=== PATIENT | female | born 1945 | race Caucasian/White ===

== ENCOUNTER 2019-05-31 13:12 | Emergency (ER) | payer OTHER, SELFPAY ==
--- NOTE | ~2019-05-31 | XR_ITS ---
EXAMINATION: XR lumbar spine 2-3V, XR hip BI 2V w AP pelvis DATE: 05/31/2019 16:13 (accession [id number]), 05/31/2019 16:14 (accession [id number]) INDICATION: Low back and bilateral hip pain TECHNIQUE: 1. Anteroposterior, lateral and cone-down lateral view of the lumbosacral junction were obtained. 2. Anteroposterior view of the pelvis and anteroposterior, frog leg lateral and crosstable lateral vi ews of the left hip and of the right hip were obtained. COMPARISON: None. FINDINGS: Lumbar spine: 13 degree dextroscoliosis between L3 and L5. 4 mm retrolisthesis L4 on L5 and 3 mm retrolisthesis L5 on S1. Vertebral body heights are normal. Severe left-sided disc height loss at L4-L5 and severe righ t-sided disc height loss at L5-S1. Mild disc height loss at L3-L4. Severe facet osteoarthritis on the right at L5-S1. There is calcified atherosclerosis of the aorta and many of the other arteries. Sten ting of the left and right common iliac arteries which on the left appears to extend into the proxima l external iliac artery. Pelvis and bilateral hips: Normal alignment at both hips. Mild bilateral hip and sacroiliac osteoarthritis. No fracture. Stentin g along the right femoral artery. IMPRESSION: 1. Severe lower lumbar spondylosis with mild dextroscoliosis. 2. Mild bilateral hip and sacroiliac osteoarthritis. Reviewed, dictated and finalized at location A. IL FURNITURE SALES IMPRESSION: 1. Severe lower lumbar spondylosis with mild dextroscoliosis. 2. Mild bilateral hip and sacroiliac osteoarthritis.
[2019-05-31 13:16] VITALS: BP 97/47; PULSE 60; RESP 18; TEMP 36.3; O2SAT 100
[2019-05-31 14:38] VITALS: BP 125/54; PULSE 57; RESP 18; TEMP 37; O2SAT 95
--- NOTE | 2019-05-31 15:41 | ED.LOWEXIN ---
HPI - Extremity Injury (Lower) General Chief Complaint: Extremity Injury, Lower Stated Complaint: fall, hip , leg pain Time Seen by Provider: 05/31/19 14:35 Source: patient and RN notes reviewed Mode of arrival: ambulatory Limitations: no limitations History of Present Illness HPI Narrative: A 73 y/o female presents to the ED with NICCI hip pain for the past week. She states that she fell off of her cough 1 week ago and has been having worsening NICCI hip pain since. She reports that the pain radiates down her legs and is more severe on the rt side. She notes that that pain is aggravated with movement and that she is on Plavix and Aspirin. She denies any fevers, chills, N/V/D, constipation, ABD pain, MARCOS, neck pain, or LOC. MD complaint: hip injury (NICCI) Onset (ago): week(s) (1) Injury: Bilateral: hip (worse on rt side) Type of Injury: other (fall) Place: home Exacerbating factors: movement Context: fall Associated symptoms: other (BLE pain radiated from hip pain) Other symptoms: none Related Data Home Medications Medication Instructions Recorded Confirmed Adults Multivitamin 05/31/19 Tylenol PM Extra Strength 05/31/19 albuterol sulfate 1 inh INHALATION QID 05/31/19 05/31/19 amlodipine 05/31/19 aspirin 05/31/19 atorvastatin 40 mg PO DAILY 05/31/19 05/31/19 calcium carbonate-vitamin D3 cap PO 05/31/19 carvedilol 25 mg PO BID 05/31/19 05/31/19 clopidogrel 75 mg PO DAILY 05/31/19 05/31/19 doxazosin 8 mg PO DAILY 05/31/19 05/31/19 ergocalciferol (vitamin D2) unit 05/31/19 [Vitamin D2] escitalopram oxalate mg 05/31/19 fenofibrate nanocrystallized mg PO 05/31/19 furosemide 40 mg PO DAILY 05/31/19 05/31/19 gabapentin 05/31/19 hydralazine 100 mg PO TID 05/31/19 05/31/19 isosorbide mononitrate 30 mg PO DAILY 05/31/19 05/31/19 loratadine 10 mg PO DAILY 05/31/19 05/31/19 losartan 05/31/19 melatonin 10 mg PO HS PRN 05/31/19 05/31/19 methimazole 5 mg PO DAILY 05/31/19 05/31/19 omeprazole magnesium [Acid Interface Control Officer 05/31/19 (omeprazole)] sucralfate g 05/31/19 tramadol mg 05/31/19 Allergies Allergy/AdvReac Type Severity Reaction Status Date / Time SAUL Inhibitors Allergy Unknown Verified 04/13/18 13:56 amoxicillin Allergy Unknown Verified 04/13/18 13:58 benazepril Allergy Unknown Verified 04/13/18 13:57 clarithromycin Allergy Unknown Verified 04/13/18 13:58 codeine Allergy Unknown Verified 04/13/18 13:56 hydrocodone Allergy Unknown Verified 04/13/18 13:57 lisinopril Allergy Unknown Verified 04/13/18 13:56 minoxidil Allergy Unknown Verified 04/13/18 13:56 oxycodone Allergy Unknown Verified 04/13/18 13:57 Penicillins Allergy Unknown Verified 04/13/18 13:56 SAUL Inhibitors Allergy Unknown Throat Uncoded 09/29/18 13:12 Swelling,Unknown Review of Systems Review of Systems: All systems reviewed & are unremarkable except as noted in HPI and below Constitutional: Constitutional: Denies chills and Denies fever(s) Gastrointestinal: Gastrointestinal: Denies abdominal pain, Denies constipation, Denies diarrhea, Denies nausea and Denies vomiting Musculoskeletal: Musculoskeletal: Denies neck pain and Reports other (NICCI hip pain that radiated down both legs (worst on rt side)) Neurologic: Denies headache(s) and Denies other (LOC) PMFSH Past Medical History Medical History (Updated 05/31/19 @ 17:43 by Lito Drake MD) Anemia (Acute) Anxiety (Acute) Cataracts, bilateral (Acute) CHF (congestive heart failure) (Acute) COPD (chronic obstructive pulmonary disease) (Acute) Depression (Acute) Dialysis patient (Acute) GERD (gastroesophageal reflux disease) (Acute) History of heart attack (Acute) History of rectal polyps (Acute) Hx of gout (Acute) Hypercholesteremia (Acute) Hypertension (Acute) Hypothyroid (Acute) Peripheral neuropathy (Acute) Pneumonia (Acute) Renal disease (Acute) Scoliosis (Acute) Ulcer (Acute) Surgical History Surgical History (Updated 05/31/19 @ 15:59 by Curly Mason) History of blad
[2019-05-31 16:21] VITALS: BP 145/55; PULSE 56; O2SAT 96
[2019-05-31 17:50] VITALS: BP 138/55; PULSE 58; O2SAT 98
== END 2019-05-31 17:52 | disposition home or self-care (01) ==
PROVIDERS: Emergency Provider Emergency Medicine; PCP Internal Medicine
DX: S30.0XXA Contusion of lower back and pelvis, initial encounter (principal); S70.01XA Contusion of right hip, initial encounter; I13.2 Hypertensive heart and chronic kidney disease with heart failure and with stage 5 chronic kidney disease, or end stage renal disease; N18.6 End stage renal disease; Z99.2 Dependence on renal dialysis; I50.9 Heart failure, unspecified; J44.9 Chronic obstructive pulmonary disease, unspecified; I25.2 Old myocardial infarction; E78.00 Pure hypercholesterolemia, unspecified; E03.9 Hypothyroidism, unspecified; G62.9 Polyneuropathy, unspecified; Z86.2 Personal history of diseases of the blood and blood-forming organs and certain disorders involving the immune mechanism; K21.9 Gastro-esophageal reflux disease without esophagitis; Z95.5 Presence of coronary angioplasty implant and graft; Z87.891 Personal history of nicotine dependence; H26.9 Unspecified cataract; Z79.82 Long term (current) use of aspirin; M47.818 Spondylosis without myelopathy or radiculopathy, sacral and sacrococcygeal region; M16.0 Bilateral primary osteoarthritis of hip; M47.812 Spondylosis without myelopathy or radiculopathy, cervical region; W19.XXXA Unspecified fall, initial encounter; Z79.02 Long term (current) use of antithrombotics/antiplatelets
CPT/HCPCS: 72100; 73521; 99284

== ENCOUNTER 2019-07-29 15:04 | Inpatient (IN) | payer OTHER, SELFPAY ==
[2019-07-29] VITALS (7 sets, daily range): BP systolic 103–164; BP diastolic 41–96; PULSE 67–74; RESP 14–21; TEMP 36.6; O2SAT 99–100
--- NOTE | ~2019-07-29 | XR_ITS ---
EXAMINATION: XR chest 2V DATE: 07/31/2019 22:08 INDICATION: New hypoxia TECHNIQUE: AP and lateral views of the chest are obtained. COMPARISON: 07/29/2019 FINDINGS: Airspace opacities have developed in the lung bases. Small pleural effusions are present. T here is no pneumothorax. The cardiomediastinal silhouette is normal. There is moderate thoracic spond ylosis. The nasogastric tube is in the stomach. IMPRESSION: 1. New airspace opacities of the lung bases, consistent with atelectasis versus pneumonia. Reviewed, dictated and finalized at location A. NG CLOSER
--- NOTE | ~2019-07-29 | XR_ITS ---
EXAMINATION: XR hip BI 2V w AP pelvis EXAM DATE: 07/29/2019 19:51 INDICATION: Initial encounter following injury, with pain of the hips. Fall. TECHNIQUE: Each hip imaged independently (separate right and also left hip) crosstable lateral and f rontal projections for interpretation. Frontal projection pelvis. Comparison is made to prior examin ation from 06/27/2019. FINDINGS: No radiographic evidence of hip avascular necrosis. There are no acute pelvic or hip fract ures or dislocations identified. There is no subcutaneous gas. There is mild symmetric bilateral hip primary osteoarthritis. Right superficial femoral, bilateral iliac arterial stents. Scattered vascul ar calcifications. IMPRESSION: 1. XR hip BI 2V w AP pelvis exam without acute osseous findings. Reviewed, dictated and finalized at location A. RONMENTAL AUDITOR
--- NOTE | ~2019-07-29 | XR_ITS ---
EXAMINATION: XR chest 2V EXAM DATE: 07/29/2019 19:51 INDICATION: Shortness of breath, several falls this week. Chest pain. TECHNIQUE: Frontal and lateral projections of the chest obtained and reviewed. Comparison is made to prior examination from 04/22/2019. FINDINGS: The lungs are clear. There are no pleural effusions. The cardiomediastinal silhouette is within normal limits. There is no pneumothorax suspected. Coronary artery stent. There is aortic ar terial sclerosis. IMPRESSION: No acute cardiopulmonary findings. Reviewed, dictated and finalized at location A. STED LIVING EXECUTIVE DIRECTOR
--- NOTE | ~2019-07-29 | XR_ITS ---
XR abdomen NG/feed tube insert DATE: 07/31/2019 13:19 INDICATION: Nasogastric tube placement. Nausea. TECHNIQUE: Portable AP view on 07/31/2019 at 1317 hours COMPARISON: None FINDINGS: The NG tube extends 10 cm into the body of the stomach. Cardiomegaly. Aortic atherosclerosis. Mild pulmonary vascular congestion and Fernando B-lines are noted, suggesting congestive changes. Diffuse osteopenia. IMPRESSION: NG tube in stomach Reviewed, dictated and finalized at Location A. Reviewed, dictated and finalized at location A. TH ASSOCIATE IMPRESSION: NG tube in stomach
--- NOTE | ~2019-07-29 | XR_ITS ---
EXAMINATION: XR abdomen NG/feed tube rechec EXAM DATE: 07/31/2019 20:55 INDICATION: Feeding tube repositioned. TECHNIQUE: Frontal projection(s) of the abdomen for interpretation. Comparison is made to prior exami nation from earlier same day. FINDINGS: Feeding tube tip and side-port project over gastric bubble. Nonobstructive upper abdominal bowel gas pattern. There are bony degenerative changes. IMPRESSION: Feeding tube in position. Reviewed, dictated and finalized at location A. STAFF IMPRESSION: Feeding tube in position.
--- NOTE | ~2019-07-29 | CT_ITS ---
EXAMINATION: CT abdomen pelvis wo con DATE: 07/31/2019 10:33 INDICATION: Abdominal pain TECHNIQUE: Computed tomography (CT) of the abdomen and pelvis was performed without intravenous contr ast. Automated exposure control and iterative reconstruction technique were employed. Exam dose: 425 .70 mGy-cm total exam DLP. COMPARISON: 04/20/2019 CTA abdomen pelvis FINDINGS: No consolidation at the lung bases. No pericardial or pleural effusion. Small sliding hiatal hernia. Stable 2.2 cm lateral segment left hepatic cyst since 04/20/2019. Small lower right hepatic cyst. Stable approximately 2.9 cm cyst near the pancreatic tail. The gallbladder is distended but no apparent gallbladder wall thickening or any pericholecystic fluid or inflammation is noted. No bile duct or pancreatic duct dilatation. Bilateral renal atrophy. Multiple bilateral renal probable cysts, stable since 04/20/2019 No urinary tract calculus or hydroureteronephrosis. The urinary bladder is unremarkable. Status post hysterectomy. There is extensive calcification of the abdominal aorta and branches. Left renal artery stent. Bilate ral iliac artery stents. Right femoral bypass graft. Large air-fluid level of the stomach. Diverticulosis of the colon; no CT evidence of diverticulitis. No bowel obstruction or intraperitoneal free air. Small fat-containing umbilical hernia. The liver, spleen, pancreas otherwise appear unremarkable. Diffuse osteopenia. Severe degenerative disease at L4-5. Moderate degenerative disease and mild retrolisthesis at L5-S1. No suspicious osteolytic or osteoblastic lesions are noted. IMPRESSION: Small sliding hiatal hernia Hepatic and bilateral renal cysts Stable 2.9 cm cyst near the tail the pancreas; differential diagnosis includes pseudocyst, intraducta l papillary mucinous neoplasm, mucinous cystic neoplasm NOS, serous cystadenoma and neuroendocrine tu mor. Bilateral renal atrophy Status post hysterectomy Extensive atherosclerosis of the abdominal aorta and branches; left renal bilateral iliac stents, rig ht femoral bypass graft Diverticulosis of the colon Reviewed, dictated and finalized at Location A. Reviewed, dictated and finalized at location A. EDMAN IMPRESSION: Small sliding hiatal hernia Hepatic and bilateral renal cysts Stable 2.9 cm cyst near the tail the pancreas; differential diagnosis includes pseudocyst, intraductal papillary mucinous neoplasm, mucinous cystic neoplasm N OS, serous cystadenoma and neuroendocrine tumor. Bilateral renal atrophy Status post hysterectomy Extensive atherosclerosis of the abdominal aorta and branches; left renal bilat eral iliac stents, right femoral bypass graft Diverticulosis of the colon
--- NOTE | ~2019-07-29 | CT_ITS ---
EXAMINATION: CT brain wo [facility] EXAM DATE: 07/29/2019 19:16 INDICATION: Syncope, posterior head injury. TECHNIQUE: Spiral CT of the head was performed without contrast. Axial, coronal and sagittal images were reviewed. The dose-length product (DLP) for this examination was 605.33 mGy-cm. The exposure w as tailored according to patient size, and iterative reconstruction (ASIR) was used as additional dos e reduction technique. Comparison is made to prior examination from 09/27/2018. FINDINGS: There is no acute intraparenchymal hemorrhage. No evidence of intraparenchymal brain mass lesion. No evidence of acute infarction. Please note that initial head CT has limited sensitivity f or small or acute infarctions. There is mild periventricular and subcortical hypodensity, nonspecific but probably related to small vessel ischemic disease. There is moderate prominence of the sulci a nd ventricles related to cerebral atrophy. There is intracranial carotid arteriosclerosis. There a re no extra-axial collections. There is no mass effect or midline shift. The orbits are unremarkabl e. Soft tissue is unremarkable. Trace left mastoid effusion. IMPRESSION: 1. No acute intracranial findings. 2. Chronic age related findings. Reviewed, dictated and finalized at location A. ING EQUIPMENT MECHANIC
--- NOTE | ~2019-07-29 | CT_ITS ---
EXAMINATION: CT brain wo con INDICATION: Confusion and abnormal speech COMPARISON: 07/29/2019 TECHNIQUE: Standard unenhanced head CT. The dose-length product (DLP) was 908.00 mGy-cm. The mA was a djusted according to patient size. Iterative reconstruction technique was employed. FINDINGS: There is no acute intraparenchymal hemorrhage. No evidence of mass lesion. No evidence of a cute infarction. There is mild periventricular and subcortical hypodensity probably related to small vessel ischemic disease. There is mild prominence of the sulci and ventricles related to cerebral atr ophy. Intracranial calcified cerebral atherosclerosis is noted. There are no extra-axial collections. There is no mass effect or midline shift. The orbits and soft tissues are unremarkable. The visuali zed sinuses and mastoid air cells are well aerated. IMPRESSION: 1. No acute intracranial abnormality. 2. Age related findings. Reviewed, dictated and finalized at location A. K CRANE OPERATOR
--- NOTE | ~2019-07-29 | XR_ITS ---
EXAMINATION: XR femur LT min 2V EXAM DATE: 07/29/2019 19:50 INDICATION: Left femur pain. TECHNIQUE: Left femur frontal and lateral projections of the proximal aspect, frontal and lateral pro jections of the lower aspect for review. Comparison is made to prior examination from 04/05/2014. FINDINGS: There are no acute left femur fractures or dislocations identified. There is no subcutaneo us gas. There are arterial calcifications, arteriosclerosis. There are no radiopaque foreign jakob s. IMPRESSION: 1. XR femur LT min 2V exam without acute osseous findings. Reviewed, dictated and finalized at location A. TRIC METER INSTALLER HELPER
--- NOTE | ~2019-07-29 | XR_ITS ---
EXAMINATION: XR shoulder RT min 2V EXAM DATE: 07/29/2019 19:51 INDICATION: Initial encounter following injury, with pain of the right shoulder. TECHNIQUE: The following right shoulder projections obtained: frontal projection with internal rotati on, frontal projection with external rotation, Grashey, and scapular Y view (4+ views). There is no prior study for comparison. FINDINGS: No evidence of right shoulder rotator cuff calcific tendinosis. There is mild to moderat e glenohumeral and acromioclavicular joint primary osteoarthritis. There are no acute fractures or di slocations identified. There is no subcutaneous gas. The soft tissue is unremarkable. There are n o radiopaque foreign bodies. There is aortic arterial sclerosis. IMPRESSION: 1. XR shoulder RT min 2V exam without acute osseous findings. Reviewed, dictated and finalized at location A. APPLIER
--- NOTE | 2019-07-29 15:16 | ECG_ITS ---
Measurements Intervals [place] Rate: 75 P: -8 WY: 107 QRS: 5 QRSD: 97 T: 35 QT: 432 QTc: 483 Interpretive Statements SINUS RHYTHM WITH SHORT W[place] INTERVAL BASELINE ARTIFACT- II, III, AVF BORDERLINE ECG Electronically Signed On 07-29-2019 16:51:05 ALTERATION TAILOR APPRENTICE by Bharath Mares D.O.
[2019-07-29 15:42] LABS: Basophils Percent Auto 0.2 % (0.2-1.2); Eosinophils Absolute Auto 0.2 K/mm3 (0-0.3); Eosinophils Percent Auto 2.3 % (0-4.4); Hematocrit 34.5 % (37.0-47.0); Hemoglobin 11.2 g/dL (12.0-15.0); Immature Granulocyte Absolute 0.04 K/mm3 (0.00-0.031); Immature Granulocyte Percent A 0.4 % (0-0.5); Lymphocytes Percent Auto 20.8 % (18.3-44.2); Mean Corpuscular HGB Conc 32.5 g/dl (32-36); Mean Corpuscular Volume 104.9 fl (80-100); Mean Platelet Volume 11.2 fl (7.4-10.4); Monocytes Absolute Auto 0.8 K/mm3 (0.1-0.6); Monocytes Percent Auto 9.1 % (2.6-8.5); Neutrophils Absolute Auto 6.2 K/mm3 (1.3-6.7); Neutrophils Percent Auto 67.2 % (45.5-73.1); Platelet Count Result 148 k/mm3 (150-375); Red Blood Count 3.29 M/mm3 (4.2-5.4); Red Cell Distribution Width 13.1 % (11.5-14.5); White Blood Count 9.2 K/mm3 (4.5-10.0)
[2019-07-29 15:55] LABS: Blood Urea Nitrogen 28 mg/dL (7-17); Calcium 9.7 mg/dL (8.4-10.2); Carbon Dioxide 18 mmol/L (22-30); Chloride 100 mmol/L (98-107); Estimated CRCL calculation 9 ml/min; Estimated Glomerular Filt Rate 10; Glucose 82 mg/dL (65-105); Potassium 4.2 mmol/L (3.4-5.0); Sodium 136 mmol/L (137-145)
--- NOTE | 2019-07-29 18:08 | ED.SYNCOPE ---
HPI - Syncope General Chief Complaint: Syncope Stated Complaint: feels like she is going to pass out Time Seen by Provider: 07/29/19 17:59 Source: patient and other (Pt's pediatrics physician) Mode of arrival: ambulatory Limitations: no limitations History of Present Illness HPI narrative: The pt is a 74 y/o female who presents to the ED c/o syncope onset today. Pt's pediatrics physician states that for the last couple of days, the pt has been lightheaded. The pt states that today, she had experienced some ABD pain for five minutes that scared her since she thought it could be related to sciatica, so she got up. Her pediatrics physician states that the pt was diaphoretic as well. Pt states that she went to the bathroom, and when she came out, she began to feel weak. She states that she tried to grab onto the wall next to her. Next thing she knew, she awoke in the [address] after striking her head. She notes that she takes anticoagulants. Pt states that she has experienced a bruise and pain to her upper RUE. The pt reports occipital MARCOS, but denies N/V/D. Her pediatrics physician notes that she recently had an MRI performed to determine whether or not she had sciatica. The pt notes that her vocational case manager is Dr. Cruz. complaint: loss of consciousness (Syncope) Prodromal symptoms: other (Weakness) Witnessed: No Context: other (Leaving her bathroom) Injuries sustained associated with event: head Current symptoms: lightheaded (Onset couple of days ago), headache, abdominal pain (Resolved, onset prior to episode today for about 5 minutes) and other (Upper RUE pain, upper RUE bruising, diaphoresis (Resolved, onset today prior to episode)) Related Data Home Medications Medication Instructions Recorded Confirmed Adults Multivitamin 05/31/19 Tylenol PM Extra Strength 05/31/19 albuterol sulfate 1 inh INHALATION QID 05/31/19 05/31/19 amlodipine 05/31/19 aspirin 05/31/19 atorvastatin 40 mg PO DAILY 05/31/19 05/31/19 calcium carbonate-vitamin D3 cap PO 05/31/19 clopidogrel 75 mg PO DAILY 05/31/19 05/31/19 doxazosin 8 mg PO DAILY 05/31/19 05/31/19 ergocalciferol (vitamin D2) unit 05/31/19 [Vitamin D2] fenofibrate nanocrystallized mg PO 05/31/19 furosemide 40 mg PO DAILY 05/31/19 05/31/19 isosorbide mononitrate 30 mg PO DAILY 05/31/19 05/31/19 loratadine 10 mg PO DAILY 05/31/19 05/31/19 losartan 05/31/19 melatonin 10 mg PO HS PRN 05/31/19 05/31/19 omeprazole magnesium [Acid Technology Lead 05/31/19 (omeprazole)] sucralfate g 05/31/19 tramadol mg 05/31/19 cilostazol 50 mg tablet 50 mg PO BID 07/21/19 Allergies Allergy/AdvReac Type Severity Reaction Status Date / Time SAUL Inhibitors Allergy Unknown Verified 06/16/19 11:08 amoxicillin Allergy Unknown Verified 06/16/19 11:08 benazepril Allergy Unknown Verified 06/16/19 11:08 clarithromycin Allergy Unknown Verified 06/16/19 11:08 codeine Allergy Unknown Verified 06/16/19 11:08 hydrocodone Allergy Unknown Verified 06/16/19 11:08 lisinopril Allergy Unknown Verified 06/16/19 11:08 minoxidil Allergy Unknown Verified 06/16/19 11:08 oxycodone Allergy Unknown Verified 06/16/19 11:08 Penicillins Allergy Unknown Verified 06/16/19 11:08 SAUL Inhibitors Allergy Unknown Throat Uncoded 06/16/19 11:08 Swelling,Unknown Review of Systems Review of Systems: All systems reviewed & are unremarkable except as noted in HPI and below Cardiovascular: Cardiovascular: Reports diaphoresis (Resolved, onset prior to episode) Gastrointestinal: Gastrointestinal: Reports abdominal pain (Resolved, onset today prior to episode for 5 minutes), Denies diarrhea, Denies nausea and Denies vomiting Musculoskeletal: Musculoskeletal: Reports other (Upper RUE pain) Neurologic: Reports headache(s) (Occipital), Reports weakness (Resolved) and Reports other (Lightheadedness (Onset couple of days ago), head injury ,syncope (Resolved)) Hematologic/Lymphatic: Hematologic/Lymphatic: Reports other (Upper RUE bruising) PMFSH Past Medical Histor
[2019-07-29 18:58] LABS: Lactic Acid Reflex 1.5 mmol/L (0.7-2.1)
[2019-07-29 19:11] LABS: Troponin I 0.021 ng/mL (0.000-0.034)
[2019-07-29] MEDS: ONDANSETRON INJ 4 MG/2 ML VIAL IV PUSH (21:14)
[2019-07-29] MEDS: MORPHINE SULFATE 4 MG/ML INJ IV PUSH ×2 (21:14→23:24)
[2019-07-30] VITALS (27 sets, daily range): BP systolic 129–232; BP diastolic 47–117; PULSE 61–84; RESP 14–22; TEMP 35.5–37.2; O2SAT 93–100; BMI 25.4
--- NOTE | 2019-07-30 00:51 | ADMGEN ---
This patient, Sandra Mccollum, was admitted to [address] [facility] [place] @ 0015. Patient/family oriented to hospital policies and general routines including ID bracelet, bed and alarms, visiting hours, pain management, procedures, bathroom and other care routines, personal items, smoking policy, room service/diet, and visiting hours. Valuables list has been completed. Information on how to activate the Rapid Response Team has been discussed. Patient/Family are encouraged to report perceived risks to care and to ask questions if they do not understand what they are told or what they should do.
[2019-07-30 03:16] LABS: Basophils Percent Auto 0.3 % (0.2-1.2); Eosinophils Absolute Auto 0.2 K/mm3 (0-0.3); Eosinophils Percent Auto 2.6 % (0-4.4); Hematocrit 32.6 % (37.0-47.0); Hemoglobin 10.7 g/dL (12.0-15.0); Immature Granulocyte Absolute 0.03 K/mm3 (0.00-0.031); Immature Granulocyte Percent A 0.4 % (0-0.5); Lymphocytes Percent Auto 21.6 % (18.3-44.2); Mean Corpuscular HGB Conc 32.8 g/dl (32-36); Mean Corpuscular Hemoglobin 34.4 pg (26-34); Mean Corpuscular Volume 104.8 fl (80-100); Mean Platelet Volume 11.2 fl (7.4-10.4); Monocytes Absolute Auto 0.8 K/mm3 (0.1-0.6); Monocytes Percent Auto 10.9 % (2.6-8.5); Neutrophils Absolute Auto 4.5 K/mm3 (1.3-6.7); Neutrophils Percent Auto 64.2 % (45.5-73.1); Platelet Count Result 127 k/mm3 (150-375); Red Blood Count 3.11 M/mm3 (4.2-5.4); Red Cell Distribution Width 13.2 % (11.5-14.5)
[2019-07-30 03:29] LABS: Alanine Aminotransferase 15 U/L (4-35); Albumin Level 3.4 g/dL (3.5-5.1); Alkaline Phosphatase 107 U/L (38-126); Aspartate Amino Transferase 20 U/L (14-36); Bilirubin,Total 0.5 mg/dL (0.2-1.3); Blood Urea Nitrogen 34 mg/dL (7-17); Calcium 9.4 mg/dL (8.4-10.2); Carbon Dioxide 20 mmol/L (22-30); Chloride 100 mmol/L (98-107); Estimated CRCL calculation 7 ml/min; Estimated Glomerular Filt Rate 8; Glucose 205 mg/dL (65-105); Potassium 3.8 mmol/L (3.4-5.0); Sodium 134 mmol/L (137-145)
--- NOTE | 2019-07-30 05:47 | PC.NURSE ---
At 0330 offered her IV Tylenol and K-pad. She refused both. She was not interested with either at this time.
--- NOTE | 2019-07-30 08:43 | PM.IMHP ---
H&P: HPI History of Present Illness Chief complaint: syncope Narrative: Sandra Mccollum is a 74 year old female with ESRD on HD here for syncope and fall. Patient is alert and oriented but has some difficulty providing a temporal history. Around , the patient had an episode where she slid off the couch on to the floor. She denies LOC but developed significant low back and hip pain. Since then, she has cecily having siginificant wekaness with falls. R>L leg pain but Denies numbness and tingling in the extremities. She has had multiple hip x-rays that have been negative for fracture. She ultimately saw orthopedist and Wayne who ordered a lumbar spine MRI was completed on July 27. This showed advance lumbar spondylosis with L5-S1 and moderate to severe right neural foraminal stenosis. Patient lives alone. She is post to use a walker but cannot maneuver the walker in her small apartment especially in the bathroom. Yesterday morning, while walking out of the bathroom, patient fell into the door jam injuring her right shoulder. She had a sensation that she was going to fall then woke on the floor. She believes she only had a syncopal episode for few seconds. There is no tongue biting, post event confusion or urine incontinence. Patient is on dialysis but does make some urine. She complains of occipital head pain from where she struck her head. She has a slight headache. She has been eating normally. No nausea or vomiting. She has occasional diarrhea. No complaints of chest pain but does have this chronic ' tightness' upper abdomen below the ribcage associated with shortness of breath. It usually lasts a few seconds. She has been told this is related to her COPD. She has not had a new medications. She denies any chest pain. Patient was able to scoot to the couch and get up on the couch. she called a neighbor who recommended the patient go to the emergency room. Patient was able to stand and walk to the car and was taken to the emergency room by private vehicle. In the emergency room patient blood pressure was 103/41. There are blood pressures with patient sitting and lying but not standing. She is treated with Zofran and morphine and acetaminophen. She was admitted for further care. Review of Systems Review of Systems: Narrative: Gen - No fever or chills Eye - no double vision or vision changes.She has bilateral cataracts ENT - no hearing loss, odynophagia or dysphagia. she complains of dry mouth CV - no chest pain or palpitation Pulm - patient with shortness of breath with activity. She does require oxygen dialysis at times. She does not wear oxygen home. GI - no nausea, vomiting. She does have occasional diarrhea - no dysuria or hematuria. she is compliant with the dialysis on Thursday, and Thursday. She does make some urine. Neuro - As above Endo - no weight loss. she has a history of diabetes and checks her glucose twice a week. Psych - Her mood is ' so-so'. she denies any suicidal homicide ideation. She is been more sad recently because daughter in March from cancer. [facility] Past Medical History Medical History Anemia Due to end-stage renal disease Anxiety CAD (coronary artery disease) stenting to the LAD and RCA in 2011. Last LHC in September 2018 showing patent vessels but small diagonal 100% Cataracts, bilateral CHF (congestive heart failure) echo in April 2019 showing EF 40-45% and grade 2 diastolic dysfunction COPD (chronic obstructive pulmonary disease) Depression Diabetes mellitus A1c 5.7 in September 2018 Dialysis patient Thursday. has been on dialysis since October 2018 GERD (gastroesophageal reflux disease) History of heart attack History of rectal polyps Hx of gout Hypercholesteremia Hypertension Hyperthyroidism Low back pain Mitral regurgitation echo in April 2019 showing moderate MR PAD (peripheral
[2019-07-30 12:45] LABS: Glucose Point of Care 179 (65-105)
--- NOTE | 2019-07-30 13:52 | PM.CNNEP ---
Assessment and Plan Assessment and plan (1) Syncope: Qualifiers: Syncope type: unspecified Qualified Code(s): R55 - Syncope and collapse Code(s): R55 - Syncope and collapse Status: Acute Assessment and Plan: The patient apparently had a syncopal episode. She had no are a or incontinence at the no history of seizure disorders She does have severe hypertension. She did recently have renal vascular stenting. Perhaps she does not need as much blood pressure medicine as she used to. I do not think her blood pressures are dropping inordinately low at dialysis however when she gets to the emergency room her blood pressure was only 110. With her history of severe hypertension possibly she would do better at a systolic between 130 and 140. And perhaps and she had the renal vascular stenting she needs less medication. Right now her blood pressure meds are on hold. I will order orthostatic blood pressure readings for every day. It will take a little while for all of her blood pressure medicine to wear off but as it rises we can fold in 1 medicine at a time. Perhaps the carvedilol and then nifedipine will be reasonable to start 1st. Will leave the doxazosin and the clonidine for last. (2) Hypertension: Qualifiers: Hypertension type: essential hypertension Qualified Code(s): I10 - Essential (primary) hypertension Code(s): I10 - Essential (primary) hypertension Status: Acute Assessment and Plan: Blood pressure is under pretty good control right now. We will follow this on. We will check orthostatic blood pressure readings. (3) Anemia: Qualifiers: Anemia type: due to chronic kidney disease Chronic kidney disease stage: on chronic dialysis Qualified Code(s): N18.6 - End stage renal disease; D63.1 - Anemia in chronic kidney disease; Z99.2 - Dependence on renal dialysis Code(s): D64.9 - Anemia, unspecified Status: Acute Assessment and Plan: Hemoglobin is doing pretty well at 10.7. Certainly this is not contributing to her frequency. Will give Epogen. (4) COPD (chronic obstructive pulmonary disease): Qualifiers: COPD type: unspecified COPD Qualified Code(s): J44.9 - Chronic obstructive pulmonary disease, unspecified Code(s): J44.9 - Chronic obstructive pulmonary disease, unspecified Status: Acute Assessment and Plan: The patient is getting supportive care. This seems well compensated. (5) Diabetes mellitus: Qualifiers: Diabetes mellitus type: type 2 Diabetes mellitus penitentiary insulin use: without salvage determiner use Diabetes mellitus complication status: with kidney complications Diabetes mellitus complication detail: with chronic kidney disease Chronic kidney disease stage: on chronic dialysis Qualified Code(s): E11.22 - Type 2 diabetes mellitus with diabetic chronic kidney disease; N18.6 - End stage renal disease; Z99.2 - Dependence on renal dialysis Code(s): E11.9 - Type 2 diabetes mellitus without complications Status: Acute Assessment and Plan: On Accu-Cheks and sliding-scale insulin (6) ESRD (end stage renal disease) on dialysis: Code(s): N18.6 - End stage renal disease; Z99.2 - Dependence on renal dialysis Status: Acute Assessment and Plan: She is due for dialysis today. Orders have been written. History of Present Illness Reason for Consult Consult date: 07/30/19 Chief Complaint Chief complaint: syncope History of Present Illness Narrative: Sandra is a very pleasant 74-year-old lady who has multiple medical problems including end-stage renal disease on dialysis 3 times a week, hypertension, peripheral vascular disease status post bilateral lower extremity stents, renal artery stents, severe stenosis of the SMA, coronary artery disease status post stents in 2011, congestive heart failure with an ejection fraction of 40%, moderate mitral regurgitation, d
[2019-07-30] MEDS: ALBUTEROL SULFATE (*SP) AEROSOL 1 PUFF INHALATION (18:14)
[2019-07-30 19:07] LABS: Hepatitis B Surface Antigen Negative (Negative)
[2019-07-30 19:24] LABS: Hepatitis B Surface Anti Res Negative
--- NOTE | 2019-07-30 21:28 | PC.NURSE ---
Pt finished with dialysis. Transported per bed into room. BP elevated Romi HAMMONDS has been notified. She is reviewing chart and entering new orders.
[2019-07-30] MEDS: ONDANSETRON INJ 4 MG/2 ML VIAL IV PUSH (21:45)
[2019-07-30] MEDS: busPIRone HCL 10 MG TABLET PO (21:52)
[2019-07-30] MEDS: LORATADINE 10 MG TABLET PO (21:52)
[2019-07-30] MEDS: MELATONIN 5 MG TABLET 10 MG PO (21:53)
[2019-07-30] MEDS: cilostazoL 100 MG TABLET PO (21:53)
[2019-07-30] MEDS: GABAPENTIN 100 MG CAPSULE PO (21:53)
[2019-07-30 22:10] LABS: Glucose Point of Care 101 (65-105)
--- NOTE | 2019-07-30 22:15 | ECG_ITS ---
Measurements Intervals [place] Rate: 76 P: 68 IN: 127 QRS: 22 QRSD: 112 T: 67 QT: 431 QTc: 485 Interpretive Statements SINUS RHYTHM INTRAVENTRICULAR CONDUCTION DELAY BASELINE ARTIFACT- I, II, III, AVR, AVL, AVF, V1-V6 BORDERLINE ECG Electronically Signed On 07-31-2019 7:18:09 BULK SEALER OPERATOR by Bharath Mares D.O.
[2019-07-30 22:18] LABS: Glucose Point of Care 111 (65-105)
--- NOTE | 2019-07-30 22:40 | P.PNCROSS_ITS ---
Event Note Event Note Event Note: S: Patient returned from dialysis ?just not feeling right.? She r eports that earlier today, time frame on clear, that she had a squeezing discomfort diffusely throughout the upper abdomen/low sternum. Apparently this is not unusual and she has been told is probably related to her COPD. It seemed to be brief and had no associated symptoms. At this time she is diaphoretic, and says that will sometimes happen when she is anxious. She is also complaining of bilateral hip and lower leg pain that she attributes to a fall a couple of weeks ago. She denies shortness of breath but he seems to be hyperventilating slightly and complains of cramping in her fingers and hands. She denies fever, headache, neck ache, chest pain, shortness of breath, nausea, and vomiting. O: Patient appears slightly anxious and is mildly diaphoretic. Hands slightly tremulous. Heart is regular rate and rhythm. Most recent blood pressure 176/75. Accu-Chek 111. Oxygen saturations 100% on room air. No edema. Positive bowel sounds. Intact peripheral pulses. Left upper extremity fistula noted. A: Anxiety and upper abdomen/low sternal pain earlier today. P: Will obtain EKG and monitor on telemetry. Sent troponin x1. Check TSH and T4 given history of hyperthyroidism.
[2019-07-30 23:09] LABS: Hematocrit 37.2 % (37.0-47.0); Hemoglobin 12.1 g/dL (12.0-15.0); Immature Platelet Fraction Pct 4.5 % (0.9-11.2); Mean Corpuscular HGB Conc 32.5 g/dl (32-36); Mean Corpuscular Hemoglobin 34.2 pg (26-34); Mean Corpuscular Volume 105.1 fl (80-100); Mean Platelet Volume 11.3 fl (7.4-10.4); Platelet Count Result 122 k/mm3 (150-375); Red Blood Count 3.54 M/mm3 (4.2-5.4); White Blood Count 8.5 K/mm3 (4.5-10.0)
[2019-07-30 23:29] LABS: Alanine Aminotransferase 14 U/L (4-35); Albumin Level 3.8 g/dL (3.5-5.1); Alkaline Phosphatase 129 U/L (38-126); Aspartate Amino Transferase 25 U/L (14-36); Blood Urea Nitrogen 9 mg/dL (7-17); Calcium 9.5 mg/dL (8.4-10.2); Carbon Dioxide 21 mmol/L (22-30); Chloride 94 mmol/L (98-107); Estimated CRCL calculation 17 ml/min; Estimated Glomerular Filt Rate 22; Glucose 122 mg/dL (65-105); Potassium 3.7 mmol/L (3.4-5.0); Sodium 133 mmol/L (137-145)
[2019-07-30 23:48] LABS: Troponin I 0.049 ng/mL (0.000-0.034)
[2019-07-30 23:53] LABS: Thyroid Stimulating Hormone < 0.015 uIU/mL (0.465-4.680)
[2019-07-31] VITALS (23 sets, daily range): BP systolic 135–179; BP diastolic 65–89; PULSE 81–125; RESP 18–36; TEMP 35.7–36.7; O2SAT 94–100
--- NOTE | 2019-07-31 | ECHO_ITS ---
Patient Info Name: Sandra Mccollum Age: 74 years : 1945 Gender: Female Ht: 63 in Wt: 144 lbs BSA: 1.72 m2 HR: 120 bpm BP: 173 / 81 mmHg Heart Rhythm: Sinus Rhythm Technical Quality: Poor Exam Date: 07/31/2019 11:16 AM Exam Location: [facility] Patient Status: Outpatient Admit Date: 07/29/2019 Staff Ordering Physician: Karl Eller MD Horser Up: Tiarra Curiel RDCS Attending Provider: Rip Swanson MD Referring Physician: Daphnie ROSENTHAL; Exam Type: CA echo doppler color flow Study Info no iv. Complete two-dimensional, color flow and Doppler transthoracic echocardiogram is performed. Reason for Poor Study: poor patient cooperation Summary 1. Left ventricular chamber dimension is mildly enlarged. 2. Left ventricular systolic function is normal, estimated at 65-70%. 3. There is mildly increased left ventricular wall thickness. 4. The left ventricular diastolic function is grade II diastolic dysfunction. 5. The apical septum, apical cap, basal inferolateral wall, and mid inferolateral wall are hypokinetic. 6. Left atrial chamber dimension is moderately enlarged. 7. There is moderate to severe mitral valve regurgitation. Left Ventricle Left ventricular chamber dimension is mildly enlarged. Left ventricular systolic function is normal, estimated at 65-70%. There is mildly increased left ventricular wall thickness. The left ventricular diastolic function is grade II diastolic dysfunction. The apical septum, apical cap, basal inferolateral wall, and mid inferolateral wall are hypokinetic. All other munson appear normal. Right Ventricle Right ventricular chamber dimension is normal. Right ventricular systolic function is normal. Left Atria Left atrial chamber dimension is moderately enlarged. Right Atria Right atrial chamber dimension is normal. Aortic Valve The aortic valve is trileaflet. There is mild aortic valve sclerosis. There is no aortic valve stenosis. There is trace aortic valve regurgitation. Pulmonic Valve The pulmonic valve is normal. There is no pulmonic valve stenosis. There is trace pulmonic regurgitation. Mitral Valve The mitral valve has calcified annulus. There is no mitral valve stenosis. There is moderate to severe mitral valve regurgitation. Tricuspid Valve The tricuspid valve leaflets are normal. There is no significant tricuspid valve stenosis. There is trace tricuspid valve regurgitation. Pericardium/Pleural The pericardium appears normal. There is no pericardial effusion. Aorta The aortic root size at the sinus of Valsalva is normal. Left Ventricular Outflow Tract Name Value Normal LVOT 2D LVOT Diameter 2.2 cm LVOT Doppler LVOT Peak Velocity 99 cm/s LVOT Peak Gradient 4 mmHg LVOT Mean Gradient 1 mmHg LVOT VTI 18 cm LVOT VTI/AV VTI Ratio 0.8 LVOT Stroke Volume 71 ml LVOT CO 7.3 l/min
[2019-07-31 00:35] LABS: Free T4 Free Thyroxine 2.67 ng/mL (0.78-2.19)
[2019-07-31 02:31] LABS: Hemoglobin 12.3 g/dL (12.0-15.0); Mean Corpuscular HGB Conc 32.4 g/dl (32-36); Mean Corpuscular Hemoglobin 34.1 pg (26-34); Mean Corpuscular Volume 105.3 fl (80-100); Mean Platelet Volume 11.8 fl (7.4-10.4); Platelet Count Result 147 k/mm3 (150-375); Red Blood Count 3.61 M/mm3 (4.2-5.4); White Blood Count 12.4 K/mm3 (4.5-10.0)
[2019-07-31 02:37] LABS: Hemoglobin A1C 5.8 % (<5.7)
[2019-07-31 02:38] LABS: Albumin Level 4.2 g/dL (3.5-5.1); Blood Urea Nitrogen 13 mg/dL (7-17); Calcium 10.1 mg/dL (8.4-10.2); Carbon Dioxide 19 mmol/L (22-30); Chloride 93 mmol/L (98-107); Estimated CRCL calculation 14 ml/min; Estimated Glomerular Filt Rate 17; Glucose 182 mg/dL (65-105); Phosphorus 2.8 mg/dL (2.5-4.5); Potassium 4.1 mmol/L (3.4-5.0); Sodium 133 mmol/L (137-145)
[2019-07-31 02:56] LABS: Troponin I 0.278 ng/mL (0.000-0.034)
[2019-07-31] MEDS: ALBUTEROL SULFATE (*SP) AEROSOL 1 PUFF INHALATION ×3 (03:20→11:58)
[2019-07-31] MEDS: NITROGLYCERIN SL 0.4 MG TABLET SUBLINGUAL (03:25)
[2019-07-31] MEDS: ONDANSETRON INJ 4 MG/2 ML VIAL IV PUSH ×4 (03:33→20:03)
[2019-07-31 03:54] LABS: Folic Acid > 20.0 ng/mL (2.76->20); Vitamin B12 > 1000.0 pg/mL (239-931)
[2019-07-31] MEDS: MORPHINE SULFATE 2 MG/ML INJ IV PUSH (04:35)
[2019-07-31 04:53] LABS: Thyroid Stimulating Hormone Reflex < 0.015 uIU/mL (0.465-4.68)
--- NOTE | 2019-07-31 06:55 | ECG_ITS ---
Measurements Intervals [place] Rate: 95 P: 69 IN: 131 QRS: 28 QRSD: 113 T: 70 QT: 409 QTc: 515 Interpretive Statements SINUS RHYTHM INTRAVENTRICULAR CONDUCTION DELAY BASELINE ARTIFACT- II, III, AVF BORDERLINE ECG Electronically Signed On 07-31-2019 7:22:15 SURVEY RESEARCH CENTER DIRECTOR by Bharath Mares D.O.
[2019-07-31] MEDS: NITROGLYCERIN OINTMENT 1 INCH DOSE TRANSDERM (07:19)
--- NOTE | 2019-07-31 07:20 | PM.IMPN ---
Progress Note: A&P Assessment and Plan (1) Non-ST elevation [place] (NSTEMI): Code(s): I21.4 - Non-ST elevation (NSTEMI) myocardial infarction Status: Acute (2) Nausea & vomiting: Qualifiers: Vomiting Intractability: intractable Vomiting type: unspecified Qualified Code(s): R11.2 - Nausea with vomiting, unspecified Code(s): R11.2 - Nausea with vomiting, unspecified Status: Acute (3) Syncope: Qualifiers: Syncope type: unspecified Qualified Code(s): R55 - Syncope and collapse Code(s): R55 - Syncope and collapse Status: Acute (4) Hypertension: Qualifiers: Hypertension type: essential hypertension Qualified Code(s): I10 - Essential (primary) hypertension Code(s): I10 - Essential (primary) hypertension Status: Acute (5) Diabetes mellitus: Qualifiers: Chronic kidney disease stage: on chronic dialysis Diabetes mellitus complication detail: with chronic kidney disease Diabetes mellitus complication status: with kidney complications Diabetes mellitus watcher automat long goods insulin use: without watcher automat long goods use Diabetes mellitus type: type 2 Qualified Code(s): E11.22 - Type 2 diabetes mellitus with diabetic chronic kidney disease; N18.6 - End stage renal disease; Z99.2 - Dependence on renal dialysis Code(s): E11.9 - Type 2 diabetes mellitus without complications Status: Acute (6) ESRD (end stage renal disease) on dialysis: Code(s): N18.6 - End stage renal disease; Z99.2 - Dependence on renal dialysis Status: Acute (7) COPD (chronic obstructive pulmonary disease): Qualifiers: COPD type: unspecified COPD Qualified Code(s): J44.9 - Chronic obstructive pulmonary disease, unspecified Code(s): J44.9 - Chronic obstructive pulmonary disease, unspecified Status: Acute (8) Anemia: Qualifiers: Anemia type: due to chronic kidney disease Chronic kidney disease stage: on chronic dialysis Qualified Code(s): N18.6 - End stage renal disease; D63.1 - Anemia in chronic kidney disease; Z99.2 - Dependence on renal dialysis Code(s): D64.9 - Anemia, unspecified Status: Acute (9) Low back pain: Qualifiers: Back pain laterality: bilateral Chronicity: chronic Sciatica presence: without sciatica Qualified Code(s): M54.5 - Low back pain; G89.29 - Other chronic pain Code(s): M54.5 - Low back pain Status: Acute Additional Plan 07/30/19 -- Patient has been admitted to the 2nd medical floor. Clinically, patient appears to be dehydrated. Given her history, concerned about dehydration. Home medication list is incomplete but it does appear that she takes a diuretic. Nephrology has been consulted. Patient is due for dialysis today. May not need to remove any fluid however. Resume home medications when list becomes available. Will start PT and OT. Repeat orthostatic vital signs including standing blood pressure. Will continue telemetry. TRC consult. Care coordination consult for possible SNF. SCDs for DVT prophylaxis. Start sliding scale protocol. Will check a TSH. will use non narcotics for her chronic low back pain. I believe her lumbar disease is the etiology of her weakness and pain in her legs and hips. Continue IV acetaminophen for now. 07/31/19 -- Patient with CP, diaphoresis and nausea. Could be related to severe hypertensive episode during HD. NTP has been added. Move to IMU. Cardiology has been consulted. Echo ordered. Trop has been repeated. Add back Coreg. Add back anti-HTN meds as needed. TSH undetectable and FT4 slightly elevated. Will clarify if patient taking her methimazole before advancing. Called back to the room with patient having persistent nausea and worsening upper abd pain. She has increased epigastric pain to palpation and nausea. Could be gastric ulcer - perforation? Will check CT A/P. NPO for now. Change to Protonix IV. Patient seen again.
--- NOTE | 2019-07-31 07:45 | PC.NURSE ---
This patient, Sandra Mccollum, was transferred to [IMU ] on 07/31/19 at 0746. Personal belongings sent with patient. Belongings list checked and signed with receiving IMU. Report given to Leatha SIDDIQUI. Appropriate documentation sent with patient.
--- NOTE | 2019-07-31 07:49 | PC.NURSE ---
At 0710 Dr. Swanson is at bedside. He wants Patient transferred to IMU.
--- NOTE | 2019-07-31 08:00 | PC.NURSE ---
Unable to obtain. Patient has severe nausea/vomiting and is having labored breathing.
--- NOTE | 2019-07-31 08:07 | PC.NURSE ---
This patient, Sandra Mccollum, was received from [facility] on 07/31/19 at 0752. Personal belongings list checked and signed. Patient/family oriented to unit policies and routines
[2019-07-31 08:42] LABS: Glucose Point of Care 144 (65-105)
[2019-07-31] MEDS: PANTOPRAZOLE SODIUM IV 40 MG VIAL IV PUSH ×2 (11:29→22:18)
[2019-07-31 12:49] LABS: Glucose Point of Care 145 (65-105)
[2019-07-31 13:19] LABS: Basophils Percent Auto 0.1 % (0.2-1.2); Eosinophils Absolute Auto 0.1 K/mm3 (0-0.3); Eosinophils Percent Auto 0.4 % (0-4.4); Hematocrit 38.9 % (37.0-47.0); Hemoglobin 12.5 g/dL (12.0-15.0); Immature Granulocyte Absolute 0.09 K/mm3 (0.00-0.031); Immature Granulocyte Percent A 0.6 % (0-0.5); Lymphocytes Absolute Auto 2.06 K/mm3 (0.9-3.2); Lymphocytes Percent Auto 13.2 % (18.3-44.2); Mean Corpuscular HGB Conc 32.1 g/dl (32-36); Mean Corpuscular Hemoglobin 34.1 pg (26-34); Mean Platelet Volume 12.3 fl (7.4-10.4); Monocytes Absolute Auto 1.4 K/mm3 (0.1-0.6); Monocytes Percent Auto 8.9 % (2.6-8.5); Neutrophils Percent Auto 76.8 % (45.5-73.1); Platelet Count Result 176 k/mm3 (150-375); Red Blood Count 3.67 M/mm3 (4.2-5.4); Red Cell Distribution Width 13.1 % (11.5-14.5); White Blood Count 15.7 K/mm3 (4.5-10.0)
[2019-07-31] MEDS: METOPROLOL TARTRATE INJ 5 MG/5 ML VIAL IV PUSH ×2 (13:22→17:13)
--- NOTE | 2019-07-31 13:23 | PCPTNOTE ---
Pt transferred to IMU from [facility]...today experiencing significant GI problems... issued HOLD orders for Pt/OT
[2019-07-31 13:31] LABS: Prothrombin Time 12.5 Seconds (11.1-14.7)
[2019-07-31 13:32] LABS: Partial Thromboplastin Time 28.8 SECONDS (22.3-36.8)
[2019-07-31] MEDS: HEPARIN SODIUM 5,000 UNITS/ML VIAL 4000 UNITS IV PUSH (13:51)
[2019-07-31] MEDS: LORAZEPAM INJ 2 MG/ML VIAL 0.5 MG IV PUSH ×2 (13:51→21:12)
[2019-07-31] MEDS: HEPARIN SOD/D5W 100 UNITS/ML 25,000 UNITS/250 ML BAG 7 UNITS IV CONT (13:54)
--- NOTE | 2019-07-31 14:10 | PM.PNNEP ---
Progress Note: A&P Assessment and Plan (1) Syncope: Qualifiers: Syncope type: unspecified Qualified Code(s): R55 - Syncope and collapse Code(s): R55 - Syncope and collapse Status: Acute Assessment and Plan: The patient apparently had a syncopal episode. (2) Hypertension: Qualifiers: Hypertension type: essential hypertension Qualified Code(s): I10 - Essential (primary) hypertension Code(s): I10 - Essential (primary) hypertension Status: Acute Assessment and Plan: Blood pressure is back up. She is in distress which would at some to this. However her blood pressure is very high. Will restart some blood pressure meds. She has an NG tube in so will give her topical meds and IV p.r.n.. (3) Anemia: Qualifiers: Anemia type: due to chronic kidney disease Chronic kidney disease stage: on chronic dialysis Qualified Code(s): N18.6 - End stage renal disease; D63.1 - Anemia in chronic kidney disease; Z99.2 - Dependence on renal dialysis Code(s): D64.9 - Anemia, unspecified Status: Acute Assessment and Plan: Hemoglobin is stable. Will stop the Epogen. (4) COPD (chronic obstructive pulmonary disease): Qualifiers: COPD type: unspecified COPD Qualified Code(s): J44.9 - Chronic obstructive pulmonary disease, unspecified Code(s): J44.9 - Chronic obstructive pulmonary disease, unspecified Status: Acute Assessment and Plan: The patient is getting supportive care. This seems well compensated. (5) Diabetes mellitus: Qualifiers: Diabetes mellitus type: type 2 Diabetes mellitus superintendent terminal insulin use: without superintendent terminal use Diabetes mellitus complication status: with kidney complications Diabetes mellitus complication detail: with chronic kidney disease Chronic kidney disease stage: on chronic dialysis Qualified Code(s): E11.22 - Type 2 diabetes mellitus with diabetic chronic kidney disease; N18.6 - End stage renal disease; Z99.2 - Dependence on renal dialysis Code(s): E11.9 - Type 2 diabetes mellitus without complications Status: Acute Assessment and Plan: On Accu-Cheks and sliding-scale insulin (6) ESRD (end stage renal disease) on dialysis: Code(s): N18.6 - End stage renal disease; Z99.2 - Dependence on renal dialysis Status: Acute Assessment and Plan: She is due for dialysis on Thursday. (7) Nausea & vomiting: Qualifiers: Vomiting type: unspecified Vomiting Intractability: intractable Qualified Code(s): R11.2 - Nausea with vomiting, unspecified Code(s): R11.2 - Nausea with vomiting, unspecified Status: Acute Assessment and Plan: NG tube is in. She is getting medications. CT of the abdomen is unremarkable. discussed with Dr Swanson. Subjective Date/time seen: 07/31/19 14:10 Interval history: Patient is alert. She feels worse today. She has nausea and vomiting. No diarrhea. She has some left-sided belly pain. She has an NG tube in now. She has received Zofran. Nurse is going to give her a Phenergan suppository now. Review of Systems Cardiovascular: Cardiovascular: Reports no additional cardiovascular complaints Respiratory: Respiratory: Reports no additional respiratory complaints Gastrointestinal: Gastrointestinal: Reports no additional gastrointestinal complaints Genitourinary: Genitourinary: Reports no additional female genitourinary complaints Exam Narrative: Exam Narrative: Well developed well-nourished in no acute distress Lungs clear Heart regular without rub Abdomen bowel sounds positive and hypoactive. Soft. Some tenderness on the left side. No guarding. Extremities no edema Skin no rash Objective Data Vital Signs Vital Signs: Vital Signs - 24 hr 07/30/19 14:59 07/30/19 15:00 07/30/19 16:00 Temperature 36.1 C L 36.9 C Pulse Rate 62 67 63 Pulse Rate [Radial] 61
[2019-07-31 15:05] LABS: Lactic Acid Reflex 1.5 mmol/L (0.7-2.1)
[2019-07-31] MEDS: ASPIRIN 300 MG SUPPOSITORY RECTAL (15:08)
[2019-07-31 17:47] LABS: Glucose Point of Care 187 (65-105)
[2019-07-31 19:34] LABS: Free T4 Free Thyroxine Reflex 2.52 ng/dL (0.78-2.19)
[2019-07-31 20:17] LABS: Partial Thromboplastin Time 76.8 SECONDS (22.3-36.8)
--- NOTE | 2019-07-31 20:34 | ECG_ITS ---
Measurements Intervals [place] Rate: 113 P: 78 AL: 134 QRS: 2 QRSD: 101 T: 74 QT: 341 QTc: 468 Interpretive Statements SINUS TACHYCARDIA BORDERLINE ST-T WAVE ABNORMALITY- LATERAL LEADS BASELINE ARTIFACT- I, III, AVL, V3, V6 ABNORMAL ECG Electronically Signed On 08-01-2019 6:50:42 ADVANCED REGISTERED NURSE by Bharath Mares D.O.
[2019-07-31] MEDS: PROMETHAZINE HCL 12.5 MG SUPP.RECT RECTAL (21:10)
--- NOTE | 2019-07-31 21:35 | P.PNCROSS_ITS ---
Event Note Event Note Event Note: I was called by nursing staff to evaluate the patient shortly before 9:00 p.m.. The patient had transient neurologic change. When nursing staff would ask patient to questions she would repeat a random unrelated word. She was demonstrating left-sided neglect. After couple of minutes the patient's speech had returned to baseline and she was able to move both upper extremities equally. Patient was transferred to the IMU today due to elevated troponins. She has been having intractable nausea and vomiting abdominal pain and through her stay and had a CT of the abdomen pelvis this morning that demonstrated dilated stomach without evidence of bowel obstruction. The patient had NG tube placed. Nursing staff reports that the NG tube was draining brown material. However through the process of the patient's neurologic change and retching the NG a got pulled out slightly. Nursing staff advanced the NG at which time they got about 30 mL of bright red blood. But the blood rapidly cleared and the patient's gastric drainage was light green in color. KUB was obtained which demonstrated NG placement was appropriate. She has had a good amount of drainage from her NG since it was advanced. The patient again complains of generalized pain pain in her arms and in her abdomen. However where she was reporting tightness in her lower chest and upper abdomen earlier this morning she is now complaining of periumbilical tenderness. Her abdomen is soft but with generalized tenderness to palpation. She was mildly tachypneic. She was quite anxious and had some difficulty focusing. However at the time my evaluation her cranial nerves were grossly intact, speech was fluent with appropriate content, patient was able to do [id number] bilaterally without difficulty wants she was repeatedly prompted. Due to the intractable retching a Phenergan suppository was given and the patient received a dose of Ativan. After these medications the patient calmed significantly and was resting more comfortably. However after Ativan the Ativan once the patient was not tach ypneic her taking deep of respirations she did become hypoxic and required 4 L nasal cannula. Given the patient's neurologic changes and blood out the NG tube the patient's heparin drip has been held. Will send the patient for a stat CT of the head to rule out intercranial bleed or other acute process, while she is down and radiology have requested a two view chest x-ray to evaluate the patient 's hypoxia. With the patient having had intractable nausea and vomiting and the fact that the patient's white count has become more elevated pneumonia is certainly a possibility. A repeat CBC with differential and BMP as well as troponin have been ordered. 35 minutes
[2019-07-31 21:54] LABS: Glucose Point of Care 186 (65-105)
[2019-07-31 22:20] LABS: Basophils Percent Auto 0.2 % (0.2-1.2); Hematocrit 35.7 % (37.0-47.0); Hemoglobin 11.3 g/dL (12.0-15.0); Immature Granulocyte Absolute 0.06 K/mm3 (0.00-0.031); Immature Granulocyte Percent A 0.5 % (0-0.5); Lymphocytes Absolute Auto 0.77 K/mm3 (0.9-3.2); Mean Corpuscular HGB Conc 31.7 g/dl (32-36); Mean Corpuscular Hemoglobin 34.3 pg (26-34); Mean Corpuscular Volume 108.5 fl (80-100); Mean Platelet Volume 11.7 fl (7.4-10.4); Monocytes Absolute Auto 0.6 K/mm3 (0.1-0.6); Monocytes Percent Auto 4.9 % (2.6-8.5); Neutrophils Absolute Auto 11.4 K/mm3 (1.3-6.7); Neutrophils Percent Auto 88.4 % (45.5-73.1); Platelet Count Result 145 k/mm3 (150-375); Red Blood Count 3.29 M/mm3 (4.2-5.4); Red Cell Distribution Width 13.2 % (11.5-14.5); White Blood Count 12.9 K/mm3 (4.5-10.0)
[2019-07-31 22:30] LABS: Anisocytosis 1+ (NORMAL); Ovalocytes 1+ (NORMAL); Platelet Estimate Adequate (Adequate); Stomatocytes 1+ (NORMAL)
[2019-07-31 22:34] LABS: Blood Urea Nitrogen 28 mg/dL (7-17); Calcium 9.9 mg/dL (8.4-10.2); Carbon Dioxide 24 mmol/L (22-30); Chloride 94 mmol/L (98-107); Estimated CRCL calculation 8 ml/min; Estimated Glomerular Filt Rate 9; Glucose 185 mg/dL (65-105); Potassium 4.6 mmol/L (3.4-5.0); Sodium 138 mmol/L (137-145)
[2019-08-01] VITALS (21 sets, daily range): BP systolic 143–161; BP diastolic 69–87; PULSE 98–128; RESP 18–21; TEMP 35.9–36.9; O2SAT 91–99
[2019-08-01] MEDS: METOPROLOL TARTRATE INJ 5 MG/5 ML VIAL IV PUSH ×5 (00:14→23:53)
[2019-08-01 05:17] LABS: Basophils Percent Auto 0.1 % (0.2-1.2); Eosinophils Percent Auto 0.1 % (0-4.4); Hematocrit 34.9 % (37.0-47.0); Hemoglobin 10.9 g/dL (12.0-15.0); Immature Granulocyte Absolute 0.08 K/mm3 (0.00-0.031); Immature Granulocyte Percent A 0.6 % (0-0.5); Lymphocytes Absolute Auto 1.15 K/mm3 (0.9-3.2); Lymphocytes Percent Auto 8.3 % (18.3-44.2); Mean Corpuscular HGB Conc 31.2 g/dl (32-36); Mean Corpuscular Hemoglobin 34.3 pg (26-34); Mean Corpuscular Volume 109.7 fl (80-100); Mean Platelet Volume 11.9 fl (7.4-10.4); Monocytes Absolute Auto 0.8 K/mm3 (0.1-0.6); Monocytes Percent Auto 5.6 % (2.6-8.5); Neutrophils Absolute Auto 11.9 K/mm3 (1.3-6.7); Neutrophils Percent Auto 85.3 % (45.5-73.1); Platelet Count Result 141 k/mm3 (150-375); Red Blood Count 3.18 M/mm3 (4.2-5.4); Red Cell Distribution Width 13.2 % (11.5-14.5); White Blood Count 13.9 K/mm3 (4.5-10.0)
[2019-08-01] MEDS: LORAZEPAM INJ 2 MG/ML VIAL 0.5 MG IV PUSH ×3 (05:28→21:05)
[2019-08-01 05:30] LABS: Partial Thromboplastin Time 51.9 SECONDS (22.3-36.8)
[2019-08-01 05:34] LABS: Albumin Level 3.8 g/dL (3.5-5.1); Blood Urea Nitrogen 34 mg/dL (7-17); Calcium 9.3 mg/dL (8.4-10.2); Carbon Dioxide 29 mmol/L (22-30); Chloride 94 mmol/L (98-107); Estimated CRCL calculation 7 ml/min; Estimated Glomerular Filt Rate 8; Glucose 159 mg/dL (65-105); Phosphorus 7.3 mg/dL (2.5-4.5); Potassium 4.5 mmol/L (3.4-5.0); Sodium 138 mmol/L (137-145)
[2019-08-01] MEDS: HEPARIN SODIUM 5,000 UNITS/ML VIAL 4000 UNITS IV PUSH (05:39)
[2019-08-01] MEDS: PROMETHAZINE HCL 12.5 MG SUPP.RECT RECTAL (07:40)
[2019-08-01] MEDS: ASPIRIN 300 MG SUPPOSITORY RECTAL (07:41)
[2019-08-01] MEDS: PANTOPRAZOLE SODIUM IV 40 MG VIAL IV PUSH ×2 (07:41→20:39)
[2019-08-01 08:04] LABS: Glucose Point of Care 167 (65-105)
--- NOTE | 2019-08-01 08:53 | PC.NURSE ---
Pt not following commands to obtain orthostatic blood pressures.
--- NOTE | 2019-08-01 09:37 | PM.CNCAR ---
Assessment and Plan Assessment and plan (1) Nausea & vomiting: Qualifiers: Vomiting Intractability: intractable Vomiting type: unspecified Qualified Code(s): R11.2 - Nausea with vomiting, unspecified Code(s): R11.2 - Nausea with vomiting, unspecified Status: Acute Assessment and Plan: Management per PC (2) Anemia: Qualifiers: Anemia type: due to chronic kidney disease Chronic kidney disease stage: on chronic dialysis Qualified Code(s): N18.6 - End stage renal disease; D63.1 - Anemia in chronic kidney disease; Z99.2 - Dependence on renal dialysis Code(s): D64.9 - Anemia, unspecified Status: Acute (3) Hypertension: Qualifiers: Hypertension type: essential hypertension Qualified Code(s): I10 - Essential (primary) hypertension Code(s): I10 - Essential (primary) hypertension Status: Acute Assessment and Plan: currently well controlled cont meds (4) Diabetes mellitus: Qualifiers: Chronic kidney disease stage: on chronic dialysis Diabetes mellitus complication detail: with chronic kidney disease Diabetes mellitus complication status: with kidney complications Diabetes mellitus ferry terminal supervisor insulin use: without shelter use Diabetes mellitus type: type 2 Qualified Code(s): E11.22 - Type 2 diabetes mellitus with diabetic chronic kidney disease; N18.6 - End stage renal disease; Z99.2 - Dependence on renal dialysis Code(s): E11.9 - Type 2 diabetes mellitus without complications Status: Acute Assessment and Plan: management per PC (5) Syncope: Qualifiers: Syncope type: unspecified Qualified Code(s): R55 - Syncope and collapse Code(s): R55 - Syncope and collapse Status: Acute (6) ESRD (end stage renal disease) on dialysis: Code(s): N18.6 - End stage renal disease; Z99.2 - Dependence on renal dialysis Status: Acute Assessment and Plan: nephrology fu (7) Troponin level elevated: Code(s): R79.89 - Other specified abnormal findings of blood chemistry Status: Acute Assessment and Plan: pt was found to have elevated troponin levels in setting of elevated WBC and CRI no acute EKG changes, no CP possible causes could be NSTEMI and sepsis recent cath showed patent stents and no CAD ECHO showed norml LV systolic function (LVEF 65-70%) CXR showed possibility of pneumonia, probably aspiration agree with Heparin and iv Metoprolol monitor on telemetry (8) Elevated WBC count: Code(s): D72.829 - Elevated white blood cell count, unspecified Status: Acute Assessment and Plan: possible aspiration pneumonia in setting of syncope and N/V management per PC Thank you for consult. Michael ray History of Present Illness History of Present Illness Consult date/time: 08/01/19 09:37 Mrs. Mccollum is a pleasant WF with PMH of CRI on HD, CAD s/p PCI (2011), s/p AR, HTN, HLD who presented to [facility] on 07/29/19 after syncopal episode. Pt is a poor historian and history is obtained predominantly from medical records, her hedge trimmer and nursing staff. According to records pt experienced abdominal pain, went to bathrom and afterwards had syncopal episode. She fell and hit her head as well as RUE. Pt denied any CP, SOB or palpitations. According to her hedge trimmer pt had episodes of profuse sweating recently as well as complained for some dizziness. Pt does have significant DJD and complains for back pain as well. Pt had episodes of N/V and chills on/off for about 1 month. Pt was diagnosed with aspiration pneumonia and started on antibiotics per her nurse. Yesterday NG tube was placed. Review of records revealed that pt had cath done in 02/21 which showed patent stents and no significant CAD. Pt was seen and examined, chart was reviewed, case was d/w pt's hedge trimmer and her nurse. Reason For Visit: syncope Review of Systems Review of Syste
[2019-08-01 12:27] LABS: Partial Thromboplastin Time 139.1 SECONDS (22.3-36.8)
[2019-08-01 12:54] LABS: Glucose Point of Care 177 (65-105)
--- NOTE | 2019-08-01 14:07 | WPDGICN ---
Assessment and Plan Assessment and plan (1) Nausea & vomiting: Qualifiers: Vomiting type: unspecified Vomiting Intractability: intractable Qualified Code(s): R11.2 - Nausea with vomiting, unspecified Code(s): R11.2 - Nausea with vomiting, unspecified Status: Acute Assessment and Plan: ngt in place, soft abdomen by physicial exam. She is sick and just had NSTEMI, also could have been from uremia, diabetes, etc. Medical management for now with iv protonix, antiemetics prn, ok to have clear liquid as tolerated and we will reassess. No EGD given acute cardiac event. (2) Non-ST elevation [place] (NSTEMI): Code(s): I21.4 - Non-ST elevation (NSTEMI) myocardial infarction Status: Acute Assessment and Plan: by cardiology (3) Anemia: Qualifiers: Anemia type: due to chronic kidney disease Chronic kidney disease stage: on chronic dialysis Qualified Code(s): N18.6 - End stage renal disease; D63.1 - Anemia in chronic kidney disease; Z99.2 - Dependence on renal dialysis Code(s): D64.9 - Anemia, unspecified Status: Acute Assessment and Plan: chronic, renal failure (4) ESRD (end stage renal disease) on dialysis: Code(s): N18.6 - End stage renal disease; Z99.2 - Dependence on renal dialysis Status: Acute Assessment and Plan: on dialysis (5) Syncope: Qualifiers: Syncope type: unspecified Qualified Code(s): R55 - Syncope and collapse Code(s): R55 - Syncope and collapse Status: Acute Assessment and Plan: work up by primary team (6) Diabetes mellitus: Qualifiers: Diabetes mellitus type: type 2 Diabetes mellitus watermaster insulin use: without watermaster use Diabetes mellitus complication status: with kidney complications Diabetes mellitus complication detail: with chronic kidney disease Chronic kidney disease stage: on chronic dialysis Qualified Code(s): E11.22 - Type 2 diabetes mellitus with diabetic chronic kidney disease; N18.6 - End stage renal disease; Z99.2 - Dependence on renal dialysis Code(s): E11.9 - Type 2 diabetes mellitus without complications Status: Acute (7) Troponin level elevated: Code(s): R79.89 - Other specified abnormal findings of blood chemistry Status: Acute GI Consult Note Consult date/time: 08/01/19 14:07 reason for consult: nausea and vomiting HPI: Sandra Mccollum is a 74 year old female history of ESRD on dialysis, falls who is a poor historian thus history is also obtained from medical records and nursing staff. She was admitted after she had an episode of syncope when she was in the bathroom. She also was complaining of nausea and vomiting and NGT was placed, no signs of bleeding, no report of melena. CT scan showed large air-fluid level of the stomach. Diverticulosis of the colon; no CT evidence of diverticulitis. No bowel obstruction or intraperitoneal free air. Overnight she was confused, CXR showed possible aspiration vs atelectasis, also elevated troponin at 4 therefore cardiology was consulted, now on plavix and heparin gtt. Review of Systems Constitutional: Constitutional: Reports fatigue and Reports frequent falls Eyes: Eyes: Denies blurry vision ENT: Denies dysphagia Cardiovascular: Cardiovascular: Reports dyspnea on exertion Respiratory: Respiratory: Reports dyspnea on exertion Gastrointestinal: Gastrointestinal: Reports nausea and Reports vomiting Neurologic: Reports syncope Psychiatric: Psychiatric: Reports anxiety Endocrine: Endocrine: Reports fatigue Hematologic/Lymphatic: Hematologic/Lymphatic: Denies lymphadenopathy Allergic/Immunologic: Allergic/Immunologic: Denies urticaria PMFSH Past Medical History Medical History Anemia Due to end-stage renal disease Anxiety CAD (coronary artery disease) stenting to the LAD and RCA in 2011. Last C in September 2018 s
--- NOTE | 2019-08-01 15:54 | PM.IMPN ---
Progress Note: A&P Assessment and Plan (1) Non-ST elevation [place] (NSTEMI): Code(s): I21.4 - Non-ST elevation (NSTEMI) myocardial infarction Status: Acute (2) Nausea & vomiting: Qualifiers: Vomiting Intractability: intractable Vomiting type: unspecified Qualified Code(s): R11.2 - Nausea with vomiting, unspecified Code(s): R11.2 - Nausea with vomiting, unspecified Status: Acute (3) Syncope: Qualifiers: Syncope type: unspecified Qualified Code(s): R55 - Syncope and collapse Code(s): R55 - Syncope and collapse Status: Acute (4) Hypertension: Qualifiers: Hypertension type: essential hypertension Qualified Code(s): I10 - Essential (primary) hypertension Code(s): I10 - Essential (primary) hypertension Status: Acute (5) Diabetes mellitus: Qualifiers: Chronic kidney disease stage: on chronic dialysis Diabetes mellitus complication detail: with chronic kidney disease Diabetes mellitus complication status: with kidney complications Diabetes mellitus rn long term care insulin use: without rn long term care use Diabetes mellitus type: type 2 Qualified Code(s): E11.22 - Type 2 diabetes mellitus with diabetic chronic kidney disease; N18.6 - End stage renal disease; Z99.2 - Dependence on renal dialysis Code(s): E11.9 - Type 2 diabetes mellitus without complications Status: Acute (6) ESRD (end stage renal disease) on dialysis: Code(s): N18.6 - End stage renal disease; Z99.2 - Dependence on renal dialysis Status: Acute (7) COPD (chronic obstructive pulmonary disease): Qualifiers: COPD type: unspecified COPD Qualified Code(s): J44.9 - Chronic obstructive pulmonary disease, unspecified Code(s): J44.9 - Chronic obstructive pulmonary disease, unspecified Status: Acute (8) Anemia: Qualifiers: Anemia type: due to chronic kidney disease Chronic kidney disease stage: on chronic dialysis Qualified Code(s): N18.6 - End stage renal disease; D63.1 - Anemia in chronic kidney disease; Z99.2 - Dependence on renal dialysis Code(s): D64.9 - Anemia, unspecified Status: Acute (9) Low back pain: Qualifiers: Back pain laterality: bilateral Chronicity: chronic Sciatica presence: without sciatica Qualified Code(s): M54.5 - Low back pain; G89.29 - Other chronic pain Code(s): M54.5 - Low back pain Status: Acute (10) Transient alteration of awareness: Code(s): R40.4 - Transient alteration of awareness Status: Acute Additional Plan 07/30/19 -- Patient has been admitted to the 2nd medical floor. Clinically, patient appears to be dehydrated. Given her history, concerned about dehydration. Home medication list is incomplete but it does appear that she takes a diuretic. Nephrology has been consulted. Patient is due for dialysis today. May not need to remove any fluid however. Resume home medications when list becomes available. Will start PT and OT. Repeat orthostatic vital signs including standing blood pressure. Will continue telemetry. TRC consult. Care coordination consult for possible SNF. SCDs for DVT prophylaxis. Start sliding scale protocol. Will check a TSH. will use non narcotics for her chronic low back pain. I believe her lumbar disease is the etiology of her weakness and pain in her legs and hips. Continue IV acetaminophen for now. 07/31/19 -- Patient with CP, diaphoresis and nausea. Could be related to severe hypertensive episode during HD. NTP has been added. Move to IMU. Cardiology has been consulted. Echo ordered. Trop has been repeated. Add back Coreg. Add back anti-HTN meds as needed. TSH undetectable and FT4 slightly elevated. Will clarify if patient taking her methimazole before advancing. Called back to the room with patient having persistent nausea and worsening upper abd pain. She has increased epigastric pain to palpation and nausea
[2019-08-01 16:46] LABS: Glucose Point of Care 227 (65-105)
[2019-08-01] MEDS: INSULIN ASPART (*BKC) 100 UNITS/ML SUB-Q (16:54)
--- NOTE | 2019-08-01 18:14 | PM.PNNEP ---
Progress Note: A&P Assessment and Plan (1) ESRD (end stage renal disease) on dialysis: Code(s): N18.6 - End stage renal disease; Z99.2 - Dependence on renal dialysis Status: Acute Assessment and Plan: HD tomorrow after cardiac catheterization continue T/T/S schedule while hospitalized follow electrolytes, volume status, and clearance (2) Non-ST elevation [place] (NSTEMI): Code(s): I21.4 - Non-ST elevation (NSTEMI) myocardial infarction Status: Acute Assessment and Plan: troponins noted Cardiology following cardiac catheterization tomorrow (3) Hypertension: Qualifiers: Hypertension type: essential hypertension Qualified Code(s): I10 - Essential (primary) hypertension Code(s): I10 - Essential (primary) hypertension Status: Acute Assessment and Plan: blood pressure somewhat erratic back on some BP medications follow trend of hemodynamics (4) Anemia: Qualifiers: Anemia type: due to chronic kidney disease Chronic kidney disease stage: on chronic dialysis Qualified Code(s): N18.6 - End stage renal disease; D63.1 - Anemia in chronic kidney disease; Z99.2 - Dependence on renal dialysis Code(s): D64.9 - Anemia, unspecified Status: Acute Assessment and Plan: due to ESRD follow trend of H/H dose Epogen with HD as needed (5) COPD (chronic obstructive pulmonary disease): Qualifiers: COPD type: unspecified COPD Qualified Code(s): J44.9 - Chronic obstructive pulmonary disease, unspecified Code(s): J44.9 - Chronic obstructive pulmonary disease, unspecified Status: Acute Assessment and Plan: appears compensated continue supportive therapy (6) Nausea & vomiting: Qualifiers: Vomiting Intractability: intractable Vomiting type: unspecified Qualified Code(s): R11.2 - Nausea with vomiting, unspecified Code(s): R11.2 - Nausea with vomiting, unspecified Status: Acute Assessment and Plan: improving(?) NG tube clamped tolerating some oral intake CT of the abdomen is unremarkable Will continue to follow Subjective Date/time seen: 08/01/19 18:14 Apparently was scheduled for cardiac catheterization today but this has been rescheduled for tomorrow; reportedly some issues with confusion overnight but seems better this afternoon. Still having issues with nausea but able to tolerate some oral intake today; NG tube currently clamped.still. Exam Narrative: Exam Narrative: General: WD/WN female in NAD Heart: normal S1 and S2; no rub Lungs: a few bibasilar crackles Abdomen: soft, nontender, mild TTP, positive bowel sounds Extremities: no cyanosis or clubbing; no edema Skin: warm and dry Objective Data Vital Signs Vital Signs: Vital Signs Temp Pulse Resp BP Pulse Ox 08/01/19 17:45 104 H 08/01/19 16:52 36.6 C 107 H 21 H 148/79 H 96 08/01/19 16:40 108 H 08/01/19 16:00 108 H 08/01/19 14:00 114 H 08/01/19 12:55 36.5 C 114 H 20 160/87 H 91 08/01/19 12:00 119 H 08/01/19 11:44 128 H 08/01/19 10:00 115 H 08/01/19 08:23 35.9 C L 104 H 21 H 161/83 H 99 08/01/19 08:00 110 H 08/01/19 06:31 103 H 08/01/19 06:23 153/79 H 08/01/19 06:00 105 H 08/01/19 04:00 36.8 C 101 H 18 150/75 H 98 08/01/19 02:00 98 08/01/19 00:14 100 08/01/19 00:00 36.9 C 98 20 143/69 H 99 07/31/19 23:02 102 H 20 144/88 H 97 07/31/19 22:17 105 H 18 139/73 98 07/31/19 22:00 107 H 07/31/19 21:30 18 166/80 H 94 07/31/19 20:30 116 H 24 H 175/87 H 99 07/31/19 20:00 36.7 C 107 H 18 145/75 H 98 Intake/Output Intake/Output: Intake & Output 07/29/19 07/30/19 07/31/19 08/01/19 23:59 23:59 23:59 23:59 Intake Total 100 1240 100 285 Output Total 550 875 250 Balance 100 690 -775 35 Meds/Results Medications: Active Medications Gene
[2019-08-01 20:23] LABS: Glucose Point of Care 146 (65-105)
[2019-08-01 20:24] LABS: Partial Thromboplastin Time 55.3 SECONDS (22.3-36.8)
[2019-08-01] MEDS: HEPARIN SODIUM 5,000 UNITS/ML VIAL 2500 UNITS IV PUSH (20:43)
[2019-08-02] VITALS (36 sets, daily range): BP systolic 131–182; BP diastolic 79–150; PULSE 93–129; RESP 13–22; TEMP 35.6–37; O2SAT 93–100
[2019-08-02] MEDS: HEPARIN SOD/D5W 100 UNITS/ML 25,000 UNITS/250 ML BAG 8 UNITS IV CONT (01:08)
[2019-08-02 03:15] LABS: Hematocrit 33.1 % (37.0-47.0); Hemoglobin 10.3 g/dL (12.0-15.0); Mean Corpuscular HGB Conc 31.1 g/dl (32-36); Mean Corpuscular Hemoglobin 33.8 pg (26-34); Mean Corpuscular Volume 108.5 fl (80-100); Mean Platelet Volume 12.4 fl (7.4-10.4); Platelet Count Result 145 k/mm3 (150-375); Red Blood Count 3.05 M/mm3 (4.2-5.4); Red Cell Distribution Width 13.2 % (11.5-14.5); White Blood Count 13.9 K/mm3 (4.5-10.0)
[2019-08-02 03:22] LABS: Albumin Level 3.7 g/dL (3.5-5.1); Blood Urea Nitrogen 50 mg/dL (7-17); Calcium 8.8 mg/dL (8.4-10.2); Carbon Dioxide 27 mmol/L (22-30); Chloride 91 mmol/L (98-107); Estimated CRCL calculation 6 ml/min; Estimated Glomerular Filt Rate 6; Glucose 153 mg/dL (65-105); Magnesium 1.8 mg/dL (1.6-2.3); Phosphorus 6.6 mg/dL (2.5-4.5); Potassium 4.2 mmol/L (3.4-5.0); Sodium 134 mmol/L (137-145)
[2019-08-02 03:23] LABS: Partial Thromboplastin Time 57.3 SECONDS (22.3-36.8)
[2019-08-02] MEDS: HEPARIN SODIUM 5,000 UNITS/ML VIAL 2500 UNITS IV PUSH (03:49)
[2019-08-02] MEDS: LORAZEPAM INJ 2 MG/ML VIAL 0.5 MG IV PUSH ×3 (04:11→20:11)
[2019-08-02] MEDS: ONDANSETRON INJ 4 MG/2 ML VIAL IV PUSH ×2 (04:16→09:40)
[2019-08-02] MEDS: PROMETHAZINE HCL 12.5 MG SUPP.RECT RECTAL (04:34)
[2019-08-02] MEDS: METOPROLOL TARTRATE INJ 5 MG/5 ML VIAL IV PUSH ×4 (05:21→23:34)
[2019-08-02] MEDS: PANTOPRAZOLE SODIUM IV 40 MG VIAL IV PUSH ×2 (08:00→20:10)
[2019-08-02 08:54] LABS: Glucose Point of Care 161 (65-105)
--- NOTE | 2019-08-02 10:05 | PM.PNCARD ---
Progress Note: A&P Assessment and Plan (1) Non-ST elevation UT (NSTEMI): Code(s): I21.4 - Non-ST elevation (NSTEMI) myocardial infarction Status: Acute Assessment and Plan: Troponin is at 4, has not peaked yet. Will repeat till peak Trop elevation is in the setting of GI illness, uncontrolled HTN, leukocytosisand as well as ESRD on HD no acute EKG changes, no CP She has recent similar presentation and had LHC in Feb 2019 with patent LAD stent and non obstructive disease She was treated for UT with IV heparin. Will d/c today around noon (complet 48 hours) 2D echo showed EF improved compared to last study. On my review of images no regional wall motion abnormalities noted Continue ASA. She feels very poorly now with nausea/dry heaving. NG tube in place. Will hold off repeating cath for now. Will follow. (2) Nausea & vomiting: Qualifiers: Vomiting Intractability: intractable Vomiting type: unspecified Qualified Code(s): R11.2 - Nausea with vomiting, unspecified Code(s): R11.2 - Nausea with vomiting, unspecified Status: Acute Assessment and Plan: Remains symptoamtic. Appears to have significant output from NG tube. CT with no acute findings. (3) Hypertension: Qualifiers: Hypertension type: essential hypertension Qualified Code(s): I10 - Essential (primary) hypertension Code(s): I10 - Essential (primary) hypertension Status: Acute Assessment and Plan: Elevated, in the setting of not being able to tolerate PO meds with NG tube in place. Resume antihypertensives as soon as pt tolerating PO. May use IV BB or Hydralazine meanwhile (4) Diabetes mellitus: Qualifiers: Chronic kidney disease stage: on chronic dialysis Diabetes mellitus complication detail: with chronic kidney disease Diabetes mellitus complication status: with kidney complications Diabetes mellitus intermediate insulin use: without intermediate use Diabetes mellitus type: type 2 Qualified Code(s): E11.22 - Type 2 diabetes mellitus with diabetic chronic kidney disease; N18.6 - End stage renal disease; Z99.2 - Dependence on renal dialysis Code(s): E11.9 - Type 2 diabetes mellitus without complications Status: Acute Assessment and Plan: management per PC (5) Syncope: Qualifiers: Syncope type: unspecified Qualified Code(s): R55 - Syncope and collapse Code(s): R55 - Syncope and collapse Status: Acute Assessment and Plan: Possibly related to dehydration with nausea/vomiting (6) ESRD (end stage renal disease) on dialysis: Code(s): N18.6 - End stage renal disease; Z99.2 - Dependence on renal dialysis Status: Acute Assessment and Plan: nephrology fu Subjective Date/time seen: 08/02/19 10:05 Continues to feel poorly with nausea. Denies chest pain. Review of Systems Review of Systems: All systems reviewed & are unremarkable except as noted in HPI and below Constitutional: Constitutional: Reports fatigue and Denies headache(s) Eyes: Eyes: Denies blurry vision ENT: Reports Normal hearing present and Denies headache(s) Cardiovascular: Cardiovascular: Denies chest pain, Denies diaphoresis, Denies pedal edema, Denies leg edema, Denies lightheadedness, Denies palpitations and Denies dyspnea Respiratory: Respiratory: Denies cough and Denies dyspnea Gastrointestinal: Gastrointestinal: Denies abdominal pain, Reports bloating, Reports nausea and Reports hematemesis Musculoskeletal: Musculoskeletal: Denies back pain Neurologic: Reports Normal hearing present and Denies headache(s) Psychiatric: Psychiatric: Denies anxiety Endocrine: Endocrine: Denies fatigue and Denies palpitations Exam Const: General: no acute distress, alert and awake; No acute distress Other: Frail but Alert and oriented. In no distress NG tube noted HENMT: Head: normal to inspection and atraumatic Ears: hearing grossly no
--- NOTE | 2019-08-02 11:22 | PM.PNNEP ---
Progress Note: A&P Assessment and Plan (1) ESRD (end stage renal disease) on dialysis: Code(s): N18.6 - End stage renal disease; Z99.2 - Dependence on renal dialysis Status: Acute Assessment and Plan: HD today continue T/T/S schedule while hospitalized follow electrolytes, volume status, and clearance (2) Non-ST elevation MD (NSTEMI): Code(s): I21.4 - Non-ST elevation (NSTEMI) myocardial infarction Status: Acute Assessment and Plan: troponins noted Cardiology following cardiac catheterization tomorrow (3) Hypertension: Qualifiers: Hypertension type: essential hypertension Qualified Code(s): I10 - Essential (primary) hypertension Code(s): I10 - Essential (primary) hypertension Status: Acute Assessment and Plan: blood pressure somewhat erratic back on some BP medications follow trend of hemodynamics (4) Anemia: Qualifiers: Anemia type: due to chronic kidney disease Chronic kidney disease stage: on chronic dialysis Qualified Code(s): N18.6 - End stage renal disease; D63.1 - Anemia in chronic kidney disease; Z99.2 - Dependence on renal dialysis Code(s): D64.9 - Anemia, unspecified Status: Acute Assessment and Plan: due to ESRD follow trend of H/H dose Epogen with HD as needed (5) COPD (chronic obstructive pulmonary disease): Qualifiers: COPD type: unspecified COPD Qualified Code(s): J44.9 - Chronic obstructive pulmonary disease, unspecified Code(s): J44.9 - Chronic obstructive pulmonary disease, unspecified Status: Acute Assessment and Plan: appears compensated continue supportive therapy (6) Nausea & vomiting: Qualifiers: Vomiting Intractability: intractable Vomiting type: unspecified Qualified Code(s): R11.2 - Nausea with vomiting, unspecified Code(s): R11.2 - Nausea with vomiting, unspecified Status: Acute Assessment and Plan: improving(?) NG tube in place CT of the abdomen is unremarkable Gastroenterology following Will continue to follow Subjective Date/time seen: 08/02/19 11:22 Still feels poorly at this time with ongoing nausea, dry heaving, and poor appetite; seen by Cardiology earlier today -- cardiac catheterization canceled at this time given current symptoms. Exam Narrative: Exam Narrative: General: WD/WN female in NAD Heart: normal S1 and S2; no rub Lungs: a few bibasilar crackles Abdomen: soft, nontender, mild TTP, positive bowel sounds Extremities: no cyanosis or clubbing; no edema Skin: warm and intact Objective Data Vital Signs Vital Signs: Vital Signs Temp Pulse Resp BP Pulse Ox 08/02/19 08:43 35.6 C L 106 H 20 168/90 H 97 08/02/19 08:42 35.6 C L 108 H 22 H 171/84 H 100 08/02/19 08:39 35.6 C L 110 H 22 H 171/84 H 100 08/02/19 06:00 104 H 08/02/19 05:21 120 H 08/02/19 05:07 156/94 H 08/02/19 04:00 36.5 C 120 H 22 H 180/90 H 100 08/02/19 02:00 104 H 08/02/19 00:00 36.4 C 93 20 160/87 H 99 08/01/19 23:53 102 H 08/01/19 22:00 101 H 08/01/19 20:00 36.7 C 98 20 152/73 H 98 08/01/19 17:45 104 H 08/01/19 16:52 36.6 C 107 H 21 H 148/79 H 96 08/01/19 16:40 108 H 08/01/19 16:00 108 H 08/01/19 14:00 114 H 08/01/19 12:55 36.5 C 114 H 20 160/87 H 91 08/01/19 12:00 119 H 08/01/19 11:44 128 H Intake/Output Intake/Output: Intake & Output 07/30/19 07/31/19 08/01/19 08/02/19 23:59 23:59 23:59 23:59 Intake Total 1240 100 395 109 Output Total 550 875 250 500 Balance 431 -423 960 -800 Meds/Results Medications: Active Medications Generic Name Dose Route Start Last Admin Trade Name Freq PRN Reason Stop Dose Admin Albuterol 1 puff 07/31/19 16:19 Proventil Hfa INHALATION QIDRT PRN Shortness Of Breath Or Wheezing Allopurinol 100 mg 07/31/19 09:0
--- NOTE | 2019-08-02 11:58 | PM.IMPN ---
Progress Note: A&P Assessment and Plan (1) Nausea & vomiting: Qualifiers: Vomiting type: unspecified Vomiting Intractability: intractable Qualified Code(s): R11.2 - Nausea with vomiting, unspecified Code(s): R11.2 - Nausea with vomiting, unspecified Status: Acute Assessment and Plan: NG tube remains in place. Continues to have problems with nausea and vomiting an enema taken off suction. Will add IV Reglan. Continue IV Protonix. Appreciate help from GI. Will monitor. (2) Syncope: Qualifiers: Syncope type: unspecified Qualified Code(s): R55 - Syncope and collapse Code(s): R55 - Syncope and collapse Status: Acute Assessment and Plan: No further episodes. CT brain on admission negative. Will continue monitor with treatment of other issues as noted. (3) Troponin level elevated: Code(s): R79.89 - Other specified abnormal findings of blood chemistry Status: Acute Assessment and Plan: Appreciate help from Cardiology. Telemetry reviewed on 08/02/2019 with heart rate controlled. Echocardiogram with EF 65-70% and grade 2 diastolic dysfunction with moderate to severe mitral valve regurgitation but no wall motion abnormalities. Continue to follow for now. (4) Hypertension: Qualifiers: Hypertension type: essential hypertension Qualified Code(s): I10 - Essential (primary) hypertension Code(s): I10 - Essential (primary) hypertension Status: Acute Assessment and Plan: Blood pressure reviewed on 08/02/2019 with elevated readings at times. Cardiology is following. Is currently on IV metoprolol. Medications limited due to nausea and vomiting problems with NG in place. Will monitor. (5) Diabetes mellitus: Qualifiers: Chronic kidney disease stage: on chronic dialysis Diabetes mellitus complication detail: with chronic kidney disease Diabetes mellitus complication status: with kidney complications Diabetes mellitus adjunct faculty for medical terminology insulin use: without adjunct faculty for medical terminology use Diabetes mellitus type: type 2 Qualified Code(s): E11.22 - Type 2 diabetes mellitus with diabetic chronic kidney disease; N18.6 - End stage renal disease; Z99.2 - Dependence on renal dialysis Code(s): E11.9 - Type 2 diabetes mellitus without complications Status: Acute Assessment and Plan: Hemoglobin A1c 5.8. Does have known end-stage renal disease on hemodialysis. Glucose reviewed on 08/02/2019 and presently controlled. Will continue to monitor on sliding scale insulin. (6) ESRD (end stage renal disease) on dialysis: Code(s): N18.6 - End stage renal disease; Z99.2 - Dependence on renal dialysis Status: Acute Assessment and Plan: Appreciate help from Nephrology. Hemodialysis per Nephrology. (7) COPD (chronic obstructive pulmonary disease): Qualifiers: COPD type: unspecified COPD Qualified Code(s): J44.9 - Chronic obstructive pulmonary disease, unspecified Code(s): J44.9 - Chronic obstructive pulmonary disease, unspecified Status: Acute Assessment and Plan: No current exacerbation. Will monitor. (8) Anemia: Qualifiers: Anemia type: due to chronic kidney disease Chronic kidney disease stage: on chronic dialysis Qualified Code(s): N18.6 - End stage renal disease; D63.1 - Anemia in chronic kidney disease; Z99.2 - Dependence on renal dialysis Code(s): D64.9 - Anemia, unspecified Status: Acute Assessment and Plan: Chronic. No sign of active bleeding. H&H stable at 10.3 and 33.1 today. Will follow. (9) Low back pain: Qualifiers: Back pain laterality: bilateral Chronicity: chronic Sciatica presence: without sciatica Qualified Code(s): M54.5 - Low back pain; G89.29 - Other chronic pain Code(s): M54.5 - Low back pain Status: Acute Assessment and Plan: No acute issue. Will monitor. (10) DVT prophylaxis: Code(s):
[2019-08-02] MEDS: METOCLOPRAMIDE HCL INJ 10 MG/2 ML VIAL 5 MG IV PUSH ×3 (15:06→23:34)
[2019-08-02 15:13] LABS: Glucose Point of Care 116 (65-105)
--- NOTE | 2019-08-02 16:33 | WPDGIPROGNO ---
Progress Note: A&P Assessment and Plan (1) Nausea & vomiting: Qualifiers: Vomiting type: unspecified Vomiting Intractability: intractable Qualified Code(s): R11.2 - Nausea with vomiting, unspecified Code(s): R11.2 - Nausea with vomiting, unspecified Status: Acute Assessment and Plan: she has multiple comorbidities and most recently with NSTEMI treated medically by cardiology. Continue with supportive care, on reglan, zofran and also PPI. Defer endoscopic evaluation in setting of recent MD. (2) Non-ST elevation MD (NSTEMI): Code(s): I21.4 - Non-ST elevation (NSTEMI) myocardial infarction Status: Acute (3) ESRD (end stage renal disease) on dialysis: Code(s): N18.6 - End stage renal disease; Z99.2 - Dependence on renal dialysis Status: Acute (4) Syncope: Qualifiers: Syncope type: unspecified Qualified Code(s): R55 - Syncope and collapse Code(s): R55 - Syncope and collapse Status: Acute Subjective Date/time seen: 08/02/19 16:33 Interval history: she says that feels just sick in general, still with NGT and nausea, poor appetite. Today had dialysis. Review of Systems Review of Systems: All systems reviewed & are unremarkable except as noted in HPI and below Exam Const: Other: chronically ill appearing HENMT: Other: ngt in place Eyes: Pupils: Equal, round and reactive pupils present Neck: Neck: supple Resp: Auscultation: no wheezes and diminished lung sounds Cardio: Rate: regular rate GI: GI Palp: No abdominal tenderness and No Rigid due to palpation Auscultation: normal bowel sounds Skin: General skin exam: normal color Neuro: Speech: normal speech Psych: Affect: Anxious affect present Objective Data Vital Signs Vital Signs: Vital Signs - 24 hr 08/01/19 16:40 08/01/19 16:52 08/01/19 17:45 Temperature 97.8 F Pulse Rate 108 H 107 H 104 H Respiratory Rate 21 H Blood Pressure 148/79 H Pulse Oximetry 96 08/01/19 20:00 08/01/19 22:00 08/01/19 23:53 Temperature 98.1 F Pulse Rate 98 101 H 102 H Respiratory Rate 20 Blood Pressure 152/73 H Pulse Oximetry 98 08/02/19 00:00 08/02/19 02:00 08/02/19 04:00 Temperature 97.6 F 97.7 F Pulse Rate 93 104 H 120 H Respiratory Rate 20 22 H Blood Pressure 160/87 H 180/90 H Pulse Oximetry 99 100 08/02/19 05:07 08/02/19 05:21 08/02/19 06:00 Temperature Pulse Rate 120 H 104 H Respiratory Rate Blood Pressure 156/94 H Pulse Oximetry 08/02/19 08:00 08/02/19 08:39 08/02/19 08:42 Temperature 96.1 F L 96.1 F L Pulse Rate 106 H 110 H 108 H Respiratory Rate 22 H 22 H Blood Pressure 171/84 H 171/84 H Pulse Oximetry 100 100 08/02/19 08:43 08/02/19 10:00 08/02/19 12:00 Temperature 96.1 F L Pulse Rate 106 H 104 H 111 H Respiratory Rate 20 Blood Pressure 168/90 H Pulse Oximetry 97 08/02/19 12:05 08/02/19 12:10 08/02/19 12:15 Temperature 98.0 F Pulse Rate 107 H 106 H 102 H Respiratory Rate 18 Blood Pressure 155/90 H 152/86 H 152/82 H Pulse Oximetry 100 08/02/19 12:30 08/02/19 12:45 08/02/19 13:00 Temperature Pulse Rate 104 H 113 H 113 H Respiratory Rate Blood Pressure 150/83 H 160/89 H 166/91 H Pulse Oximetry 08/02/19 13:15 08/02/19 13:30 08/02/19 13:45 Temperature Pulse Rate 110 H 110 H 115 H Respiratory Rate Blood Pressure 162/95 H 166/88 H 157/91 H Pulse Oximetry 08/02/19 14:00 08/02/19 14:15 08/02/19 14:30 Temperature Pulse Rate 115 H 113 H 100 Respiratory Rate Blood Pressure 165/90 H 155/90 H 144/79 H Pulse Oximetry 08/02/19 15:05 08/02/19 15:10 08/02/19 15:14 Temperature 98.0 F 96.0 F L Pulse Rate 129 H 100 128 H Respiratory Rate 18 Blood Pressure 152/90 H 182/150 H Pulse Oximetry 100 97 Intake/Output Intake/Output: Intake & Output 01/07/31/19 08/01/19 08/02/19 23:59 23:59 23:59 23:59 Intake Total 1240 100 395 109 Outpu
[2019-08-02 17:03] LABS: Glucose Point of Care 142 (65-105)
[2019-08-02 20:48] LABS: Glucose Point of Care 173 (65-105)
[2019-08-03] VITALS (20 sets, daily range): BP systolic 150–186; BP diastolic 76–99; PULSE 79–136; RESP 14–20; TEMP 35.7–36.7; O2SAT 97–100
[2019-08-03] MEDS: ONDANSETRON INJ 4 MG/2 ML VIAL IV PUSH (01:53)
[2019-08-03 04:51] LABS: Hematocrit 31.4 % (37.0-47.0); Hemoglobin 10.2 g/dL (12.0-15.0); Mean Corpuscular HGB Conc 32.5 g/dl (32-36); Mean Corpuscular Hemoglobin 34.5 pg (26-34); Mean Corpuscular Volume 106.1 fl (80-100); Mean Platelet Volume 12.6 fl (7.4-10.4); Platelet Count Result 129 k/mm3 (150-375); Red Blood Count 2.96 M/mm3 (4.2-5.4); Red Cell Distribution Width 13.1 % (11.5-14.5); White Blood Count 11.6 K/mm3 (4.5-10.0)
[2019-08-03 05:14] LABS: Blood Urea Nitrogen 43 mg/dL (7-17); Calcium 9.8 mg/dL (8.4-10.2); Carbon Dioxide 23 mmol/L (22-30); Chloride 97 mmol/L (98-107); Estimated CRCL calculation 8 ml/min; Estimated Glomerular Filt Rate 9; Glucose 194 mg/dL (65-105); Magnesium 2.2 mg/dL (1.6-2.3); Potassium 5.1 mmol/L (3.4-5.0); Sodium 138 mmol/L (137-145)
[2019-08-03] MEDS: METOPROLOL TARTRATE INJ 5 MG/5 ML VIAL IV PUSH ×4 (06:00→23:15)
[2019-08-03] MEDS: METOCLOPRAMIDE HCL INJ 10 MG/2 ML VIAL 5 MG IV PUSH ×4 (06:00→23:14)
[2019-08-03] MEDS: PROMETHAZINE HCL 12.5 MG SUPP.RECT RECTAL (06:53)
[2019-08-03] MEDS: PANTOPRAZOLE SODIUM IV 40 MG VIAL IV PUSH ×2 (08:17→20:35)
[2019-08-03] MEDS: LORAZEPAM INJ 2 MG/ML VIAL 0.5 MG IV PUSH ×3 (08:20→23:15)
[2019-08-03 08:53] LABS: Glucose Point of Care 179 (65-105)
--- NOTE | 2019-08-03 08:57 | PM.IMPN ---
Progress Note: A&P Assessment and Plan (1) Nausea & vomiting: Qualifiers: Vomiting Intractability: intractable Vomiting type: unspecified Qualified Code(s): R11.2 - Nausea with vomiting, unspecified Code(s): R11.2 - Nausea with vomiting, unspecified Status: Acute Assessment and Plan: NG tube remains in place. Did have 450 cc out of NG in the previous 24 hours but currently with no vomiting. Will try clamping NG. If tolerates clamping of NG, may be able to remove in the next 24 hours. Will continue IV Reglan as added on 08/02/2019. Continue IV Protonix. Appreciate help from GI. Will continue to monitor. Possible transfer from IMU today if okay with cardiology. (2) Syncope: Qualifiers: Syncope type: unspecified Qualified Code(s): R55 - Syncope and collapse Code(s): R55 - Syncope and collapse Status: Acute Assessment and Plan: No further episodes. CT brain on admission negative. Will continue monitor with treatment of other issues as noted. (3) Non-ST elevation CT (NSTEMI): Code(s): I21.4 - Non-ST elevation (NSTEMI) myocardial infarction Status: Acute Assessment and Plan: Appreciate help from Cardiology. Telemetry reviewed on 08/03/2019 with sinus rhythm with heart rate controlled. Echocardiogram with EF 65-70% and grade 2 diastolic dysfunction with moderate to severe mitral valve regurgitation but no wall motion abnormalities. Discussed with Cardiology today. Presented with similar situation in February 2019 with cardiac catheterization at that time with no significant findings. Troponin level did increase to maximum of 4.380 this visit. No plan for further evaluation. Will continue medical management. Currently on IV metoprolol. Has not been able to receive aspirin, atorvastatin on Plavix with NG tube in place but will resume once able. (4) Hypertension: Qualifiers: Hypertension type: essential hypertension Qualified Code(s): I10 - Essential (primary) hypertension Code(s): I10 - Essential (primary) hypertension Status: Acute Assessment and Plan: Blood pressure reviewed on 08/03/2019 with mildly elevated readings at times. Cardiology is following as noted above. Is currently on IV metoprolol. Medications limited due to nausea and vomiting problems with NG in place. Will continue to monitor. Adjust treatment as needed. (5) Diabetes mellitus: Qualifiers: Chronic kidney disease stage: on chronic dialysis Diabetes mellitus complication detail: with chronic kidney disease Diabetes mellitus complication status: with kidney complications Diabetes mellitus chcf insulin use: without chcf use Diabetes mellitus type: type 2 Qualified Code(s): E11.22 - Type 2 diabetes mellitus with diabetic chronic kidney disease; N18.6 - End stage renal disease; Z99.2 - Dependence on renal dialysis Code(s): E11.9 - Type 2 diabetes mellitus without complications Status: Acute Assessment and Plan: Hemoglobin A1c 5.8. Does have known end-stage renal disease on hemodialysis. Glucose reviewed on 08/03/2019. Glucose remains controlled. Will continue to monitor on sliding scale insulin. (6) ESRD (end stage renal disease) on dialysis: Code(s): N18.6 - End stage renal disease; Z99.2 - Dependence on renal dialysis Status: Acute Assessment and Plan: Appreciate help from Nephrology. Hemodialysis per Nephrology per her usual schedule of Thursday//Thursday. (7) COPD (chronic obstructive pulmonary disease): Qualifiers: COPD type: unspecified COPD Qualified Code(s): J44.9 - Chronic obstructive pulmonary disease, unspecified Code(s): J44.9 - Chronic obstructive pulmonary disease, unspecified Status: Acute Assessment and Plan: Stable. No current exacerbation. Will monitor. (8) Anemia: Qualifiers: Anemia type: due to chronic kidney
--- NOTE | 2019-08-03 09:38 | PM.PNCARD ---
Progress Note: A&P Assessment and Plan (1) Non-ST elevation [place] (NSTEMI): Code(s): I21.4 - Non-ST elevation (NSTEMI) myocardial infarction Status: Acute Assessment and Plan: Troponin peaked at 4 No ischemic EKG changes. No chest pain. 2D echo with normal EF and no regional wall motion changes Trop elevation is likely due to increased demand in the setting of GI illness, uncontrolled HTN, leukocytosis and as well as ESRD on HD Recent similar presentation, [facility] in Feb 2019 with patent LAD stent and non obstructive disease She was treated for SD with IV heparin, completed 48 hours Will hold off repeat cath Continue ASA She should have acceptable risk to undergo low risk procedure (EGD) if recommended from GI work up prospective . (2) Nausea & vomiting: Qualifiers: Vomiting type: unspecified Vomiting Intractability: intractable Qualified Code(s): R11.2 - Nausea with vomiting, unspecified Code(s): R11.2 - Nausea with vomiting, unspecified Status: Acute Assessment and Plan: Remains symptoamtic. NG tube in place. Gi on board (3) Hypertension: Qualifiers: Hypertension type: essential hypertension Qualified Code(s): I10 - Essential (primary) hypertension Code(s): I10 - Essential (primary) hypertension Status: Acute Assessment and Plan: Elevated, in the setting of not being able to tolerate PO meds with NG tube in place. Resume antihypertensives as soon as pt tolerating PO. May use IV BB or Hydralazine meanwhile (4) Diabetes mellitus: Qualifiers: Diabetes mellitus type: type 2 Diabetes mellitus mcc insulin use: without extermination supervisor use Diabetes mellitus complication status: with kidney complications Diabetes mellitus complication detail: with chronic kidney disease Chronic kidney disease stage: on chronic dialysis Qualified Code(s): E11.22 - Type 2 diabetes mellitus with diabetic chronic kidney disease; N18.6 - End stage renal disease; Z99.2 - Dependence on renal dialysis Code(s): E11.9 - Type 2 diabetes mellitus without complications Status: Acute Assessment and Plan: management per PC (5) Syncope: Qualifiers: Syncope type: unspecified Qualified Code(s): R55 - Syncope and collapse Code(s): R55 - Syncope and collapse Status: Acute Assessment and Plan: Possibly related to dehydration with nausea/vomiting on admission (6) ESRD (end stage renal disease) on dialysis: Code(s): N18.6 - End stage renal disease; Z99.2 - Dependence on renal dialysis Status: Acute Assessment and Plan: nephrology fu Subjective Date/time seen: 08/03/19 09:38 Continues to feel sick with nausea. Denies chest pain or shortness of breath Review of Systems Review of Systems: All systems reviewed & are unremarkable except as noted in HPI and below ROS unobtainable: unobtainable due to mental status Constitutional: Constitutional: Denies fatigue and Denies headache(s) Eyes: Eyes: Denies blurry vision ENT: Reports Normal hearing present and Denies headache(s) Cardiovascular: Cardiovascular: Denies chest pain, Denies diaphoresis, Denies pedal edema, Denies leg edema, Denies lightheadedness, Denies palpitations and Denies dyspnea Respiratory: Respiratory: Denies cough and Denies dyspnea Gastrointestinal: Gastrointestinal: Denies abdominal pain, Reports bloating, Reports nausea and Reports hematemesis Musculoskeletal: Musculoskeletal: Denies back pain Neurologic: Reports Normal hearing present and Denies headache(s) Psychiatric: Psychiatric: Denies anxiety Endocrine: Endocrine: Denies fatigue and Denies palpitations Exam Const: General: no acute distress, alert and awake; No acute distress Other: Frail but Alert and oriented. In no distress NG tube noted HENMT: Head: normal to inspection and atraumatic Ears: hearing grossly normal bilaterally Face and sinus:
[2019-08-03] MEDS: INSULIN ASPART (*BKC) 100 UNITS/ML SUB-Q (12:06)
[2019-08-03 12:52] LABS: Glucose Point of Care 205 (65-105)
--- NOTE | 2019-08-03 14:32 | WPDGIPROGNO ---
Progress Note: A&P Assessment and Plan (1) Nausea & vomiting: Qualifiers: Vomiting type: unspecified Vomiting Intractability: intractable Qualified Code(s): R11.2 - Nausea with vomiting, unspecified Code(s): R11.2 - Nausea with vomiting, unspecified Status: Acute Assessment and Plan: she has multiple comorbidities and probably multifactorial Continue with supportive care, on reglan, zofran, probiotics and also PPI. Ok to remove NGT. Cardiology cleared her for EGD, will proceed tomorrow. (2) Non-ST elevation [place] (NSTEMI): Code(s): I21.4 - Non-ST elevation (NSTEMI) myocardial infarction Status: Acute Assessment and Plan: cardiology on board, on medical treatment. She had a cardiac cath not too long ago. (3) ESRD (end stage renal disease) on dialysis: Code(s): N18.6 - End stage renal disease; Z99.2 - Dependence on renal dialysis Status: Acute Assessment and Plan: by nephrology (4) Syncope: Qualifiers: Syncope type: unspecified Qualified Code(s): R55 - Syncope and collapse Code(s): R55 - Syncope and collapse Status: Acute Subjective Date/time seen: 08/03/19 14:32 Interval history: no major changes, still feeling sick and poor appetite. I talked to her POA at bedside and she says that patient has been hardly eating anything for a while, in fact she found her fridge with groceries that she has not used and is worried about her ongoing condition. POA says that had EGD and colonoscopy about 2 years ago in [facility]. Review of Systems Review of Systems: Narrative: Still not feeling well. Constitutional: Constitutional: Denies chills and Denies fever(s) ENT: Denies dysphagia Cardiovascular: Cardiovascular: Denies chest pain Respiratory: Respiratory: Denies dyspnea Gastrointestinal: Gastrointestinal: Reports abdominal pain, Denies dysphagia, Reports nausea and Denies vomiting Genitourinary: Genitourinary: Reports no additional female genitourinary complaints Musculoskeletal: Musculoskeletal: Reports no additional musculoskeletal complaints Integumentary/Breasts: Skin/Breast: Denies rash Neurologic: Reports headache(s) Psychiatric: Psychiatric: Denies confusion Exam Narrative: Exam Narrative: Awake and alert. Const: General: comfortable and no acute distress HENMT: Other: NG tube in place. Eyes: Other: ngt in place Neck: Neck: supple Lymphatic: lymphadenopathy not noted Resp: Auscultation: clear to auscultation bilaterally, no rales and no wheezes Cardio: Rate: regular rate Rhythm: regular rhythm GI: Inspection: non-distended GI Palp: No abdominal tenderness, Yes Soft to palpation and Yes Tenderness to palpation present (GI) (Epigastric area) Auscultation: normal bowel sounds Skin: General skin exam: normal color Other: Scattered bruises noted. Neuro: General: No confusion Cognition (Neuro): normal cognition Speech: normal speech Other: Generalized weakness. Extrem: General: no edema Psych: Mental Status: mental status grossly normal Affect: No Anxious affect present Objective Data Vital Signs Vital Signs: Vital Signs - 24 hr 08/02/19 15:05 08/02/19 15:10 08/02/19 15:14 Temperature 98.0 F 96.0 F L Pulse Rate 129 H 100 128 H Respiratory Rate 18 Blood Pressure 152/90 H 182/150 H Pulse Oximetry 100 97 08/02/19 16:00 08/02/19 17:02 08/02/19 18:00 Temperature 96.3 F L Pulse Rate 110 H 106 H 114 H Respiratory Rate 21 H Blood Pressure 159/83 H Pulse Oximetry 98 08/02/19 19:12 08/02/19 19:54 08/02/19 20:00 Temperature 97.7 F Pulse Rate 124 H 124 H 110 H Respiratory Rate 22 H Blood Pressure 169/85 H Pulse Oximetry 100 08/02/19 22:00 08/02/19 23:34 08/02/19 23:53 Temperature 97.5 F L Pulse Rate 108 H 110 H 110 H Respiratory Rate 13 Blood Pressure 131/97 H Pulse Oximetry 93 08/03/19 00:00 08/03/19 02:00 08/03/19 03:55 Temperatur
[2019-08-03] MEDS: cilostazoL 100 MG TABLET PO (16:09)
[2019-08-03 16:19] LABS: Glucose Point of Care 172 (65-105)
--- NOTE | 2019-08-03 17:45 | PM.PNNEP ---
Progress Note: A&P Assessment and Plan (1) ESRD (end stage renal disease) on dialysis: Code(s): N18.6 - End stage renal disease; Z99.2 - Dependence on renal dialysis Status: Acute Assessment and Plan: HD tomorrow continue T/T/S schedule while hospitalized follow electrolytes, volume status, and clearance (2) Non-ST elevation [place] (NSTEMI): Code(s): I21.4 - Non-ST elevation (NSTEMI) myocardial infarction Status: Acute Assessment and Plan: troponins noted Cardiology following (3) Hypertension: Qualifiers: Hypertension type: essential hypertension Qualified Code(s): I10 - Essential (primary) hypertension Code(s): I10 - Essential (primary) hypertension Status: Acute Assessment and Plan: blood pressure somewhat erratic back on some BP medications follow trend of hemodynamics (4) Anemia: Qualifiers: Anemia type: due to chronic kidney disease Chronic kidney disease stage: on chronic dialysis Qualified Code(s): N18.6 - End stage renal disease; D63.1 - Anemia in chronic kidney disease; Z99.2 - Dependence on renal dialysis Code(s): D64.9 - Anemia, unspecified Status: Acute Assessment and Plan: due to ESRD follow trend of H/H dose Epogen with HD as needed (5) COPD (chronic obstructive pulmonary disease): Qualifiers: COPD type: unspecified COPD Qualified Code(s): J44.9 - Chronic obstructive pulmonary disease, unspecified Code(s): J44.9 - Chronic obstructive pulmonary disease, unspecified Status: Acute Assessment and Plan: appears compensated continue supportive therapy (6) Nausea & vomiting: Qualifiers: Vomiting Intractability: intractable Vomiting type: unspecified Qualified Code(s): R11.2 - Nausea with vomiting, unspecified Code(s): R11.2 - Nausea with vomiting, unspecified Status: Acute Assessment and Plan: improving(?) NG tube out CT of the abdomen is unremarkable Gastroenterology following - EGD tomorrow Will continue to follow Subjective Date/time seen: 08/03/19 17:45 Still does not feel well -- NG tube out and being started on a clear liquid diet; plan for EGD tomorrow as noted; no apparent distress voiced but just feels lousy. Exam Narrative: Exam Narrative: General: WD/WN female in NAD Heart: normal S1 and S2; no rub Lungs: a few bibasilar crackles Abdomen: soft, nontender, mild TTP, positive bowel sounds Extremities: no cyanosis or clubbing; no edema Skin: no rash Objective Data Vital Signs Vital Signs: Vital Signs Temp Pulse Resp BP Pulse Ox 08/03/19 16:00 35.8 C L 103 H 18 172/89 H 99 08/03/19 14:00 102 H 08/03/19 12:58 186/95 H 08/03/19 12:57 150/99 H 08/03/19 12:08 109 H 08/03/19 12:00 36.1 C L 108 H 18 174/97 H 97 08/03/19 10:00 106 H 08/03/19 08:00 35.7 C L 107 H 20 177/95 H 100 08/03/19 06:00 102 H 08/03/19 04:00 103 H 08/03/19 03:55 36.4 C L 79 14 160/76 H 98 08/03/19 02:00 102 H 08/03/19 00:00 104 H 08/02/19 23:53 36.4 C L 110 H 13 131/97 H 93 08/02/19 23:34 110 H 08/02/19 22:00 108 H 08/02/19 20:00 110 H 08/02/19 19:54 36.5 C 124 H 22 H 169/85 H 100 08/02/19 19:12 124 H 08/02/19 18:00 114 H Intake/Output Intake/Output: Intake & Output 07/31/19 08/01/19 08/02/19 08/03/19 23:59 23:59 23:59 23:59 Intake Total 100 395 140 Output Total 875 250 500 450 Balance -775 145 -360 -450 Meds/Results Medications: Active Medications Generic Name Dose Route Start Last Admin Trade Name Freq PRN Reason Stop Dose Admin Albuterol 1 puff 07/31/19 16:19 Proventil Hfa INHALATION QIDRT PRN Shortness Of Breath Or Wheezing Allopurinol 100 mg 07/31/19 09:00 07/31/19 13:12 Zyloprim PO 08/30/19 09:01 Not Given DAILY STEFANO Aspirin 81 mg
[2019-08-03 20:20] LABS: Glucose Point of Care 184 (65-105)
[2019-08-03] MEDS: hydrALAZINE HCL 50 MG TABLET PO (20:35)
[2019-08-04] VITALS (33 sets, daily range): BP systolic 104–175; BP diastolic 52–91; PULSE 96–124; RESP 14–23; TEMP 35.2–37; O2SAT 95–100
--- NOTE | 2019-08-04 02:20 | PC.NURSE ---
Patient noted to be A-flutter at 0000 on 08/04/2019. Midnight dose of metoprolol IV administered. EKG obtained showed A-flutter. Patient converted back to NSR prior to calling principle industrial hygienist. EKGs transmitted.
[2019-08-04 04:50] LABS: Blood Urea Nitrogen 73 mg/dL (7-17); Calcium 9.3 mg/dL (8.4-10.2); Carbon Dioxide 23 mmol/L (22-30); Chloride 96 mmol/L (98-107); Estimated CRCL calculation 6 ml/min; Estimated Glomerular Filt Rate 6; Glucose 155 mg/dL (65-105); Magnesium 2.3 mg/dL (1.6-2.3); Potassium 4.7 mmol/L (3.4-5.0); Sodium 137 mmol/L (137-145)
[2019-08-04] MEDS: METOCLOPRAMIDE HCL INJ 10 MG/2 ML VIAL 5 MG IV PUSH ×4 (06:00→23:19)
[2019-08-04] MEDS: METOPROLOL TARTRATE INJ 5 MG/5 ML VIAL IV PUSH ×2 (06:00→13:21)
[2019-08-04] MEDS: CLOPIDOGREL BISULFATE 75 MG TABLET PO (08:21)
[2019-08-04] MEDS: hydrALAZINE HCL 50 MG TABLET PO ×3 (08:22→21:00)
[2019-08-04] MEDS: ATORVASTATIN 40 MG TABLET PO (08:22)
[2019-08-04] MEDS: ASPIRIN 81 MG CHEWABLE TABLET PO (08:22)
[2019-08-04] MEDS: methiMAzole 5 MG TAB PO (08:22)
[2019-08-04] MEDS: cilostazoL 100 MG TABLET PO ×2 (08:22→16:40)
[2019-08-04] MEDS: PANTOPRAZOLE SODIUM IV 40 MG VIAL IV PUSH ×2 (08:22→22:09)
[2019-08-04 08:44] LABS: Glucose Point of Care 143 (65-105)
--- NOTE | 2019-08-04 12:53 | PM.PNNEP ---
Progress Note: A&P Assessment and Plan (1) ESRD (end stage renal disease) on dialysis: Code(s): N18.6 - End stage renal disease; Z99.2 - Dependence on renal dialysis Status: Acute Assessment and Plan: HD today continue T/T/S schedule while hospitalized follow electrolytes, volume status, and clearance (2) Non-ST elevation [place] (NSTEMI): Code(s): I21.4 - Non-ST elevation (NSTEMI) myocardial infarction Status: Acute Assessment and Plan: troponins noted Cardiology following (3) Hypertension: Qualifiers: Hypertension type: essential hypertension Qualified Code(s): I10 - Essential (primary) hypertension Code(s): I10 - Essential (primary) hypertension Status: Acute Assessment and Plan: blood pressure somewhat erratic back on some of her BP medications follow trend of hemodynamics (4) Anemia: Qualifiers: Anemia type: due to chronic kidney disease Chronic kidney disease stage: on chronic dialysis Qualified Code(s): N18.6 - End stage renal disease; D63.1 - Anemia in chronic kidney disease; Z99.2 - Dependence on renal dialysis Code(s): D64.9 - Anemia, unspecified Status: Acute Assessment and Plan: due to ESRD follow trend of H/H dose Epogen with HD as needed (5) COPD (chronic obstructive pulmonary disease): Qualifiers: COPD type: unspecified COPD Qualified Code(s): J44.9 - Chronic obstructive pulmonary disease, unspecified Code(s): J44.9 - Chronic obstructive pulmonary disease, unspecified Status: Acute Assessment and Plan: appears compensated continue supportive therapy (6) Nausea & vomiting: Qualifiers: Vomiting Intractability: intractable Vomiting type: unspecified Qualified Code(s): R11.2 - Nausea with vomiting, unspecified Code(s): R11.2 - Nausea with vomiting, unspecified Status: Acute Assessment and Plan: improving(?) NG tube out CT of the abdomen is unremarkable Gastroenterology following - EGD this afternoon Will continue to follow Subjective Date/time seen: 08/04/19 12:53 Tolerating dialysis at the time of my visit (seen on HD at ~ 12:40PM); appears to be doing about the same; some anxiety regarding procedure (EGD) to be done later this afternoon. Exam Narrative: Exam Narrative: General: WD/WN female in NAD Heart: normal S1 and S2; no rub Lungs: a few bibasilar crackles Abdomen: soft, nontender, positive bowel sounds Extremities: no cyanosis or clubbing; no edema Skin: no nodules Objective Data Vital Signs Vital Signs: Vital Signs Temp Pulse Resp BP Pulse Ox 08/04/19 11:45 107 H 165/87 H 08/04/19 11:30 97 147/79 H 08/04/19 11:15 107 H 175/86 H 08/04/19 11:00 99 144/86 H 08/04/19 10:45 98 147/77 H 08/04/19 10:30 100 160/80 H 08/04/19 10:15 104 H 164/87 H 08/04/19 10:00 105 H 164/85 H 08/04/19 09:52 36.4 C 102 H 18 170/89 H 100 08/04/19 09:45 102 H 152/77 H 08/04/19 09:30 102 H 151/81 H 08/04/19 09:15 102 H 163/91 H 08/04/19 09:00 35.2 C L 100 22 H 155/89 H 97 08/04/19 08:00 98 08/04/19 06:00 97 08/04/19 04:00 36.5 C 104 H 14 154/84 H 98 08/04/19 01:53 124 H 08/04/19 00:00 116 H 08/03/19 23:33 36.7 C 105 H 20 179/90 H 98 08/03/19 23:15 136 H 08/03/19 22:00 129 H 08/03/19 20:00 104 H 08/03/19 19:25 36.4 C L 103 H 20 175/95 H 100 08/03/19 18:04 108 H 08/03/19 18:00 98 08/03/19 16:00 35.8 C L 103 H 18 172/89 H 99 08/03/19 14:00 102 H 08/03/19 12:58 186/95 H 08/03/19 12:57 150/99 H Intake/Output Intake/Output: Intake & Output 08/01/19 08/02/19 08/03/19 08/04/19 23:59 23:59 23:59 23:59 Intake Total 395 140 200 150 Output Total 250 500 450 75 Balance 145 360 -250 75 Meds/Results Medications: Active Medications
--- NOTE | 2019-08-04 12:55 | PC.NURSE ---
This patient, Sandra Mccollum, was received from [facility] on 08/04/19 at 1255. Personal belongings list checked and signed. Patient/family oriented to unit policies and routines
--- NOTE | 2019-08-04 13:29 | PC.NURSE ---
On 08/04/19, the student, [ZENON HANLEY ], provided care and completed [facility] documentation on this patient. I have reviewed the student's documentation and agree with the findings.
[2019-08-04 13:35] LABS: Glucose Point of Care 106 (65-105)
--- NOTE | 2019-08-04 14:20 | PC.NURSE ---
To GI Lab via [facility].
[2019-08-04] MEDS: SODIUM CHLORIDE 0.9% IV 500 ML 150 ML IV CONT (14:50)
--- NOTE | 2019-08-04 14:52 | WPDANESEPPF ---
Anes - Initial Pre Proc Eval Procedure: Operation Date: 08/04/19 14:30 Proposed Procedures p Esophagogastroduodenoscopy - Reed Judd MD Date/Time: 08/04/19 14:52 Surgeon: Huber Swanson MD Pre Op Diagnosis: syncope Patient Data Age: 74 Gender: F Height: 5 ft 3 in Weight: 61.1 kg Last Vital Signs Temp 36.1 C L 08/04/19 14:45 Pulse 104 H 08/04/19 14:45 Resp 20 08/04/19 14:45 BP 150/65 H 08/04/19 14:45 Pulse Ox 100 08/04/19 14:45 Allergies Allergy/AdvReac Type Severity Reaction Status Date / Time SAUL Inhibitors Allergy Severe Swelling Verified 07/31/19 13:29 of Lip/Tongue/Throat amoxicillin Allergy Intermediate nauseated/h Verified 07/30/19 03:59 choco benazepril Allergy Unknown Rash Verified 07/30/19 03:59 clarithromycin Allergy Unknown nauseated Verified 07/30/19 03:59 codeine Allergy Unknown Nausea Verified 07/30/19 03:59 hydrocodone Allergy Unknown Rash Verified 07/30/19 03:59 lisinopril Allergy Unknown hives, rash Verified 07/30/19 03:59 minoxidil Allergy Unknown Rash Verified 07/30/19 03:59 oxycodone Allergy Unknown Rash Verified 07/30/19 03:59 Penicillins Allergy Unknown Rash Verified 07/30/19 03:59 Home Medications Medication Instructions Recorded Confirmed Type Tylenol PM Extra Strength 500 tab-cap PO Q6H PRN 05/31/19 07/30/19 History albuterol sulfate 1 inh INHALATION QID 05/31/19 07/30/19 History aspirin 81 mg PO DAILY 05/31/19 07/30/19 History atorvastatin 40 mg PO DAILY 05/31/19 07/30/19 History ergocalciferol (vitamin D2) 1 unit PO DAILY 05/31/19 07/30/19 History [Vitamin D2] furosemide 80 mg PO DAILY 05/31/19 07/30/19 History loratadine 10 mg PO HS 05/31/19 07/30/19 History melatonin 10 mg PO HS PRN 05/31/19 07/30/19 History carvedilol 25 mg tablet 25 mg PO BID #180 tablet 06/30/19 07/30/19 Rx methimazole 5 mg tablet 5 mg PO DAILY #90 tablet 06/30/19 07/30/19 Rx buspirone 10 mg tablet 10 mg PO BID #180 tablet 07/13/19 07/30/19 Rx escitalopram oxalate 20 mg tablet 10 mg PO DAILY #90 tablet 07/14/19 07/30/19 Rx cilostazol 50 mg tablet 100 mg PO BID 07/21/19 07/30/19 History gabapentin 100 mg capsule 100 mg PO TID #180 cap 07/25/19 07/30/19 Rx hydralazine 100 mg tablet 200 mg PO TID #360 tablet 07/25/19 07/30/19 Rx Probiotic 1 cap PO BID 07/30/19 07/30/19 History Renal Caps 1 tab-cap PO DAILY 07/30/19 07/30/19 History allopurinol 100 mg PO DAILY 07/30/19 07/30/19 History diphenoxylate-atropine 1 tablet PO QID PRN 07/30/19 07/30/19 History loperamide 1 tab-cap PO 6XD PRN 07/30/19 07/30/19 History nifedipine 60 mg PO Q12H 07/30/19 07/30/19 History spironolactone 25 mg PO DAILY 07/30/19 07/30/19 History clonidine HCl 0.1 mg tablet 0.1 mg PO BID #180 tablet 08/01/19 Rx clopidogrel 75 mg tablet 75 mg PO DAILY #90 tablet 08/01/19 Rx doxazosin 8 mg tablet 8 mg PO BID #180 tablet 08/01/19 Rx isosorbide mononitrate 60 mg 60 mg PO DAILY #90 tablet 08/01/19 Rx tablet,extended release 24 hr omeprazole magnesium 20 mg 40 mg PO DAILY #90 cap 08/02/19 Rx capsule,delayed release Laboratory Tests 08/03/19 08/03/19 08/04/19 15:36 20:15 04:20 Sodium 137 mmol/L mmol/L (137-145) Potassium 4.7 mmol/L mmol/L (3.4-5.0) Chloride 96 mmol/L L mmol/L (98-107) Carbon Dioxide 23 mmol/L mmol/L (22-30) BUN 73 mg/dL H D mg/dL (7-17) Creatinine 6.30 mg/dL H mg/dL (0.7-1.0) Estim Creat Clear Calc 6 ml/min ml/min Estimated GFR 6 L (59 - ) Glucose 155 mg/dL H mg/dL (65-105) POC Capillary Glucose 172 mg/dl H mg/dl 184 mg/dl H mg/dl (65-105) (65-105) Calcium 9.3 mg/dL mg/dL (8.4-10.2) Magnesium 2.3 mg/dL mg/dL (1.6-2.3) 08/04/19 08/04/19 08:17 13:15 Sodium Potassium Chloride Carbon Dioxide BUN Creatinine Estim Creat Clear Calc Estimated GFR Gl
--- NOTE | 2019-08-04 15:18 | PM.PNCARD ---
Progress Note: A&P Assessment and Plan (1) Non-ST elevation [place] (NSTEMI): Code(s): I21.4 - Non-ST elevation (NSTEMI) myocardial infarction Status: Acute Assessment and Plan: Troponin peaked at 4 No ischemic EKG changes. No chest pain. 2D echo with normal EF and no regional wall motion changes Trop elevation is likely due to increased demand in the setting of GI illness, uncontrolled HTN, leukocytosis and as well as ESRD on HD Recent similar presentation, [facility] in Feb 2019 with patent LAD stent and non obstructive disease She was treated for OR with IV heparin, completed 48 hours Will hold off repeat cath Continue ASA She should have acceptable risk to undergo low risk procedure (EGD) if recommended from GI work up prospective . (2) Nausea & vomiting: Qualifiers: Vomiting type: unspecified Vomiting Intractability: intractable Qualified Code(s): R11.2 - Nausea with vomiting, unspecified Code(s): R11.2 - Nausea with vomiting, unspecified Status: Acute Assessment and Plan: Remains symptoamtic. NG tube in place. Gi on board (3) Hypertension: Qualifiers: Hypertension type: essential hypertension Qualified Code(s): I10 - Essential (primary) hypertension Code(s): I10 - Essential (primary) hypertension Status: Acute Assessment and Plan: Elevated, in the setting of not being able to tolerate PO meds with NG tube in place. Resume antihypertensives as soon as pt tolerating PO. May use IV BB or Hydralazine meanwhile (4) Diabetes mellitus: Qualifiers: Diabetes mellitus type: type 2 Diabetes mellitus manager terminal insulin use: without longterm use Diabetes mellitus complication status: with kidney complications Diabetes mellitus complication detail: with chronic kidney disease Chronic kidney disease stage: on chronic dialysis Qualified Code(s): E11.22 - Type 2 diabetes mellitus with diabetic chronic kidney disease; N18.6 - End stage renal disease; Z99.2 - Dependence on renal dialysis Code(s): E11.9 - Type 2 diabetes mellitus without complications Status: Acute Assessment and Plan: management per PC (5) Syncope: Qualifiers: Syncope type: unspecified Qualified Code(s): R55 - Syncope and collapse Code(s): R55 - Syncope and collapse Status: Acute Assessment and Plan: Possibly related to dehydration with nausea/vomiting on admission (6) ESRD (end stage renal disease) on dialysis: Code(s): N18.6 - End stage renal disease; Z99.2 - Dependence on renal dialysis Status: Acute Assessment and Plan: nephrology fu Subjective Date/time seen: 08/04/19 15:18 She is going for endoscopy today, as she still has significant nausea Objective Data Vital Signs Vital Signs: Vital Signs - 24 hr 08/03/19 16:00 08/03/19 18:00 08/03/19 18:04 Temperature 35.8 C L Pulse Rate 103 H 98 108 H Respiratory Rate 18 Blood Pressure 172/89 H Pulse Oximetry 99 08/03/19 19:25 08/03/19 20:00 08/03/19 22:00 Temperature 36.4 C L Pulse Rate 103 H 104 H 129 H Respiratory Rate 20 Blood Pressure 175/95 H Pulse Oximetry 100 08/03/19 23:15 08/03/19 23:33 08/04/19 00:00 Temperature 36.7 C Pulse Rate 136 H 105 H 116 H Respiratory Rate 20 Blood Pressure 179/90 H Pulse Oximetry 98 08/04/19 01:53 08/04/19 04:00 08/04/19 06:00 Temperature 36.5 C Pulse Rate 124 H 104 H 97 Respiratory Rate 14 Blood Pressure 154/84 H Pulse Oximetry 98 08/04/19 08:00 08/04/19 09:00 08/04/19 09:15 Temperature 35.2 C L Pulse Rate 98 100 102 H Respiratory Rate 22 H Blood Pressure 155/89 H 163/91 H Pulse Oximetry 97 08/04/19 09:30 08/04/19 09:45 08/04/19 09:52 Temperature 36.4 C Pulse Rate 102 H 102 H 102 H Respiratory Rate 18 Blood Pressure 151/81 H 152/77 H 170/89 H Pulse Oximetry 100 08/04/19 10:00 08/04/19 10:15 08/04/19 10:30 Bri
[2019-08-04 16:13] LABS: Glucose Point of Care 96 (65-105)
--- NOTE | 2019-08-04 16:30 | PC.NURSE ---
Back from GI Lab via stretcher.
--- NOTE | 2019-08-04 16:55 | PM.IMPN ---
Progress Note: A&P Assessment and Plan (1) Nausea & vomiting: Qualifiers: Vomiting type: unspecified Vomiting Intractability: intractable Qualified Code(s): R11.2 - Nausea with vomiting, unspecified Code(s): R11.2 - Nausea with vomiting, unspecified Status: Acute Assessment and Plan: Appreciate help from GI. NG tube clamped and removed yesterday. Has been on clear liquid diet. Just completed EGD with unofficial report of hiatal hernia. Official report still pending. Has now been advanced to as full liquids with intent to advance diet as tolerated. Will continue IV Reglan and Protonix. Eventually transition both to oral. Will continue to monitor. Will resume PT/OT. Hopefully is getting closer to discharge. (2) Syncope: Qualifiers: Syncope type: unspecified Qualified Code(s): R55 - Syncope and collapse Code(s): R55 - Syncope and collapse Status: Acute Assessment and Plan: No further episodes. CT brain on admission negative. Will continue monitor with treatment of other issues as noted. (3) Non-ST elevation [place] (NSTEMI): Code(s): I21.4 - Non-ST elevation (NSTEMI) myocardial infarction Status: Acute Assessment and Plan: Appreciate help from Cardiology. Telemetry reviewed on 08/04/2019 with sinus rhythm with heart rate acceptable. Echocardiogram with EF 65-70% and grade 2 diastolic dysfunction with moderate to severe mitral valve regurgitation but no wall motion abnormalities. Presented with similar situation in February 2019 with cardiac catheterization at that time with no significant findings. Troponin level did increase to maximum of 4.380 this visit. No plan for further evaluation currently. Will continue medical management. Has been on IV metoprolol but will transition back to oral Coreg today. Was not able to receive aspirin, atorvastatin or Plavix with NG tube in place but all have now been resumed. Will continue to monitor. (4) Hypertension: Qualifiers: Hypertension type: essential hypertension Qualified Code(s): I10 - Essential (primary) hypertension Code(s): I10 - Essential (primary) hypertension Status: Acute Assessment and Plan: Blood pressure reviewed on 08/04/2019. Blood pressure better today but has had dialysis and procedure. Cardiology is following as noted above. Transition back to Coreg tonight. Is also now on oral hydralazine at much lower dose than home dose. Continue to hold patient's other home medications. Will continue to monitor. Adjust treatment as needed. (5) Diabetes mellitus: Qualifiers: Diabetes mellitus type: type 2 Diabetes mellitus jail insulin use: without jail use Diabetes mellitus complication status: with kidney complications Diabetes mellitus complication detail: with chronic kidney disease Chronic kidney disease stage: on chronic dialysis Qualified Code(s): E11.22 - Type 2 diabetes mellitus with diabetic chronic kidney disease; N18.6 - End stage renal disease; Z99.2 - Dependence on renal dialysis Code(s): E11.9 - Type 2 diabetes mellitus without complications Status: Acute Assessment and Plan: Hemoglobin A1c 5.8. Does have known end-stage renal disease on hemodialysis. Glucose reviewed on 08/04/2019 and stable. Will continue to monitor on sliding scale insulin. (6) ESRD (end stage renal disease) on dialysis: Code(s): N18.6 - End stage renal disease; Z99.2 - Dependence on renal dialysis Status: Acute Assessment and Plan: Appreciate help from Nephrology. No acute issue. Hemodialysis per Nephrology per her usual schedule of Thursday//Thursday. (7) COPD (chronic obstructive pulmonary disease): Qualifiers: COPD type: unspecified COPD Qualified Code(s): J44.9 - Chronic obstructive pulmonary disease, unspecified Code(s): J44.9 - Chronic obstructive pulmonary disease, unspecified S
[2019-08-04 17:56] LABS: Glucose Point of Care 107 (65-105)
[2019-08-04] MEDS: PROMETHAZINE HCL 12.5 MG SUPP.RECT RECTAL (20:39)
[2019-08-04] MEDS: ACIDOPHILUS/BULGARICUS CHEWABLE TABLET 1 TABLET PO (20:43)
[2019-08-04 21:32] LABS: Glucose Point of Care 143 (65-105)
[2019-08-04] MEDS: LORAZEPAM INJ 2 MG/ML VIAL 0.5 MG IV PUSH (22:09)
[2019-08-04] MEDS: carvediloL 25 MG TABLET PO (22:20)
[2019-08-05] VITALS (13 sets, daily range): BP systolic 118–160; BP diastolic 52–94; PULSE 76–106; RESP 16–20; TEMP 36.2–36.9; O2SAT 94–100
[2019-08-05] MEDS: METOCLOPRAMIDE HCL INJ 10 MG/2 ML VIAL 5 MG IV PUSH ×2 (06:23→12:45)
[2019-08-05 08:42] LABS: Glucose Point of Care 86 (65-105)
[2019-08-05] MEDS: hydrALAZINE HCL 50 MG TABLET PO ×3 (09:07→17:08)
--- NOTE | 2019-08-05 09:54 | WPDANESPN ---
Anes - Prog Note Post-Op Date/Time: 08/05/19 09:54 Cardiovascular status: normal Respiratory status: normal Airway patency: baseline Mental status: baseline Post-Op hydration status: normal Vital Signs: Last Vital Signs Temp 36.6 C 08/05/19 06:00 Pulse 93 08/05/19 06:00 Resp 16 08/05/19 06:00 BP 146/73 H 08/05/19 06:00 Pulse Ox 96 08/05/19 06:00 I/O: Intake & Output 08/04/19 08/05/19 08/05/19 23:59 07:59 15:59 Intake Total 50 120 Output Total 175 50 Balance -125 70 Laboratory Tests 08/03/19 04:36 08/04/19 04:20 08/04/19 08/04/19 08/04/19 13:15 16:11 17:23 POC Capillary Glucose 106 96 107 08/04/19 08/05/19 20:43 08:40 POC Capillary Glucose 143 H 86 Microbiology 07/30/19 03:09 Blood Blood Culture - Final 07/30/19 03:09 Blood Blood Culture - Final Post-procedural complaints: none Patient Feedback: Patient satisfied with anesthetic care.
--- NOTE | 2019-08-05 09:58 | PCOTNOTE ---
OT re-eval attempted this AM. Pt stated that she was too nauseous to get up and do anything. Pt also stated that she hasn't been able to get any rest. Agreeable to therapy at later time today.
[2019-08-05 12:07] LABS: Glucose Point of Care 109 (65-105)
[2019-08-05] MEDS: PANTOPRAZOLE SODIUM IV 40 MG VIAL IV PUSH ×2 (13:02→20:10)
[2019-08-05] MEDS: ASPIRIN 81 MG CHEWABLE TABLET PO (13:07)
[2019-08-05] MEDS: cilostazoL 100 MG TABLET PO ×2 (13:08→18:38)
[2019-08-05] MEDS: methiMAzole 5 MG TAB PO (13:08)
[2019-08-05] MEDS: CLOPIDOGREL BISULFATE 75 MG TABLET PO (13:09)
[2019-08-05] MEDS: ATORVASTATIN 40 MG TABLET PO (13:10)
[2019-08-05] MEDS: carvediloL 25 MG TABLET PO ×2 (13:10→20:10)
[2019-08-05] MEDS: ACIDOPHILUS/BULGARICUS CHEWABLE TABLET 1 TABLET PO ×2 (13:11→18:38)
--- NOTE | 2019-08-05 13:23 | PM.PNNEP ---
Progress Note: A&P Assessment and Plan (1) ESRD (end stage renal disease) on dialysis: Code(s): N18.6 - End stage renal disease; Z99.2 - Dependence on renal dialysis Status: Acute Assessment and Plan: HD tomorrow continue T/T/S schedule while hospitalized follow electrolytes, volume status, and clearance (2) Non-ST elevation [place] (NSTEMI): Code(s): I21.4 - Non-ST elevation (NSTEMI) myocardial infarction Status: Acute Assessment and Plan: troponins noted Cardiology following cardiac catheterization being deferred (3) Hypertension: Qualifiers: Hypertension type: essential hypertension Qualified Code(s): I10 - Essential (primary) hypertension Code(s): I10 - Essential (primary) hypertension Status: Acute Assessment and Plan: blood pressure somewhat erratic back on some of her BP medications follow trend of hemodynamics (4) Anemia: Qualifiers: Anemia type: due to chronic kidney disease Chronic kidney disease stage: on chronic dialysis Qualified Code(s): N18.6 - End stage renal disease; D63.1 - Anemia in chronic kidney disease; Z99.2 - Dependence on renal dialysis Code(s): D64.9 - Anemia, unspecified Status: Acute Assessment and Plan: due to ESRD follow trend of H/H dose Epogen with HD as needed (5) COPD (chronic obstructive pulmonary disease): Qualifiers: COPD type: unspecified COPD Qualified Code(s): J44.9 - Chronic obstructive pulmonary disease, unspecified Code(s): J44.9 - Chronic obstructive pulmonary disease, unspecified Status: Acute Assessment and Plan: appears compensated continue supportive therapy (6) Nausea & vomiting: Qualifiers: Vomiting type: unspecified Vomiting Intractability: intractable Qualified Code(s): R11.2 - Nausea with vomiting, unspecified Code(s): R11.2 - Nausea with vomiting, unspecified Status: Acute Assessment and Plan: improving(?) NG tube out CT of the abdomen is unremarkable Gastroenterology following - EGD yesterday - official report pending Will continue to follow Subjective Date/time seen: 08/05/19 13:23 S/P EGD and dialysis yesterday -- tolerated both procedures reasonably well; overall, seems to be slowly improving; apparently trying to eat more as tolerated. Exam Narrative: Exam Narrative: General: WD/WN female in NAD Heart: normal S1 and S2; no rub Lungs: coarse breath sound, few crackles at the bases Abdomen: soft, nontender, positive bowel sounds Extremities: no cyanosis or clubbing; no edema Skin: warm and dry Objective Data Vital Signs Vital Signs: Vital Signs Temp Pulse Resp BP Pulse Ox 08/05/19 06:00 36.6 C 93 16 146/73 H 96 08/05/19 04:00 90 08/05/19 02:00 36.9 C 106 H 20 160/82 H 94 08/05/19 00:00 99 08/04/19 22:20 110 H 08/04/19 22:00 36.6 C 109 H 20 161/60 H 99 08/04/19 20:00 110 H 20 95 08/04/19 16:30 36.1 C L 103 H 21 H 172/73 H 100 08/04/19 16:01 103 H 23 H 127/54 L 100 08/04/19 15:51 105 H 21 H 104/52 L 99 08/04/19 15:41 109 H 18 135/89 99 08/04/19 14:45 36.1 C L 104 H 20 150/65 H 100 Intake/Output Intake/Output: Intake & Output 08/02/19 08/03/19 08/04/19 08/05/19 23:59 23:59 23:59 23:59 Intake Total 140 200 200 120 Output Total 500 450 250 50 Balance -360 -250 -50 70 Meds/Results Medications: Active Medications Generic Name Dose Route Start Last Admin Trade Name Freq PRN Reason Stop Dose Admin Albuterol 1 puff 07/31/19 16:19 Proventil Hfa INHALATION QIDRT PRN Shortness Of Breath Or Wheezing Allopurinol 100 mg 07/31/19 09:00 07/31/19 13:12 Zyloprim PO 08/30/19 09:01 Not Given DAILY STEFANO Aspirin 81 mg 07/31/19 09:00 08/05/19 13:07 Aspirin Chewable PO 81 mg DAILY STEFANO Administration Atorvastatin Calcium
--- NOTE | 2019-08-05 13:49 | PCOTNOTE ---
OT re-eval attempted this afternoon. Patient adamantly refusing therapy at this time due to nausea and pain. Will continue to attempt OT re-assessment at later time.
--- NOTE | 2019-08-05 15:28 | PM.IMPN ---
Progress Note: A&P Assessment and Plan (1) Nausea & vomiting: Qualifiers: Vomiting Intractability: intractable Vomiting type: unspecified Qualified Code(s): R11.2 - Nausea with vomiting, unspecified Code(s): R11.2 - Nausea with vomiting, unspecified Status: Acute Assessment and Plan: Appreciate help from GI. NG tube on 08/03/2019. EGD done by Dr. Martinez on 08/04/2019 with hiatal hernia. States is still having problems tolerating diet. Some oral medications were resumed after EGD yesterday. Will hold her buspirone and citalopram. Will increase IV Reglan. Continue IV Protonix. Continue PT/OT. Has been accepted and authorized for SNF. Will hopefully be able to discharge this weekend. (2) Syncope: Qualifiers: Syncope type: unspecified Qualified Code(s): R55 - Syncope and collapse Code(s): R55 - Syncope and collapse Status: Acute Assessment and Plan: No further episodes. CT brain on admission negative. Will continue monitor with treatment of other issues as noted. (3) Non-ST elevation [place] (NSTEMI): Code(s): I21.4 - Non-ST elevation (NSTEMI) myocardial infarction Status: Acute Assessment and Plan: Appreciate help from Cardiology. Telemetry reviewed on 08/04/2019 with sinus rhythm with heart rate acceptable. Echocardiogram with EF 65-70% and grade 2 diastolic dysfunction with moderate to severe mitral valve regurgitation but no wall motion abnormalities. Presented with similar situation in February 2019 with cardiac catheterization at that time with no significant findings. Troponin level did increase to maximum of 4.380 this visit. No plan for further evaluation currently. Will continue medical management. Continue oral Coreg, aspirin, atorvastatin and Plavix. Will monitor. (4) Hypertension: Qualifiers: Hypertension type: essential hypertension Qualified Code(s): I10 - Essential (primary) hypertension Code(s): I10 - Essential (primary) hypertension Status: Acute Assessment and Plan: Blood pressure reviewed on 08/05/2019 with better control. Continue Coreg and oral hydralazine. Does also have IV hydralazine as needed. Will continue to hold other home medications at this time. Adjust treatment as needed. (5) Diabetes mellitus: Qualifiers: Chronic kidney disease stage: on chronic dialysis Diabetes mellitus complication detail: with chronic kidney disease Diabetes mellitus complication status: with kidney complications Diabetes mellitus medical terminologist insulin use: without correction use Diabetes mellitus type: type 2 Qualified Code(s): E11.22 - Type 2 diabetes mellitus with diabetic chronic kidney disease; N18.6 - End stage renal disease; Z99.2 - Dependence on renal dialysis Code(s): E11.9 - Type 2 diabetes mellitus without complications Status: Acute Assessment and Plan: Hemoglobin A1c 5.8. Does have known end-stage renal disease on hemodialysis. Glucose reviewed on 08/05/2019 and controlled. Will continue to monitor on sliding scale insulin. (6) ESRD (end stage renal disease) on dialysis: Code(s): N18.6 - End stage renal disease; Z99.2 - Dependence on renal dialysis Status: Acute Assessment and Plan: Appreciate help from Nephrology. No acute issue. Stable. Hemodialysis per Nephrology per her usual schedule of Thursday//Thursday. (7) COPD (chronic obstructive pulmonary disease): Qualifiers: COPD type: unspecified COPD Qualified Code(s): J44.9 - Chronic obstructive pulmonary disease, unspecified Code(s): J44.9 - Chronic obstructive pulmonary disease, unspecified Status: Acute Assessment and Plan: Remains stable. No exacerbation. Will monitor. (8) Anemia: Qualifiers: Anemia type: due to chronic kidney disease Chronic kidney disease stage: on chronic dialysis Qualified Code(s): N18.6 - End stage renal diseas
--- NOTE | 2019-08-05 15:58 | PM.PNCARD ---
Progress Note: A&P Assessment and Plan (1) Non-ST elevation MD (NSTEMI): Code(s): I21.4 - Non-ST elevation (NSTEMI) myocardial infarction Status: Acute Assessment and Plan: Troponin peaked at 4 No ischemic EKG changes. No chest pain. 2D echo with normal EF and no regional wall motion changes Trop elevation is likely due to increased demand in the setting of GI illness, uncontrolled HTN, and as well as ESRD on HD Recent similar presentation, [facility] in Feb 2019 with patent LAD stent and non obstructive disease She was treated for MD with IV heparin, completed 48 hours Will hold off repeat cath Continue ASA . (2) Nausea & vomiting: Qualifiers: Vomiting type: unspecified Vomiting Intractability: intractable Qualified Code(s): R11.2 - Nausea with vomiting, unspecified Code(s): R11.2 - Nausea with vomiting, unspecified Status: Acute Assessment and Plan: Slowly improving. GI on board (3) Hypertension: Qualifiers: Hypertension type: essential hypertension Qualified Code(s): I10 - Essential (primary) hypertension Code(s): I10 - Essential (primary) hypertension Status: Acute Assessment and Plan: Better controlled (4) Diabetes mellitus: Qualifiers: Diabetes mellitus type: type 2 Diabetes mellitus client manager insulin use: without client manager use Diabetes mellitus complication status: with kidney complications Diabetes mellitus complication detail: with chronic kidney disease Chronic kidney disease stage: on chronic dialysis Qualified Code(s): E11.22 - Type 2 diabetes mellitus with diabetic chronic kidney disease; N18.6 - End stage renal disease; Z99.2 - Dependence on renal dialysis Code(s): E11.9 - Type 2 diabetes mellitus without complications Status: Acute Assessment and Plan: management per PC (5) Syncope: Qualifiers: Syncope type: unspecified Qualified Code(s): R55 - Syncope and collapse Code(s): R55 - Syncope and collapse Status: Acute Assessment and Plan: Possibly related to dehydration with nausea/vomiting on admission (6) ESRD (end stage renal disease) on dialysis: Code(s): N18.6 - End stage renal disease; Z99.2 - Dependence on renal dialysis Status: Acute Assessment and Plan: nephrology fu Subjective Date/time seen: 08/05/19 15:58 Somewhat better today. Still with nausea but able to tolerate liquids Review of Systems Review of Systems: All systems reviewed & are unremarkable except as noted in HPI and below ROS unobtainable: unobtainable due to mental status Constitutional: Constitutional: Denies fatigue and Denies headache(s) Eyes: Eyes: Denies blurry vision ENT: Reports Normal hearing present and Denies headache(s) Cardiovascular: Cardiovascular: Denies chest pain, Denies diaphoresis, Denies pedal edema, Denies leg edema, Denies lightheadedness, Denies palpitations and Denies dyspnea Respiratory: Respiratory: Denies cough and Denies dyspnea Gastrointestinal: Gastrointestinal: Denies abdominal pain, Reports bloating, Reports nausea and Reports hematemesis Musculoskeletal: Musculoskeletal: Denies back pain Neurologic: Reports Normal hearing present and Denies headache(s) Psychiatric: Psychiatric: Denies anxiety Endocrine: Endocrine: Denies fatigue and Denies palpitations Exam Const: General: no acute distress, alert and awake; No acute distress Other: Frail but Alert and oriented. In no distress NG tube noted HENMT: Head: normal to inspection and atraumatic Ears: hearing grossly normal bilaterally Face and sinus: normal facial exam Eyes: General: appearance normal, both eyes and all related structures Sclera: sclerae normal Pupils: Equal, round and reactive pupils present EOM: EOMs intact bilaterally Neck: Neck: normal visual inspection and no JVD Carotids: no bruits Chest: Chest palpation & inspection: norm
[2019-08-05] MEDS: allopurinoL 100 MG TABLET PO (17:34)
[2019-08-05] MEDS: METOCLOPRAMIDE HCL INJ 10 MG/2 ML VIAL IV PUSH (18:42)
[2019-08-05 18:46] LABS: Glucose Point of Care 95 (65-105)
[2019-08-05] MEDS: LORAZEPAM INJ 2 MG/ML VIAL 0.5 MG IV PUSH (20:10)
[2019-08-05 22:19] LABS: Glucose Point of Care 106 (65-105)
[2019-08-05] MEDS: PROMETHAZINE HCL 12.5 MG SUPP.RECT RECTAL (23:01)
[2019-08-06] VITALS (29 sets, daily range): BP systolic 119–183; BP diastolic 46–93; PULSE 84–98; RESP 16–20; TEMP 36.1–37.2; O2SAT 93–100
[2019-08-06] MEDS: METOCLOPRAMIDE HCL INJ 10 MG/2 ML VIAL IV PUSH ×5 (01:32→23:40)
[2019-08-06 06:12] LABS: Hematocrit 31.8 % (37.0-47.0); Hemoglobin 10.1 g/dL (12.0-15.0); Mean Corpuscular HGB Conc 31.8 g/dl (32-36); Mean Corpuscular Hemoglobin 34.4 pg (26-34); Mean Corpuscular Volume 108.2 fl (80-100); Mean Platelet Volume 11.7 fl (7.4-10.4); Platelet Count Result 141 k/mm3 (150-375); Red Blood Count 2.94 M/mm3 (4.2-5.4); Red Cell Distribution Width 13.2 % (11.5-14.5); White Blood Count 7.1 K/mm3 (4.5-10.0)
[2019-08-06 06:39] LABS: Alanine Aminotransferase 23 U/L (4-35); Albumin Level 3.4 g/dL (3.5-5.1); Alkaline Phosphatase 110 U/L (38-126); Aspartate Amino Transferase 27 U/L (14-36); Blood Urea Nitrogen 45 mg/dL (7-17); Calcium 9.4 mg/dL (8.4-10.2); Carbon Dioxide 25 mmol/L (22-30); Chloride 98 mmol/L (98-107); Estimated CRCL calculation 7 ml/min; Estimated Glomerular Filt Rate 7; Glucose 78 mg/dL (65-105); Sodium 139 mmol/L (137-145)
--- NOTE | 2019-08-06 08:55 | PC.NURSE ---
Pt to dialysis.
[2019-08-06 09:26] LABS: Glucose Point of Care 75 (65-105)
--- NOTE | 2019-08-06 11:17 | PM.PNNEP ---
Progress Note: A&P Assessment and Plan (1) ESRD (end stage renal disease) on dialysis: Code(s): N18.6 - End stage renal disease; Z99.2 - Dependence on renal dialysis Status: Acute Assessment and Plan: HD today. Volume status seems good. (2) Non-ST elevation [place] (NSTEMI): Code(s): I21.4 - Non-ST elevation (NSTEMI) myocardial infarction Status: Acute Assessment and Plan: troponins noted Cardiology following cardiac catheterization being deferred (3) Hypertension: Qualifiers: Hypertension type: essential hypertension Qualified Code(s): I10 - Essential (primary) hypertension Code(s): I10 - Essential (primary) hypertension Status: Acute Assessment and Plan: blood pressure somewhat erratic She had renal artery stenosis and stents. But her blood pressure still is difficult to control. We will see how it is after dialysis. (4) Anemia: Qualifiers: Anemia type: due to chronic kidney disease Chronic kidney disease stage: on chronic dialysis Qualified Code(s): N18.6 - End stage renal disease; D63.1 - Anemia in chronic kidney disease; Z99.2 - Dependence on renal dialysis Code(s): D64.9 - Anemia, unspecified Status: Acute Assessment and Plan: due to ESRD On EPO (5) COPD (chronic obstructive pulmonary disease): Qualifiers: COPD type: unspecified COPD Qualified Code(s): J44.9 - Chronic obstructive pulmonary disease, unspecified Code(s): J44.9 - Chronic obstructive pulmonary disease, unspecified Status: Acute Assessment and Plan: appears compensated continue supportive therapy (6) Nausea & vomiting: Qualifiers: Vomiting type: unspecified Vomiting Intractability: intractable Qualified Code(s): R11.2 - Nausea with vomiting, unspecified Code(s): R11.2 - Nausea with vomiting, unspecified Status: Acute Assessment and Plan: improving(?) NG tube out CT of the abdomen is unremarkable Gastroenterology following - EGD yesterday - official report pending Will continue to follow Subjective Date/time seen: 08/06/19 11:17 Interval history: Patient is alert. Belly still is uncomfortable. About the same as yesterday. She is on dialysis and tolerating it well. We are removing no fluid. Her blood pressure is generous. She was seen at 11:05 a.m. Review of Systems Cardiovascular: Cardiovascular: Reports no additional cardiovascular complaints Respiratory: Respiratory: Reports no additional respiratory complaints Gastrointestinal: Gastrointestinal: Reports no additional gastrointestinal complaints Genitourinary: Genitourinary: Reports no additional female genitourinary complaints Exam Narrative: Exam Narrative: General: WD/WN female in NAD Heart: normal S1 and S2; no rub Lungs: coarse breath sound, few crackles at the bases Abdomen: soft, minimally tender, positive bowel sounds Extremities: no cyanosis or clubbing; no edema Skin: No rash Objective Data Vital Signs Vital Signs: Vital Signs - 24 hr 08/05/19 12:00 08/05/19 14:37 08/05/19 16:00 Temperature 36.2 C L Pulse Rate 100 91 90 Respiratory Rate 16 Blood Pressure 134/52 L Pulse Oximetry 99 08/05/19 16:34 08/05/19 16:35 08/05/19 20:00 Temperature Pulse Rate 93 Respiratory Rate Blood Pressure 141/59 H 149/67 H Pulse Oximetry 08/05/19 20:10 08/05/19 22:00 08/06/19 00:00 Temperature 36.8 C Pulse Rate 76 87 91 Respiratory Rate 16 Blood Pressure 151/64 H Pulse Oximetry 100 08/06/19 04:00 08/06/19 06:00 08/06/19 08:57 Temperature 36.1 C L 36.6 C Pulse Rate 84 92 92 Respiratory Rate 18 16 Blood Pressure 160/80 H 166/82 H Pulse Oximetry 98 08/06/19 09:09 08/06/19 09:15 08/06/19 09:30 Temperature Pulse Rate 92 89 89 Respiratory Rate Blood Pressure 168/83 H 165/84 H 157/79 H Pulse
[2019-08-06] MEDS: EPOETIN ALFA 10,000 UNITS/ML VIAL 10000 UNITS IV PUSH (11:56)
--- NOTE | 2019-08-06 12:04 | PCPTNOTE ---
Attempted patient 2x this AM unable to complete treatment session due to being in dialysis.
--- NOTE | 2019-08-06 12:32 | PCOTNOTE ---
Attempted OT evaluation on this date at 9:59 am and nursing reported she was in dialysis today. Will attempt this afternoon.
--- NOTE | 2019-08-06 13:30 | PC.NURSE ---
Returned from dialysis
[2019-08-06 13:37] LABS: Glucose Point of Care 79 (65-105)
--- NOTE | 2019-08-06 14:33 | PM.PNCARD ---
Progress Note: A&P Assessment and Plan (1) Troponin level elevated: Code(s): R79.89 - Other specified abnormal findings of blood chemistry Status: Acute Assessment and Plan: pt was found to have troponin elevation in setting of abdominal problems and CRI her ECHO showed normal LV systolic function without WMA she had cath recently which showed patent stents and no significant CAD will cont medical therapy (2) Elevated WBC count: Code(s): D72.829 - Elevated white blood cell count, unspecified Status: Acute (3) Nausea & vomiting: Qualifiers: Vomiting Intractability: intractable Vomiting type: unspecified Qualified Code(s): R11.2 - Nausea with vomiting, unspecified Code(s): R11.2 - Nausea with vomiting, unspecified Status: Acute Assessment and Plan: management per PC (4) Low back pain: Qualifiers: Back pain laterality: bilateral Chronicity: chronic Sciatica presence: without sciatica Qualified Code(s): M54.5 - Low back pain; G89.29 - Other chronic pain Code(s): M54.5 - Low back pain Status: Acute (5) Diabetes mellitus: Qualifiers: Chronic kidney disease stage: on chronic dialysis Diabetes mellitus complication detail: with chronic kidney disease Diabetes mellitus complication status: with kidney complications Diabetes mellitus jail insulin use: without jail use Diabetes mellitus type: type 2 Qualified Code(s): E11.22 - Type 2 diabetes mellitus with diabetic chronic kidney disease; N18.6 - End stage renal disease; Z99.2 - Dependence on renal dialysis Code(s): E11.9 - Type 2 diabetes mellitus without complications Status: Acute (6) ESRD (end stage renal disease) on dialysis: Code(s): N18.6 - End stage renal disease; Z99.2 - Dependence on renal dialysis Status: Acute Subjective Date/time seen: 08/06/19 14:33 Objective Data Vital Signs Vital Signs: Vital Signs - 24 hr 08/05/19 14:37 08/05/19 16:00 08/05/19 16:34 Temperature 36.2 C L Pulse Rate 91 90 Respiratory Rate 16 Blood Pressure 134/52 L 141/59 H Pulse Oximetry 99 08/05/19 16:35 08/05/19 20:00 08/05/19 20:10 Temperature Pulse Rate 93 76 Respiratory Rate Blood Pressure 149/67 H Pulse Oximetry 08/05/19 22:00 08/06/19 00:00 08/06/19 04:00 Temperature 36.8 C Pulse Rate 87 91 84 Respiratory Rate 16 Blood Pressure 151/64 H Pulse Oximetry 100 08/06/19 06:00 08/06/19 08:00 08/06/19 08:57 Temperature 36.1 C L 36.6 C Pulse Rate 92 84 92 Respiratory Rate 18 16 Blood Pressure 160/80 H 166/82 H Pulse Oximetry 98 08/06/19 09:09 08/06/19 09:15 08/06/19 09:30 Temperature Pulse Rate 92 89 89 Respiratory Rate Blood Pressure 168/83 H 165/84 H 157/79 H Pulse Oximetry 08/06/19 09:45 08/06/19 10:00 08/06/19 10:15 Temperature Pulse Rate 88 87 87 Respiratory Rate Blood Pressure 155/77 H 153/82 H 159/84 H Pulse Oximetry 08/06/19 10:30 08/06/19 10:45 08/06/19 11:00 Temperature Pulse Rate 87 88 92 Respiratory Rate Blood Pressure 158/82 H 165/69 H 176/93 H Pulse Oximetry 08/06/19 11:15 08/06/19 11:30 08/06/19 11:45 Temperature Pulse Rate 94 86 91 Respiratory Rate Blood Pressure 172/93 H 172/84 H 169/85 H Pulse Oximetry 08/06/19 12:00 08/06/19 12:15 08/06/19 12:30 Temperature Pulse Rate 90 88 90 Respiratory Rate Blood Pressure 161/75 H 165/89 H 156/83 H Pulse Oximetry 08/06/19 12:39 08/06/19 12:55 Temperature 36.5 C Pulse Rate 92 89 Respiratory Rate 16 Blood Pressure 161/87 H 174/79 H Pulse Oximetry Intake/Output Intake/Output: Intake & Output 08/03/19 08/04/19 08/05/19 08/06/19 23:59 23:59 23:59 23:59 Intake Total 200 200 320 75 Output Total 450 250 600 530 Balance -250 -50 -280 -455 Meds/Results Medications: Active Medications Generic Name Dose Route Start Last Admin Trade Na
[2019-08-06] MEDS: ONDANSETRON INJ 4 MG/2 ML VIAL IV PUSH (14:38)
[2019-08-06] MEDS: ACIDOPHILUS/BULGARICUS CHEWABLE TABLET 1 TABLET PO (14:41)
[2019-08-06] MEDS: cilostazoL 100 MG TABLET PO (14:41)
[2019-08-06] MEDS: CLOPIDOGREL BISULFATE 75 MG TABLET PO (14:41)
[2019-08-06] MEDS: ASPIRIN 81 MG CHEWABLE TABLET PO (14:42)
[2019-08-06] MEDS: ATORVASTATIN 40 MG TABLET PO (14:42)
[2019-08-06] MEDS: methiMAzole 5 MG TAB PO (14:42)
[2019-08-06] MEDS: hydrALAZINE HCL 50 MG TABLET PO ×2 (14:43→17:56)
[2019-08-06] MEDS: PANTOPRAZOLE SODIUM IV 40 MG VIAL IV PUSH ×2 (14:43→19:54)
[2019-08-06] MEDS: allopurinoL 100 MG TABLET PO (14:44)
[2019-08-06] MEDS: carvediloL 25 MG TABLET PO ×2 (14:44→19:54)
--- NOTE | 2019-08-06 14:56 | PM.IMPN ---
Progress Note: A&P Assessment and Plan (1) Nausea & vomiting: Qualifiers: Vomiting Intractability: intractable Vomiting type: unspecified Qualified Code(s): R11.2 - Nausea with vomiting, unspecified Code(s): R11.2 - Nausea with vomiting, unspecified Status: Acute Assessment and Plan: Appreciate help from GI. NG tube discontinued on 08/03/2019. EGD done by Dr. Martinez on 08/04/2019 with hiatal hernia. Continues to have problems with nausea and vomiting today. Will hold all nonessential oral medications. Patient states has not been getting relief with IV Zofran. Will give IV Phenergan instead. Continue IV Reglan and Protonix. Will follow. Will continue PT/OT. Doubt will be able to discharge this weekend at this point. (2) Syncope: Qualifiers: Syncope type: unspecified Qualified Code(s): R55 - Syncope and collapse Code(s): R55 - Syncope and collapse Status: Acute Assessment and Plan: No further episodes. CT brain on admission negative. Will continue monitor with treatment of other issues as noted. (3) Non-ST elevation [place] (NSTEMI): Code(s): I21.4 - Non-ST elevation (NSTEMI) myocardial infarction Status: Acute Assessment and Plan: Appreciate help from Cardiology. Telemetry reviewed on 08/04/2019 with sinus rhythm with heart rate acceptable. Echocardiogram with EF 65-70% and grade 2 diastolic dysfunction with moderate to severe mitral valve regurgitation but no wall motion abnormalities. Presented with similar situation in February 2019 with cardiac catheterization at that time with no significant findings. Troponin level did increase to maximum of 4.380 this visit. No plan for further evaluation currently. Will continue medical management. Continue oral Coreg but will hold aspirin, atorvastatin and Plavix with nausea and vomiting. Will monitor. (4) Hypertension: Qualifiers: Hypertension type: essential hypertension Qualified Code(s): I10 - Essential (primary) hypertension Code(s): I10 - Essential (primary) hypertension Status: Acute Assessment and Plan: Blood pressure reviewed on 08/06/2019 with elevated readings today. Continue Coreg and oral hydralazine for now but may need to return to IV dosing only. Does also have IV hydralazine as needed. Will continue to hold other home medications at this time. Adjust treatment as needed. (5) Diabetes mellitus: Qualifiers: Chronic kidney disease stage: on chronic dialysis Diabetes mellitus complication detail: with chronic kidney disease Diabetes mellitus complication status: with kidney complications Diabetes mellitus custodial insulin use: without intermediate school teacher use Diabetes mellitus type: type 2 Qualified Code(s): E11.22 - Type 2 diabetes mellitus with diabetic chronic kidney disease; N18.6 - End stage renal disease; Z99.2 - Dependence on renal dialysis Code(s): E11.9 - Type 2 diabetes mellitus without complications Status: Acute Assessment and Plan: Hemoglobin A1c 5.8. Does have known end-stage renal disease on hemodialysis. Glucose reviewed on 08/06/2019. Low end of normal currently. May need IV fluids with dextrose if unable to keep down anything orally. Will continue to monitor. Does have sliding scale insulin if increases. (6) ESRD (end stage renal disease) on dialysis: Code(s): N18.6 - End stage renal disease; Z99.2 - Dependence on renal dialysis Status: Acute Assessment and Plan: Appreciate help from Nephrology. Remains stable with no acute problem. Hemodialysis per Nephrology per her usual schedule of Thursday//Thursday. (7) COPD (chronic obstructive pulmonary disease): Qualifiers: COPD type: unspecified COPD Qualified Code(s): J44.9 - Chronic obstructive pulmonary disease, unspecified Code(s): J44.9 - Chronic obstructive pulmonary disease, unspecified Status: Acute
[2019-08-06 17:37] LABS: Glucose Point of Care 118 (65-105)
[2019-08-06] MEDS: PROMETHAZINE HCL 25 MG/ML AMPUL 12.5 MG IV PUSH (19:53)
[2019-08-06] MEDS: LORAZEPAM INJ 2 MG/ML VIAL 0.5 MG IV PUSH (20:03)
[2019-08-07] VITALS: PULSE 89
[2019-08-07 01:23] LABS: Glucose Point of Care 116 (65-105)
[2019-08-07 04:33] VITALS: PULSE 88
[2019-08-07 05:56] VITALS: BP 157/69; PULSE 85; RESP 18; TEMP 36.7; O2SAT 100
[2019-08-07 06:14] LABS: Hematocrit 34.5 % (37.0-47.0); Mean Corpuscular HGB Conc 31.9 g/dl (32-36); Mean Corpuscular Hemoglobin 34.2 pg (26-34); Mean Corpuscular Volume 107.1 fl (80-100); Mean Platelet Volume 11.4 fl (7.4-10.4); Platelet Count Result 138 k/mm3 (150-375); Red Blood Count 3.22 M/mm3 (4.2-5.4); Red Cell Distribution Width 13.2 % (11.5-14.5); White Blood Count 7.3 K/mm3 (4.5-10.0)
[2019-08-07] MEDS: METOCLOPRAMIDE HCL INJ 10 MG/2 ML VIAL IV PUSH (06:46)
[2019-08-07 06:54] LABS: Blood Urea Nitrogen 23 mg/dL (7-17); Calcium 9.5 mg/dL (8.4-10.2); Carbon Dioxide 31 mmol/L (22-30); Chloride 98 mmol/L (98-107); Estimated CRCL calculation 12 ml/min; Estimated Glomerular Filt Rate 14; Glucose 150 mg/dL (65-105); Potassium 3.6 mmol/L (3.4-5.0); Sodium 139 mmol/L (137-145)
[2019-08-07 08:00] VITALS: PULSE 87
[2019-08-07 08:19] VITALS: PULSE 85
[2019-08-07] MEDS: carvediloL 25 MG TABLET PO (08:19)
[2019-08-07] MEDS: hydrALAZINE HCL 50 MG TABLET PO (08:19)
[2019-08-07] MEDS: PANTOPRAZOLE SODIUM IV 40 MG VIAL IV PUSH (08:20)
[2019-08-07 08:31] LABS: Glucose Point of Care 124 (65-105)
--- NOTE | 2019-08-07 09:56 | PM.IMPN ---
Progress Note: A&P Assessment and Plan (1) Nausea & vomiting: Qualifiers: Vomiting type: unspecified Vomiting Intractability: intractable Qualified Code(s): R11.2 - Nausea with vomiting, unspecified Code(s): R11.2 - Nausea with vomiting, unspecified Status: Acute Assessment and Plan: Appreciate help from GI. NG tube discontinued on 08/03/2019. EGD done by Dr. Martinez on 08/04/2019 with hiatal hernia. Was able to keep down some light food yesterday. Will try light food again today. Had long discussion patient with friend room. Suspect nausea and vomiting issues are related to depression and anxiety. Continue Reglan and Protonix which are currently IV but can be converted to oral. Has IV Phenergan as needed could also be given by other means. Will see how she does with breakfast today. Discussed discharging to [facility] today for rehab as long as able to keep down food. Continue PT/OT. (2) Syncope: Qualifiers: Syncope type: unspecified Qualified Code(s): R55 - Syncope and collapse Code(s): R55 - Syncope and collapse Status: Acute Assessment and Plan: No further episodes. CT brain on admission negative. Will continue monitor with treatment of other issues as noted. Suspect may have been in part due to poor intake at home. (3) Non-ST elevation [place] (NSTEMI): Code(s): I21.4 - Non-ST elevation (NSTEMI) myocardial infarction Status: Acute Assessment and Plan: Appreciate help from Cardiology. Telemetry reviewed on 08/07/2019 with sinus rhythm with heart rate controlled. Echocardiogram with EF 65-70% and grade 2 diastolic dysfunction with moderate to severe mitral valve regurgitation but no wall motion abnormalities. Presented with similar situation in February 2019 with cardiac catheterization at that time with no significant findings. Troponin level did increase to maximum of 4.380 this visit. No plan for further evaluation currently. Will continue medical management. Continue oral Coreg but will hold aspirin, atorvastatin and Plavix as anticipate will need to gradually add back in. Will monitor. (4) Hypertension: Qualifiers: Hypertension type: essential hypertension Qualified Code(s): I10 - Essential (primary) hypertension Code(s): I10 - Essential (primary) hypertension Status: Acute Assessment and Plan: Blood pressure reviewed on 08/07/2019 and presently acceptable.. Continue Coreg and oral hydralazine. Does also have IV hydralazine as needed. Will continue to hold other home medications at this time. Adjust treatment as needed. (5) Diabetes mellitus: Qualifiers: Diabetes mellitus type: type 2 Diabetes mellitus medical terminologist insulin use: without jail use Diabetes mellitus complication status: with kidney complications Diabetes mellitus complication detail: with chronic kidney disease Chronic kidney disease stage: on chronic dialysis Qualified Code(s): E11.22 - Type 2 diabetes mellitus with diabetic chronic kidney disease; N18.6 - End stage renal disease; Z99.2 - Dependence on renal dialysis Code(s): E11.9 - Type 2 diabetes mellitus without complications Status: Acute Assessment and Plan: Hemoglobin A1c 5.8. Does have known end-stage renal disease on hemodialysis. Glucose reviewed on 08/07/2019. Glucose normal levels this morning. Will continue to monitor. Sliding scale insulin available if needed but has not used. (6) ESRD (end stage renal disease) on dialysis: Code(s): N18.6 - End stage renal disease; Z99.2 - Dependence on renal dialysis Status: Acute Assessment and Plan: Appreciate help from Nephrology. Remains stable with no acute problem. Hemodialysis per Nephrology per her usual schedule of Thursday//Thursday. (7) COPD (chronic obstructive pulmonary disease): Qualifiers: COPD type: unspecified COPD Qualified Code(s): J44.9
[2019-08-07] MEDS: ESCITALOPRAM OXALATE 10 MG TABLET PO (10:02)
--- NOTE | 2019-08-07 11:59 | PC.NURSE ---
Spoke with Dr Villagran. Rec'd orders for meds at discharge. Also spoke with Dr Yancey. He said it was OK for pt to discharge.
--- NOTE | 2019-08-07 19:54 | PM.DS ---
DS: Diagnosis Admitting Diagnosis Admitting Diagnosis: Syncope and collapse Discharge Diagnosis (1) Nausea & vomiting: Qualifiers: Vomiting type: unspecified Vomiting Intractability: intractable Qualified Code(s): R11.2 - Nausea with vomiting, unspecified Code(s): R11.2 - Nausea with vomiting, unspecified Status: Acute (2) Syncope: Qualifiers: Syncope type: unspecified Qualified Code(s): R55 - Syncope and collapse Code(s): R55 - Syncope and collapse Status: Acute (3) Non-ST elevation PR (NSTEMI): Code(s): I21.4 - Non-ST elevation (NSTEMI) myocardial infarction Status: Acute (4) Hypertension: Qualifiers: Hypertension type: essential hypertension Qualified Code(s): I10 - Essential (primary) hypertension Code(s): I10 - Essential (primary) hypertension Status: Acute (5) Diabetes mellitus: Qualifiers: Diabetes mellitus type: type 2 Diabetes mellitus snf insulin use: without intermission coordinator use Diabetes mellitus complication status: with kidney complications Diabetes mellitus complication detail: with chronic kidney disease Chronic kidney disease stage: on chronic dialysis Qualified Code(s): E11.22 - Type 2 diabetes mellitus with diabetic chronic kidney disease; N18.6 - End stage renal disease; Z99.2 - Dependence on renal dialysis Code(s): E11.9 - Type 2 diabetes mellitus without complications Status: Acute (6) ESRD (end stage renal disease) on dialysis: Code(s): N18.6 - End stage renal disease; Z99.2 - Dependence on renal dialysis Status: Acute (7) COPD (chronic obstructive pulmonary disease): Qualifiers: COPD type: unspecified COPD Qualified Code(s): J44.9 - Chronic obstructive pulmonary disease, unspecified Code(s): J44.9 - Chronic obstructive pulmonary disease, unspecified Status: Acute (8) Anemia: Qualifiers: Anemia type: due to chronic kidney disease Chronic kidney disease stage: on chronic dialysis Qualified Code(s): N18.6 - End stage renal disease; D63.1 - Anemia in chronic kidney disease; Z99.2 - Dependence on renal dialysis Code(s): D64.9 - Anemia, unspecified Status: Acute (9) Low back pain: Qualifiers: Chronicity: chronic Back pain laterality: bilateral Sciatica presence: without sciatica Qualified Code(s): M54.5 - Low back pain; G89.29 - Other chronic pain Code(s): M54.5 - Low back pain Status: Acute DS: Summary Hospital Course Reason for hospitalization: Syncope. Hospital Course: Date of Service of Discharge: August 07, 2019. History of Present Illness: Patient is a 74-year-old with known hypertension, anxiety, depression, end-stage renal disease on hemodialysis who presented emergency room with syncope and fall. Patient alert and oriented but had difficulty in providing a temporal history. Patient reports around gi she had an episode where she slid off the couch onto the floor. No loss of consciousness at that point but did have significant low back and hip pain. Has been having problems with weakness and falls since that time. Does report leg pain right greater than left. No numbness or tingling extremities. Patient has had multiple hip x-rays all negative for fracture. She did eventually see an orthopedist in [place] who ordered a lumbar spine MRI which was completed on July 27. This did show advanced lumbar spondylosis at L5-S1 and moderate to severe right neural foraminal stenosis. Patient does use alone and is supposed to use a walker but does not do so in her apartment. Prior to presentation here, she reports falling after walking out of the bathroom. She fell into the door jam injury her right shoulder. She does report a sensation that she was going to fall but then awakened on the floor. She believe she will had a brief syncopal episode. No tongue biting, post event confusion o
== END 2019-08-07 12:51 | DRG 280 ==
LOC: ANHED 22:43 → ANH2MED 07-30 00:39 → ANHIMU 07-31 08:08 → ANH3MEDSUR 08-06 12:48 → ANHIMU 08-10 12:21
PROVIDERS: Internal Medicine; Internal Medicine Cardiovascular Disease; Internal Medicine Gastroenterology; Internal Medicine Nephrology; Physician Assistant; Specialist; Admitting Provider Internal Medicine; Emergency Provider General Practice; PCP Internal Medicine; Visit Provider Hospitalist
PROC: 0DJ08ZZ Inspection of Upper Intestinal Tract, Via Natural or Artificial Opening Endoscopic (ICD-10-PCS; CPT 43235; principal; 2019-08-04 14:30)
DX: R55 Syncope and collapse (principal); N18.6 End stage renal disease; I21.4 Non-ST elevation (NSTEMI) myocardial infarction; I13.2 Hypertensive heart and chronic kidney disease with heart failure and with stage 5 chronic kidney disease, or end stage renal disease; I50.32 Chronic diastolic (congestive) heart failure; E11.22 Type 2 diabetes mellitus with diabetic chronic kidney disease; D63.1 Anemia in chronic kidney disease; J44.9 Chronic obstructive pulmonary disease, unspecified; E11.42 Type 2 diabetes mellitus with diabetic polyneuropathy; M41.9 Scoliosis, unspecified; K44.9 Diaphragmatic hernia without obstruction or gangrene; F41.8 Other specified anxiety disorders; K21.9 Gastro-esophageal reflux disease without esophagitis; M54.5 Low back pain; G89.29 Other chronic pain; Z99.2 Dependence on renal dialysis; Z95.5 Presence of coronary angioplasty implant and graft; Z87.891 Personal history of nicotine dependence
CPT/HCPCS: 36415; 70450; 71046; 73030; 73521; 73552; 74018; 74176; 80048; 80053; 80069; 82607; 82746; 83036; 83605; 83735; 84439; 84443; 84484; 85025; 85027; 85055; 85610; 85730; 86706; 87040; 87081; 87340; 93005; 93306; 94640; 96365; 96366; 96375; 96376; 97110; 97116; 97161; 97164; 97165; 99285; A9270; C9113; G0257; G0378; J0131; J1644; J1815; J2001; J2060; J2270; J2405; J2550; J2704; J2765; J3010; J7030; J7040; Q4081

== ENCOUNTER 2019-08-17 10:31 | Inpatient (IN) | payer OTHER, MEDICAID, SELFPAY ==
[2019-08-17] VITALS (9 sets, daily range): BP systolic 90–115; BP diastolic 38–78; PULSE 70–89; RESP 16–22; TEMP 36.6–37.1; O2SAT 94–100; BMI 25.4
--- NOTE | ~2019-08-17 | MR_ITS ---
EXAMINATION: MR brain/brain stem wo con DATE: 08/27/2019 10:49 INDICATION: Possible infarction seen on prior CT scan. Alteration of awareness. TECHNIQUE: Magnetic resonance imaging (MRI) of the brain and brainstem was performed without intraven ous contrast. Sequences included sagittal and axial T1-weighted SE, axial diffusion-weighted FS SE, a xial T2*-weighted GRE, axial T2-weighted FLAIR Propeller, and axial T2-weighted Propeller. Apparent d iffusion coefficient (ADC) maps were created. COMPARISON: CT brain dated 08/26/2019 FINDINGS: Mild generalized atrophy. There are scattered mild periventricular and subcortical white ma tter changes, most likely related to small vessel ischemic disease (microangiopathy). No evidence for acute infarction or hemorrhage. Hypodensity seen on prior CT examination, consistent with artifact. No ventriculomegaly or midline shift. Structures of the posterior fossa including 7/8th cranial nerve complexes are normal. Tiny left mastoid effusion. Paranasal sinuses are unremarkable. Midline sagitt al images are unremarkable. IMPRESSION: 1. No acute intracranial abnormality. 2: Chronic age-related findings. Reviewed, dictated and finalized at location A. USION DIE TEMPLATE MAKER
--- NOTE | ~2019-08-17 | CT_ITS ---
EXAMINATION: CT cervical spine wo con EXAM DATE: 08/17/2019 11:15 INDICATION: Head injury. TECHNIQUE: Spiral CT of the cervical spine was performed without contrast. Axial images were reviewe d. Coronal and sagittal reformatted images were also reviewed. The dose-length product (DLP) for thi s examination was 275.99 mGy-cm. The exposure was tailored according to patient size (auto mA exposu re control), and iterative reconstruction (ASIR) was used as additional dose reduction technique. Th ere is no prior study for comparison. FINDINGS: There is no evidence of acute cervical fracture. The odontoid process is intact. Pre-dens space is normal. Prevertebral soft tissue is normal. There are no soft tissue abnormalities identi fied. There is no disc space widening or traumatic vertebral body subluxation suspected. There is m oderate disc disease at C5-6. Mild at the other cervical levels. Some advanced cervical facet arthrop athy, most advanced C3-4 and 4-5. A detailed level by level evaluation of spondylosis can be added a s addendum if requested. IMPRESSION: 1. No acute cervical fracture. 2. Cervical spondylosis. Reviewed, dictated and finalized at location B. TEAM MEMBER
--- NOTE | ~2019-08-17 | CT_ITS ---
EXAMINATION: CT chest abdomen pelvis wo con DATE: 08/17/2019 11:15 INDICATION: Chest pain and diffuse spine pain post fall TECHNIQUE: Computed tomography (CT) of the chest, abdomen, and pelvis was performed without intraveno us contrast. Automated exposure control and iterative reconstruction technique were employed. The dos e-length product was 599.03 mGy-cm. COMPARISON: CT abdomen and pelvis dated 07/31/2019 FINDINGS: CHEST CT: Lungs are clear with no evident airspace disease, pulmonary edema, pleural effusion or pneumothorax. Heart size is normal. Atherosclerotic coronary artery calcifications. Subendocardial fat along the la teral and inferior munson of the left ventricle consistent with chronic large infarct. No pericardial effusion. Atherosclerotic calcification along the thoracic aorta which is normal in caliber. No patho logically enlarged thoracic lymphadenopathy. Multinodular goiter with the largest a 3.9 cm nodule in the right thyroid. Mild thoracic spondylosis. ABDOMEN/PELVIS CT: Hepatic cyst measuring 2.8 cm and the left hepatic lobe andr 8 mm in the right hepatic lobe. Likely l ayering sludge in the dependent aspect of the otherwise normal-appearing gallbladder. Spleen and righ t adrenal gland are normal. Mild low-attenuation thickening of the left adrenal gland which could be related to hyperplasia or small adenomas. Moderate bilateral renal cortical atrophy. Bilateral renal cysts including complex hyperdense proteinaceous/hemorrhagic exophytic cyst at the upper pole of the right kidney. Dependent layering calcium within likely isodense proteinaceous/hemorrhagic cyst at the posterior medial interpolar region of the left kidney which could correspond to T2 hyperintense cyst s on prior MRI dated 07/27/2019. 3.5 x 2.7 cm cystic lesion at the tail of the otherwise normal-appear ing pancreas. There is mild colonic diverticulosis with a sigmoid predominance. There is no adjacent inflammatory change to suggest diverticulitis. Small bowel is normal. The appendix is not visualized . No pericecal inflammatory change to suggest acute appendicitis. Decompressed bladder is unremarkabl e. The uterus is not identified and has likely been surgically resected. Pelvic floor relaxation wit h extension of the rectum beyond the inferior margin of the [id number] which is 4.5 cm caudal to t he pubococcygeal line. No free intraperitoneal gas or fluid. No pathologically enlarged abdominal or pelvic lymphadenopathy. There is calcified atherosclerosis of the aorta and many of the other arterie s. Severe lower lumbar spondylosis. L4 hemangioma. IMPRESSION: 1. No acute osseous abnormality or acute intrathoracic, abdominal or pelvic process. 2. 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 3. Multinodular goiter with including a 3.9 cm right thyroid nodule. 4. 3.5 x 2.7 cm cystic lesion at the tail of the pancreas. The differential diagnosis includes pseudo cyst, intraductal papillary mucinous neoplasm (IPMN), mucinous cystic neoplasm (MCN), and the less co mmon serous cystadenoma and neuroendocrine tumor. Correlate for history of pancreatitis. 5. Significant pelvic floor relaxation. Reviewed, dictated and finalized at location A. RINARIAN HELPER IMPRESSION: 1. No acute osseous abnormality or acute intrathoracic, abdominal or pelvic pro cess. 2. Chronic infarct involving the lateral and inferior munson of the left ventric le. 3. Multinodular goiter with including a 3.9 cm right thyroid nodule. 4. 3.5 x 2.7 cm cystic lesion at the tail of the pancreas. The differential paul gnosis includes pseudocyst, intraductal papillary mucinous neoplasm (IPMN), muc inous cystic neoplasm (MCN), and the less common serous cystadenoma and neuroen docrine tumor. Correlate for histor
--- NOTE | ~2019-08-17 | CT_ITS ---
EXAMINATION: CT brain wo con DATE: 08/26/2019 18:28 INDICATION: Altered mental status. Jerking movements. TECHNIQUE: Computed tomography (CT) of the head was performed without intravenous contrast. The dose- length product was 605.33 mGy-cm. The mA was adjusted according to patient size. Iterative reconstruc tion technique was employed. COMPARISON: CT dated 08/17/2019 FINDINGS: Generalized atrophy. There is a hypodensity in the kari, suspicious for acute infarction. N o evidence for intracranial hemorrhage. There is intracranial atherosclerosis. No ventriculomegaly or midline shift. Basilar cisterns are patent. There are scattered mild periventricular and subcortical white matter changes, most likely related to small vessel ischemic disease (microangiopathy). Parana kati sinuses and mastoids are pneumatized. Small left mastoid effusion. Midline sagittal images are un remarkable. IMPRESSION: 1. Hypodensity of the kari, suspicious for acute infarction. Recommend correlation with MRI. 2: Chronic age-related findings. Dr. Mcmanus discussed with Dr. Carlos Esteves MD at 08/26/2019 18:40 PHYSICAL SCIENCES PROFESSOR. Reviewed, dictated and finalized at location A. ICAL SCIENCES PROFESSOR IMPRESSION: 1. Hypodensity of the kari, suspicious for acute infarction. Recommend correlat ion with MRI. 2: Chronic age-related findings. Dr. Mcmanus discussed with Dr. Carlos Esteves MD at 08/26/2019 18:40 PHYSICAL SCIENCES PROFESSOR.
--- NOTE | ~2019-08-17 | XR_ITS ---
EXAMINATION: XR_RIBSBI_CR DATE: 08/19/2019 14:02 INDICATION: Chest pain. Fall. TECHNIQUE: 3 views of the right ribs and 3 views of the left ribs on a total of 7 radiographs were ob tained. COMPARISON: Chest single view 08/18/2019 FINDINGS: There is a small right pleural effusion. There is mild atelectasis at right lung base. No p neumothorax. The heart size is normal. IMPRESSION: 1. No rib fracture. 2. Stable small right pleural effusion. Reviewed, dictated and finalized at location A. ORK FIREWALL ENGINEER
--- NOTE | ~2019-08-17 | XR_ITS ---
EXAMINATION: XR chest 1V portable DATE: 08/18/2019 12:31 INDICATION: Midline chest pain. TECHNIQUE: A single frontal view of the chest was obtained. COMPARISON: Chest 2 views 07/31/2019, chest CT 08/17/2019 FINDINGS: There is a diffuse interstitial pattern, consistent with mild pulmonary edema. There is a s mall right pleural effusion. No pneumothorax. The heart size is normal. IMPRESSION: 1. Mild pulmonary edema. 2. New small right pleural effusion. Reviewed, dictated and finalized at location A. F TENDER HELPER
--- NOTE | ~2019-08-17 | CT_ITS ---
EXAMINATION: CT brain wo con DATE: 08/17/2019 11:13 INDICATION: Headache following posterior head injury occurring with fall 3 days prior TECHNIQUE: Computed tomography (CT) of the head was performed without intravenous contrast. Sagittal and coronal reconstructions were performed. The mA was adjusted according to patient size. Iterative reconstruction technique was employed. The dose-length product was 756.67 mGy-cm. COMPARISON: head CT dated 07/31/2019 FINDINGS: No fracture. No acute intracranial hemorrhage, acute infarction or abnormal extra axial fluid collect ion. Unchanged small old lacunar infarct in the left frontal pericallosal white matter. There is mild scattered white matter hypoattenuation consistent with chronic small vessel ischemic disease. Symme tric prominence of the sulci and subarachnoid spaces overlying the convexities consistent with mild a ge-appropriate diffuse cerebral volume loss. Ventricles are normal and symmetric. No mass/mass effec t. Small left mastoid effusion. Mild mucosal thickening in the bilateral ethmoid sinuses. The orbits and right mastoid air cells are normal. IMPRESSION: 1. No fracture or acute intracranial process. 2. Small old lacunar infarct in the left frontal pericallosal white matter. 3. Age-related changes including mild diffuse volume loss and mild scattered white matter hypoattenua tion consistent with chronic small vessel ischemic disease. Reviewed, dictated and finalized at location A. UATOR IMPRESSION: 1. No fracture or acute intracranial process. 2. Small old lacunar infarct in the left frontal pericallosal white matter. 3. Age-related changes including mild diffuse volume loss and mild scattered wh ite matter hypoattenuation consistent with chronic small vessel ischemic diseas e.
--- NOTE | 2019-08-17 10:45 | ECG_ITS ---
Measurements Intervals [place] Rate: 70 P: -5 OK: 96 QRS: 12 QRSD: 105 T: 167 QT: 485 QTc: 526 Interpretive Statements SINUS RHYTHM WITH SHORT OK INTERVAL ATRIAL AND VENTRICULAR PREMATURE COMPLEXES POSSIBLE LEFT ATRIAL ENLARGEMENT ST-T WAVE ABNORMALITY IN ANTEROLAT/LAT LEADS- CONSIDER ISCHEMIA ABNORMAL ECG Electronically Signed On 08-17-2019 14:35:04 SOLAR INSTALLATION FOREMAN by Bharath Mares D.O.
--- NOTE | 2019-08-17 10:57 | ED.ABDPAIN ---
HPI - Abdominal Pain General Chief Complaint: Chest Pain <John Paul Boateng PA-C - Last Filed: 08/17/19 13:50> Stated Complaint: CP/SOB <SANDRO Leal Last Filed: 08/17/19 13:50> Time Seen by Provider: 08/17/19 10:38 <John Paul Boateng PA-C - Last Filed: 08/17/19 13:50> Source: patient, EMS and old records reviewed <SANDRO Leal Last Filed: 08/17/19 13:50> Limitations: no limitations <SANDRO Leal Last Filed: 08/17/19 13:50> History of Present Illness HPI narrative: Patient is 74-year-old female who presents per EMS from home where she lives alone after sustaining a ground-level fall. Patient has a history of weakness and falls noting that she fell 2 days ago 1 day after being released from nursing rehab was able to get herself up at that time but fell again today. On arrival patient notes moderate aching pain across the chest since the fall also noting posterior headache with head injury from the fall denies syncope loss of consciousness. Patient notes she did receive dialysis yesterday. Patient denies any fever vomiting diarrhea. Patient notes dyspnea associated with the fall. Patient presents with numerous bruising noted on the torso and extremities. Patient has not had anything for pain <John Paul Boateng PA-C - Last Filed: 08/17/19 13:50> Related Data Home Medications: Home Medications Medication Instructions Recorded Confirmed Tylenol PM Extra Strength 500 tab-cap PO Q6H PRN 05/31/19 07/30/19 albuterol sulfate 1 inh INHALATION QID 05/31/19 07/30/19 aspirin 81 mg PO DAILY 05/31/19 07/30/19 atorvastatin 40 mg PO DAILY 05/31/19 07/30/19 ergocalciferol (vitamin D2) 1 unit PO DAILY 05/31/19 07/30/19 [Vitamin D2] Probiotic 1 cap PO BID 07/30/19 07/30/19 Renal Caps 1 tab-cap PO DAILY 07/30/19 07/30/19 allopurinol 100 mg PO DAILY 07/30/19 07/30/19 spironolactone 25 mg PO DAILY 07/30/19 07/30/19 <John Paul Boateng PA-C - Last Filed: 08/17/19 13:50> Allergies/Adverse Reactions: Allergies Allergy/AdvReac Type Severity Reaction Status Date / Time SAUL Inhibitors Allergy Unknown Throat Verified 08/17/19 11:04 Swelling,Unknown,Swelling of Lip/Tongue/Throat amoxicillin Allergy Unknown NAUSEA/VOMI Verified 08/17/19 11:04 TTING,nause ated/hives benazepril Allergy Unknown Tongue Verified 08/17/19 11:04 Swelling,Throat Swelling,Rash clarithromycin Allergy Unknown NAUSEA/VOMI Verified 08/17/19 11:04 TTING,nause ated codeine Allergy Unknown NAUSEA/VOMI Verified 08/17/19 11:04 TTING,Nause a hydrocodone Allergy Unknown Hives,Rash Verified 08/17/19 11:04 lisinopril Allergy Unknown Unknown,hives, Verified 08/17/19 11:04 rash minoxidil Allergy Unknown Unknown,Michael Verified 08/17/19 11:04 h oxycodone Allergy Unknown Hives,Rash Verified 08/17/19 11:04 Penicillins Allergy Unknown Nausea and Verified 08/17/19 11:04 Vomiting,Rash <John Paul Boateng PA-C - Last Filed: 08/17/19 13:50> Review of Systems Review of Systems: All systems reviewed & are unremarkable except as noted in HPI and below <John Paul Boateng PA-C - Last Filed: 08/17/19 13:50> [facility] Past Medical History Medical History: Medical History Anemia Due to end-stage renal disease Anxiety CAD (coronary artery disease) stenting to the LAD and RCA in 2011. Last LHC in September 2018 showing patent vessels but small diagonal 100% Cataracts, bilateral CHF (congestive heart failure) echo in April 2019 showing EF 40-45% and grade 2 diastolic dysfunction COPD (chronic obstructive pulmonary disease) Depression Diabetes mellitus A1c 5.7 in September 2018 Dialysis patient Thursday. has been on dialysis since October 2018 GERD (gastroesophageal reflux disease) History of heart attack History of rectal polyps Hx of gout Hypercholesteremia Hypertens
[2019-08-17] MEDS: MORPHINE SULFATE 4 MG/ML INJ IV PUSH (11:30)
[2019-08-17 12:23] LABS: Basophils Percent Auto 0.5 % (0.2-1.2); Eosinophils Absolute Auto 0.1 K/mm3 (0-0.3); Eosinophils Percent Auto 1.1 % (0-4.4); Hematocrit 23.9 % (37.0-47.0); Hemoglobin 7.6 g/dL (12.0-15.0); Immature Granulocyte Absolute 0.05 K/mm3 (0.00-0.031); Immature Granulocyte Percent A 0.8 % (0-0.5); Lymphocytes Absolute Auto 1.01 K/mm3 (0.9-3.2); Lymphocytes Percent Auto 15.6 % (18.3-44.2); Mean Corpuscular HGB Conc 31.8 g/dl (32-36); Mean Corpuscular Hemoglobin 34.1 pg (26-34); Mean Corpuscular Volume 107.2 fl (80-100); Mean Platelet Volume 11.6 fl (7.4-10.4); Monocytes Absolute Auto 0.6 K/mm3 (0.1-0.6); Monocytes Percent Auto 8.6 % (2.6-8.5); Neutrophils Absolute Auto 4.8 K/mm3 (1.3-6.7); Neutrophils Percent Auto 73.4 % (45.5-73.1); Platelet Count Result 133 k/mm3 (150-375); Red Blood Count 2.23 M/mm3 (4.2-5.4); Red Cell Distribution Width 14.2 % (11.5-14.5); White Blood Count 6.5 K/mm3 (4.5-10.0)
[2019-08-17 12:32] LABS: INR 1.1; Partial Thromboplastin Time 31.8 SECONDS (22.3-36.8); Prothrombin Time 13.4 Seconds (11.1-14.7)
[2019-08-17 12:36] LABS: Alanine Aminotransferase 16 U/L (4-35); Alkaline Phosphatase 104 U/L (38-126); Aspartate Amino Transferase 19 U/L (14-36); Bilirubin,Total 0.7 mg/dL (0.2-1.3); Blood Urea Nitrogen 26 mg/dL (7-17); Carbon Dioxide 25 mmol/L (22-30); Chloride 96 mmol/L (98-107); Estimated CRCL calculation 10 ml/min; Estimated Glomerular Filt Rate 12; Glucose 185 mg/dL (65-105); Potassium 3.1 mmol/L (3.4-5.0); Sodium 133 mmol/L (137-145)
[2019-08-17 12:41] LABS: Magnesium 1.4 mg/dL (1.6-2.3); Phosphorus 1.4 mg/dL (2.5-4.5)
[2019-08-17] MEDS: SODIUM CHLORIDE 0.9% IV 500 ML 999 ML IV CONT (12:45)
[2019-08-17 12:49] LABS: NT Pro B Type Natriuretic Pept > 35000 PG/ML (5-100)
[2019-08-17 13:07] LABS: Alveolar/Arterial O2 Gradient 107.5 mmHg; Base Excess ABG 2.5 mEq/l (+/-2.0); Carboxyhemoglobin 1.2 % THb (0-2.0); Fractional Inspired Oxygen 36 %; HCO3 ABG 24.9 mEq/l (22.0-26.0); Methemoglobin ABG 0.3 %THb (0-1.5); Oxygen Content ABG 9.9 %vol (16.0-22.0); Oxygen Saturation ABG 98.7 % (95.0-100.0); Oxyhemoglobin 95.8 % THb (90.0-100.0); PCO2 ABG 29.3 mmHg (35.0-45.0); PO2 ABG 115.2 mmHg (80.0-100.0); Reduced Hemoglobin 2.7 %THb (0-5.0)
[2019-08-17 13:09] LABS: Device NASAL CANNULA; Site Drawn RIGHT BRACHIAL; Total Hemoglobin 7.2 g/dL (12.0-18.0); pH ABG 7.547 (7.350-7.450)
[2019-08-17 14:13] LABS: Add Urine Microscopic? YES; Appearance Urine Clear (Clear); Bilirubin Urine Negative (Negative); Blood Urine Negative (Negative); Color Urine Yellow (Yellow); Glucose Urine UA Negative (Negative); Ketones Urine Negative (Negative); Leukocyte Esterase Ur Negative LEU/UL (Negative); Nitrate Urine Negative (Negative); Protein Urine 1+ mg/dL (Negative); Specific Grav Ur 1.014 (1.001-1.035); Squamous Epithelial Cell Urine Rare /hpf (Few); WBC Urine 0-3 /hpf
[2019-08-17 15:29] LABS: Hematocrit 25.7 % (37.0-47.0)
[2019-08-17 15:48] LABS: Troponin I 0.032 ng/mL (0.000-0.034)
--- NOTE | 2019-08-17 17:23 | ADMGEN ---
This patient, Sandra Mccollum, was admitted to Intensive Care Unit-8. Patient/family oriented to hospital policies and general routines including ID bracelet, bed and alarms, visiting hours, pain management, procedures, bathroom and other care routines, personal items, smoking policy, room service/diet, and visiting hours. Valuables list has been completed. Information on how to activate the Rapid Response Team has been discussed. Patient/Family are encouraged to report perceived risks to care and to ask questions if they do not understand what they are told or what they should do.
[2019-08-17 18:48] LABS: Troponin I 0.031 ng/mL (0.000-0.034)
--- NOTE | 2019-08-17 19:26 | PM.CNNEP ---
Assessment and Plan Assessment and plan (1) End stage renal disease: Code(s): N18.6 - End stage renal disease Status: Acute (2) Frequent falls: Code(s): R29.6 - Repeated falls Status: Acute (3) Contusion of multiple sites: Code(s): T07.XXXA - Unspecified multiple injuries, initial encounter Status: Acute (4) Acute hypotension: Code(s): I95.9 - Hypotension, unspecified Status: Acute (5) Anemia: Code(s): D64.9 - Anemia, unspecified Status: Acute Assessment and Plan: . Additional Plan Sandra has end-stage renal disease and is due for dialysis tomorrow. She has no critical electrolyte abnormalities and her volume status appears to be stable. Furthermore, her blood pressures were a little on the lower side of normal so I do not think dialysis needs to be done acutely today and we will plan for dialysis tomorrow to keep her on her Thursday schedule. I am not entirely sure why the patient's blood pressure is running so low but I suspect this may be a precipitating factor with regard to her recent falls. She normally has high blood pressure that is difficult to control but surprisingly, on admission here to [facility], she has the opposite problem thought that that she has relative hypotension present. As already mentioned previously, she is somewhat terrified of going home as she lives alone and could have more recurrent falls and lead to further injury. Unfortunately, I suspect some of her injury/contusions are precipitated by the fact he is on both Plavix and aspirin as blood thinners. At this point, I would continue current measures as is, follow up on PT/OT recommendations, and try to lower her blood pressure try to rise a bit closer to the [address] systolic range to see if this helps improve stability in her balance. I will continue follow patient with you while she remains hospitalized and make further recommendations during her hospital course. Thank you for allowing me to participate in the care this patient. History of Present Illness Reason for Consult Consult date: 08/17/19 Reason for consult: end stage renal disease Chief Complaint Chief complaint: Anemia/Multiple contusions/Chest Pain History of Present Illness Narrative: The patient is a 74-year-old female with an extensive medical history as outlined below who presented by EMS from home after suffering a fall. The patient was just recently discharged from [facility] after being hospitalized for elevated troponins (no cardiac catheterization done) and persistent nausea and vomiting. In any case, the patient has a history of weakness and falls with a fall about 2 days ago about 24 hours after being discharged from rehab. At that time, she was able to get up by herself but then she fell again today. Work up and evaluation in the ER demonstrated moderate aching pain across the chest with a noting posterior headache with head injury from the fall. She reports no loss of consciousness or syncope, fever, vomiting, or diarrhea. She does significant bruising over her torso and extremities from these falls. Routine testing was consistent with her history of ESRD although she was more anemia than usual. Due to the falls and anemia, she was admitted due to the recurrent falls and her complex medical history. Renal consultation was requested due to her end-stage renal disease. The patient is quite familiar to me as I have taking care of her multiple times while she has been hospitalized [facility]. I saw her when she was hospitalized here about a week ago as well. She normally dialyzes at [facility] on a Thursday schedule under the care of Dr. Nabeel Yancey. From a dialysis perspective, she has been doing reasonably well with no issues or problems with regard to significant volume overload, hyperkalemia, uremia diabetics cetera. She was l
[2019-08-17] MEDS: LACTATED RINGERS 1,000 ML 70 ML IV CONT (20:26)
[2019-08-17] MEDS: FAMOTIDINE 20 MG/2 ML VIAL IV PUSH (20:27)
[2019-08-17 21:44] LABS: Hematocrit 23.6 % (37.0-47.0); Hemoglobin 7.4 g/dL (12.0-15.0)
[2019-08-18] VITALS (16 sets, daily range): BP systolic 90–200; BP diastolic 61–105; PULSE 71–120; RESP 16–95; TEMP 36.3–37.3; O2SAT 90–100; BMI 10.0; BMI 25.4
[2019-08-18 04:37] LABS: Hematocrit 23.5 % (37.0-47.0); Hemoglobin 7.5 g/dL (12.0-15.0)
[2019-08-18 08:39] LABS: Hematocrit 25.3 % (37.0-47.0); Hemoglobin 7.8 g/dL (12.0-15.0)
[2019-08-18] MEDS: FAMOTIDINE 20 MG/2 ML VIAL IV PUSH ×2 (08:52→23:34)
--- NOTE | 2019-08-18 11:48 | ECG_ITS ---
Measurements Intervals [place] Rate: 102 P: 49 MI: 130 QRS: 7 QRSD: 100 T: 110 QT: 359 QTc: 468 Interpretive Statements SINUS TACHYCARDIA ATRIAL AND VENTRICULAR PREMATURE COMPLEXES BORDERLINE ST-T WAVE ABNORMALITY- ANTEROLAT/LAT LEADS BASELINE ARTIFACT- II, III, AVL, AVF ABNORMAL ECG Electronically Signed On 08-18-2019 12:05:27 LAST CHALKER by Bharath Mares D.O.
[2019-08-18 12:41] LABS: Troponin I 0.055 ng/mL (0.000-0.034)
[2019-08-18 13:37] LABS: Glucose Point of Care 129 (65-105)
--- NOTE | 2019-08-18 15:26 | PM.CNCAR ---
Assessment and Plan Assessment and plan (1) Chest pain: Code(s): R07.9 - Chest pain, unspecified Status: Acute Assessment and Plan: So far cardiac enzymes are negative, no new EKG changes. Previously she had chest pain and she had cardiac catheterization few months ago revealing patent stent. No need for further workup for the time being, she is okay to use nitroglycerin as needed, she is okay to be transferred to telemetry (2) Hypertension: Qualifiers: Hypertension type: essential hypertension Qualified Code(s): I10 - Essential (primary) hypertension Code(s): I10 - Essential (primary) hypertension Status: Acute Assessment and Plan: Okay to keep blood pressure little bit elevated, in view of his recurrent episode of orthostatic hypotension, to prevent further dizziness and syncope (3) Diabetes mellitus: Qualifiers: Diabetes mellitus type: type 2 Diabetes mellitus fdc insulin use: without fdc use Diabetes mellitus complication status: with kidney complications Diabetes mellitus complication detail: with chronic kidney disease Chronic kidney disease stage: on chronic dialysis Qualified Code(s): E11.22 - Type 2 diabetes mellitus with diabetic chronic kidney disease; N18.6 - End stage renal disease; Z99.2 - Dependence on renal dialysis Code(s): E11.9 - Type 2 diabetes mellitus without complications Status: Acute (4) Frequent falls: Code(s): R29.6 - Repeated falls Status: Acute Assessment and Plan: With multiple bruises, okay to stop Plavix keep on low-dose aspirin (5) End stage renal disease: Code(s): N18.6 - End stage renal disease Status: Acute (6) ESRD (end stage renal disease) on dialysis: Code(s): N18.6 - End stage renal disease; Z99.2 - Dependence on renal dialysis Status: Acute Additional Plan Thank you for allowing me to participate in this patient's care, I will be following up with you. Please do not hesitate to call me for any other inquiry History of Present Illness History of Present Illness Consult date/time: 08/18/19 15:26 Chief complaint is fall, chest pain. 74 years old lady with history of known coronary artery disease status post left circumflex and LAD stents, history of severe peripheral vascular disease, and history of renal failure hemodialysis, came to the hospital because of multiple falls with significant ecchymoses and hematoma with bruising in both arms. She denies history of syncope, she said most of those episode that she had were from falling as she was trying to walk, no history of dizziness or lightheadedness no history of syncope per se. She had 1 episode of chest pain earlier today result with nitroglycerin. She was in the hospital a few weeks ago at that time she was in the gastroenteritis and noted to have abdominal pain but had slight elevation of troponin prior to that she had cardiac catheterization revealing patent stents. Currently today she feels well still feeling weak and tired, no abdominal pain no active chest pain at this time and no significant shortness of breath. She has occasional cough no orthopnea no PNDs no leg swelling. She has swelling of the right arm Reason For Visit: Anemia/Multiple contusions/Chest Pain Review of Systems Constitutional: Constitutional: Reports fatigue, Reports lethargy and Reports weakness Cardiovascular: Cardiovascular: Reports as per HPI Respiratory: Respiratory: Reports cough and Reports dyspnea on exertion Gastrointestinal: Gastrointestinal: Reports as per HPI [facility] Past Medical History Medical History Anemia Due to end-stage renal disease Anxiety CAD (coronary artery disease) stenting to the LAD and RCA in 2011. Last LHC in September 2018 showing patent vessels but small diagonal 100% Cataracts, bilateral CHF (congestive heart failure) echo in April 2019 show
--- NOTE | 2019-08-18 18:31 | P.PNNP_ITS ---
Progress Note: A&P Assessment and Plan (1) End stage renal disease: Code(s): N18.6 - End stage renal disease Status: Acute Assessment and Plan: * HD today and continue T/T/S schedule while hosptialized * follow electrolytes, volume status, and clearance (2) Frequent falls: Code(s): R29.6 - Repeated falls Status: Acute Assessment and Plan: * etiology?? * has had issues with fluctuating BP... * simple deconditioning from previous hospitalization? * resume PT/OT * needs placement? (3) Contusion of multiple sites: Code(s): T07.XXXA - Unspecified multiple injuries, initial encounter Status: Acute Assessment and Plan: * secondary to falls prior to admission * no acute trauma from imaging studies to date * pain control * continue supportive therapy (4) Acute hypotension: Code(s): I95.9 - Hypotension, unspecified Status: Resolved Assessment and Plan: * etiology? * all BP medications on hold * component of volume depletion * BP seems erratic at baseline as well * follow trend (5) Anemia: Code(s): D64.9 - Anemia, unspecified Status: Acute Assessment and Plan: * a bit low * check iron studies * Epogen with HD * follow trend of H/H Will continue to follow. Subjective Date/time seen: 08/18/19 18:31 Appears to be doing reasonably well; due for dialysis this evening; some soreness in chest due to falls prior to admission; eating and drinking okay. Exam Narrative: Exam Narrative: General: WD/WN female in NAD Heart: normal S1 and S2; no rub Lungs: clear to auscultation Abdomen: soft, nontender, nondistended, positive bowel sounds Extremities: no cyanosis or clubbing; no edema Skin: warm and dry Objective Data Vital Signs Vital Signs: Vital Signs Temp Pulse Resp BP Pulse Ox 08/18/19 16:00 36.5 C 78 95 H 122/93 H 97 08/18/19 12:00 36.8 C 102 H 22 H 164/71 H 99 08/18/19 10:00 78 08/18/19 08:00 36.3 C L 74 19 136/68 100 08/18/19 06:00 80 18 08/18/19 04:00 37.0 C 75 18 124/77 100 08/18/19 02:00 71 18 111/71 95 08/18/19 00:00 36.8 C 71 16 90/71 L 100 08/17/19 22:00 70 22 H 101/72 99 08/17/19 20:00 37.1 C 84 22 H 111/78 99 Intake/Output Intake/Output: Intake & Output 08/15/19 08/16/19 08/17/19 08/18/19 23:59 23:59 23:59 23:59 Intake Total 440 1835 Output Total 0 Balance 440 1835 Meds/Results Medications: Active Medications Generic Name Dose Route Start Last Admin Trade Name Freq PRN Reason Stop Dose Admin Albuterol 1 puff 08/18/19 20:00 Proventil Hfa INHALATION QIDRT [facility] Allopurinol 100 mg 08/19/19 09:00 Zyloprim PO DAILY [facility] Aspirin 81 mg 08/19/19 09:00 Aspirin Ec PO DAILY [facility] Atorvastatin Calcium 40 mg 08/19/19 09:00 Lipitor PO DAILY [facility] Buspirone HCl 10 mg 08/18/19 17:00 Buspar PO BID [facility] Epoetin Armaan 20,000 units 08/18/19 19:03 Epogen IV PUSH 08/18/19 19:04 ONCE ONE Epoetin Armaan 10,000 units 08/18/19 17:00 Epogen SUB-Q
--- NOTE | 2019-08-18 18:31 | PM.PNNEP ---
Progress Note: A&P Assessment and Plan (1) End stage renal disease: Code(s): N18.6 - End stage renal disease Status: Acute Assessment and Plan: HD today and continue T/T/S schedule while hosptialized follow electrolytes, volume status, and clearance (2) Frequent falls: Code(s): R29.6 - Repeated falls Status: Acute Assessment and Plan: etiology?? has had issues with fluctuating BP... simple deconditioning from previous hospitalization? resume PT/OT needs placement? (3) Contusion of multiple sites: Code(s): T07.XXXA - Unspecified multiple injuries, initial encounter Status: Acute Assessment and Plan: secondary to falls prior to admission no acute trauma from imaging studies to date pain control continue supportive therapy (4) Acute hypotension: Code(s): I95.9 - Hypotension, unspecified Status: Resolved Assessment and Plan: etiology? all BP medications on hold component of volume depletion BP seems erratic at baseline as well follow trend (5) Anemia: Code(s): D64.9 - Anemia, unspecified Status: Acute Assessment and Plan: a bit low check iron studies Epogen with HD follow trend of H/H Will continue to follow. Subjective Date/time seen: 08/18/19 18:31 Appears to be doing reasonably well; due for dialysis this evening; some soreness in chest due to falls prior to admission; eating and drinking okay. Exam Narrative: Exam Narrative: General: WD/WN female in NAD Heart: normal S1 and S2; no rub Lungs: clear to auscultation Abdomen: soft, nontender, nondistended, positive bowel sounds Extremities: no cyanosis or clubbing; no edema Skin: warm and dry Objective Data Vital Signs Vital Signs: Vital Signs Temp Pulse Resp BP Pulse Ox 08/18/19 16:00 36.5 C 78 95 H 122/93 H 97 08/18/19 12:00 36.8 C 102 H 22 H 164/71 H 99 08/18/19 10:00 78 08/18/19 08:00 36.3 C L 74 19 136/68 100 08/18/19 06:00 80 18 08/18/19 04:00 37.0 C 75 18 124/77 100 08/18/19 02:00 71 18 111/71 95 08/18/19 00:00 36.8 C 71 16 90/71 L 100 08/17/19 22:00 70 22 H 101/72 99 08/17/19 20:00 37.1 C 84 22 H 111/78 99 Intake/Output Intake/Output: Intake & Output 08/15/19 08/16/19 08/17/19 08/18/19 23:59 23:59 23:59 23:59 Intake Total 440 1835 Output Total 0 Balance 440 1835 Meds/Results Medications: Active Medications Generic Name Dose Route Start Last Admin Trade Name Freq PRN Reason Stop Dose Admin Albuterol 1 puff 08/18/19 20:00 Proventil Hfa INHALATION QIDRT [facility] Allopurinol 100 mg 08/19/19 09:00 Zyloprim PO DAILY [facility] Aspirin 81 mg 08/19/19 09:00 Aspirin Ec PO DAILY [facility] Atorvastatin Calcium 40 mg 08/19/19 09:00 Lipitor PO DAILY [facility] Buspirone HCl 10 mg 08/18/19 17:00 Buspar PO BID [facility] Epoetin Armaan 20,000 units 08/18/19 19:03 Epogen IV PUSH 08/18/19 19:04 ONCE ONE Epoetin Armaan 10,000 units 08/18/19 17:00 Epogen SUB-Q [id number] [facility] Ergocalciferol 50,000 unit 08/19/19 09:00 Drisdol PO DAILY [facility] Escitalopram Oxalate 10 mg 08/19/19 09:00 Lexapro PO DAILY [facility] Famotidine 20 mg 08/17/19 21:00 08/18/19 08:52 Pepcid Iv IV PUSH 20 mg Q12HR [facility] Administration Methimazole 5 mg 08/19/19 09:00 Tapazole PO DAILY [facility] Non-Formulary Medication 1 tablet 08/18/19 16:54 Diphenhydramine-Acetaminophen [Tylenol Pm Extra Strength] PO Q6H PRN Pain Ondansetron HCl 4 mg 08/17/19 13:51 Zofran Inj IV PUSH Q4H PRN Nausea Pantoprazole Sodium 40 mg 08/19/19 09:00 Protonix PO DAILY [facility] Promethazine HCl 25 mg 08/18/19 16:54 Phenergan Tab PO Q6H PRN nausea and vomiting Vitamin B Complex/Folic Acid 1 cap 08/19/19 09:00 Nephrocaps Softgel PO DAILY [facility]
[2019-08-18] MEDS: ONDANSETRON INJ 4 MG/2 ML VIAL IV PUSH (21:30)
--- NOTE | 2019-08-18 22:28 | HP_ITS ---
DATE OF SERVICE: CHIEF COMPLAINT: Fall with chest pain. HISTORY OF PRESENT ILLNESS: A 74-year-old female, lives alone, past had hit her head and hit her back. The patient has a laceration to her head and big bruise on her back. The patient is a dialysis patient. The patient felt dizzy while standing and suddenly had an episode of syncope with transient loss of consciousness. Patient denies any diarrhea, vomiting. Shortness of breath could be related to low blood pressures. The patient is on multiple medications. These will have to be reviewed. The patient was recently discharged from [facility] for elevated troponins and weakness. Patient had been in rehab. The patient had then gone to [facility] for further rehab and had just got back home. The patient has end-stage renal disease, is due dialysis today. The patient is seen by Nephrology and Cardiology. The patient had cardiac enzymes, which were negative. The patient will have orthostatics monitored while in the hospital. The patient has a known history of coronary artery disease with LAD stents, severe peripheral vascular disease, which is needing stents in her legs, but has not had that yet. The patient is known to Dr. Cruz. The patient describes chest pain earlier, but does not have any chest pain at the moment. The patient did have nausea, vomiting, gastroenteritis, but few weeks ago had been in the hospital with an NSTEMI, gastroenteritis, diabetes, COPD, two weeks back. REVIEW OF SYSTEMS: System review is positive for hypotension, falls, head injury, bruising, contusions, chest pain. All 12 systens reviewed and negative apart from those documented in HPI PAST MEDICAL HISTORY: All other systems are negative except for those documented in the HPI. Anemia, end-stage renal disease, anxiety, coronary artery disease, cataracts, congestive heart failure, COPD, depression, diabetes, GERD, gout, hypercholesteremia, hypertension, hypothyroid, mitral regurgitation, peripheral neuropathy, pneumonia, renal disease. PAST SURGICAL HISTORY: AV fistula, bladder surgery, colostomy, and endoscopic hysterectomy, cardiac cath with stent placement. FAMILY HISTORY: Diabetes. SOCIAL HISTORY: Patient lives on her own in [place]. Patient smoked in the past 1-1/2 years ago, stopped smoking. MEDICATIONS: On admission, allopurinol 100 p.o. daily, aspirin 81 p.o. daily, Lipitor 40 p.o. daily, B complex p.o. daily, buspirone 10 p.o. b.i.d., Tylenol Extra Strength 1 tablet p.o. q.6, Epogen 10,000 units 3 times a week, gabapentin 100 p.o. t.i.d., vitamin D 1250 mcg p.o. daily, methimazole 5 p.o. daily, metoclopramide 10 mg p.o. nausea, vomiting, promethazine 25 p.o., nausea and vomiting, albuterol 90 mcg HFA inhaler, Coreg 25 p.o. b.i.d., Lexapro 20 p.o. daily, hydralazine 50 p.o. t.i.d., omeprazole 20 p.o. daily, spironolactone 20 p.o. daily. PHYSICAL EXAMINATION: VITAL SIGNS: On admission, temperature 37.1, pulse 84, respirations 22, blood pressure 111/76. GENERAL: The patient is an elderly lady, pleasant in nature, chronically ill-appearing. HEAD: Normocephalic with a small contusion to the posterior scalp. EYES: PERRLA. ENT: Nares are clear. NECK: Supple. CHEST: Clear to auscultation. HEART: Heart sounds normal rate and rhythm. ABDOMEN: Soft, nontender. CHEST: Clear SKIN: Large bruise on her upper left back resolving EXTREMITIES: No edema. NEURO: No focal deficits. Cranial nerves intact. PSYCHIATRIC: Good mood and affect. ASSESSMENT AND PLAN: 1. Syncope, possibly secondary to hypotension. 2. Chest pain, cardiac ruled out. 3. Hypertension, chronic. 4. Diabetes type 2, chronic. 5. Frequent falls. 6. End-stage renal disease, we will need dialysis. PLAN: I
--- NOTE | 2019-08-18 23:58 | PC.NURSE ---
pt refusing hemodialysis, disconnevted after rapid response called. Returned to room 2200.
--- NOTE | 2019-08-18 23:58 | PC.NURSE ---
Pt transferred to room 259 per nurse Shilpi SIDDIQUI.
[2019-08-19] VITALS (31 sets, daily range): BP systolic 131–192; BP diastolic 56–96; PULSE 74–117; RESP 16–22; TEMP 36–37.1; O2SAT 9–100
--- NOTE | 2019-08-19 00:02 | PC.NURSE ---
Pt transferred to hemodialysis at 2129.
--- NOTE | 2019-08-19 00:03 | PC.NURSE ---
08/18/19 face to face report given to Shilpi SIDDIQUI while pt in hemodialysis and belongings transferred to room 259.
[2019-08-19 01:52] LABS: Troponin I 0.148 ng/mL (0.000-0.034)
[2019-08-19] MEDS: MORPHINE SULFATE 2 MG/ML INJ IV PUSH (02:33)
[2019-08-19] MEDS: NITROGLYCERIN SL 0.4 MG TABLET SUBLINGUAL ×2 (05:31→05:53)
[2019-08-19 06:54] LABS: Troponin I 0.187 ng/mL (0.000-0.034)
[2019-08-19 07:17] LABS: Hepatitis B Surface Antigen Negative (Negative)
--- NOTE | 2019-08-19 07:33 | PC.NURSE ---
Received pt from [facility] Oquendo from ICU 8. Pt belonging brought down prior to pt coming down to the floor. Pt was in dialysis and a rapid was called which delayed his transfer to [address] [place] [address]. Received pt at 0005. Pt came to the floor with chest pain but rated less than what she stated during her rapid.
[2019-08-19 07:35] LABS: Hepatitis B Surface Anti Res Negative
--- NOTE | 2019-08-19 08:00 | ECG_ITS ---
Measurements Intervals Thermal Rate: 83 P: 150 MN: 116 QRS: -20 QRSD: 101 T: 152 QT: 392 QTc: 462 Interpretive Statements ECTOPIC ATRIAL RHYTHM WITH SHORT MN INTERVAL POSSIBLE LEFT ATRIAL ENLARGEMENT BORDERLINE ST-T WAVE ABNORMALITY- DIFFUSE LEADS BASELINE ARTIFACT- I, II, III, AVR, AVL, AVF, V5 BORDERLINE ECG Electronically Signed On 08-19-2019 15:15:33 TOP SPOTTER by Bharath Mares D.O.
--- NOTE | 2019-08-19 08:06 | ECG_ITS ---
Measurements Intervals Media Rate: 105 P: 50 HI: 130 QRS: 8 QRSD: 100 T: 55 QT: 369 QTc: 488 Interpretive Statements SINUS TACHYCARDIA ATRIAL AND VENTRICULAR PREMATURE COMPLEXES POSSIBLE LEFT ATRIAL ENLARGEMENT BORDERLINE ST-T WAVE ABNORMALITY- DIFFUSE LEADS BASELINE ARTIFACT- I, II, III, AVR ABNORMAL ECG Electronically Signed On 08-19-2019 8:17:01 RECREATION COUNSELOR by Bharath Mares D.O.
[2019-08-19] MEDS: ASPIRIN 81 MG ENTERIC TABLET PO (08:18)
[2019-08-19] MEDS: methiMAzole 5 MG TAB PO (08:18)
[2019-08-19] MEDS: busPIRone HCL 10 MG TABLET PO ×2 (08:18→16:58)
[2019-08-19] MEDS: FAMOTIDINE 20 MG/2 ML VIAL IV PUSH ×2 (08:18→22:30)
[2019-08-19] MEDS: ATORVASTATIN 40 MG TABLET PO (08:18)
[2019-08-19] MEDS: PANTOPRAZOLE 40 MG TABLET PO (08:18)
[2019-08-19] MEDS: allopurinoL 100 MG TABLET PO (08:18)
[2019-08-19] MEDS: ESCITALOPRAM OXALATE 10 MG TABLET PO (08:18)
[2019-08-19] MEDS: VITAMIN B CMPLX/VIT C/FOLIC AC 1 CAPSULE 1 CAP PO (08:18)
[2019-08-19] MEDS: ISOSORBIDE MONONITRATE 60 MG TAB.ER.24H PO (08:22)
[2019-08-19] MEDS: LIDOCAINE 5% PATCH 2 PATCH TRANSDERM (08:27)
--- NOTE | 2019-08-19 10:31 | PM.PNNEP ---
Progress Note: A&P Assessment and Plan (1) End stage renal disease: Code(s): N18.6 - End stage renal disease Status: Acute Assessment and Plan: On dialysis and tolerating it well. Removing about 1L. She looks pretty good volume loredo. She was seen at 10:10 a.m. (2) Frequent falls: Code(s): R29.6 - Repeated falls Status: Acute Assessment and Plan: Continue physical therapy. hospitalist evaluating (3) Contusion of multiple sites: Code(s): T07.XXXA - Unspecified multiple injuries, initial encounter Status: Acute (4) Acute hypotension: Code(s): I95.9 - Hypotension, unspecified Status: Acute Assessment and Plan: Blood pressure is up and down. BP meds on hold. (5) Anemia: Code(s): D64.9 - Anemia, unspecified Status: Acute Assessment and Plan: . Subjective Date/time seen: 08/19/19 10:31 Interval history: Patient is alert. She has chest wall pain. She has lidocaine patches on that area. The whole area is quite tender. No belly pain but some nausea earlier. No shortness of breath. Feels generally weak Review of Systems Cardiovascular: Cardiovascular: Reports no additional cardiovascular complaints Respiratory: Respiratory: Reports no additional respiratory complaints Gastrointestinal: Gastrointestinal: Reports no additional gastrointestinal complaints Genitourinary: Genitourinary: Reports no additional female genitourinary complaints Exam Narrative: Exam Narrative: General: WD/WN female in NAD Heart: normal S1 and S2; no rub Lungs: clear to auscultation. Chest wall tender. Abdomen: soft, nontender, nondistended, positive bowel sounds Extremities: no cyanosis or clubbing; no edema Skin: warm and dry without rash Objective Data Vital Signs Vital Signs: Vital Signs - 24 hr 08/18/19 12:00 08/18/19 14:00 08/18/19 16:00 Temperature 36.8 C 36.5 C Pulse Rate 102 H 83 83 Pulse Rate [Radial] Respiratory Rate 22 H 95 H Blood Pressure 164/71 H 122/93 H Blood Pressure [Right Arm] Pulse Oximetry 99 97 08/18/19 18:00 08/18/19 19:55 08/18/19 20:00 Temperature 36.8 C Pulse Rate 78 119 H 92 Pulse Rate [Radial] Respiratory Rate 20 Blood Pressure 191/101 H 185/80 H Blood Pressure [Right Arm] Pulse Oximetry 92 08/18/19 20:45 08/18/19 21:20 08/18/19 22:00 Temperature 37.3 C Pulse Rate 109 H Pulse Rate [Radial] 100 118 H Respiratory Rate 20 25 H Blood Pressure 195/71 H Blood Pressure [Right Arm] 199/78 H 181/99 H Pulse Oximetry 90 08/18/19 23:03 08/19/19 00:00 08/19/19 00:18 Temperature Pulse Rate 85 80 85 Pulse Rate [Radial] Respiratory Rate 19 20 Blood Pressure 147/61 H 154/58 H Blood Pressure [Right Arm] Pulse Oximetry 99 94 08/19/19 05:41 08/19/19 05:57 08/19/19 06:04 Temperature Pulse Rate 74 84 77 Pulse Rate [Radial] Respiratory Rate 16 18 Blood Pressure 146/56 H 154/65 H Blood Pressure [Right Arm] Pulse Oximetry 100 100 08/19/19 09:16 08/19/19 09:20 08/19/19 09:30 Temperature 36.6 C Pulse Rate 108 H 103 H 106 H Pulse Rate [Radial] Respiratory Rate 16 Blood Pressure 179/87 H 192/94 H 159/78 H Blood Pressure [Right Arm] Pulse Oximetry 08/19/19 09:45 08/19/19 10:00 08/19/19 10:15 Temperature Pulse Rate 97 96 93 Pulse Rate [Radial] Respiratory Rate Blood Pressure 146/73 H 131/67 156/66 H Blood Pressure [Right Arm] Pulse Oximetry Intake/Output Intake/Output: Intake & Output 08/16/19 08/17/19 08/18/19 08/19/19 23:59 23:59 23:59 23:59 Intake Total 440 2205 Output Total 250 200 Balance 440 1955 -200 Meds/Results Medications: Active Medications Generic Name Dose Route Start Last Admin Trade Name Freq PRN Reason Stop Dose Admin Albuterol 1 puff 08/18/19 20:00 08/18/19 23:00 Proventil Hfa INHALATION Not Given QIDRT [facility] Allopurinol 100 mg 02
[2019-08-19] MEDS: EPOETIN ALFA 10,000 UNITS/ML VIAL 10000 UNITS IV PUSH (11:18)
--- NOTE | 2019-08-19 12:35 | PM.IMPN ---
Progress Note: A&P Assessment and Plan (1) CAD (coronary artery disease): Code(s): I25.10 - Atherosclerotic heart disease of [place] coronary artery without angina pectoris Status: Chronic Assessment and Plan: History of stents, cardiology to see patient (2) Frequent falls: Code(s): R29.6 - Repeated falls Status: Acute Assessment and Plan: Continue pt/ot, monitor orthostatic BPS (3) End stage renal disease: Code(s): N18.6 - End stage renal disease Status: Acute Assessment and Plan: CReat is 3.6 , pt going for dialysis today (4) Anemia: Code(s): D64.9 - Anemia, unspecified Status: Acute Assessment and Plan: hb is 7.8, pt is a ESRD patient. may benefit from epogen. (5) Chest pain: Code(s): R07.9 - Chest pain, unspecified Status: Acute Assessment and Plan: Intermittent squeezing chest pains, Complains of intermittent chest pain. Cardiology notified. Pt had rapid response yesterday yesterday evening for chest pain. Pt still complains of chest pain today, troponin from yesterday minimally elevated. Seen by cardiology cardiac chest pain appears unlikley appears more musculoskeletal or anxiety related -try lidoderm patch and tylenol for pain and xanax for anxiety. (6) Acute hypotension: Code(s): I95.9 - Hypotension, unspecified Status: Resolved Assessment and Plan: Hold hydralazine medications, as bps run low yesterday, continue spirolactone and coreg. (7) DVT prophylaxis: Code(s): Z29.9 - Encounter for prophylactic measures, unspecified Status: Acute (8) Troponin level elevated: Code(s): R79.89 - Other specified abnormal findings of blood chemistry Status: Acute Assessment and Plan: Continue to monitor, cardiology notified pt has a history of cAD with stents Subjective Date/time seen: 08/19/19 12:35 Interval history: 74-year-old female, lives alone, past had hit her head and hit her back. The patient has a laceration to her head and big bruise on her back. The patient is a dialysis patient. The patient felt dizzy while standing and suddenly had an episode of syncope with transient loss of consciousness. Complains of intermittent chest pain. Cardiology notified. Pt had rapid response yesterday yesterday evening for chest pain. Pt still complains of chest pain today, troponin from yesterday minimally elevated. Seen by cardiology cardiac chest pain appears unlikley appears more musculoskeletal or anxiety related -try lidoderm patch and tylenol for pain and xanax for anxiety. Review of Systems Constitutional: Constitutional: Reports fatigue Cardiovascular: Cardiovascular: Reports chest pain Musculoskeletal: Comments: Chest wall pain Psychiatric: Psychiatric: Reports anxiety Exam Narrative: Exam Narrative: GENERAL: The patient is an elderly lady, pleasant in nature, chronically ill-appearing. HEAD: Normocephalic with a small laceration to the posterior scalp. EYES: PERRLA. ENT: Nares are clear. NECK: Supple. CHEST: Clear to auscultation. HEART: Heart sounds normal rate and rhythm. ABDOMEN: Soft, nontender. EXTREMITIES: No edema. The patient has some contusion to her upper back. NEURO: No focal deficits. Cranial nerves intact. PSYCHIATRIC: Good mood and affect. The patient has a swelling of her right arm. Objective Data Vital Signs Vital Signs: Vital Signs - 24 hr 08/18/19 14:00 08/18/19 16:00 08/18/19 18:00 Temperature 36.5 C Pulse Rate 83 83 78 Pulse Rate [Radial] Respiratory Rate 95 H Blood Pressure 122/93 H Blood Pressure [Right Arm] Pulse Oximetry 97 08/18/19 19:55 08/18/19 20:00 08/18/19 20:45 Temperature 36.8 C 37.3 C Pulse Rate 119 H 92 Pulse Rate [Radial] 100 Respiratory Rate 20 20 Blood Pressure 191/101 H 185/80 H Blood Pressure [Right Arm] 199/78 H Pulse Oximetry 92 08/18/19 21:20 08/18
--- NOTE | 2019-08-19 13:10 | PC.NURSE ---
Patient went to dialysis at 0900 and returned at 1310.
[2019-08-19] MEDS: ALBUTEROL SULFATE (*SP) AEROSOL 1 PUFF INHALATION ×3 (14:36→19:55)
--- NOTE | 2019-08-19 14:45 | PM.PNCARD ---
Progress Note: A&P Assessment and Plan (1) Chest pain: Code(s): R07.9 - Chest pain, unspecified Status: Acute Assessment and Plan: Chest pain characteristic are very atypical for angina and consistent with musculoskeletal pain She had indeterminate trop elevation at 0.1 in the setting of ESRD and HD No new EKG changes. She had relatively recent cath in Feb revealing patent stent. No need for further workup for the time being, she is okay to use nitroglycerin as needed. Pain control per primary team. (2) Hypertension: Qualifiers: Hypertension type: essential hypertension Qualified Code(s): I10 - Essential (primary) hypertension Code(s): I10 - Essential (primary) hypertension Status: Acute Assessment and Plan: Okay to keep blood pressure little bit elevated, in view of his recurrent episode of orthostatic hypotension, to prevent further dizziness and syncope. She is on high dose of Coreg at home that she has not been receiving while admitted. She is having frequent PVCs on tele occasionally in [place]. 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 use Diabetes mellitus complication status: with kidney complications Diabetes mellitus complication detail: with chronic kidney disease Chronic kidney disease stage: on chronic dialysis Qualified Code(s): E11.22 - Type 2 diabetes mellitus with diabetic chronic kidney disease; N18.6 - End stage renal disease; Z99.2 - Dependence on renal dialysis Code(s): E11.9 - Type 2 diabetes mellitus without complications Status: Acute (4) Frequent falls: Code(s): R29.6 - Repeated falls Status: Acute Assessment and Plan: With multiple bruises, okay to stop Plavix keep on low-dose aspirin (5) End stage renal disease: Code(s): N18.6 - End stage renal disease Status: Acute (6) ESRD (end stage renal disease) on dialysis: Code(s): N18.6 - End stage renal disease; Z99.2 - Dependence on renal dialysis Status: Acute Subjective Date/time seen: 08/19/19 14:45 She is uncomfortable though can't specify why. She had reported chest pain to nursing staff earlier but now denies chest pain unless someone press on her chest. tele reviewed, she has frequent PVCs Review of Systems Review of Systems: All systems reviewed & are unremarkable except as noted in HPI and below Constitutional: Constitutional: Denies fatigue and Denies headache(s) Eyes: Eyes: Denies blurry vision ENT: Reports Normal hearing present and Denies headache(s) Cardiovascular: Cardiovascular: Denies chest pain, Denies diaphoresis, Denies pedal edema, Denies leg edema, Denies lightheadedness, Denies palpitations and Denies dyspnea Respiratory: Respiratory: Denies cough and Denies dyspnea Gastrointestinal: Gastrointestinal: Denies abdominal pain Musculoskeletal: Musculoskeletal: Denies back pain Neurologic: Reports Normal hearing present and Denies headache(s) Psychiatric: Psychiatric: Denies anxiety Endocrine: Endocrine: Denies fatigue and Denies palpitations Exam Narrative: Exam Narrative: Appears chronically ill and uncomfortable. Multiple ecchymosis noted on upper ext Eyes: Sclera: sclerae normal Neck: Neck: no JVD Carotids: no bruits Resp: Effort & Inspection: normal respiratory effort Auscultation: clear to auscultation bilaterally Cardio: Rate: regular rate and not tachycardic Rhythm: regular rhythm Heart sounds: no gallops, no murmurs and no rubs GI: GI Palp: Yes Soft to palpation and No Tenderness to palpation present (GI) Skin: General skin exam: normal color Neuro: Cranial nerves: Yes Normal hearing present Speech: normal speech Extrem: General: normal to inspection and no edema Psych: Affect: normal affect Objective Data Vital Signs Vital Signs: Vi
--- NOTE | 2019-08-19 15:01 | PCPTNOTE ---
Attempted to co-treat patient today, unable to complete skilled therapy due to patient's high pain level and nausea. Will continue per Plan of Care frequency and duration.
--- NOTE | 2019-08-19 15:01 | PCOTNOTE ---
Attempted to co-treat patient due to poor bed mobility with PT, however, patient c/o pain upon any movement and nausea. Attempted to have patient participate in bed mobility and work EOB, however, patient declined to assist with any skilled piece of OT or PT. HAND SANDER and ORELLANA scooted up patient to decrease pain in bed and left with call light in reach. Patient not seen for skilled OT.
--- NOTE | 2019-08-19 15:30 | PC.NURSE ---
Message left to Dr. Cruz's exchange at [phone] about patient [place] and persistent chest pain. No response. Pager called at [phone]. Dr Villagran responded to patient bedside and we discussed the patient's care. He does not believe this is cardiac related and believes it is musculoskeletal. He says that Dr. Hammond should handle pain management and anxiety management. I then discussed this with Dr. Hammond at 0622. She will review the medications and make changes.
[2019-08-19] MEDS: carvediloL 12.5 MG TABLET PO ×2 (16:58→22:30)
[2019-08-19] MEDS: GABAPENTIN 100 MG CAPSULE PO (16:58)
[2019-08-19] MEDS: ACETAMINOPHEN 325 MG TABLET 650 MG PO (22:28)
[2019-08-20] VITALS (29 sets, daily range): BP systolic 113–181; BP diastolic 50–91; PULSE 68–102; RESP 14–22; TEMP 35.8–37; O2SAT 91–100
[2019-08-20] MEDS: MELATONIN 3 MG TABLET PO ×2 (00:28→20:27)
[2019-08-20 06:25] LABS: Hematocrit 23.4 % (37.0-47.0); Hemoglobin 7.3 g/dL (12.0-15.0); Mean Corpuscular HGB Conc 31.2 g/dl (32-36); Mean Corpuscular Hemoglobin 33.6 pg (26-34); Mean Corpuscular Volume 107.8 fl (80-100); Mean Platelet Volume 11.6 fl (7.4-10.4); Platelet Count Result 151 k/mm3 (150-375); Red Blood Count 2.17 M/mm3 (4.2-5.4); Red Cell Distribution Width 14.2 % (11.5-14.5); White Blood Count 5.8 K/mm3 (4.5-10.0)
[2019-08-20 06:46] LABS: Albumin Level 2.8 g/dL (3.5-5.1); Blood Urea Nitrogen 18 mg/dL (7-17); Calcium 9.3 mg/dL (8.4-10.2); Carbon Dioxide 29 mmol/L (22-30); Chloride 100 mmol/L (98-107); Estimated CRCL calculation 11 ml/min; Estimated Glomerular Filt Rate 14; Glucose 92 mg/dL (65-105); Phosphorus 3.6 mg/dL (2.5-4.5); Sodium 137 mmol/L (137-145)
[2019-08-20] MEDS: ALBUTEROL SULFATE (*SP) AEROSOL 1 PUFF INHALATION ×3 (07:42→22:59)
[2019-08-20] MEDS: ATORVASTATIN 40 MG TABLET PO (08:10)
[2019-08-20] MEDS: busPIRone HCL 10 MG TABLET PO ×2 (08:10→18:06)
[2019-08-20] MEDS: VITAMIN B CMPLX/VIT C/FOLIC AC 1 CAPSULE 1 CAP PO (08:11)
[2019-08-20] MEDS: PANTOPRAZOLE 40 MG TABLET PO (08:11)
[2019-08-20] MEDS: GABAPENTIN 100 MG CAPSULE PO ×2 (08:11→18:06)
[2019-08-20] MEDS: ACETAMINOPHEN 325 MG TABLET 650 MG PO ×2 (08:11→20:26)
[2019-08-20] MEDS: SPIRONOLACTONE 25 MG TABLET PO (08:12)
[2019-08-20] MEDS: methiMAzole 5 MG TAB PO (08:12)
[2019-08-20] MEDS: carvediloL 12.5 MG TABLET PO ×2 (08:12→20:27)
[2019-08-20] MEDS: allopurinoL 100 MG TABLET PO (08:12)
[2019-08-20] MEDS: ESCITALOPRAM OXALATE 10 MG TABLET PO (08:12)
[2019-08-20] MEDS: ASPIRIN 81 MG ENTERIC TABLET PO (08:12)
[2019-08-20] MEDS: LIDOCAINE 5% PATCH 2 PATCH TRANSDERM (08:15)
[2019-08-20] MEDS: FAMOTIDINE 20 MG/2 ML VIAL IV PUSH ×2 (08:26→20:26)
--- NOTE | 2019-08-20 09:15 | PM.PNNEP ---
Progress Note: A&P Assessment and Plan (1) End stage renal disease: Code(s): N18.6 - End stage renal disease Status: Acute Assessment and Plan: due for dialysis again today to catch up to her usual schedule (2) Frequent falls: Code(s): R29.6 - Repeated falls Status: Acute Assessment and Plan: Continue physical therapy. hospitalist evaluating (3) Contusion of multiple sites: Code(s): T07.XXXA - Unspecified multiple injuries, initial encounter Status: Acute Assessment and Plan: her biggest area of discomfort is her chest wall. She has meds for this as well as pain patches. She gets very anxious and breathy which just makes the pain worse. (4) Acute hypotension: Code(s): I95.9 - Hypotension, unspecified Status: Resolved Assessment and Plan: Blood pressure is Better lately. Will remove more fluid on dialysis. She will probably need some blood pressure medicines soon. (5) Anemia: Code(s): D64.9 - Anemia, unspecified Status: Acute Assessment and Plan: . Hemoglobin 7.3. She will get EPO today. Check iron levels Subjective Date/time seen: 08/20/19 09:15 Interval history: Patient is alert. She has chest wall pain. She has lidocaine patches on that area. The whole area is quite tender. This started when she fell before she came in. Review of Systems Cardiovascular: Cardiovascular: Reports no additional cardiovascular complaints Respiratory: Respiratory: Reports no additional respiratory complaints Gastrointestinal: Gastrointestinal: Reports no additional gastrointestinal complaints Genitourinary: Genitourinary: Reports no additional female genitourinary complaints Exam Narrative: Exam Narrative: General: WD/WN female in NAD Heart: normal S1 and S2; no rub Lungs: clear to auscultation. Chest wall tender. Abdomen: soft, nontender, nondistended, positive bowel sounds Extremities: no cyanosis or clubbing; no edema Skin: No rash or subcu nodules Objective Data Vital Signs Vital Signs: Vital Signs - 24 hr 08/19/19 09:16 08/19/19 09:20 08/19/19 09:30 Temperature 36.6 C Pulse Rate 108 H 103 H 106 H Respiratory Rate 16 Blood Pressure 179/87 H 192/94 H 159/78 H Pulse Oximetry 08/19/19 09:45 08/19/19 10:00 08/19/19 10:15 Temperature Pulse Rate 97 96 93 Respiratory Rate Blood Pressure 146/73 H 131/67 156/66 H Pulse Oximetry 08/19/19 10:30 08/19/19 10:45 08/19/19 11:00 Temperature Pulse Rate 95 99 98 Respiratory Rate Blood Pressure 131/70 136/75 155/72 H Pulse Oximetry 08/19/19 11:15 08/19/19 11:30 08/19/19 11:45 Temperature Pulse Rate 97 95 95 Respiratory Rate Blood Pressure 143/76 H 160/73 H 151/76 H Pulse Oximetry 08/19/19 12:00 08/19/19 12:15 08/19/19 12:22 Temperature Pulse Rate 92 94 90 Respiratory Rate Blood Pressure 169/75 H 159/77 H 151/79 H Pulse Oximetry 08/19/19 12:30 08/19/19 13:20 08/19/19 14:00 Temperature 36.4 C 37.1 C Pulse Rate 91 104 H 93 Respiratory Rate 16 22 H Blood Pressure 158/68 H 154/65 H Pulse Oximetry 98 08/19/19 16:00 08/19/19 16:58 08/19/19 18:00 Temperature 36.9 C Pulse Rate 100 100 85 Respiratory Rate 20 Blood Pressure 168/66 H Pulse Oximetry 98 08/19/19 20:00 08/19/19 22:00 08/19/19 22:30 Temperature 37.1 C Pulse Rate 88 84 85 Respiratory Rate 22 H Blood Pressure 149/65 H Pulse Oximetry 9 L 08/20/19 00:00 08/20/19 02:00 08/20/19 04:00 Temperature 37.0 C Pulse Rate 80 80 78 Respiratory Rate 20 Blood Pressure 137/53 L Pulse Oximetry 91 08/20/19 06:00 Temperature 36.1 C L Pulse Rate 76 Respiratory Rate 18 Blood Pressure 120/50 L Pulse Oximetry 98 Intake/Output Intake/Output: Intake & Output 08/17/19 08/18/19 08/19/19 08/20/19 23:59 23:59 23:59 23:59 Intake Total 440 2205 440 240 Output Total 250 1400 0
--- NOTE | 2019-08-20 09:19 | PM.PNNEP ---
Subjective Date/time seen: 08/20/19 09:19 Objective Data Vital Signs Vital Signs: Vital Signs - 24 hr 08/19/19 09:20 08/19/19 09:30 08/19/19 09:45 Temperature Pulse Rate 103 H 106 H 97 Respiratory Rate Blood Pressure 192/94 H 159/78 H 146/73 H Pulse Oximetry 08/19/19 10:00 08/19/19 10:15 08/19/19 10:30 Temperature Pulse Rate 96 93 95 Respiratory Rate Blood Pressure 131/67 156/66 H 131/70 Pulse Oximetry 08/19/19 10:45 08/19/19 11:00 08/19/19 11:15 Temperature Pulse Rate 99 98 97 Respiratory Rate Blood Pressure 136/75 155/72 H 143/76 H Pulse Oximetry 08/19/19 11:30 08/19/19 11:45 08/19/19 12:00 Temperature Pulse Rate 95 95 92 Respiratory Rate Blood Pressure 160/73 H 151/76 H 169/75 H Pulse Oximetry 08/19/19 12:15 08/19/19 12:22 08/19/19 12:30 Temperature 36.4 C Pulse Rate 94 90 91 Respiratory Rate 16 Blood Pressure 159/77 H 151/79 H 158/68 H Pulse Oximetry 08/19/19 13:20 08/19/19 14:00 08/19/19 16:00 Temperature 37.1 C Pulse Rate 104 H 93 100 Respiratory Rate 22 H Blood Pressure 154/65 H Pulse Oximetry 98 08/19/19 16:58 08/19/19 18:00 08/19/19 20:00 Temperature 36.9 C Pulse Rate 100 85 88 Respiratory Rate 20 Blood Pressure 168/66 H Pulse Oximetry 98 08/19/19 22:00 08/19/19 22:30 08/20/19 00:00 Temperature 37.1 C Pulse Rate 84 85 80 Respiratory Rate 22 H Blood Pressure 149/65 H Pulse Oximetry 9 L 08/20/19 02:00 08/20/19 04:00 08/20/19 06:00 Temperature 37.0 C 36.1 C L Pulse Rate 80 78 76 Respiratory Rate 20 18 Blood Pressure 137/53 L 120/50 L Pulse Oximetry 91 98 Intake/Output Intake/Output: Intake & Output 08/17/19 08/18/19 08/19/19 08/20/19 23:59 23:59 23:59 23:59 Intake Total 440 2205 440 240 Output Total 250 1400 0 Balance 440 1955 -960 240 Meds/Results Medications: Active Medications Generic Name Dose Route Start Last Admin Trade Name Freq PRN Reason Stop Dose Admin Acetaminophen 650 mg 08/19/19 15:23 08/20/19 08:11 Tylenol Tablet PO 650 mg Q6H PRN Administration Mild Pain (1-3) or Fever Albuterol 1 puff 08/18/19 20:00 08/20/19 07:42 Proventil Hfa INHALATION 1 puff QIDRT STEFANO Administration Allopurinol 100 mg 08/19/19 09:00 08/20/19 08:12 Zyloprim PO 100 mg DAILY [facility] Administration Alprazolam 0.125 mg 08/19/19 15:22 08/20/19 08:10 Xanax PO 0.125 mg TID PRN Administration Anxiety Aspirin 81 mg 08/19/19 09:00 08/20/19 08:12 Aspirin Ec PO 81 mg DAILY [facility] Administration Atorvastatin Calcium 40 mg 08/19/19 09:00 08/20/19 08:10 Lipitor PO 40 mg DAILY [facility] Administration Buspirone HCl 10 mg 08/18/19 17:00 08/20/19 08:10 Buspar PO 10 mg BID [facility] Administration Carvedilol 12.5 mg 08/19/19 14:45 08/20/19 08:12 Coreg PO 12.5 mg Q12HR STEFANO Administration Epoetin Armaan 10,000 units 08/20/19 17:00 Epogen IV PUSH [id number] [facility] Escitalopram Oxalate 10 mg 08/19/19 09:00 08/20/19 08:12 Lexapro PO 10 mg DAILY [facility] Administration Famotidine 20 mg 08/17/19 21:00 08/20/19 08:26 Pepcid Iv IV PUSH 20 mg Q12HR [facility] Administration Gabapentin 100 mg 08/19/19 17:00 08/20/19 08:11 Neurontin PO 100 mg TID STEFANO Administration Albumin Human 50 mls @ 999 mls/hr 08/19/19 08:11 Albutein IVPB 09/18/19 08:12 Q10M PRN HYPOTENSION Lidocaine 2 patch 08/19/19 09:00 08/20/19 08:15 Lidoderm TRANSDERM 2 patch DAILY [facility] Administration Melatonin 3 mg 08/19/19 23:34 08/20/19 00:28 Melatonin PO 3 mg HS PRN Administration insomnia Methimazole 5 mg 08/19/19 09:00 08/20/19 08:12 Tapazole PO 5 mg DAILY [facility] Administration Ondansetron HCl 4 mg 08/17/19 13:51 08/18/19 21:30 Zofran Inj IV PUSH 4 mg Q4H PRN Administration Nausea Pantoprazole Sodium 40 mg 08/19/19 09:00 08/20/19 08:11 Prot
[2019-08-20 10:09] LABS: Iron 43 ug/dL (37-170)
[2019-08-20 10:22] LABS: Percent Iron Saturation 26 % (20-50)
--- NOTE | 2019-08-20 12:53 | PM.PNCARD ---
Progress Note: A&P Assessment and Plan (1) Chest pain: Code(s): R07.9 - Chest pain, unspecified Status: Acute Assessment and Plan: Chest pain characteristic are very atypical for angina and consistent with musculoskeletal pain She had indeterminate trop elevation at 0.1 in the setting of ESRD and HD No new EKG changes. She had relatively recent cath in Feb revealing patent stent. No need for further workup for the time being, she is okay to use nitroglycerin as needed. Pain control per primary team. (2) Hypertension: Qualifiers: Hypertension type: essential hypertension Qualified Code(s): I10 - Essential (primary) hypertension Code(s): I10 - Essential (primary) hypertension Status: Acute Assessment and Plan: Okay to keep blood pressure little bit elevated, in view of his recurrent episode of orthostatic hypotension, to prevent further dizziness and syncope. She is on high dose of Coreg at home that she has not been receiving while admitted. She is having frequent PVCs on tele occasionally in [place]. Will resume Coreg at lower dose 12.5 BID (3) Diabetes mellitus: Qualifiers: Diabetes mellitus type: type 2 Diabetes mellitus laborer marine terminal insulin use: without laborer marine terminal use Diabetes mellitus complication status: with kidney complications Diabetes mellitus complication detail: with chronic kidney disease Chronic kidney disease stage: on chronic dialysis Qualified Code(s): E11.22 - Type 2 diabetes mellitus with diabetic chronic kidney disease; N18.6 - End stage renal disease; Z99.2 - Dependence on renal dialysis Code(s): E11.9 - Type 2 diabetes mellitus without complications Status: Acute (4) Frequent falls: Code(s): R29.6 - Repeated falls Status: Acute Assessment and Plan: With multiple bruises, okay to stop Plavix keep on low-dose aspirin (5) End stage renal disease: Code(s): N18.6 - End stage renal disease Status: Acute (6) ESRD (end stage renal disease) on dialysis: Code(s): N18.6 - End stage renal disease; Z99.2 - Dependence on renal dialysis Status: Acute Additional Plan Thank you for allowing me to participate in this patient's care, I will be following up with you. Please do not hesitate to call me for any other inquiry Subjective Date/time seen: 08/20/19 12:53 She feels much better today, no more chest pain, no nausea no vomiting, no more abdominal pain Exam Narrative: Exam Narrative: Appears chronically ill and uncomfortable. Multiple ecchymosis noted on upper ext Eyes: Sclera: sclerae normal Neck: Neck: no JVD Carotids: no bruits Resp: Effort & Inspection: normal respiratory effort Auscultation: clear to auscultation bilaterally Cardio: Rate: regular rate and not tachycardic Rhythm: regular rhythm Heart sounds: no gallops, no murmurs and no rubs Skin: General skin exam: normal color Neuro: Cranial nerves: Yes Normal hearing present Speech: normal speech Extrem: General: normal to inspection and no edema Psych: Affect: normal affect Objective Data Vital Signs Vital Signs: Vital Signs - 24 hr 08/19/19 13:20 08/19/19 14:00 08/19/19 16:00 Temperature 37.1 C Pulse Rate 104 H 93 100 Respiratory Rate 22 H Blood Pressure 154/65 H Pulse Oximetry 98 08/19/19 16:58 08/19/19 18:00 08/19/19 20:00 Temperature 36.9 C Pulse Rate 100 85 88 Respiratory Rate 20 Blood Pressure 168/66 H Pulse Oximetry 98 08/19/19 22:00 08/19/19 22:30 08/20/19 00:00 Temperature 37.1 C Pulse Rate 84 85 80 Respiratory Rate 22 H Blood Pressure 149/65 H Pulse Oximetry 9 L 08/20/19 02:00 08/20/19 04:00 08/20/19 06:00 Temperature 37.0 C 36.1 C L Pulse Rate 80 78 76 Respiratory Rate 20 18 Blood Pressure 137/53 L 120/50 L Pulse Oximetry 91 98 08/20/19 08:00 08/20/19 10:30 Temperature 36.7 C Pulse Rate 74 74 Respiratory Rate 18 18 Blood Pressure 138/
--- NOTE | 2019-08-20 14:34 | PCOTNOTE ---
Patient out of room x2 attempts this pm
--- NOTE | 2019-08-20 14:37 | PC.NURSE ---
Pt down to dialysis at 1300,held med to next dose of Gabapentin.
--- NOTE | 2019-08-20 15:03 | PM.IMPN ---
Progress Note: A&P Assessment and Plan (1) CAD (coronary artery disease): Code(s): I25.10 - Atherosclerotic heart disease of [place] coronary artery without angina pectoris Status: Chronic Assessment and Plan: History of stents, cardiology to see patient (2) Frequent falls: Code(s): R29.6 - Repeated falls Status: Acute Assessment and Plan: Continue pt/ot, monitor orthostatic BPS (3) End stage renal disease: Code(s): N18.6 - End stage renal disease Status: Acute Assessment and Plan: Creat is 3.3 (4) Anemia: Code(s): D64.9 - Anemia, unspecified Status: Acute Assessment and Plan: hb is 7.8, pt is a ESRD patient. may benefit from epogen. (5) Chest pain: Code(s): R07.9 - Chest pain, unspecified Status: Acute Assessment and Plan: Intermittent squeezing chest pains, Complains of intermittent chest pain. Cardiology notified. Pt had rapid response yesterday yesterday evening for chest pain. Pt still complains of chest pain today, troponin from yesterday minimally elevated. Seen by cardiology cardiac chest pain appears unlikley appears more musculoskeletal or anxiety related -try lidoderm patch and tylenol for pain and xanax for anxiety. (6) Acute hypotension: Code(s): I95.9 - Hypotension, unspecified Status: Resolved Assessment and Plan: Hold hydralazine medications, as bps run low yesterday, continue spirolactone and coreg. (7) DVT prophylaxis: Code(s): Z29.9 - Encounter for prophylactic measures, unspecified Status: Acute (8) Troponin level elevated: Code(s): R79.89 - Other specified abnormal findings of blood chemistry Status: Acute Assessment and Plan: Continue to monitor, cardiology notified pt has a history of cAD with stents Subjective Date/time seen: 08/20/19 15:03 Interval history: 74-year-old female, lives alone, past had hit her head and hit her back. The patient has a laceration to her head and big bruise on her back. The patient is a dialysis patient. The patient felt dizzy while standing and suddenly had an episode of syncope with transient loss of consciousness. Complains of intermittent chest pain. Cardiology notified. Pt had rapid response yesterday yesterday evening for chest pain. Pt still complains of chest pain today, troponin from yesterday minimally elevated. Seen by cardiology cardiac chest pain appears unlikley appears more musculoskeletal or anxiety related -try lidoderm patch and tylenol for pain and xanax for anxiety. Pt feels aches and pains all over from her recent fall. pt feels anxious to return home. pt had dialysis yesterday. pt bp is stable today. Review of Systems Constitutional: Constitutional: Reports fatigue Cardiovascular: Cardiovascular: Reports chest pain Psychiatric: Psychiatric: Reports anxiety Endocrine: Endocrine: Reports fatigue Exam Narrative: Exam Narrative: GENERAL: The patient is an elderly lady, pleasant in nature, chronically ill-appearing. HEAD: Normocephalic with a small laceration to the posterior scalp. EYES: PERRLA. ENT: Nares are clear. NECK: Supple. CHEST: Clear to auscultation. HEART: Heart sounds normal rate and rhythm. ABDOMEN: Soft, nontender. EXTREMITIES: No edema. The patient has some contusion to her upper back. NEURO: No focal deficits. Cranial nerves intact. PSYCHIATRIC: Good mood and affect. The patient has a mild swelling of her right arm. Objective Data Vital Signs Vital Signs: Vital Signs - 24 hr 08/19/19 16:00 08/19/19 16:58 08/19/19 18:00 Temperature 36.9 C Pulse Rate 100 100 85 Respiratory Rate 20 Blood Pressure 168/66 H Pulse Oximetry 98 08/19/19 20:00 08/19/19 22:00 08/19/19 22:30 Temperature 37.1 C Pulse Rate 88 84 85 Respiratory Rate 22 H Blood Pressure 149/65 H Pulse Oximetry 9 L 08/20/19 00:00 08/20/19 02:00 08/20/19 04:00
--- NOTE | 2019-08-20 16:22 | PCPTNOTE ---
The patient treatment was not able to be completed on 08/20/19. Will plan to continue treatment per plan of care.
--- NOTE | 2019-08-20 18:18 | PC.NURSE ---
Pt A & O X 3. Pt states she does not wish for Tiarra Arreguin to be her POA any longer. Pt states she has no children, but her grandchildren have been adopted by a woman, Mayuri Alejandro. She further states Tiarra Arreguin has told Ms. Alejandro that she is not allowed to visit the pt in the hospital. As the pt is oriented to person, place, time, & situation, she is able to decide who may or may not visit her. Tiarra Arreguin has POA paperwork that pt wishes to nullify. She states she would like her grandchildren's adoptive mother to be her new POA and make medical decision for her in the event of her inability to make decisions for herself. The name of the person she wished to be her new POA is Mayuri Alejandro, phone [phone].
[2019-08-20] MEDS: ONDANSETRON INJ 4 MG/2 ML VIAL IV PUSH (19:30)
[2019-08-21] VITALS (11 sets, daily range): BP systolic 120–188; BP diastolic 55–71; PULSE 74–92; RESP 14–22; TEMP 36.1–36.6; O2SAT 97–100
[2019-08-21] MEDS: ACETAMINOPHEN 325 MG TABLET 650 MG PO ×2 (01:06→07:53)
[2019-08-21 06:28] LABS: Hemoglobin 8.3 g/dL (12.0-15.0); Mean Corpuscular HGB Conc 30.7 g/dl (32-36); Mean Corpuscular Hemoglobin 34.2 pg (26-34); Mean Corpuscular Volume 111.1 fl (80-100); Mean Platelet Volume 11.8 fl (7.4-10.4); Platelet Count Result 114 k/mm3 (150-375); Red Blood Count 2.43 M/mm3 (4.2-5.4); Red Cell Distribution Width 14.6 % (11.5-14.5); White Blood Count 5.1 K/mm3 (4.5-10.0)
[2019-08-21 06:37] LABS: Blood Urea Nitrogen 12 mg/dL (7-17); Calcium 9.6 mg/dL (8.4-10.2); Carbon Dioxide 30 mmol/L (22-30); Chloride 96 mmol/L (98-107); Estimated CRCL calculation 16 ml/min; Estimated Glomerular Filt Rate 21; Glucose 103 mg/dL (65-105); Sodium 136 mmol/L (137-145)
--- NOTE | 2019-08-21 07:36 | P.PNNP_ITS ---
Progress Note: A&P Assessment and Plan (1) End stage renal disease: Code(s): N18.6 - End stage renal disease Status: Acute Assessment and Plan: * HD due on Thursday * Volume status looks okay * Potassium has been fine (2) Frequent falls: Code(s): R29.6 - Repeated falls Status: Acute Assessment and Plan: * etiology?? * has had issues with fluctuating BP... * She has lost a lot of strength while here. * Getting physical therapy (3) Contusion of multiple sites: Code(s): T07.XXXA - Unspecified multiple injuries, initial encounter Status: Acute Assessment and Plan: * secondary to falls prior to admission * no acute trauma from imaging studies to date * pain control * continue supportive therapy * Try heating pad (4) Acute hypotension: Code(s): I95.9 - Hypotension, unspecified Status: Resolved Assessment and Plan: * etiology? * all BP medications on hold * Blood pressure still seems reasonable with a systolic between 120 and 150 (5) Anemia: Code(s): D64.9 - Anemia, unspecified Status: Acute Assessment and Plan: * a bit low * check iron studies * Epogen with HD * Hemoglobin up to 8.3 today. Will continue to follow. Subjective Date/time seen: 08/21/19 07:36 Interval history: Patient is alert. ?I feel terrible ? She continues to have chest discomfort. She has lidocaine patches on. She has Tylenol ordered. I suggested heating pad to the nurse. No shortness of breath. She ate pretty well yesterday Review of Systems Cardiovascular: Cardiovascular: Reports no additional cardiovascular complaints Respiratory: Respiratory: Reports no additional respiratory complaints Gastrointestinal: Gastrointestinal: Reports no additional gastrointestinal complaints Genitourinary: Genitourinary: Reports no additional female genitourinary complaints Exam Narrative: Exam Narrative: General: WD/WN female in NAD Heart: normal S1 and S2; no rub or gallop Lungs: clear to auscultation. Chest wall tender. Abdomen: soft, nontender, nondistended, positive bowel sounds Extremities: no edema Skin: No rash Objective Data Vital Signs Vital Signs: Vital Signs - 24 hr 08/20/19 08:00 08/20/19 10:30 08/20/19 12:00 Temperature 36.7 C Pulse Rate 74 74 74 Respiratory Rate 18 18 Blood Pressure 138/55 L Pulse Oximetry 96 96 08/20/19 13:13 08/20/19 13:20 08/20/19 13:30 Temperature 36.4 C Pulse Rate 73 70 73 Respiratory Rate 16 Blood Pressure 181/90 H 177/84 H 165/91 H Pulse Oximetry 08/20/19 13:45 08/20/19 14:01 08/20/19 14:15 Temperature Pulse Rate 75 78 76 Respiratory Rate Blood Pressure 181/90 H 180/84 H 165/77 H Pulse Oximetry 08/20/19 14:30 08/20/19 14:46 08/20/19 15:00 Temperature Pulse Rate 78 76 75 Respiratory Rate Blood Pressure 162/78 H 154/68 H 113/59 L Pulse Oximetry 08/20/19 15:15 08/20/19 15:30 08/20/19 15:45 Temperature Pulse Rate 68 74 78 Respiratory Rate Blood Pressure 116/53 L 138/64 149/76 H Pul
--- NOTE | 2019-08-21 07:36 | PM.PNNEP ---
Progress Note: A&P Assessment and Plan (1) End stage renal disease: Code(s): N18.6 - End stage renal disease Status: Acute Assessment and Plan: HD due on Thursday Volume status looks okay Potassium has been fine (2) Frequent falls: Code(s): R29.6 - Repeated falls Status: Acute Assessment and Plan: etiology?? has had issues with fluctuating BP... She has lost a lot of strength while here. Getting physical therapy (3) Contusion of multiple sites: Code(s): T07.XXXA - Unspecified multiple injuries, initial encounter Status: Acute Assessment and Plan: secondary to falls prior to admission no acute trauma from imaging studies to date pain control continue supportive therapy Try heating pad (4) Acute hypotension: Code(s): I95.9 - Hypotension, unspecified Status: Resolved Assessment and Plan: etiology? all BP medications on hold Blood pressure still seems reasonable with a systolic between 120 and 150 (5) Anemia: Code(s): D64.9 - Anemia, unspecified Status: Acute Assessment and Plan: a bit low check iron studies Epogen with HD Hemoglobin up to 8.3 today. Will continue to follow. Subjective Date/time seen: 08/21/19 07:36 Interval history: Patient is alert. ?I feel terrible ? She continues to have chest discomfort. She has lidocaine patches on. She has Tylenol ordered. I suggested heating pad to the nurse. No shortness of breath. She ate pretty well yesterday Review of Systems Cardiovascular: Cardiovascular: Reports no additional cardiovascular complaints Respiratory: Respiratory: Reports no additional respiratory complaints Gastrointestinal: Gastrointestinal: Reports no additional gastrointestinal complaints Genitourinary: Genitourinary: Reports no additional female genitourinary complaints Exam Narrative: Exam Narrative: General: WD/WN female in NAD Heart: normal S1 and S2; no rub or gallop Lungs: clear to auscultation. Chest wall tender. Abdomen: soft, nontender, nondistended, positive bowel sounds Extremities: no edema Skin: No rash Objective Data Vital Signs Vital Signs: Vital Signs - 24 hr 08/20/19 08:00 08/20/19 10:30 08/20/19 12:00 Temperature 36.7 C Pulse Rate 74 74 74 Respiratory Rate 18 18 Blood Pressure 138/55 L Pulse Oximetry 96 96 08/20/19 13:13 08/20/19 13:20 08/20/19 13:30 Temperature 36.4 C Pulse Rate 73 70 73 Respiratory Rate 16 Blood Pressure 181/90 H 177/84 H 165/91 H Pulse Oximetry 08/20/19 13:45 08/20/19 14:01 08/20/19 14:15 Temperature Pulse Rate 75 78 76 Respiratory Rate Blood Pressure 181/90 H 180/84 H 165/77 H Pulse Oximetry 08/20/19 14:30 08/20/19 14:46 08/20/19 15:00 Temperature Pulse Rate 78 76 75 Respiratory Rate Blood Pressure 162/78 H 154/68 H 113/59 L Pulse Oximetry 08/20/19 15:15 08/20/19 15:30 08/20/19 15:45 Temperature Pulse Rate 68 74 78 Respiratory Rate Blood Pressure 116/53 L 138/64 149/76 H Pulse Oximetry 08/20/19 16:00 08/20/19 16:16 08/20/19 16:31 Temperature Pulse Rate 79 76 81 Respiratory Rate Blood Pressure 154/77 H 141/70 H 143/74 H Pulse Oximetry 08/20/19 16:45 08/20/19 16:50 08/20/19 17:20 Temperature 36.4 C Pulse Rate 78 77 79 Respiratory Rate 14 Blood Pressure 141/67 H 160/76 H 119/64 Pulse Oximetry 08/20/19 18:00 08/20/19 20:00 08/20/19 20:27 Temperature 36.2 C L Pulse Rate 74 83 102 H Respiratory Rate 18 Blood Pressure 140/64 Pulse Oximetry 97 08/20/19 22:00 08/21/19 00:00 08/21/19 02:00 Temperature 36.1 C L 36.6 C Pulse Rate 86 92 85 Respiratory Rate 22 H 22 H Blood Pressure 150/58 H 120/55 L Pulse Oximetry 100 98 08/21/19 04:00 08/21/19 06:00 Temperature 36.4 C Pulse Rate 76 81 Respiratory Rate 20 Blood Pressure 152/63 H Pulse Oximetry 97 Intake/Output Intake/O
[2019-08-21] MEDS: FAMOTIDINE 20 MG/2 ML VIAL IV PUSH ×2 (07:53→21:21)
[2019-08-21] MEDS: ESCITALOPRAM OXALATE 10 MG TABLET PO (07:54)
[2019-08-21] MEDS: busPIRone HCL 10 MG TABLET PO ×2 (07:54→16:42)
[2019-08-21] MEDS: SPIRONOLACTONE 25 MG TABLET PO (07:54)
[2019-08-21] MEDS: PANTOPRAZOLE 40 MG TABLET PO (07:54)
[2019-08-21] MEDS: methiMAzole 5 MG TAB PO (07:55)
[2019-08-21] MEDS: carvediloL 12.5 MG TABLET PO ×2 (07:55→21:20)
[2019-08-21] MEDS: ATORVASTATIN 40 MG TABLET PO (07:55)
[2019-08-21] MEDS: VITAMIN B CMPLX/VIT C/FOLIC AC 1 CAPSULE 1 CAP PO (07:55)
[2019-08-21] MEDS: GABAPENTIN 100 MG CAPSULE PO ×3 (07:55→16:42)
[2019-08-21] MEDS: allopurinoL 100 MG TABLET PO (07:56)
[2019-08-21] MEDS: LIDOCAINE 5% PATCH 2 PATCH TRANSDERM (07:56)
[2019-08-21] MEDS: ASPIRIN 81 MG ENTERIC TABLET PO (07:56)
[2019-08-21] MEDS: ALBUTEROL SULFATE (*SP) AEROSOL 1 PUFF INHALATION ×4 (10:00→21:16)
--- NOTE | 2019-08-21 12:36 | PM.IMPN ---
Progress Note: A&P Assessment and Plan (1) CAD (coronary artery disease): Code(s): I25.10 - Atherosclerotic heart disease of [place] coronary artery without angina pectoris Status: Chronic Assessment and Plan: History of stents, cardiology to see patient (2) Frequent falls: Code(s): R29.6 - Repeated falls Status: Acute Assessment and Plan: Continue pt/ot, monitor orthostatic BPS (3) End stage renal disease: Code(s): N18.6 - End stage renal disease Status: Acute Assessment and Plan: Creat is 3.3 (4) Anemia: Code(s): D64.9 - Anemia, unspecified Status: Acute Assessment and Plan: hb is 8.3, pt is a ESRD patient. may benefit from epogen. (5) Chest pain: Code(s): R07.9 - Chest pain, unspecified Status: Acute Assessment and Plan: Intermittent squeezing chest pains, Complains of intermittent chest pain. Pt had rapid response yesterday yesterday evening for chest pain. Pt still complains of chest pain today, troponin from yesterday minimally elevated. Seen by cardiology cardiac chest pain appears unlikley appears more musculoskeletal or anxiety related -try lidoderm patch and tylenol for pain and xanax for anxiety. Will add norco today to help with her aches and pains. (6) Acute hypotension: Code(s): I95.9 - Hypotension, unspecified Status: Resolved Assessment and Plan: Hold hydralazine medications, as bps run low yesterday, continue spirolactone and coreg. (7) DVT prophylaxis: Code(s): Z29.9 - Encounter for prophylactic measures, unspecified Status: Acute (8) Troponin level elevated: Code(s): R79.89 - Other specified abnormal findings of blood chemistry Status: Acute Assessment and Plan: Continue to monitor, cardiology notified pt has a history of cAD with stents Subjective Date/time seen: 08/21/19 12:36 Interval history: 74-year-old female, lives alone, past had hit her head and hit her back. The patient has a laceration to her head and big bruise on her back. The patient is a dialysis patient. The patient felt dizzy while standing and suddenly had an episode of syncope with transient loss of consciousness. Complains of intermittent chest pain. Cardiology notified. Pt had rapid response yesterday yesterday evening for chest pain. Pt still complains of chest pain today, troponin from yesterday minimally elevated. Seen by cardiology cardiac chest pain appears unlikley appears more musculoskeletal or anxiety related -try lidoderm patch and tylenol for pain and xanax for anxiety. Pt feels aches and pains all over from her recent fall. pt feels anxious to return home. pt had dialysis yesterday. pt still complaining of aches and pains all over Review of Systems Review of Systems: All systems reviewed & are unremarkable except as noted in HPI and below Constitutional: Constitutional: Reports fatigue Comments: pain all over Cardiovascular: Cardiovascular: Reports chest pain Psychiatric: Psychiatric: Reports anxiety Endocrine: Endocrine: Reports fatigue Exam Narrative: Exam Narrative: GENERAL: The patient is an elderly lady, pleasant in nature, chronically ill-appearing. HEAD: Normocephalic with a small laceration to the posterior scalp. EYES: PERRLA. ENT: Nares are clear. NECK: Supple. CHEST: Clear to auscultation. HEART: Heart sounds normal rate and rhythm. ABDOMEN: Soft, nontender. EXTREMITIES: No edema. The patient has some contusion to her upper back. NEURO: No focal deficits. Cranial nerves intact. PSYCHIATRIC: Good mood and affect. The patient has a mild swelling of her right arm. Objective Data Vital Signs Vital Signs: Vital Signs - 24 hr 08/20/19 13:13 08/20/19 13:20 08/20/19 13:30 Temperature 36.4 C Pulse Rate 73 70 73 Respiratory Rate 16 Blood Pressure 181/90 H 177/84 H 165/91 H Pulse Oximetry 08/20/19 13:45 08/20/19
--- NOTE | 2019-08-21 14:35 | PM.PNCARD ---
Progress Note: A&P Assessment and Plan (1) Chest pain: Code(s): R07.9 - Chest pain, unspecified Status: Acute Assessment and Plan: Chest pain characteristic are very atypical for angina and consistent with musculoskeletal pain She had indeterminate trop elevation at 0.1 in the setting of ESRD and HD No new EKG changes. She had relatively recent cath in Feb revealing patent stent. No need for further workup for the time being, she is okay to use nitroglycerin as needed. Pain control per primary team. (2) Hypertension: Qualifiers: Hypertension type: essential hypertension Qualified Code(s): I10 - Essential (primary) hypertension Code(s): I10 - Essential (primary) hypertension Status: Acute Assessment and Plan: Okay to keep blood pressure little bit elevated, in view of his recurrent episode of orthostatic hypotension, to prevent further dizziness and syncope. She is on high dose of Coreg at home that she has not been receiving while admitted. She is having frequent PVCs on tele occasionally in trig[place]y. Will resume Coreg at lower dose 12.5 BID (3) Diabetes mellitus: Qualifiers: Diabetes mellitus type: type 2 Diabetes mellitus assistant terminal manager insulin use: without chcf use Diabetes mellitus complication status: with kidney complications Diabetes mellitus complication detail: with chronic kidney disease Chronic kidney disease stage: on chronic dialysis Qualified Code(s): E11.22 - Type 2 diabetes mellitus with diabetic chronic kidney disease; N18.6 - End stage renal disease; Z99.2 - Dependence on renal dialysis Code(s): E11.9 - Type 2 diabetes mellitus without complications Status: Acute (4) Frequent falls: Code(s): R29.6 - Repeated falls Status: Acute Assessment and Plan: With multiple bruises, okay to stop Plavix keep on low-dose aspirin (5) End stage renal disease: Code(s): N18.6 - End stage renal disease Status: Acute (6) ESRD (end stage renal disease) on dialysis: Code(s): N18.6 - End stage renal disease; Z99.2 - Dependence on renal dialysis Status: Acute Additional Plan Thank you for allowing me to participate in this patient's care, I will be following up with you. Please do not hesitate to call me for any other inquiry Subjective Date/time seen: 08/21/19 14:35 Interval history: She feels slightly better today, still with occasional chest wall pain r Review of Systems Review of Systems: All systems reviewed & are unremarkable except as noted in HPI and below Constitutional: Constitutional: Denies fatigue, Denies headache(s), Reports lethargy and Reports weakness Eyes: Eyes: Denies blurry vision ENT: Reports Normal hearing present and Denies headache(s) Cardiovascular: Cardiovascular: Reports as per HPI, Denies chest pain, Denies diaphoresis, Denies pedal edema, Denies leg edema, Denies lightheadedness, Denies palpitations, Denies dyspnea and Reports dyspnea on exertion Respiratory: Respiratory: Denies cough, Denies dyspnea and Reports dyspnea on exertion Gastrointestinal: Gastrointestinal: Reports as per HPI and Denies abdominal pain Musculoskeletal: Musculoskeletal: Denies back pain Neurologic: Reports Normal hearing present, Denies headache(s) and Reports weakness Psychiatric: Psychiatric: Denies anxiety Endocrine: Endocrine: Denies fatigue and Denies palpitations Exam Narrative: Exam Narrative: Appears chronically ill and uncomfortable. Multiple ecchymosis noted on upper ext Eyes: Sclera: sclerae normal Neck: Neck: no JVD Carotids: no bruits Resp: Effort & Inspection: normal respiratory effort Auscultation: clear to auscultation bilaterally Cardio: Rate: regular rate and not tachycardic Rhythm: regular rhythm Heart sounds: no gallops, no murmurs and no rubs Skin: General skin exam: normal color Neuro: Cranial nerves: Yes Normal hearing present Speech: normal speec
--- NOTE | 2019-08-21 14:43 | PCOTNOTE ---
Declined treatment this pm due to generalized pain and pending lunch.
[2019-08-21] MEDS: MELATONIN 3 MG TABLET PO (21:22)
[2019-08-21] MEDS: ACETAMINOPHEN 325 MG TABLET PO (21:23)
[2019-08-22] VITALS (13 sets, daily range): BP systolic 129–168; BP diastolic 40–67; PULSE 72–88; RESP 16–18; TEMP 36.2–36.9; O2SAT 92–100
[2019-08-22 05:21] LABS: Hematocrit 31.2 % (37.0-47.0); Hemoglobin 9.1 g/dL (12.0-15.0); Mean Corpuscular HGB Conc 29.2 g/dl (32-36); Mean Corpuscular Hemoglobin 34.1 pg (26-34); Mean Corpuscular Volume 116.9 fl (80-100); Mean Platelet Volume 12.4 fl (7.4-10.4); Platelet Count Result 82 k/mm3 (150-375); Red Blood Count 2.67 M/mm3 (4.2-5.4); Red Cell Distribution Width 14.9 % (11.5-14.5); White Blood Count 7.7 K/mm3 (4.5-10.0)
[2019-08-22 06:40] LABS: Albumin Level 3.1 g/dL (3.5-5.1); Blood Urea Nitrogen 21 mg/dL (7-17); Calcium 10.3 mg/dL (8.4-10.2); Carbon Dioxide 32 mmol/L (22-30); Chloride 92 mmol/L (98-107); Estimated CRCL calculation 10 ml/min; Estimated Glomerular Filt Rate 11; Glucose 128 mg/dL (65-105); Phosphorus 3.9 mg/dL (2.5-4.5); Potassium 3.5 mmol/L (3.4-5.0); Sodium 136 mmol/L (137-145)
--- NOTE | 2019-08-22 08:23 | P.PNNP_ITS ---
Progress Note: A&P Assessment and Plan (1) End stage renal disease: Code(s): N18.6 - End stage renal disease Status: Acute Assessment and Plan: * HD tomorrow. * Volume status looks okay * Potassium has been fine (2) Frequent falls: Code(s): R29.6 - Repeated falls Status: Acute Assessment and Plan: * etiology?? * has had issues with fluctuating BP. * She has lost a lot of strength while here. * Getting physical therapy (3) Contusion of multiple sites: Code(s): T07.XXXA - Unspecified multiple injuries, initial encounter Status: Acute Assessment and Plan: * secondary to falls prior to admission * no acute trauma from imaging studies to date * pain control * continue supportive therapy * Try heating pad (4) Acute hypotension: Code(s): I95.9 - Hypotension, unspecified Status: Resolved Assessment and Plan: * etiology? * all BP medications on hold * Blood pressure is back up. will restart carvedilol (5) Anemia: Code(s): D64.9 - Anemia, unspecified Status: Acute Assessment and Plan: * a bit low * check iron studies * Epogen with HD * Hemoglobin up to 9.1 today. Subjective Date/time seen: 08/22/19 08:23 Interval history: Patient is alert. She continues to have pains everywhere. No shortness of breath. Review of Systems Cardiovascular: Cardiovascular: Reports no additional cardiovascular complaints Respiratory: Respiratory: Reports no additional respiratory complaints Gastrointestinal: Gastrointestinal: Reports no additional gastrointestinal complaints Genitourinary: Genitourinary: Reports no additional female genitourinary complaints Exam Narrative: Exam Narrative: General: WD/WN female in NAD Heart: normal S1 and S2; no rub or gallop Lungs: clear to auscultation. Chest wall tender. Abdomen: soft, nontender, nondistended, positive bowel sounds Extremities: no edema Skin: No rash or sq nodules Objective Data Vital Signs Vital Signs: Vital Signs - 24 hr 08/21/19 10:00 08/21/19 12:00 08/21/19 14:00 Temperature 36.1 C L 36.1 C L Pulse Rate 81 84 74 Respiratory Rate 14 14 Blood Pressure 165/69 H 188/71 H Pulse Oximetry 98 98 08/21/19 16:00 08/21/19 21:20 08/21/19 21:46 Temperature 36.3 C L Pulse Rate 84 84 86 Respiratory Rate 18 Blood Pressure 186/67 H Pulse Oximetry 100 08/22/19 02:00 08/22/19 02:13 08/22/19 04:00 Temperature 36.6 C Pulse Rate 82 77 73 Respiratory Rate 18 Blood Pressure 160/58 H Pulse Oximetry 92 08/22/19 05:55 Temperature 36.7 C Pulse Rate 79 Respiratory Rate 16 Blood Pressure 149/67 H Pulse Oximetry 94 Intake/Output Intake/Output: Intake & Output 08/19/19 08/20/19 08/21/19 08/22/19 23:59 23:59 23:59 23:59 Intake Total 897 158 8843 370 Output Total 1400 3400 0 Balance -960 -2890 1270 370 Meds/Results Medications: Active Medications Generic Name Dose Route Start Last Admin Trade Name Freq PRN Reason Stop Dos
--- NOTE | 2019-08-22 08:23 | PM.PNNEP ---
Progress Note: A&P Assessment and Plan (1) End stage renal disease: Code(s): N18.6 - End stage renal disease Status: Acute Assessment and Plan: HD tomorrow. Volume status looks okay Potassium has been fine (2) Frequent falls: Code(s): R29.6 - Repeated falls Status: Acute Assessment and Plan: etiology?? has had issues with fluctuating BP. She has lost a lot of strength while here. Getting physical therapy (3) Contusion of multiple sites: Code(s): T07.XXXA - Unspecified multiple injuries, initial encounter Status: Acute Assessment and Plan: secondary to falls prior to admission no acute trauma from imaging studies to date pain control continue supportive therapy Try heating pad (4) Acute hypotension: Code(s): I95.9 - Hypotension, unspecified Status: Resolved Assessment and Plan: etiology? all BP medications on hold Blood pressure is back up. will restart carvedilol (5) Anemia: Code(s): D64.9 - Anemia, unspecified Status: Acute Assessment and Plan: a bit low check iron studies Epogen with HD Hemoglobin up to 9.1 today. Subjective Date/time seen: 08/22/19 08:23 Interval history: Patient is alert. She continues to have pains everywhere. No shortness of breath. Review of Systems Cardiovascular: Cardiovascular: Reports no additional cardiovascular complaints Respiratory: Respiratory: Reports no additional respiratory complaints Gastrointestinal: Gastrointestinal: Reports no additional gastrointestinal complaints Genitourinary: Genitourinary: Reports no additional female genitourinary complaints Exam Narrative: Exam Narrative: General: WD/WN female in NAD Heart: normal S1 and S2; no rub or gallop Lungs: clear to auscultation. Chest wall tender. Abdomen: soft, nontender, nondistended, positive bowel sounds Extremities: no edema Skin: No rash or sq nodules Objective Data Vital Signs Vital Signs: Vital Signs - 24 hr 08/21/19 10:00 08/21/19 12:00 08/21/19 14:00 Temperature 36.1 C L 36.1 C L Pulse Rate 81 84 74 Respiratory Rate 14 14 Blood Pressure 165/69 H 188/71 H Pulse Oximetry 98 98 08/21/19 16:00 08/21/19 21:20 08/21/19 21:46 Temperature 36.3 C L Pulse Rate 84 84 86 Respiratory Rate 18 Blood Pressure 186/67 H Pulse Oximetry 100 08/22/19 02:00 08/22/19 02:13 08/22/19 04:00 Temperature 36.6 C Pulse Rate 82 77 73 Respiratory Rate 18 Blood Pressure 160/58 H Pulse Oximetry 92 08/22/19 05:55 Temperature 36.7 C Pulse Rate 79 Respiratory Rate 16 Blood Pressure 149/67 H Pulse Oximetry 94 Intake/Output Intake/Output: Intake & Output 08/19/19 08/20/19 08/21/19 08/22/19 23:59 23:59 23:59 23:59 Intake Total 414 875 2418 370 Output Total 1400 3400 0 Balance -960 -2890 1270 370 Meds/Results Medications: Active Medications Generic Name Dose Route Start Last Admin Trade Name Freq PRN Reason Stop Dose Admin Acetaminophen 325 mg 08/21/19 12:39 08/21/19 21:23 Tylenol Tablet PO 325 mg Q6H PRN Administration Mild Pain (1-3) or Fever Albuterol 1 puff 08/18/19 20:00 08/21/19 21:16 Proventil Hfa INHALATION 1 puff QIDRT STEFANO Administration Allopurinol 100 mg 08/19/19 09:00 08/21/19 07:56 Zyloprim PO 100 mg DAILY STEFANO Administration Alprazolam 0.125 mg 08/19/19 15:22 08/21/19 21:22 Xanax PO 0.125 mg TID PRN Administration Anxiety Aspirin 81 mg 08/19/19 09:00 08/21/19 07:56 Aspirin Ec PO 81 mg DAILY STEFANO Administration Atorvastatin Calcium 40 mg 08/19/19 09:00 08/21/19 07:55 Lipitor PO 40 mg DAILY STEFANO Administration Buspirone HCl 10 mg 08/18/19 17:00 08/21/19 16:42 Buspar PO 10 mg BID STEFANO Administration Carvedilol 12.5 mg 08/19/19 14:45 08/21/19 21:20 Coreg PO 12.5 mg Q12HR STEFANO Administration Epoetin Armaan 10,000 un
[2019-08-22] MEDS: ALBUTEROL SULFATE (*SP) AEROSOL 1 PUFF INHALATION ×4 (09:34→19:20)
[2019-08-22 10:28] LABS: Magnesium 1.8 mg/dL (1.6-2.3)
[2019-08-22] MEDS: ATORVASTATIN 40 MG TABLET PO (10:35)
[2019-08-22] MEDS: allopurinoL 100 MG TABLET PO (10:35)
[2019-08-22] MEDS: busPIRone HCL 10 MG TABLET PO ×2 (10:35→17:45)
[2019-08-22] MEDS: ASPIRIN 81 MG ENTERIC TABLET PO (10:35)
[2019-08-22] MEDS: carvediloL 25 MG TABLET PO ×2 (10:36→21:49)
[2019-08-22] MEDS: ESCITALOPRAM OXALATE 10 MG TABLET PO (10:36)
[2019-08-22] MEDS: GABAPENTIN 100 MG CAPSULE PO ×3 (10:37→17:46)
[2019-08-22] MEDS: methiMAzole 5 MG TAB PO (10:37)
[2019-08-22] MEDS: LIDOCAINE 5% PATCH 2 PATCH TRANSDERM (10:37)
[2019-08-22] MEDS: FAMOTIDINE 20 MG/2 ML VIAL IV PUSH ×2 (10:37→21:50)
[2019-08-22] MEDS: PANTOPRAZOLE 40 MG TABLET PO (10:38)
[2019-08-22] MEDS: VITAMIN B CMPLX/VIT C/FOLIC AC 1 CAPSULE 1 CAP PO (10:38)
[2019-08-22] MEDS: SPIRONOLACTONE 25 MG TABLET PO (10:38)
--- NOTE | 2019-08-22 11:01 | PCOTNOTE ---
Addendum entered by REYNA Beck 08/22/19 12:24: Attempted to see patient a second time this A.M. Patient was willing to participate in OT session at this time. See documentation for 259 at 1138 A.M. Original Note: Attempted to see patient this A.M. for skilled OT session. Patient reports of 10/10 pain and states that today is not a good day . Patient refuses therapy this date.
--- NOTE | 2019-08-22 11:45 | PC.NURSE ---
Patient has been moaning with pain all morning. States she has severe pain in her back and chest from falling prior to admission. Rates pain 10/10 and states Tylenol does not help. Patient is allergic to Hydrocodone, Oxycodone, and Codeine. Called Dr. Esteves and notified him of continued complaints of pain. Orders received for Baclofen. Notified Dr. Esteves that Baclofen is contraindicated in end stage renal patients on dialysis. Called Ed in pharmacy to discuss renal appropriate dose of Baclofen. Per pharmacy recommendations orders received for Baclofen 2.5 mg po BID.
[2019-08-22] MEDS: ACETAMINOPHEN 325 MG TABLET PO (13:49)
--- NOTE | 2019-08-22 14:08 | PM.PNCARD ---
Progress Note: A&P Assessment and Plan (1) Chest pain: Code(s): R07.9 - Chest pain, unspecified Status: Acute Assessment and Plan: Chest pain characteristic are very atypical for angina and consistent with musculoskeletal pain She had indeterminate trop elevation at 0.1 in the setting of ESRD and HD No new EKG changes. She had relatively recent cath in Feb revealing patent stent. No need for further workup for the time being, she is okay to use nitroglycerin as needed. Pain control per primary team. (2) Hypertension: Qualifiers: Hypertension type: essential hypertension Qualified Code(s): I10 - Essential (primary) hypertension Code(s): I10 - Essential (primary) hypertension Status: Acute Assessment and Plan: Okay to keep blood pressure little bit elevated, in view of his recurrent episode of orthostatic hypotension, to prevent further dizziness and syncope. She is on high dose of Coreg at home that she has not been receiving while admitted. She is having frequent PVCs on tele occasionally in [place]. 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 ferry terminal supervisor use Diabetes mellitus complication status: with kidney complications Diabetes mellitus complication detail: with chronic kidney disease Chronic kidney disease stage: on chronic dialysis Qualified Code(s): E11.22 - Type 2 diabetes mellitus with diabetic chronic kidney disease; N18.6 - End stage renal disease; Z99.2 - Dependence on renal dialysis Code(s): E11.9 - Type 2 diabetes mellitus without complications Status: Acute (4) Frequent falls: Code(s): R29.6 - Repeated falls Status: Acute Assessment and Plan: With multiple bruises, okay to stop Plavix keep on low-dose aspirin (5) End stage renal disease: Code(s): N18.6 - End stage renal disease Status: Acute (6) ESRD (end stage renal disease) on dialysis: Code(s): N18.6 - End stage renal disease; Z99.2 - Dependence on renal dialysis Status: Acute Additional Plan Thank you for allowing me to participate in this patient's care, I will be following up with you. Please do not hesitate to call me for any other inquiry Subjective Date/time seen: 08/22/19 14:08 Interval history: Patient is alert. She continues to have pains everywhere. No shortness of breath. Exam Narrative: Exam Narrative: Appears chronically ill and uncomfortable. Multiple ecchymosis noted on upper ext Eyes: Sclera: sclerae normal Neck: Neck: no JVD Carotids: no bruits Resp: Effort & Inspection: normal respiratory effort Auscultation: clear to auscultation bilaterally Cardio: Rate: regular rate and not tachycardic Rhythm: regular rhythm Heart sounds: no gallops, no murmurs and no rubs Skin: General skin exam: normal color Neuro: Cranial nerves: Yes Normal hearing present Speech: normal speech Extrem: General: normal to inspection and no edema Psych: Affect: normal affect Objective Data Vital Signs Vital Signs: Vital Signs - 24 hr 08/21/19 16:00 08/21/19 21:20 08/21/19 21:46 Temperature 36.3 C L Pulse Rate 84 84 86 Respiratory Rate 18 Blood Pressure 186/67 H Pulse Oximetry 100 08/22/19 02:00 08/22/19 02:13 08/22/19 04:00 Temperature 36.6 C Pulse Rate 82 77 73 Respiratory Rate 18 Blood Pressure 160/58 H Pulse Oximetry 92 08/22/19 05:55 08/22/19 08:00 08/22/19 10:00 Temperature 36.7 C 36.8 C Pulse Rate 79 73 79 Respiratory Rate 16 18 Blood Pressure 149/67 H 153/54 H Pulse Oximetry 94 92 08/22/19 10:36 08/22/19 12:00 Temperature Pulse Rate 73 88 Respiratory Rate Blood Pressure Pulse Oximetry Intake/Output Intake/Output: Intake & Output 08/19/19 08/20/19 08/21/19 08/22/19 23:59 23:59 23:59 23:59 Intake Total 469 810 8244 370 Ou
--- NOTE | 2019-08-22 16:23 | PM.IMPN ---
Progress Note: A&P Assessment and Plan (1) CAD (coronary artery disease): Code(s): I25.10 - Atherosclerotic heart disease of [place] coronary artery without angina pectoris Status: Chronic Assessment and Plan: History of stents, patient seen by supervising architect does not suspect acute coronary syndrome most likely musculoskeletal no further workup is required (2) Frequent falls: Code(s): R29.6 - Repeated falls Status: Acute Assessment and Plan: Continue pt/ot, monitor orthostatic BPS (3) End stage renal disease: Code(s): N18.6 - End stage renal disease Status: Acute Assessment and Plan: Creat is 3.3 seen by education manager will have scheduled dialysis (4) Anemia: Code(s): D64.9 - Anemia, unspecified Status: Acute Assessment and Plan: hb is 8.3, pt is a ESRD patient. may benefit from epogen. (5) Chest pain: Code(s): R07.9 - Chest pain, unspecified Status: Acute Assessment and Plan: Intermittent squeezing chest pains, Complains of intermittent chest pain. Pt had rapid response yesterday yesterday evening for chest pain. Pt still complains of chest pain today, troponin from yesterday minimally elevated. Seen by cardiology cardiac chest pain appears unlikley appears more musculoskeletal or anxiety related -try lidoderm patch and tylenol for pain and xanax for anxiety. Will add norco today to help with her aches and pains. Chest pains most likely most likely will add baclofen (6) Acute hypotension: Code(s): I95.9 - Hypotension, unspecified Status: Resolved Assessment and Plan: Hold hydralazine medications, as bps run low yesterday, continue spirolactone and coreg. Today BP is close to target clinically stable (7) DVT prophylaxis: Code(s): Z29.9 - Encounter for prophylactic measures, unspecified Status: Acute Assessment and Plan: SCD (8) Troponin level elevated: Code(s): R79.89 - Other specified abnormal findings of blood chemistry Status: Acute Assessment and Plan: Continue to monitor, cardiology notified pt has a history of cAD with stents seen by supervising architect does not suspect acute coronary syndrome most likely muscular. Subjective Date/time seen: 08/22/19 16:23 74-year-old female, lives alone, past had hit her head and hit her back. The patient has a laceration to her head and big bruise on her back. The patient is a dialysis patient. The patient felt dizzy while standing and suddenly had an episode of syncope with transient loss of consciousness. Complains of intermittent chest pain. Cardiology notified. Pt had rapid response yesterday yesterday evening for chest pain. Pt still complains of chest pain today, troponin from yesterday minimally elevated. Seen by cardiology cardiac chest pain appears unlikley appears more musculoskeletal or anxiety related -try lidoderm patch and tylenol for pain and xanax for anxiety. Pt feels aches and pains all over from her recent fall. pt feels anxious to return home. pt had dialysis yesterday. pt still complaining of aches and pains all over, interval history on 08/22 patient still complains body ache difficult to participate in PT OT patient is allergic to several narcotic, and Tylenol is not helping with her pain will start the patient on baclofen Review of Systems Review of Systems: All systems reviewed & are unremarkable except as noted in HPI and below Constitutional: Constitutional: Reports fatigue Cardiovascular: Cardiovascular: Reports chest pain Psychiatric: Psychiatric: Reports anxiety Endocrine: Endocrine: Reports fatigue Exam Narrative: Exam Narrative: Elderly frail Const: General: no acute distress and uncomfortable HENMT: General nose exam: Normal nares present Mouth: Yes moist mucous membranes Eyes: General: appearance normal, both eyes and all related structures Sclera: sclerae normal Neck: Neck: supple Resp:
--- NOTE | 2019-08-22 17:58 | PC.NURSE ---
Patient continues to moan and cry out in pain. No relief from Baclofen at this point. Patient rates pain in chest and back /. Called Dr. Esteves and discussed further with him. Orders received for one time dose of po Hydromorphone.
[2019-08-22 19:45] LABS: Thyroid Stimulating Hormone < 0.015 uIU/mL (0.465-4.680)
[2019-08-22 20:24] LABS: Folic Acid > 20.0 ng/mL (2.76->20); Vitamin B12 > 1000.0 pg/mL (239-931)
[2019-08-22] MEDS: MELATONIN 3 MG TABLET PO (22:08)
[2019-08-23] VITALS (25 sets, daily range): BP systolic 93–166; BP diastolic 47–76; PULSE 55–83; RESP 16–18; TEMP 35.6–37; O2SAT 95–98
[2019-08-23 05:50] LABS: Hematocrit 27.9 % (37.0-47.0); Hemoglobin 8.6 g/dL (12.0-15.0); Mean Corpuscular HGB Conc 30.8 g/dl (32-36); Mean Corpuscular Hemoglobin 33.3 pg (26-34); Mean Corpuscular Volume 108.1 fl (80-100); Mean Platelet Volume 11.6 fl (7.4-10.4); Platelet Count Result 157 k/mm3 (150-375); Red Blood Count 2.58 M/mm3 (4.2-5.4); Red Cell Distribution Width 14.8 % (11.5-14.5)
[2019-08-23 05:52] LABS: Albumin Level 3.1 g/dL (3.5-5.1); Blood Urea Nitrogen 32 mg/dL (7-17); Calcium 9.7 mg/dL (8.4-10.2); Carbon Dioxide 31 mmol/L (22-30); Chloride 96 mmol/L (98-107); Estimated CRCL calculation 7 ml/min; Estimated Glomerular Filt Rate 7; Glucose 103 mg/dL (65-105); Phosphorus 4.6 mg/dL (2.5-4.5); Potassium 3.9 mmol/L (3.4-5.0); Sodium 137 mmol/L (137-145)
[2019-08-23] MEDS: ACETAMINOPHEN 325 MG TABLET PO (06:43)
--- NOTE | 2019-08-23 07:24 | PM.PNNEP ---
Progress Note: A&P Assessment and Plan (1) End stage renal disease: Code(s): N18.6 - End stage renal disease Status: Acute Assessment and Plan: HD today later. Volume status looks okay Potassium has been doing well. (2) Frequent falls: Code(s): R29.6 - Repeated falls Status: Acute Assessment and Plan: etiology?? has had issues with fluctuating BP. She has lost a lot of strength while here. Getting physical therapy (3) Contusion of multiple sites: Code(s): T07.XXXA - Unspecified multiple injuries, initial encounter Status: Acute Assessment and Plan: secondary to falls prior to admission Getting physical therapy. Discussed with Dr Lin. He is trying Dilaudid now. (4) Acute hypotension: Code(s): I95.9 - Hypotension, unspecified Status: Resolved Assessment and Plan: Resolved (5) Anemia: Code(s): D64.9 - Anemia, unspecified Status: Acute Assessment and Plan: a bit low T sat is okay. Epogen with HD Hemoglobin up and down around the high 8s. (6) Low TSH level: Code(s): R79.89 - Other specified abnormal findings of blood chemistry Status: Acute Assessment and Plan: I ordered a free T3 and T4. Discussed with Dr. Lin. Subjective Date/time seen: 08/23/19 07:24 Interval history: Patient is alert. Patient is still miserable. Anxious. Pain everywhere, mostly in the chest wall. No shortness of breath. Review of Systems Cardiovascular: Cardiovascular: Reports no additional cardiovascular complaints Respiratory: Respiratory: Reports no additional respiratory complaints Gastrointestinal: Gastrointestinal: Reports no additional gastrointestinal complaints Genitourinary: Genitourinary: Reports no additional female genitourinary complaints Exam Narrative: Exam Narrative: General: WD/WN female in NAD Heart: normal S1 and S2; no rub or gallop Lungs: clear to auscultation. Chest wall tender. Abdomen: BS+ nontender Extremities: no edema or cyanosis Skin: No rash Objective Data Vital Signs Vital Signs: Vital Signs - 24 hr 08/22/19 08:00 08/22/19 10:00 08/22/19 10:36 Temperature 36.8 C Pulse Rate 73 79 73 Respiratory Rate 18 Blood Pressure 153/54 H Pulse Oximetry 92 08/22/19 12:00 08/22/19 14:00 08/22/19 18:00 Temperature 36.9 C 36.4 C L Pulse Rate 88 80 72 Respiratory Rate 18 18 Blood Pressure 129/57 L 168/65 H Pulse Oximetry 100 98 08/22/19 21:49 08/22/19 21:50 08/22/19 22:09 Temperature 36.2 C L Pulse Rate 79 79 79 Respiratory Rate 16 16 Blood Pressure 142/40 H Pulse Oximetry 99 99 08/23/19 06:06 Temperature 35.6 C L Pulse Rate 71 Respiratory Rate 16 Blood Pressure 149/53 H Pulse Oximetry 98 Intake/Output Intake/Output: Intake & Output 08/20/19 08/21/19 08/22/19 08/23/19 23:59 23:59 23:59 23:59 Intake Total 510 1270 1110 300 Output Total 3400 0 200 25 Balance -2890 1270 910 275 Meds/Results Medications: Active Medications Generic Name Dose Route Start Last Admin Trade Name Freq PRN Reason Stop Dose Admin Acetaminophen 325 mg 08/21/19 12:39 08/23/19 06:43 Tylenol Tablet PO 325 mg Q6H PRN Administration Mild Pain (1-3) or Fever Albuterol 1 puff 08/18/19 20:00 08/22/19 19:20 Proventil Hfa INHALATION 1 puff QIDRT STEFANO Administration Allopurinol 100 mg 08/19/19 09:00 08/22/19 10:35 Zyloprim PO 100 mg DAILY STEFANO Administration Alprazolam 0.125 mg 08/19/19 15:22 08/23/19 06:43 Xanax PO 0.125 mg TID PRN Administration Anxiety Aspirin 81 mg 08/19/19 09:00 08/22/19 10:35 Aspirin Ec PO 81 mg DAILY STEFANO Administration Atorvastatin Calcium 40 mg 08/19/19 09:00 08/22/19 10:35 Lipitor PO 40 mg DAILY STEFANO Administration Buspirone HCl 10 mg 08/18/19 17:00 08/22/19 17:45 Buspar PO 10 mg BID STEFANO Administra
[2019-08-23] MEDS: busPIRone HCL 10 MG TABLET PO ×2 (08:00→17:48)
[2019-08-23] MEDS: ASPIRIN 81 MG ENTERIC TABLET PO (08:00)
[2019-08-23] MEDS: GABAPENTIN 100 MG CAPSULE PO ×2 (08:00→17:48)
[2019-08-23] MEDS: FAMOTIDINE 20 MG/2 ML VIAL IV PUSH ×2 (08:00→20:35)
[2019-08-23] MEDS: ESCITALOPRAM OXALATE 10 MG TABLET PO (08:01)
[2019-08-23] MEDS: methiMAzole 5 MG TAB PO (08:01)
[2019-08-23] MEDS: SPIRONOLACTONE 25 MG TABLET PO (08:01)
[2019-08-23] MEDS: ATORVASTATIN 40 MG TABLET PO (08:01)
[2019-08-23] MEDS: allopurinoL 100 MG TABLET PO (08:01)
[2019-08-23] MEDS: PANTOPRAZOLE 40 MG TABLET PO (08:01)
[2019-08-23] MEDS: LIDOCAINE 5% PATCH 2 PATCH TRANSDERM (08:02)
[2019-08-23] MEDS: carvediloL 25 MG TABLET PO ×2 (08:03→20:35)
[2019-08-23] MEDS: VITAMIN B CMPLX/VIT C/FOLIC AC 1 CAPSULE 1 CAP PO (08:03)
[2019-08-23 09:37] LABS: Free T4 Free Thyroxine 1.63 ng/mL (0.78-2.19)
--- NOTE | 2019-08-23 11:00 | PC.NURSE ---
patient to dialysis per bed
--- NOTE | 2019-08-23 13:23 | PCOTNOTE ---
Attempted to see patient this pm. Patient was not present in the room at this time due to dialysis treatment. Skilled OT session not completed this date.
[2019-08-23] MEDS: EPOETIN ALFA 10,000 UNITS/ML VIAL 10000 UNITS IV PUSH (14:14)
--- NOTE | 2019-08-23 14:14 | CONS_ITS ---
DATE OF CONSULTATION: 08/22/2019 REFERRING PHYSICIAN: Greg An M.D. REASON FOR CONSULTATION: Anemia. HISTORY OF PRESENTING ILLNESS: This is a 74-year-old female with a history of end-stage renal disease, congestive heart failure and COPD. The patient came into the hospital status post fall with injuries and laceration to the head and bruise in the back. The patient is a dialysis patient. She is now complaining of back pain. She denies any melena and hematochezia. She denies any weight loss. She denies any abdominal pain and chest pain. The patient has been seen by the Cardiology and cardiac workup came back negative. She has a history of known coronary artery disease with a stent placement. Hemoglobin was found to be 7.5. REVIEW OF SYSTEMS: 12-point review of system was reviewed and as per HPI, otherwise negative. PAST MEDICAL HISTORY: End-stage renal disease on hemodialysis, COPD, congestive heart failure, GERD, gout, hyperlipidemia, hypertension, hypothyroidism, mitral regurgitation, peripheral neuropathy, and pneumonia . PAST SURGICAL HISTORY: AV fistula, bladder surgery, colostomy, endoscopic hysterectomy, cardiac cath with stent placement. FAMILY HISTORY: Positive for diabetes. SOCIAL HISTORY: The patient lives by herself. She quit smoking. She used to smoke 1-1/2 pack per day. HOME MEDICATIONS: Reviewed. ALLERGIES: NONE. PHYSICAL EXAMINATION: GENERAL: This patient is in pain right now. Alert and oriented. VITAL SIGNS: Per nursing note. HEENT: Normocephalic, atraumatic. Clear oropharynx. LUNGS: Clear to auscultation bilaterally. CARDIOVASCULAR: Regular rate and rhythm. No murmurs. ABDOMEN: Soft, nontender, nondistended. Bowel sounds are positive in all 4 quadrants. No hepatosplenomegaly. EXTREMITIES: No clubbing, cyanosis, or edema. NEURO: Grossly intact. LABORATORY DATA: WBC 9.0, hemoglobin 8.6, MCV 108.1, platelet 157,000, neutrophils 73%, lymphocytes 15%. Creatinine 5.7, iron 43, iron saturation 26%. Vitamin B12 more than 1000. Folic acid more than 20. TSH less than 0.01. Methylmalonic acid level is pending. ASSESSMENT AND PLAN: 1. Macrocytic anemia. The patient is a 74-year-old female with history of end-stage renal disease, on hemodialysis. She denies any bleeding, but does have a big bruise status post fall. Iron studies were done and they came back normal. B12 level is elevated. Methylmalonic acid level is pending. She is already on Epogen 3 times a week with hemodialysis. Other possibility of her anemia includes primary bone marrow disorder like myelodysplastic syndrome with elevated MCV. We will follow along with you and make any further recommendation like bone marrow biopsy if her hemoglobin continues to drop. 2. End-stage renal disease. The patient has been followed by Dr. Yancey. I will order serum protein electrophoresis with immunofixation. I have answered all the questions to the patient's satisfaction .. NICHOL HALL M.D. SMALL PARTS ASSEMBLER [employer] PARTS ASSEMBLER D Noah MT: [place]
--- NOTE | 2019-08-23 15:15 | PC.NURSE ---
Patient returned from dialysis. Report received from Sanjana.
[2019-08-23] MEDS: ALBUTEROL SULFATE (*SP) AEROSOL 1 PUFF INHALATION ×2 (15:42→19:26)
--- NOTE | 2019-08-23 15:43 | PM.IMPN ---
Progress Note: A&P Assessment and Plan (1) CAD (coronary artery disease): Code(s): I25.10 - Atherosclerotic heart disease of [place] coronary artery without angina pectoris Status: Chronic Assessment and Plan: History of stents, patient seen by heritage consultant does not suspect acute coronary syndrome most likely musculoskeletal no further workup is required (2) Frequent falls: Code(s): R29.6 - Repeated falls Status: Acute Assessment and Plan: Continue pt/ot, monitor orthostatic BPS (3) End stage renal disease: Code(s): N18.6 - End stage renal disease Status: Acute Assessment and Plan: Creat is 3.3 seen by ash collector will have scheduled dialysis (4) Anemia: Code(s): D64.9 - Anemia, unspecified Status: Acute Assessment and Plan: hb is 8.3, pt is a ESRD patient. may benefit from epogen. (5) Chest pain: Code(s): R07.9 - Chest pain, unspecified Status: Acute Assessment and Plan: 08/23/19 15:43 Intermittent squeezing chest pains, Complains of intermittent chest pain. Pt had rapid response yesterday yesterday evening for chest pain. Pt still complains of chest pain today, troponin from yesterday minimally elevated. Seen by cardiology cardiac chest pain appears unlikley appears more musculoskeletal or anxiety related -try lidoderm patch and tylenol for pain and xanax for anxiety. Chest pains most likely most likely added baclofen on 08/22 without significant relief, patient was given 1 time dose of Dilaudid 0.5 mg which did help her pain, her pain is still persisting without the medication will start the patient on tramadol 50 mg every 12 hours and monitor, patient seen by ash collector and will have scheduled dialysis, will encourage patient to work with physical therapy patient will benefit going to acute rehab before going home (6) Acute hypotension: Code(s): I95.9 - Hypotension, unspecified Status: Resolved Assessment and Plan: Hold hydralazine medications, as bps run low yesterday, continue spirolactone and coreg. Today BP is close to target clinically stable (7) DVT prophylaxis: Code(s): Z29.9 - Encounter for prophylactic measures, unspecified Status: Acute Assessment and Plan: SCD (8) Troponin level elevated: Code(s): R79.89 - Other specified abnormal findings of blood chemistry Status: Acute Assessment and Plan: Continue to monitor, cardiology notified pt has a history of cAD with stents seen by heritage consultant does not suspect acute coronary syndrome most likely muscular. Subjective Date/time seen: 08/23/19 15:43 Intermittent squeezing chest pains, Complains of intermittent chest pain. Pt had rapid response yesterday yesterday evening for chest pain. Pt still complains of chest pain today, troponin from yesterday minimally elevated. Seen by cardiology cardiac chest pain appears unlikley appears more musculoskeletal or anxiety related -try lidoderm patch and tylenol for pain and xanax for anxiety. Chest pains most likely most likely added baclofen on 08/22 without significant relief, patient was given 1 time dose of Dilaudid 0.5 mg which did help her pain, her pain is still persisting without the medication will start the patient on tramadol 50 mg every 12 hours and monitor, patient seen by ash collector and will have scheduled dialysis, will encourage patient to work with physical therapy patient will benefit going to acute rehab before going home Review of Systems Review of Systems: All systems reviewed & are unremarkable except as noted in HPI and below Constitutional: Constitutional: Reports fatigue Cardiovascular: Cardiovascular: Reports chest pain Psychiatric: Psychiatric: Reports anxiety Endocrine: Endocrine: Reports fatigue Exam Narrative: Exam Narrative: Elderly frail Const: General: no acute distress and uncomfortable HENMT: General nose exam: Normal nares pres
[2019-08-23] MEDS: TRAMADOL HCL 50 MG TABLET PO (15:56)
--- NOTE | 2019-08-23 16:00 | PM.PNCARD ---
Progress Note: A&P Assessment and Plan (1) Chest pain: Code(s): R07.9 - Chest pain, unspecified Status: Acute Assessment and Plan: Chest pain characteristic are very atypical for angina and consistent with musculoskeletal pain She had indeterminate trop elevation at 0.1 in the setting of ESRD and HD No new EKG changes. She had relatively recent cath in Feb revealing patent stent. No need for further workup for the time being, she is okay to use nitroglycerin as needed. Pain control per primary team. (2) Hypertension: Qualifiers: Hypertension type: essential hypertension Qualified Code(s): I10 - Essential (primary) hypertension Code(s): I10 - Essential (primary) hypertension Status: Acute Assessment and Plan: Okay to keep blood pressure little bit elevated, in view of his recurrent episode of orthostatic hypotension, to prevent further dizziness and syncope. She had frequent PVCs/trigemeny after Coreg was held. Resume coreg at lower dose 12.5 BID (was on 25 BID at home) (3) Diabetes mellitus: Qualifiers: Diabetes mellitus type: type 2 Diabetes mellitus intermediate insulin use: without intermediate use Diabetes mellitus complication status: with kidney complications Diabetes mellitus complication detail: with chronic kidney disease Chronic kidney disease stage: on chronic dialysis Qualified Code(s): E11.22 - Type 2 diabetes mellitus with diabetic chronic kidney disease; N18.6 - End stage renal disease; Z99.2 - Dependence on renal dialysis Code(s): E11.9 - Type 2 diabetes mellitus without complications Status: Acute (4) Frequent falls: Code(s): R29.6 - Repeated falls Status: Acute Assessment and Plan: With multiple bruises, okay to stop Plavix keep on low-dose aspirin (5) End stage renal disease: Code(s): N18.6 - End stage renal disease Status: Acute (6) ESRD (end stage renal disease) on dialysis: Code(s): N18.6 - End stage renal disease; Z99.2 - Dependence on renal dialysis Status: Acute Additional Plan Thank you for allowing me to participate in this patient's care, I will be following up with you. Please do not hesitate to call me for any other inquiry Subjective Date/time seen: 08/23/19 16:00 Complaining of back pain that radiates up to her shoulders. Review of Systems Review of Systems: All systems reviewed & are unremarkable except as noted in HPI and below Constitutional: Constitutional: Denies fatigue, Denies headache(s), Reports lethargy and Reports weakness Eyes: Eyes: Denies blurry vision ENT: Reports Normal hearing present and Denies headache(s) Cardiovascular: Cardiovascular: Reports as per HPI, Denies chest pain, Denies diaphoresis, Denies pedal edema, Denies leg edema, Denies lightheadedness, Denies palpitations, Denies dyspnea and Reports dyspnea on exertion Respiratory: Respiratory: Denies cough, Denies dyspnea and Reports dyspnea on exertion Gastrointestinal: Gastrointestinal: Reports as per HPI and Denies abdominal pain Musculoskeletal: Musculoskeletal: Denies back pain Neurologic: Reports Normal hearing present, Denies headache(s) and Reports weakness Psychiatric: Psychiatric: Denies anxiety Endocrine: Endocrine: Denies fatigue and Denies palpitations Exam Narrative: Exam Narrative: Appears chronically ill and uncomfortable. Multiple ecchymosis noted on upper ext Eyes: Sclera: sclerae normal Neck: Neck: no JVD Carotids: no bruits Resp: Effort & Inspection: normal respiratory effort Auscultation: clear to auscultation bilaterally Cardio: Rate: regular rate and not tachycardic Rhythm: regular rhythm Heart sounds: no gallops, no murmurs and no rubs Skin: General skin exam: normal color Neuro: Cranial nerves: Yes Normal hearing present Speech: normal speech Extrem: General: normal to inspection and no edema Psych: Affect: normal affect Objective Shorty
--- NOTE | 2019-08-23 18:35 | PC.NURSE ---
On 08/23/19, the oriente, Maldonado Mercedes, provided care and completed [employer] documentation on this patient. I have reviewed the jayline's documentation and agree with the findings.
--- NOTE | 2019-08-23 22:41 | PM.EVENT ---
Event Note Event Note Event Note: Called to bedside by nursing staff as the patient has been very agitated. She's yelling obscenities at the nursing staff, trying to hit them and wont stay in bed. On my arrival to bedside the patient is clearly delirious and cannot tell me where she is or what she is doing here. She began to curse and scream at me as well. A/P - Acute Delirium -Zyprexa 10 mg IM x 1
[2019-08-23] MEDS: OLANZapine 10 MG INJ VIAL IM (22:48)
[2019-08-24] MEDS: LORAZEPAM INJ 2 MG/ML VIAL 1 MG IV PUSH (02:56)
--- NOTE | 2019-08-24 03:47 | PC.NURSE ---
Pt was not given pain medication at 0235. It was wasted with Harleen Barton warehouse traffic supervisor. Mar would not let me remove or undo dose that pt had refused. Said it needed to be reassessed. When attempting to reassess. The computer tried to administer another dose.
[2019-08-24 05:28] LABS: Hematocrit 22.9 % (37.0-47.0); Hemoglobin 7.2 g/dL (12.0-15.0); Mean Corpuscular HGB Conc 31.4 g/dl (32-36); Mean Corpuscular Hemoglobin 34.1 pg (26-34); Mean Corpuscular Volume 108.5 fl (80-100); Mean Platelet Volume 11.5 fl (7.4-10.4); Platelet Count Result 145 k/mm3 (150-375); Red Blood Count 2.11 M/mm3 (4.2-5.4); Red Cell Distribution Width 14.9 % (11.5-14.5); White Blood Count 7.6 K/mm3 (4.5-10.0)
[2019-08-24 05:47] LABS: Albumin Level 2.9 g/dL (3.5-5.1); Blood Urea Nitrogen 18 mg/dL (7-17); Calcium 9.2 mg/dL (8.4-10.2); Carbon Dioxide 35 mmol/L (22-30); Chloride 98 mmol/L (98-107); Estimated CRCL calculation 12 ml/min; Estimated Glomerular Filt Rate 15; Glucose 120 mg/dL (65-105); Phosphorus 3.8 mg/dL (2.5-4.5); Potassium 3.5 mmol/L (3.4-5.0); Sodium 139 mmol/L (137-145)
[2019-08-24 06:06] VITALS: BP 140/50; PULSE 66; RESP 16; TEMP 35.8; O2SAT 96
[2019-08-24] MEDS: ALBUTEROL SULFATE (*SP) AEROSOL 1 PUFF INHALATION (08:58)
[2019-08-24] MEDS: FAMOTIDINE 20 MG/2 ML VIAL IV PUSH (09:50)
[2019-08-24] MEDS: LIDOCAINE 5% PATCH 2 PATCH TRANSDERM (09:51)
[2019-08-24 10:00] VITALS: BP 151/58; PULSE 73; RESP 18; TEMP 36.3; O2SAT 98
--- NOTE | 2019-08-24 11:30 | PC.NURSE ---
Talked to Dr. Esteves about patient being drowsy while trying to give medications. He said it was okay to hold 0900 medications until she becomes more alert.
--- NOTE | 2019-08-24 12:37 | PC.NURSE ---
1300 dose of Gabapentin not administered due to 0900 meds being administered late because patient too drowsy to take meds this morning. Dr. Linn johnson.
[2019-08-24 14:00] VITALS: BP 139/46; PULSE 63; RESP 14; TEMP 36.8; O2SAT 94
--- NOTE | 2019-08-24 14:06 | PCPTNOTE ---
The PT treatment was unable to be completed today. Pt unable to remain awake or participate. Will continue per Plan of Care frequency and duration.
--- NOTE | 2019-08-24 14:41 | PM.PNNEP ---
Progress Note: A&P Assessment and Plan (1) End stage renal disease: Code(s): N18.6 - End stage renal disease Status: Acute Assessment and Plan: HD done yesterday and wnt well. (2) Frequent falls: Code(s): R29.6 - Repeated falls Status: Acute Assessment and Plan: getting physical therapy as tolerated pain is getting in the way of her strengthening. (3) Contusion of multiple sites: Code(s): T07.XXXA - Unspecified multiple injuries, initial encounter Status: Acute Assessment and Plan: secondary to falls prior to admission Getting physical therapy. Discussed with Dr Lin. getting multiple different meds to approach her pain and anxiety (4) Acute hypotension: Code(s): I95.9 - Hypotension, unspecified Status: Resolved Assessment and Plan: Resolved (5) Anemia: Code(s): D64.9 - Anemia, unspecified Status: Acute Assessment and Plan: a bit low T sat is okay. Epogen with HD Hemoglobin down check guaiacs (6) Low TSH level: Code(s): R79.89 - Other specified abnormal findings of blood chemistry Status: Acute Assessment and Plan: free t4 normal. t3 pending Subjective Date/time seen: 08/24/19 14:41 Interval history: seen at 8am Patient is sleepy today. arouses to some degree. just got ativan. Review of Systems Cardiovascular: Cardiovascular: Reports no additional cardiovascular complaints Respiratory: Respiratory: Reports no additional respiratory complaints Gastrointestinal: Gastrointestinal: Reports no additional gastrointestinal complaints Genitourinary: Genitourinary: Reports no additional female genitourinary complaints Exam Narrative: Exam Narrative: General: WD/WN female in NAD Heart: normal S1 and S2; no rub or gallop Lungs: clear to auscultation. Chest wall tender. Abdomen: BS+ nontender and soft Extremities: no edema or cyanosis Skin: No rash or sq nodules Objective Data Vital Signs Vital Signs: Vital Signs - 24 hr 08/23/19 14:48 08/23/19 15:42 08/23/19 20:35 Temperature 36.7 C 36.6 C Pulse Rate 77 78 80 Respiratory Rate 18 18 Blood Pressure 113/59 L 153/71 H Pulse Oximetry 95 08/23/19 22:24 08/24/19 06:06 08/24/19 09:47 Temperature 36.7 C 35.8 C L Pulse Rate 83 66 62 Respiratory Rate 16 16 Blood Pressure 158/55 H 140/50 L Pulse Oximetry 97 96 08/24/19 10:00 08/24/19 14:00 Temperature 36.3 C L 36.8 C Pulse Rate 73 63 Respiratory Rate 18 14 Blood Pressure 151/58 H 139/46 L Pulse Oximetry 98 94 Intake/Output Intake/Output: Intake & Output 08/21/19 08/22/19 08/23/19 08/24/19 23:59 23:59 23:59 23:59 Intake Total 1270 1110 840 100 Output Total 0 200 702 Balance 1270 910 138 100 Meds/Results Medications: Active Medications Generic Name Dose Route Start Last Admin Trade Name Freq PRN Reason Stop Dose Admin Acetaminophen 325 mg 08/21/19 12:39 08/23/19 06:43 Tylenol Tablet PO 325 mg Q6H PRN Administration Mild Pain (1-3) or Fever Albuterol 1 puff 08/18/19 20:00 08/24/19 08:58 Proventil Hfa INHALATION 1 puff QIDRT [facility] Administration Allopurinol 100 mg 08/19/19 09:00 08/24/19 09:47 Zyloprim PO 100 mg DAILY [facility] Administration Alprazolam 0.125 mg 08/19/19 15:22 08/23/19 06:43 Xanax PO 0.125 mg TID PRN Administration Anxiety Aspirin 81 mg 08/19/19 09:00 08/24/19 09:47 Aspirin Ec PO 81 mg DAILY [facility] Administration Atorvastatin Calcium 40 mg 08/19/19 09:00 08/24/19 09:47 Lipitor PO 40 mg DAILY [facility] Administration Buspirone HCl 10 mg 08/18/19 17:00 08/24/19 09:47 Buspar PO 10 mg BID [facility] Administration Carvedilol 25 mg 08/22/19 09:00 08/24/19 09:47 Coreg PO 25 mg Q12HR [facility] Administration Epoetin Armaan 10,000 units 08/20/19 17:00 08/23/19 14:14 Epogen IV PUSH 10,000 units TuThSa@1700 [facility] Adminis
--- NOTE | 2019-08-24 14:58 | PCOTNOTE ---
Attempted to see patient this pm. Patient was asleep upon entry and was unable to be aroused. RN reports that patient has been unable to be aroused all day. Skilled OT session not completed this date.
--- NOTE | 2019-08-24 14:59 | PC.NURSE ---
Patient unable to tolerate any oral medications, food or water today due to AMS/unarousable. Notified Dr. Esteves of patient status. He will be in to see patient.
--- NOTE | 2019-08-24 15:36 | PC.NURSE ---
On 08/24/19, the director of graduate medical education Maldonado Mercedes, provided care and completed [facility] documentation on this patient. I have reviewed the student's documentation and agree with the findings.
--- NOTE | 2019-08-24 15:38 | PM.IMPN ---
Progress Note: A&P Assessment and Plan (1) CAD (coronary artery disease): Code(s): I25.10 - Atherosclerotic heart disease of [place] coronary artery without angina pectoris Status: Chronic Assessment and Plan: History of stents, patient seen by manager group does not suspect acute coronary syndrome most likely musculoskeletal no further workup is required (2) Frequent falls: Code(s): R29.6 - Repeated falls Status: Acute Assessment and Plan: Continue pt/ot, monitor orthostatic BPS (3) End stage renal disease: Code(s): N18.6 - End stage renal disease Status: Acute Assessment and Plan: Creat is 3.3 seen by director china will have scheduled dialysis (4) Anemia: Code(s): D64.9 - Anemia, unspecified Status: Acute Assessment and Plan: hb is 8.3, pt is a ESRD patient. may benefit from epogen. (5) Chest pain: Code(s): R07.9 - Chest pain, unspecified Status: Acute Assessment and Plan: 08/24/19 15:38 Intermittent squeezing chest pains, Complains of intermittent chest pain. Pt had rapid response yesterday yesterday evening for chest pain. Pt still complains of chest pain today, troponin from yesterday minimally elevated. Seen by cardiology cardiac chest pain appears unlikley appears more musculoskeletal or anxiety related -try lidoderm patch and tylenol for pain and xanax for anxiety. Chest pains most likely musculoskeletal added baclofen on 08/22 without significant relief, patient was given 1 time dose of Dilaudid 0.5 mg which did help her pain, her pain was still persisting without the medication, started the patient on tramadol 50 mg every 12 hours and monitor, however last night patient was quite agitated and combative patient was given 1 time dose of Zyprexa 10 mg IM, this morning patient is quite somnolent and sleeping, patient seen by director china and will have scheduled dialysis, will encourage patient to work with physical therapy patient will benefit going to acute rehab before going home (6) Acute hypotension: Code(s): I95.9 - Hypotension, unspecified Status: Resolved Assessment and Plan: Hold hydralazine medications, as bps run low yesterday, continue spirolactone and coreg. Today BP is close to target clinically stable (7) DVT prophylaxis: Code(s): Z29.9 - Encounter for prophylactic measures, unspecified Status: Acute Assessment and Plan: SCD (8) Troponin level elevated: Code(s): R79.89 - Other specified abnormal findings of blood chemistry Status: Acute Assessment and Plan: Continue to monitor, cardiology notified pt has a history of cAD with stents seen by manager group does not suspect acute coronary syndrome most likely muscular. (9) Low TSH level: Code(s): R79.89 - Other specified abnormal findings of blood chemistry Status: Acute Assessment and Plan: Patient with history of hyperthyroid patient is on methimazole however her TSH is low with free T4 is normal free T3 is pending patient clinically stable and does not appear to be hyperthyroid will continue to monitor Subjective Date/time seen: 08/24/19 15:38 Intermittent squeezing chest pains, Complains of intermittent chest pain. Pt had rapid response yesterday yesterday evening for chest pain. Pt still complains of chest pain today, troponin from yesterday minimally elevated. Seen by cardiology cardiac chest pain appears unlikley appears more musculoskeletal or anxiety related -try lidoderm patch and tylenol for pain and xanax for anxiety. Chest pains most likely musculoskeletal added baclofen on 08/22 without significant relief, patient was given 1 time dose of Dilaudid 0.5 mg which did help her pain, her pain was still persisting without the medication, started the patient on tramadol 50 mg every 12 hours and monitor, however last night patient was quite agitated and combative patient was given 1 time dose of
--- NOTE | 2019-08-24 16:33 | PM.PNCARD ---
Progress Note: A&P Assessment and Plan (1) Chest pain: Code(s): R07.9 - Chest pain, unspecified Status: Acute Assessment and Plan: Chest pain characteristic are very atypical for angina and consistent with musculoskeletal pain She had indeterminate trop elevation at 0.1 in the setting of ESRD and HD No new EKG changes. She had relatively recent cath in Feb revealing patent stent. No need for further workup for the time being, she is okay to use nitroglycerin as needed. Pain control per primary team. (2) Hypertension: Qualifiers: Hypertension type: essential hypertension Qualified Code(s): I10 - Essential (primary) hypertension Code(s): I10 - Essential (primary) hypertension Status: Acute Assessment and Plan: Okay to keep blood pressure little bit elevated, in view of his recurrent episode of orthostatic hypotension, to prevent further dizziness and syncope. She had frequent PVCs/trigemeny after Coreg was held. Resume coreg at lower dose 12.5 BID (was on 25 BID at home) (3) Diabetes mellitus: Qualifiers: Diabetes mellitus type: type 2 Diabetes mellitus terminal operator insulin use: without snf use Diabetes mellitus complication status: with kidney complications Diabetes mellitus complication detail: with chronic kidney disease Chronic kidney disease stage: on chronic dialysis Qualified Code(s): E11.22 - Type 2 diabetes mellitus with diabetic chronic kidney disease; N18.6 - End stage renal disease; Z99.2 - Dependence on renal dialysis Code(s): E11.9 - Type 2 diabetes mellitus without complications Status: Acute (4) Frequent falls: Code(s): R29.6 - Repeated falls Status: Acute Assessment and Plan: With multiple bruises, okay to stop Plavix keep on low-dose aspirin (5) End stage renal disease: Code(s): N18.6 - End stage renal disease Status: Acute (6) ESRD (end stage renal disease) on dialysis: Code(s): N18.6 - End stage renal disease; Z99.2 - Dependence on renal dialysis Status: Acute Additional Plan Thank you for allowing me to participate in this patient's care, I will be following up with you. Please do not hesitate to call me for any other inquiry Subjective Date/time seen: 08/24/19 16:33 She seems to be very sleepy today, but no active chest pain, events from last night's noted Exam Narrative: Exam Narrative: Appears chronically ill and uncomfortable. Multiple ecchymosis noted on upper ext Eyes: Sclera: sclerae normal Neck: Neck: no JVD Carotids: no bruits Resp: Effort & Inspection: normal respiratory effort Auscultation: clear to auscultation bilaterally Cardio: Rate: regular rate and not tachycardic Rhythm: regular rhythm Heart sounds: no gallops, no murmurs and no rubs Skin: General skin exam: normal color Neuro: Cranial nerves: Yes Normal hearing present Speech: normal speech Extrem: General: normal to inspection and no edema Psych: Affect: normal affect Objective Data Vital Signs Vital Signs: Vital Signs - 24 hr 08/23/19 20:35 08/23/19 22:24 08/24/19 06:06 Temperature 36.7 C 35.8 C L Pulse Rate 80 83 66 Respiratory Rate 16 16 Blood Pressure 158/55 H 140/50 L Pulse Oximetry 97 96 08/24/19 10:00 08/24/19 14:00 Temperature 36.3 C L 36.8 C Pulse Rate 73 63 Respiratory Rate 18 14 Blood Pressure 151/58 H 139/46 L Pulse Oximetry 98 94 Intake/Output Intake/Output: Intake & Output 08/21/19 08/22/19 08/23/19 08/24/19 23:59 23:59 23:59 23:59 Intake Total 1270 1110 840 100 Output Total 0 200 702 Balance 1270 910 138 100 Meds/Results Medications: Active Medications Generic Name Dose Route Start Last Admin Trade Name Freq PRN Reason Stop Dose Admin Acetaminophen 325 mg 08/21/19 12:39 08/23/19 06:43 Tylenol Tablet PO 325 mg Q6H PRN Administration Mild Pain (1-3) or Fever Albuterol 1 puff 08/18/19 20:00 08/24/19 08:58
[2019-08-24 17:03] LABS: Alanine Aminotransferase 12 U/L (4-35); Albumin Level 3.2 g/dL (3.5-5.1); Alkaline Phosphatase 126 U/L (38-126); Aspartate Amino Transferase 19 U/L (14-36); Bilirubin,Total 0.5 mg/dL (0.2-1.3)
--- NOTE | 2019-08-24 17:50 | PC.NURSE ---
Patient still too drowsy to take 1700 PO medications. She is arousable but unable to stay awake enough to swallow pills. Dr. Linn johnson.
[2019-08-24 18:00] VITALS: BP 122/68; PULSE 83; RESP 18; TEMP 37.1; O2SAT 96
--- NOTE | 2019-08-24 18:13 | WPDONCPN ---
Progress Note: A/P - Additional Plan Macrocytic anemia. Patient is on hemodialysis for end-stage renal disease. Patient is on Epogen 3 times a week with dialysis. Hemoglobin noted. B12 level is elevated but methylmalonic acid level is pending. No signs of bleeding other than bruising. Iron studies were normal previously. We will transfuse as needed for hemoglobin of less than 7. Hemoglobin electrophoresis and immunofixation is pending. End-stage renal disease. Patient is on hemodialysis. - Time Spent With Patient Total time spent is greater than 50% in coordination of care (as documented) at patient's floor/unit and/or counseling patient: 15 - 25 minutes Subjective Interval history: Macrocytic anemia End-stage renal disease Review of Systems - Review of Systems Patient looks more comfortable without much pain. She denies any bleeding but does have bruises in upper extremities. She has poor appetite. Denies any abdominal pain and diarrhea. No nausea vomiting. - Neurologic Reports hearing normal, Reports weakness, Denies headache(s) Exam Vital signs: Temp Pulse Resp BP Pulse Ox 37.1 C 83 18 122/68 96 08/24/19 18:00 08/24/19 18:00 08/24/19 18:00 08/24/19 18:00 08/24/19 18:00 Lungs are clear to auscultation bilaterally Cardiovascular regular rhythm no murmurs Abdomen soft nontender nondistended Extremities no edema there are bruises in upper extremities. PN: Objective Data - Labs CBC & Chem 7: 08/24/19 04:58 08/24/19 04:58 Labs: Laboratory Results - last 24 hr 08/24/19 08/24/19 08/24/19 04:58 04:58 16:45 WBC 7.6 RBC 2.11 L Hgb 7.2 L Hct 22.9 L MCV 108.5 H MCH 34.1 H MCHC 31.4 L RDW 14.9 H Plt Count 145 L MPV 11.5 H Sodium 139 Potassium 3.5 Chloride 98 Carbon Dioxide 35 H BUN 18 H D Creatinine 3.00 H Estim Creat Clear Calc 12 Estimated GFR 15 L Glucose 120 H Calcium 9.2 Phosphorus 3.8 Total Bilirubin 0.5 Direct Bilirubin 0.0 AST 19 ALT 12 Alkaline Phosphatase 126 Total Protein 6.0 L Albumin 2.9 L 3.2 L
[2019-08-24 21:38] VITALS: BP 183/59; PULSE 80; RESP 16; TEMP 36.8; O2SAT 100
[2019-08-24 21:44] VITALS: PULSE 68
[2019-08-24] MEDS: carvediloL 25 MG TABLET PO (21:44)
[2019-08-24] MEDS: FAMOTIDINE 20 MG TABLET PO (21:46)
[2019-08-24] MEDS: TRAMADOL HCL 50 MG TABLET PO (21:47)
[2019-08-24] MEDS: MELATONIN 3 MG TABLET PO (21:48)
--- NOTE | 2019-08-24 23:27 | PCRCNOTE ---
Window of time for administration has passed. See next scheduled administration.
[2019-08-25] VITALS (26 sets, daily range): BP systolic 96–176; BP diastolic 39–74; PULSE 72–85; RESP 16–21; TEMP 35.9–37; O2SAT 98–100
[2019-08-25 05:06] LABS: Triiodothyronine T3 Free 3.3 pg/mL (2.3-4.2)
[2019-08-25 06:06] LABS: Hematocrit 28.2 % (37.0-47.0); Hemoglobin 8.1 g/dL (12.0-15.0); Mean Corpuscular HGB Conc 28.7 g/dl (32-36); Mean Corpuscular Hemoglobin 33.5 pg (26-34); Mean Corpuscular Volume 116.5 fl (80-100); Mean Platelet Volume 11.6 fl (7.4-10.4); Platelet Count Result 167 k/mm3 (150-375); Red Blood Count 2.42 M/mm3 (4.2-5.4); Red Cell Distribution Width 15.1 % (11.5-14.5); White Blood Count 7.6 K/mm3 (4.5-10.0)
[2019-08-25 06:52] LABS: Albumin Level 3.3 g/dL (3.5-5.1); Blood Urea Nitrogen 30 mg/dL (7-17); Carbon Dioxide 26 mmol/L (22-30); Chloride 100 mmol/L (98-107); Estimated CRCL calculation 9 ml/min; Estimated Glomerular Filt Rate 10; Glucose 78 mg/dL (65-105); Phosphorus 3.8 mg/dL (2.5-4.5); Potassium 3.8 mmol/L (3.4-5.0); Sodium 140 mmol/L (137-145)
--- NOTE | 2019-08-25 07:55 | PM.PNNEP ---
Progress Note: A&P Assessment and Plan (1) End stage renal disease: Code(s): N18.6 - End stage renal disease Status: Acute Assessment and Plan: HD due today Volume status seems better. Will continue to remove fluid (2) Frequent falls: Code(s): R29.6 - Repeated falls Status: Acute Assessment and Plan: getting physical therapy as tolerated pain is getting in the way of her strengthening. (3) Contusion of multiple sites: Code(s): T07.XXXA - Unspecified multiple injuries, initial encounter Status: Acute Assessment and Plan: secondary to falls prior to admission Getting physical therapy. (4) Acute hypotension: Code(s): I95.9 - Hypotension, unspecified Status: Resolved Assessment and Plan: Resolved (5) Anemia: Code(s): D64.9 - Anemia, unspecified Status: Acute Assessment and Plan: a bit low T sat is okay. Epogen with HD Hemoglobin back up. Stool Hemoccult is pending. (6) Low TSH level: Code(s): R79.89 - Other specified abnormal findings of blood chemistry Status: Acute Assessment and Plan: free t4 normal. t3 is okay. (7) Hypertension: Qualifiers: Hypertension type: essential hypertension Qualified Code(s): I10 - Essential (primary) hypertension Code(s): I10 - Essential (primary) hypertension Status: Acute Assessment and Plan: Blood pressure is rising again. She is on spironolactone and carvedilol. Will restart her hydralazine. She cannot have Aces or arbs. (8) Confusion: Code(s): R41.0 - Disorientation, unspecified Status: Acute Assessment and Plan: Etiology unclear. Thyroid okay. B12 and folate are okay. Electrolytes are okay. She has severe underlying anxiety and also acute pain. Subjective Date/time seen: 08/25/19 07:55 Interval history: Patient is alert. She is very confused. Agitated. Talking in run on sentences changing subjects frequently talking about the police, jail, etc. I reoriented her which worked for about 30seconds and then she began rambling once again. Review of Systems Cardiovascular: Cardiovascular: Reports no additional cardiovascular complaints Respiratory: Respiratory: Reports no additional respiratory complaints Gastrointestinal: Gastrointestinal: Reports no additional gastrointestinal complaints Genitourinary: Genitourinary: Reports no additional female genitourinary complaints Exam Narrative: Exam Narrative: General: WD/WN female in NAD Heart: normal S1 and S2; no rub or gallop Lungs: clear to auscultation. Chest wall tender. Abdomen: BS+ nontender Extremities: no edema Skin: No rash Objective Data Vital Signs Vital Signs: Vital Signs - 24 hr 08/24/19 10:00 08/24/19 14:00 08/24/19 18:00 Temperature 36.3 C L 36.8 C 37.1 C Pulse Rate 73 63 83 Respiratory Rate 18 14 18 Blood Pressure 151/58 H 139/46 L 122/68 Pulse Oximetry 98 94 96 08/24/19 21:38 08/24/19 21:44 08/25/19 05:46 Temperature 36.8 C 36.6 C Pulse Rate 80 68 77 Respiratory Rate 16 16 Blood Pressure 183/59 H 176/68 H Pulse Oximetry 100 98 Intake/Output Intake/Output: Intake & Output 08/22/19 08/23/19 08/24/19 08/25/19 23:59 23:59 23:59 23:59 Intake Total 1110 840 340 400 Output Total 200 702 100 Balance 910 138 340 300 Meds/Results Medications: Active Medications Generic Name Dose Route Start Last Admin Trade Name Freq PRN Reason Stop Dose Admin Acetaminophen 325 mg 08/21/19 12:39 08/23/19 06:43 Tylenol Tablet PO 325 mg Q6H PRN Administration Mild Pain (1-3) or Fever Albuterol 1 puff 08/18/19 20:00 08/24/19 23:26 Proventil Hfa INHALATION Not Given QIDRT [facility] Allopurinol 100 mg 08/19/19 09:00 08/24/19 14:57 Zyloprim PO Not Given DAILY [facility] Alprazolam 0.125 mg 08/19/19 15:22 08/25/19 05:54 Xanax PO 0.125 m
[2019-08-25] MEDS: FAMOTIDINE 20 MG TABLET PO ×2 (08:01→20:36)
[2019-08-25] MEDS: ESCITALOPRAM OXALATE 10 MG TABLET PO (08:01)
[2019-08-25] MEDS: carvediloL 25 MG TABLET PO ×2 (08:01→20:36)
[2019-08-25] MEDS: LIDOCAINE 5% PATCH 2 PATCH TRANSDERM (08:11)
[2019-08-25] MEDS: ATORVASTATIN 40 MG TABLET PO (08:11)
[2019-08-25] MEDS: ASPIRIN 81 MG ENTERIC TABLET PO (08:11)
[2019-08-25] MEDS: busPIRone HCL 10 MG TABLET PO ×2 (08:12→16:47)
[2019-08-25] MEDS: methiMAzole 5 MG TAB PO (08:12)
[2019-08-25] MEDS: GABAPENTIN 100 MG CAPSULE PO ×3 (08:12→16:47)
[2019-08-25] MEDS: allopurinoL 100 MG TABLET PO (08:12)
[2019-08-25] MEDS: SPIRONOLACTONE 25 MG TABLET PO (08:13)
[2019-08-25] MEDS: VITAMIN B CMPLX/VIT C/FOLIC AC 1 CAPSULE 1 CAP PO (08:13)
[2019-08-25] MEDS: PANTOPRAZOLE 40 MG TABLET PO (08:13)
[2019-08-25] MEDS: ACETAMINOPHEN 325 MG TABLET PO (08:15)
[2019-08-25] MEDS: ALBUTEROL SULFATE (*SP) AEROSOL 1 PUFF INHALATION ×4 (08:30→20:31)
--- NOTE | 2019-08-25 09:29 | PC.NURSE ---
patient to dialysis per bed.
[2019-08-25] MEDS: EPOETIN ALFA 10,000 UNITS/ML VIAL 10000 UNITS IV PUSH (12:03)
--- NOTE | 2019-08-25 12:09 | PM.EVENT ---
Event Note Event Note Event Note: The patient is on dialysis. She was seen at 1155 a.m. Her blood pressure dropped at 1st but has improved and so now we are able to take a little fluid off.
--- NOTE | 2019-08-25 13:02 | PCDIET ---
Nutrition Follow-Up Complete: Increased nutrient needs r/t ESRD as evidence by hemodialysis Intake >75% Goal: Goal not met. Continue with current goal. Pt current nutrition is Renal Dialysis with Nepro BID. Nutrition recommendation: Agree Last recorded weight is 59.5 kg.(down from admit wt of 65.2kg) Could be some fluid weight Bowel Motility: BM on Labs Reviewed: Cr 4.30, Albumin 3.3, BUN 30 (recommend PO4) Meds Noted:Epogen, Albumin, B complex Additional Notes: Pt average intake lower at 38% of meals. K normal and no PO4 lab. Pt may benefit from 2gm Na diet to provide more options for intake if intake does not improve above 50% average. Nepro offered BID. Nepro provides 425 kcal and 19.1g protein per serving. It is a good source of fiber and an excellent source of high quality protein to help meet nutritional needs and replace protein lost in dialysis. It is low in phosphorus, potassium, and sodium with a carbohydrate steady blend to manage blood glucose response. Pt confused. HD today. We will continue to monitor for adequate intake, need for potential diet change, and wt every five days.
--- NOTE | 2019-08-25 13:33 | PCOTNOTE ---
Patient not seen for skilled OT session this date due to being absent from room for dialysis treatment.
--- NOTE | 2019-08-25 13:55 | PC.NURSE ---
Patient returned from dialysis. Report received from
--- NOTE | 2019-08-25 14:08 | PM.IMPN ---
Progress Note: A&P Assessment and Plan (1) CAD (coronary artery disease): Code(s): I25.10 - Atherosclerotic heart disease of [place] coronary artery without angina pectoris Status: Chronic Assessment and Plan: History of stents, patient seen by plate painter apprentice does not suspect acute coronary syndrome most likely musculoskeletal no further workup is required (2) Frequent falls: Code(s): R29.6 - Repeated falls Status: Acute Assessment and Plan: Continue pt/ot, monitor orthostatic BPS (3) End stage renal disease: Code(s): N18.6 - End stage renal disease Status: Acute Assessment and Plan: Creat is 3.3 seen by marine animal trainer will have scheduled dialysis (4) Anemia: Code(s): D64.9 - Anemia, unspecified Status: Acute Assessment and Plan: hb is 8.3, pt is a ESRD patient. may benefit from epogen. (5) Chest pain: Code(s): R07.9 - Chest pain, unspecified Status: Acute Assessment and Plan: 08/25/19 14:08 Intermittent squeezing chest pains, Complains of intermittent chest pain. Pt had rapid response yesterday yesterday evening for chest pain. Pt still complains of chest pain today, troponin from yesterday minimally elevated. Seen by cardiology cardiac chest pain appears unlikley appears more musculoskeletal or anxiety related -try lidoderm patch and tylenol for pain and xanax for anxiety. Chest pains most likely musculoskeletal added baclofen on 08/22 without significant relief, patient was given 1 time dose of Dilaudid 0.5 mg which did help her pain, her pain was still persisting without the medication, started the patient on tramadol 50 mg every 12 hours and monitor, however on 08/24 construction controller patient was quite agitated and combative patient was given 1 time dose of Zyprexa 10 mg IM, and patient remained quite somnolent and sleeping, today patient still very confused, unable to provide detail ROS, patient seen by marine animal trainer and is having dialysis today, will encourage patient to work with physical therapy patient will benefit going to acute rehab before going home (6) Acute hypotension: Code(s): I95.9 - Hypotension, unspecified Status: Resolved Assessment and Plan: Hold hydralazine medications, as bps run low yesterday, continue spirolactone and coreg. Today BP is close to target clinically stable (7) DVT prophylaxis: Code(s): Z29.9 - Encounter for prophylactic measures, unspecified Status: Acute Assessment and Plan: SCD (8) Troponin level elevated: Code(s): R79.89 - Other specified abnormal findings of blood chemistry Status: Acute Assessment and Plan: Continue to monitor, cardiology notified pt has a history of cAD with stents seen by plate painter apprentice does not suspect acute coronary syndrome most likely muscular. (9) Low TSH level: Code(s): R79.89 - Other specified abnormal findings of blood chemistry Status: Acute Assessment and Plan: Patient with history of hyperthyroid patient is on methimazole however her TSH is low with free T4 and free T3 are normal patient clinically stable and does not appear to be hyperthyroid will continue to monitor Subjective Date/time seen: 08/25/19 14:08 Intermittent squeezing chest pains, Complains of intermittent chest pain. Pt had rapid response yesterday yesterday evening for chest pain. Pt still complains of chest pain today, troponin from yesterday minimally elevated. Seen by cardiology cardiac chest pain appears unlikley appears more musculoskeletal or anxiety related -try lidoderm patch and tylenol for pain and xanax for anxiety. Chest pains most likely musculoskeletal added baclofen on 08/22 without significant relief, patient was given 1 time dose of Dilaudid 0.5 mg which did help her pain, her pain was still persisting without the medication, started the patient on tramadol 50 mg every 12 hours and monitor, however on 08/24 construction controller
--- NOTE | 2019-08-25 15:31 | PCPTNOTE ---
Patient refused treatment this session.
--- NOTE | 2019-08-25 15:42 | PM.PNCARD ---
Progress Note: A&P Assessment and Plan (1) Chest pain: Code(s): R07.9 - Chest pain, unspecified Status: Acute Assessment and Plan: Chest pain characteristic are very atypical for angina and consistent with musculoskeletal pain She had indeterminate trop elevation at 0.1 in the setting of ESRD and HD No new EKG changes. She had relatively recent cath in Feb revealing patent stent. No need for further workup for the time being, she is okay to use nitroglycerin as needed. Pain control per primary team. (2) Hypertension: Qualifiers: Hypertension type: essential hypertension Qualified Code(s): I10 - Essential (primary) hypertension Code(s): I10 - Essential (primary) hypertension Status: Acute Assessment and Plan: Okay to keep blood pressure little bit elevated, in view of his recurrent episode of orthostatic hypotension, to prevent further dizziness and syncope. She had frequent PVCs/trigemeny after Coreg was held. Resume coreg at lower dose 12.5 BID (was on 25 BID at home) (3) Diabetes mellitus: Qualifiers: Diabetes mellitus type: type 2 Diabetes mellitus terminal carman insulin use: without mcfp use Diabetes mellitus complication status: with kidney complications Diabetes mellitus complication detail: with chronic kidney disease Chronic kidney disease stage: on chronic dialysis Qualified Code(s): E11.22 - Type 2 diabetes mellitus with diabetic chronic kidney disease; N18.6 - End stage renal disease; Z99.2 - Dependence on renal dialysis Code(s): E11.9 - Type 2 diabetes mellitus without complications Status: Acute (4) Frequent falls: Code(s): R29.6 - Repeated falls Status: Acute Assessment and Plan: With multiple bruises, okay to stop Plavix keep on low-dose aspirin (5) End stage renal disease: Code(s): N18.6 - End stage renal disease Status: Acute (6) ESRD (end stage renal disease) on dialysis: Code(s): N18.6 - End stage renal disease; Z99.2 - Dependence on renal dialysis Status: Acute Additional Plan Thank you for allowing me to participate in this patient's care, I will be following up with you. Please do not hesitate to call me for any other inquiry Subjective Date/time seen: 08/25/19 15:42 Slightly confused today but not in acute distress no active chest pain no nausea no vomiting Exam Narrative: Exam Narrative: Appears chronically ill and uncomfortable. Multiple ecchymosis noted on upper ext Eyes: Sclera: sclerae normal Neck: Neck: no JVD Carotids: no bruits Resp: Effort & Inspection: normal respiratory effort Auscultation: clear to auscultation bilaterally Cardio: Rate: regular rate and not tachycardic Rhythm: regular rhythm Heart sounds: no gallops, no murmurs and no rubs Skin: General skin exam: normal color Neuro: Cranial nerves: Yes Normal hearing present Speech: normal speech Extrem: General: normal to inspection and no edema Psych: Affect: normal affect Objective Data Vital Signs Vital Signs: Vital Signs - 24 hr 08/24/19 18:00 08/24/19 21:38 08/24/19 21:44 Temperature 37.1 C 36.8 C Pulse Rate 83 80 68 Respiratory Rate 18 16 Blood Pressure 122/68 183/59 H Pulse Oximetry 96 100 08/25/19 05:46 08/25/19 08:01 08/25/19 09:00 Temperature 36.6 C 37.0 C Pulse Rate 77 85 78 Respiratory Rate 16 20 Blood Pressure 176/68 H 139/54 L Pulse Oximetry 98 100 08/25/19 09:35 08/25/19 09:44 08/25/19 09:50 Temperature 36.6 C Pulse Rate 76 75 73 Respiratory Rate 20 Blood Pressure 133/61 127/63 127/62 Pulse Oximetry 08/25/19 10:00 08/25/19 10:15 08/25/19 10:30 Temperature Pulse Rate 73 73 74 Respiratory Rate Blood Pressure 98/49 L 98/46 L 98/39 L Pulse Oximetry 08/25/19 10:45 08/25/19 11:00 08/25/19 11:15 Temperature Pulse Rate 77 75 75 Respiratory Rate Blood Pressure 96/52 L 121/48 L 132/63 Pulse Oximetry
--- NOTE | 2019-08-25 17:55 | PC.NURSE ---
On 08/25/19, the ballast cleaning machine operator Maldonado Mercedes, provided care and completed [facility] documentation on this patient. I have reviewed the student's documentation and agree with the findings.
[2019-08-25 17:58] LABS: Methylmalonic Acid 979 nmol/L (87-318)
[2019-08-25] MEDS: TRAMADOL HCL 50 MG TABLET PO (20:37)
[2019-08-25] MEDS: MELATONIN 3 MG TABLET PO (20:38)
[2019-08-25 23:20] LABS: Albumin 2.6 g/dL (3.8-4.8); Alpha 1 Globulin 0.5 g/dL (0.2-0.3); Alpha 2 Globulin 0.9 g/dL (0.5-0.9); Beta 1 Globulin 0.3 g/dL (0.4-0.6); Gamma Globulin 0.5 g/dL (0.8-1.7)
[2019-08-26] VITALS (7 sets, daily range): BP systolic 106–177; BP diastolic 44–66; PULSE 69–85; RESP 14–22; TEMP 35.7–36.8; O2SAT 96–100
[2019-08-26] MEDS: LORAZEPAM INJ 2 MG/ML VIAL (02:20)
[2019-08-26 05:59] LABS: Hematocrit 30.3 % (37.0-47.0); Hemoglobin 9.1 g/dL (12.0-15.0); Mean Corpuscular Hemoglobin 32.9 pg (26-34); Mean Corpuscular Volume 109.4 fl (80-100); Mean Platelet Volume 11.6 fl (7.4-10.4); Platelet Count Result 191 k/mm3 (150-375); Red Blood Count 2.77 M/mm3 (4.2-5.4); Red Cell Distribution Width 14.9 % (11.5-14.5); White Blood Count 9.8 K/mm3 (4.5-10.0)
[2019-08-26 06:12] LABS: Albumin Level 3.4 g/dL (3.5-5.1); Blood Urea Nitrogen 20 mg/dL (7-17); Calcium 9.9 mg/dL (8.4-10.2); Carbon Dioxide 34 mmol/L (22-30); Chloride 94 mmol/L (98-107); Estimated CRCL calculation 12 ml/min; Estimated Glomerular Filt Rate 15; Glucose 141 mg/dL (65-105); Phosphorus 4.3 mg/dL (2.5-4.5); Potassium 3.5 mmol/L (3.4-5.0); Sodium 140 mmol/L (137-145)
[2019-08-26] MEDS: ALBUTEROL SULFATE (*SP) AEROSOL 1 PUFF INHALATION ×4 (08:09→21:09)
[2019-08-26] MEDS: methiMAzole 5 MG TAB PO (08:57)
[2019-08-26] MEDS: ATORVASTATIN 40 MG TABLET PO (08:57)
[2019-08-26] MEDS: carvediloL 25 MG TABLET PO ×2 (08:57→20:17)
[2019-08-26] MEDS: SPIRONOLACTONE 25 MG TABLET PO (08:57)
[2019-08-26] MEDS: GABAPENTIN 100 MG CAPSULE PO ×3 (09:01→16:59)
[2019-08-26] MEDS: FAMOTIDINE 20 MG TABLET PO ×2 (09:01→20:17)
[2019-08-26] MEDS: busPIRone HCL 10 MG TABLET PO ×2 (09:02→16:59)
[2019-08-26] MEDS: VITAMIN B CMPLX/VIT C/FOLIC AC 1 CAPSULE 1 CAP PO (09:08)
[2019-08-26] MEDS: allopurinoL 100 MG TABLET PO (09:09)
[2019-08-26] MEDS: ESCITALOPRAM OXALATE 10 MG TABLET PO (09:09)
[2019-08-26] MEDS: PANTOPRAZOLE 40 MG TABLET PO (09:09)
[2019-08-26] MEDS: ASPIRIN 81 MG ENTERIC TABLET PO (09:09)
[2019-08-26] MEDS: LIDOCAINE 5% PATCH 2 PATCH TRANSDERM (09:12)
--- NOTE | 2019-08-26 11:59 | P.PNNP_ITS ---
Progress Note: A&P Assessment and Plan (1) End stage renal disease: Code(s): N18.6 - End stage renal disease Status: Acute Assessment and Plan: * HD tomorrow and continue T/T/S schedule while hospitalized * electrolytes, volume status, and clearance appear acceptable (2) Frequent falls: Code(s): R29.6 - Repeated falls Status: Acute Assessment and Plan: * getting physical/occupational therapy as tolerated * pain control appears to be limiting factor (3) Contusion of multiple sites: Code(s): T07.XXXA - Unspecified multiple injuries, initial encounter Status: Acute Assessment and Plan: * secondary to falls prior to admission * continue PT/OT as tolerated (4) Anemia: Code(s): D64.9 - Anemia, unspecified Status: Acute Assessment and Plan: * improving * adequate iron stores * Epogen with HD * follow H/H (5) Hypertension: Qualifiers: Hypertension type: essential hypertension Qualified Code(s): I10 - Essential (primary) hypertension Code(s): I10 - Essential (primary) hypertension Status: Acute Assessment and Plan: * reasonable control at this time * follow trend with current medications (6) Confusion: Code(s): R41.0 - Disorientation, unspecified Status: Acute Assessment and Plan: * etiology unclear * TSH okay; B12, folate and electrolytes are okay * severe anxiety and pain playing a role? * follow mentation Will continue to follow. Subjective Date/time seen: 08/26/19 11:59 Chart/interim reviewed since last seen -- mental status remains an issue: she s eems quite confused with rambling about multiple issues and somewhat difficult to reorient her; tolerated dialysis yesterday without any problems. Exam Narrative: Exam Narrative: General: WD/WN female in NAD Heart: normal S1 and S2; no rub Lungs: clear to auscultation Abdomen: soft, nontender, +BS Extremities: no cyanosis or clubbing; no edema Skin: warm and dry Objective Data Vital Signs Vital Signs: Vital Signs Temp Pulse Resp BP Pulse Ox 08/26/19 10:00 36.6 C 69 14 148/49 H 97 08/26/19 08:57 70 08/26/19 06:00 36.7 C 70 18 106/44 L 96 08/25/19 22:00 36.7 C 84 21 H 141/52 H 100 08/25/19 20:36 72 08/25/19 14:00 36.1 C L 80 18 120/50 L 99 08/25/19 13:25 35.9 C L 84 20 132/60 08/25/19 13:19 85 130/68 08/25/19 13:15 84 140/57 L 08/25/19 13:00 82 120/60 08/25/19 12:45 83 115/69 08/25/19 12:30 81 166/68 H 08/25/19 12:15 84 144/74 H 08/25/19 12:00 78 137/67 Intake/Output Intake/Output: Intake & Output 08/23/19 08/24/19 08/25/19 08/26/19 23:59 23:59 23:59 23:59 Intake Total 992 528 9535 Output Total 702 2200 1 Balance 138 340 -1080 -1 Meds/Results Medications: Active Medications Generic Name Dose Route Start Last Admin Trade Name Eugenie PRN Reason Stop Dose Admin Acetaminophen 325 mg 08/21/19 12:39 08/25/19 08:15 Tylenol Tablet PO 325 mg Q6H PRN Administration Mild Pain (1-3) or Fever Albuterol 1 puff 08/18/19 20:00 08/26/19 11:44 Jesus
--- NOTE | 2019-08-26 11:59 | PM.PNNEP ---
Progress Note: A&P Assessment and Plan (1) End stage renal disease: Code(s): N18.6 - End stage renal disease Status: Acute Assessment and Plan: HD tomorrow and continue T/T/S schedule while hospitalized electrolytes, volume status, and clearance appear acceptable (2) Frequent falls: Code(s): R29.6 - Repeated falls Status: Acute Assessment and Plan: getting physical/occupational therapy as tolerated pain control appears to be limiting factor (3) Contusion of multiple sites: Code(s): T07.XXXA - Unspecified multiple injuries, initial encounter Status: Acute Assessment and Plan: secondary to falls prior to admission continue PT/OT as tolerated (4) Anemia: Code(s): D64.9 - Anemia, unspecified Status: Acute Assessment and Plan: improving adequate iron stores Epogen with HD follow H/H (5) Hypertension: Qualifiers: Hypertension type: essential hypertension Qualified Code(s): I10 - Essential (primary) hypertension Code(s): I10 - Essential (primary) hypertension Status: Acute Assessment and Plan: reasonable control at this time follow trend with current medications (6) Confusion: Code(s): R41.0 - Disorientation, unspecified Status: Acute Assessment and Plan: etiology unclear TSH okay; B12, folate and electrolytes are okay severe anxiety and pain playing a role? follow mentation Will continue to follow. Subjective Date/time seen: 08/26/19 11:59 Chart/interim reviewed since last seen -- mental status remains an issue: she seems quite confused with rambling about multiple issues and somewhat difficult to reorient her; tolerated dialysis yesterday without any problems. Exam Narrative: Exam Narrative: General: WD/WN female in NAD Heart: normal S1 and S2; no rub Lungs: clear to auscultation Abdomen: soft, nontender, +BS Extremities: no cyanosis or clubbing; no edema Skin: warm and dry Objective Data Vital Signs Vital Signs: Vital Signs Temp Pulse Resp BP Pulse Ox 08/26/19 10:00 36.6 C 69 14 148/49 H 97 08/26/19 08:57 70 08/26/19 06:00 36.7 C 70 18 106/44 L 96 08/25/19 22:00 36.7 C 84 21 H 141/52 H 100 08/25/19 20:36 72 08/25/19 14:00 36.1 C L 80 18 120/50 L 99 08/25/19 13:25 35.9 C L 84 20 132/60 08/25/19 13:19 85 130/68 08/25/19 13:15 84 140/57 L 08/25/19 13:00 82 120/60 08/25/19 12:45 83 115/69 08/25/19 12:30 81 166/68 H 08/25/19 12:15 84 144/74 H 08/25/19 12:00 78 137/67 Intake/Output Intake/Output: Intake & Output 08/23/19 08/24/19 08/25/19 08/26/19 23:59 23:59 23:59 23:59 Intake Total 286 962 8118 Output Total 702 2200 1 Balance 138 340 -1080 -1 Meds/Results Medications: Active Medications Generic Name Dose Route Start Last Admin Trade Name Freq PRN Reason Stop Dose Admin Acetaminophen 325 mg 08/21/19 12:39 08/25/19 08:15 Tylenol Tablet PO 325 mg Q6H PRN Administration Mild Pain (1-3) or Fever Albuterol 1 puff 08/18/19 20:00 08/26/19 11:44 Proventil Hfa INHALATION 1 puff QIDRT ON LICENSE OF [facility] Administration Allopurinol 100 mg 08/19/19 09:00 08/26/19 09:09 Zyloprim PO 100 mg DAILY ON LICENSE OF [facility] Administration Alprazolam 0.125 mg 08/19/19 15:22 08/25/19 20:37 Xanax PO 0.125 mg TID PRN Administration Anxiety Aspirin 81 mg 08/19/19 09:00 08/26/19 09:09 Aspirin Ec PO 81 mg DAILY ON LICENSE OF [facility] Administration Atorvastatin Calcium 40 mg 08/19/19 09:00 08/26/19 08:57 Lipitor PO 40 mg DAILY [facility] Administration Buspirone HCl 10 mg 08/18/19 17:00 08/26/19 09:02 Buspar PO 10 mg BID ON LICENSE OF [facility] Administration Carvedilol 25 mg 08/22/19 09:00 08/26/19 08:57 Coreg PO 25 mg Q12HR ON LICENSE OF [facility] Administration Epoetin Armaan 10,000 units 08/20/19 17:00 08/25/19 12:03 Epogen IV PUSH 10,000 un
--- NOTE | 2019-08-26 13:00 | PM.IMPN ---
Progress Note: A&P Assessment and Plan (1) CAD (coronary artery disease): Code(s): I25.10 - Atherosclerotic heart disease of [place] coronary artery without angina pectoris Status: Chronic Assessment and Plan: History of stents, patient seen by resident services director does not suspect acute coronary syndrome most likely musculoskeletal no further workup is required (2) Frequent falls: Code(s): R29.6 - Repeated falls Status: Acute Assessment and Plan: Continue pt/ot, monitor orthostatic BPS (3) End stage renal disease: Code(s): N18.6 - End stage renal disease Status: Acute Assessment and Plan: Creat is 3.3 seen by building construction engineer will have scheduled dialysis (4) Anemia: Code(s): D64.9 - Anemia, unspecified Status: Acute Assessment and Plan: hb is 8.3, pt is a ESRD patient. may benefit from epogen. (5) Chest pain: Code(s): R07.9 - Chest pain, unspecified Status: Acute Assessment and Plan: 08/26/19 13:00 Intermittent squeezing chest pains, Complains of intermittent chest pain. Pt had rapid response yesterday yesterday evening for chest pain. Pt still complains of chest pain today, troponin from yesterday minimally elevated. Seen by cardiology cardiac chest pain appears unlikley appears more musculoskeletal or anxiety related -try lidoderm patch and tylenol for pain and xanax for anxiety. Chest pains most likely musculoskeletal added baclofen on 08/22 without significant relief, patient was given 1 time dose of Dilaudid 0.5 mg which did help her pain, her pain was still persisting without the medication, started the patient on tramadol 50 mg every 12 hours and monitor, however on 08/24 media relations manager patient was quite agitated and combative patient was given 1 time dose of Zyprexa 10 mg IM, and patient remained quite somnolent and sleeping, today patient still very confused, unable to provide detail ROS, patient seen by building construction engineer will encourage patient to work with physical therapy patient will benefit going to acute rehab before going home, today patient niece is present room and discussed patient care, she has encourage patient to work with PT/OT before dicharging, care transitions nurse is working on placing patient in NH. (6) Acute hypotension: Code(s): I95.9 - Hypotension, unspecified Status: Resolved Assessment and Plan: Hold hydralazine medications, as bps run low yesterday, continue spirolactone and coreg. Today BP is close to target clinically stable (7) DVT prophylaxis: Code(s): Z29.9 - Encounter for prophylactic measures, unspecified Status: Acute Assessment and Plan: SCD (8) Troponin level elevated: Code(s): R79.89 - Other specified abnormal findings of blood chemistry Status: Acute Assessment and Plan: Continue to monitor, cardiology notified pt has a history of cAD with stents seen by resident services director does not suspect acute coronary syndrome most likely muscular. (9) Low TSH level: Code(s): R79.89 - Other specified abnormal findings of blood chemistry Status: Acute Assessment and Plan: Patient with history of hyperthyroid patient is on methimazole however her TSH is low with free T4 and free T3 are normal patient clinically stable and does not appear to be hyperthyroid will continue to monitor Subjective Date/time seen: 08/26/19 13:00 Intermittent squeezing chest pains, Complains of intermittent chest pain. Pt had rapid response yesterday yesterday evening for chest pain. Pt still complains of chest pain today, troponin from yesterday minimally elevated. Seen by cardiology cardiac chest pain appears unlikley appears more musculoskeletal or anxiety related -try lidoderm patch and tylenol for pain and xanax for anxiety. Chest pains most likely musculoskeletal added baclofen on 08/22 without significant relief, patient was given 1 time dose of Dilaudid 0.5 mg which did help her
--- NOTE | 2019-08-26 15:40 | PM.PNCARD ---
Subjective Date/time seen: 08/26/19 15:40 She seems to be little bit confused, with some hallucinations, but no chest pain no shortness not in acute distress Interval history: Patient is alert. She is very confused. Agitated. Talking in run on sentences changing subjects frequently talking about the police, senior care, etc. I reoriented her which worked for about 30seconds and then she began rambling once again. Exam Narrative: Exam Narrative: Appears chronically ill and uncomfortable. Multiple ecchymosis noted on upper ext Eyes: Sclera: sclerae normal Neck: Neck: no JVD Carotids: no bruits Resp: Effort & Inspection: normal respiratory effort Auscultation: clear to auscultation bilaterally Cardio: Rate: regular rate and not tachycardic Rhythm: regular rhythm Heart sounds: no gallops, no murmurs and no rubs Skin: General skin exam: normal color Neuro: Cranial nerves: Yes Normal hearing present Speech: normal speech Extrem: General: normal to inspection and no edema Psych: Affect: normal affect Objective Data Vital Signs Vital Signs: Vital Signs - 24 hr 08/25/19 20:36 08/25/19 22:00 08/26/19 06:00 Temperature 36.7 C 36.7 C Pulse Rate 72 84 70 Respiratory Rate 21 H 18 Blood Pressure 141/52 H 106/44 L Pulse Oximetry 100 96 08/26/19 08:57 08/26/19 10:00 08/26/19 14:00 Temperature 36.6 C 35.7 C L Pulse Rate 70 69 76 Respiratory Rate 14 16 Blood Pressure 148/49 H 123/59 L Pulse Oximetry 97 98 Intake/Output Intake/Output: Intake & Output 08/23/19 08/24/19 08/25/19 08/26/19 23:59 23:59 23:59 23:59 Intake Total 111 854 0412 0 Output Total 702 2200 1 Balance 138 340 -1080 -1 Meds/Results Medications: Active Medications Generic Name Dose Route Start Last Admin Trade Name Freq PRN Reason Stop Dose Admin Acetaminophen 325 mg 08/21/19 12:39 08/25/19 08:15 Tylenol Tablet PO 325 mg Q6H PRN Administration Mild Pain (1-3) or Fever Albuterol 1 puff 08/18/19 20:00 08/26/19 11:44 Proventil Hfa INHALATION 1 puff QIDRT [facility] Administration Allopurinol 100 mg 08/19/19 09:00 08/26/19 09:09 Zyloprim PO 100 mg DAILY [facility] Administration Alprazolam 0.125 mg 08/19/19 15:22 08/25/19 20:37 Xanax PO 0.125 mg TID PRN Administration Anxiety Aspirin 81 mg 08/19/19 09:00 08/26/19 09:09 Aspirin Ec PO 81 mg DAILY [facility] Administration Atorvastatin Calcium 40 mg 08/19/19 09:00 08/26/19 08:57 Lipitor PO 40 mg DAILY [facility] Administration Buspirone HCl 10 mg 08/18/19 17:00 08/26/19 09:02 Buspar PO 10 mg BID [facility] Administration Carvedilol 25 mg 08/22/19 09:00 08/26/19 08:57 Coreg PO 25 mg Q12HR [facility] Administration Epoetin Armaan 10,000 units 08/20/19 17:00 08/25/19 12:03 Epogen IV PUSH 10,000 units TuThSa@1700 [facility] Administration Escitalopram Oxalate 10 mg 08/19/19 09:00 08/26/19 09:09 Lexapro PO 10 mg DAILY [facility] Administration Famotidine 20 mg 08/24/19 21:00 08/26/19 09:01 Pepcid PO 20 mg Q12HR [facility] Administration Gabapentin 100 mg 08/19/19 17:00 08/26/19 12:31 Neurontin PO 100 mg TID [facility] Administration Albumin Human 50 mls @ 999 mls/hr 08/19/19 08:11 Albutein IVPB 09/18/19 08:12 Q10M PRN HYPOTENSION Lidocaine 2 patch 08/19/19 09:00 08/26/19 09:12 Lidoderm TRANSDERM 2 patch DAILY [facility] Administration Melatonin 3 mg 08/19/19 23:34 08/25/19 20:38 Melatonin PO 3 mg HS PRN Administration insomnia Methimazole 5 mg 08/19/19 09:00 08/26/19 08:57 Tapazole PO 5 mg DAILY [facility] Administration Baclofen 2.5mg- 1 each 08/22/19 12:30 08/26/19 09:12 Nonformulary Drug PO 09/21/19 12:31 Not Given BID [facility] Ondansetron HCl 4 mg 08/17/19 13:51 08/20/19 19:30 Zofran Inj IV PUSH 4 mg Q4H PRN Administration Nausea Pantoprazole Sodium 40 mg 08/19/19 09:00 08/26/19 09:09 Protonix PO 40 mg DAILY [facility] Adm
--- NOTE | 2019-08-26 16:16 | PCOTNOTE ---
The patient treatment was not able to be completed on 08/26/2019. Will plan to continue treatment per plan of care.
--- NOTE | 2019-08-26 16:17 | PCOTNOTE ---
The patient treatment was not able to be completed on 08/26/2019. Will plan to continue treatment per plan of care.
--- NOTE | 2019-08-26 18:49 | PC.NURSE ---
Dr. Esteves notified me of CT result called to him by radiologist. Orders received.
[2019-08-26] MEDS: ASPIRIN 325 MG TABLET PO (20:16)
[2019-08-26] MEDS: TRAMADOL HCL 50 MG TABLET PO (20:17)
[2019-08-26] MEDS: MELATONIN 3 MG TABLET PO (20:18)
[2019-08-27] VITALS (26 sets, daily range): BP systolic 77–173; BP diastolic 30–73; PULSE 58–83; RESP 16–24; TEMP 36–37; O2SAT 90–100
[2019-08-27 05:53] LABS: Hematocrit 29.6 % (37.0-47.0); Hemoglobin 9.2 g/dL (12.0-15.0); Mean Corpuscular HGB Conc 31.1 g/dl (32-36); Mean Corpuscular Hemoglobin 33.3 pg (26-34); Mean Corpuscular Volume 107.2 fl (80-100); Mean Platelet Volume 11.6 fl (7.4-10.4); Platelet Count Result 184 k/mm3 (150-375); Red Blood Count 2.76 M/mm3 (4.2-5.4); Red Cell Distribution Width 15.1 % (11.5-14.5); White Blood Count 7.3 K/mm3 (4.5-10.0)
[2019-08-27 06:18] LABS: Albumin Level 3.4 g/dL (3.5-5.1); Blood Urea Nitrogen 38 mg/dL (7-17); Calcium 10.3 mg/dL (8.4-10.2); Carbon Dioxide 32 mmol/L (22-30); Chloride 95 mmol/L (98-107); Estimated CRCL calculation 7 ml/min; Estimated Glomerular Filt Rate 8; Glucose 133 mg/dL (65-105); Phosphorus 5.5 mg/dL (2.5-4.5); Potassium 3.6 mmol/L (3.4-5.0); Sodium 143 mmol/L (137-145)
[2019-08-27] MEDS: LIDOCAINE 5% PATCH 2 PATCH TRANSDERM (08:43)
--- NOTE | 2019-08-27 08:52 | PC.NURSE ---
Patient difficult to arouse this morning. She is only slight responsive to my sternal rub. Called to notify Dr. Esteves of patient condition. Patient is unable to take any PO medications at this time due to condition. While on the phone with Dr. Esteves, she became slightly more awake and opening her eyes to us talking. He stated he would like her to have MRI of her brain done before she is taken to dialysis. garden implement mechanic Rolf notified that Dr. Esteves is requesting her to have MRI completed before dialysis begins. Spoke with MRI who stated she wouldn't be able to get her there until around 0930. Rolf notified and aware.
--- NOTE | 2019-08-27 10:10 | PC.NURSE ---
To MRI per stretcher. Oral ativan administered prior-verbal order received from Dr. Esteves.
[2019-08-27] MEDS: LORAZEPAM 0.5 MG TABLET PO (10:15)
--- NOTE | 2019-08-27 10:50 | PC.NURSE ---
Patient return from MRI. Patient to dialysis per bed. CHEN Bansal (dialysis) notified.
[2019-08-27] MEDS: ALBUMIN HUMAN 25% 12.5 GM/50ML 50 ML IVPB ×2 (11:34→15:09)
[2019-08-27] MEDS: EPOETIN ALFA 10,000 UNITS/ML VIAL 10000 UNITS IV PUSH (13:06)
--- NOTE | 2019-08-27 13:17 | PM.IMPN ---
Progress Note: A&P Assessment and Plan (1) CAD (coronary artery disease): Code(s): I25.10 - Atherosclerotic heart disease of [place] coronary artery without angina pectoris Status: Chronic Assessment and Plan: History of stents, patient seen by graphic user interface designer does not suspect acute coronary syndrome most likely musculoskeletal no further workup is required (2) Frequent falls: Code(s): R29.6 - Repeated falls Status: Acute Assessment and Plan: Continue pt/ot, monitor orthostatic BPS (3) End stage renal disease: Code(s): N18.6 - End stage renal disease Status: Acute Assessment and Plan: Creat is 3.3 seen by manufacturing accountant will have scheduled dialysis (4) Anemia: Code(s): D64.9 - Anemia, unspecified Status: Acute Assessment and Plan: hb is 8.3, pt is a ESRD patient. may benefit from epogen. (5) Chest pain: Code(s): R07.9 - Chest pain, unspecified Status: Acute Assessment and Plan: Intermittent squeezing chest pains, Complains of intermittent chest pain. Pt had rapid response yesterday yesterday evening for chest pain. Pt still complains of chest pain today, troponin from yesterday minimally elevated. Seen by cardiology cardiac chest pain appears unlikley appears more musculoskeletal or anxiety related -try lidoderm patch and tylenol for pain and xanax for anxiety. Chest pains most likely musculoskeletal added baclofen on 08/22 without significant relief, patient was given 1 time dose of Dilaudid 0.5 mg which did help her pain, her pain was still persisting without the medication, started the patient on tramadol 50 mg every 12 hours and monitor, however on 08/24 region manager patient was quite agitated and combative patient was given 1 time dose of Zyprexa 10 mg IM, and patient remained quite somnolent and sleeping, today patient still very confused, unable to provide detail ROS, patient seen by manufacturing accountant will encourage patient to work with physical therapy patient will benefit going to acute rehab before going home, today patient niece was present room and discussed patient care on 08/25, she has encourage patient to work with PT/OT before dicharging, child care attendant is working on placing patient in NH. However last night nursing staff noticed the patient was jerking on [address] scan of the head was done which showed patient has hypodensity of the kari, suspicious for acute infarction, patient has been taking a baby aspirin and neurologist added one time dose of Aspirin 325mg and will continue baby aspriin, unfortunately patient still quite confused to participate in physical therapy will continue to encourage the patient patient will have a scheduled dialysis patient be seen by neurologist and further recommendation to follow (6) Acute hypotension: Code(s): I95.9 - Hypotension, unspecified Status: Resolved Assessment and Plan: Hold hydralazine medications, as bps run low yesterday, continue spirolactone and coreg. Today BP is close to target clinically stable (7) DVT prophylaxis: Code(s): Z29.9 - Encounter for prophylactic measures, unspecified Status: Acute Assessment and Plan: SCD (8) Troponin level elevated: Code(s): R79.89 - Other specified abnormal findings of blood chemistry Status: Acute Assessment and Plan: Continue to monitor, cardiology notified pt has a history of cAD with stents seen by graphic user interface designer does not suspect acute coronary syndrome most likely muscular. (9) Low TSH level: Code(s): R79.89 - Other specified abnormal findings of blood chemistry Status: Acute Assessment and Plan: Patient with history of hyperthyroid patient is on methimazole however her TSH is low with free T4 and free T3 are normal patient clinically stable and does not appear to be hyperthyroid will continue to monitor Subjective Date/time seen: 08/27/19 13:17 Interval history: Int
--- NOTE | 2019-08-27 13:29 | PM.PNNEP ---
Progress Note: A&P Assessment and Plan (1) End stage renal disease: Code(s): N18.6 - End stage renal disease Status: Acute Assessment and Plan: HD today and continue T/T/S schedule while hospitalized electrolytes, volume status, and clearance appear acceptable (2) Frequent falls: Code(s): R29.6 - Repeated falls Status: Acute Assessment and Plan: physical/occupational therapy as tolerated pain control appears to be limiting factor (3) Contusion of multiple sites: Code(s): T07.XXXA - Unspecified multiple injuries, initial encounter Status: Acute Assessment and Plan: secondary to falls prior to admission continue PT/OT as tolerated (4) Anemia: Code(s): D64.9 - Anemia, unspecified Status: Acute Assessment and Plan: improving adequate iron stores Epogen with HD follow H/H (5) Hypertension: Qualifiers: Hypertension type: essential hypertension Qualified Code(s): I10 - Essential (primary) hypertension Code(s): I10 - Essential (primary) hypertension Status: Acute Assessment and Plan: reasonable control at this time follow trend with current medications (6) Confusion: Code(s): R41.0 - Disorientation, unspecified Status: Acute Assessment and Plan: etiology unclear TSH okay; B12, folate and electrolytes are okay severe anxiety and pain playing a role? CT of head with concern for CVA -- MRI today for further assessment follow mentation Will continue to follow. Subjective Date/time seen: 08/27/19 13:29 Tolerating dialysis at the time of my visit (seen on HD at ~ 1:00PM); was comfortable but then spontaneously woke up saying she had severe back pain; MRI of brain done this AM due ongoing confusion. Exam Narrative: Exam Narrative: General: WD/WN female complaining of back pain Heart: normal S1 and S2; no rub Lungs: clear to auscultation Abdomen: soft, nontender, +BS Extremities: no cyanosis or clubbing; no edema Skin: warm and dry Objective Data Vital Signs Vital Signs: Vital Signs Temp Pulse Resp BP Pulse Ox 08/27/19 13:15 58 L 115/63 08/27/19 13:00 61 86/43 L 08/27/19 12:45 65 110/52 L 08/27/19 12:30 63 101/50 L 08/27/19 12:15 63 115/65 08/27/19 12:00 67 101/46 L 08/27/19 11:53 67 115/52 L 08/27/19 11:48 63 77/41 L 08/27/19 11:30 65 85/47 L 08/27/19 11:15 67 89/30 L 08/27/19 11:07 66 113/54 L 08/27/19 10:55 36.5 C 66 20 128/61 08/27/19 06:00 36.3 C L 66 20 109/46 L 90 08/27/19 02:00 36.1 C L 73 22 H 150/73 H 100 08/26/19 22:00 36.4 C 85 22 H 177/65 H 100 08/26/19 20:17 79 08/26/19 18:00 36.8 C 79 18 129/66 100 08/26/19 14:00 35.7 C L 76 16 123/59 L 98 Intake/Output Intake/Output: Intake & Output 08/24/19 08/25/19 08/26/19 08/27/19 23:59 23:59 23:59 23:59 Intake Total 340 1120 360 Output Total 2200 2 Balance 340 -1080 358 Meds/Results Medications: Active Medications Generic Name Dose Route Start Last Admin Trade Name Freq PRN Reason Stop Dose Admin Acetaminophen 325 mg 08/21/19 12:39 08/25/19 08:15 Tylenol Tablet PO 325 mg Q6H PRN Administration Mild Pain (1-3) or Fever Albuterol 1 puff 08/18/19 20:00 08/27/19 08:48 Proventil Hfa INHALATION Not Given QIDRT [facility] Allopurinol 100 mg 08/19/19 09:00 08/27/19 08:48 Zyloprim PO Not Given DAILY [facility] Alprazolam 0.125 mg 08/19/19 15:22 08/26/19 20:18 Xanax PO 0.125 mg TID PRN Administration Anxiety Aspirin 81 mg 08/19/19 09:00 08/27/19 08:48 Aspirin Ec PO Not Given DAILY [facility] Atorvastatin Calcium 40 mg 08/19/19 09:00 08/27/19 08:48 Lipitor PO Not Given DAILY [facility] Buspirone HCl 10 mg 08/18/19 17:00 08/27/19 08:48 Buspar PO Not Given BID [facility] Carvedilol 25 mg 08/22/19 09:00 08/07
--- NOTE | 2019-08-27 15:20 | PC.NURSE ---
Patient return from dialysis.
--- NOTE | 2019-08-27 15:33 | PC.NURSE ---
Patient complaining of back pain and moaning. Attempted to administer a tylenol tablet to patient. She is refusing, spitting it out, and won't let the nursing staff help her.
--- NOTE | 2019-08-27 16:28 | PCPTNOTE ---
The patient treatment was not able to be completed on 08/27/19. Will plan to continue treatment per plan of care.
--- NOTE | 2019-08-27 16:52 | PCOTNOTE ---
The patient treatment was not able to be completed on [08/27/19] due to [short of staff]. Will plan to continue treatment per plan of care.
--- NOTE | 2019-08-27 16:52 | PCOTNOTE ---
The patient treatment was not able to be completed on [08/27/19] due to [short of staff]. Will plan to continue treatment per plan of care.
[2019-08-27] MEDS: ALBUTEROL SULFATE (*SP) AEROSOL 1 PUFF INHALATION (20:15)
[2019-08-27] MEDS: carvediloL 25 MG TABLET PO (23:27)
[2019-08-27] MEDS: TRAMADOL HCL 50 MG TABLET PO (23:27)
[2019-08-27] MEDS: FAMOTIDINE 20 MG TABLET PO (23:27)
[2019-08-27] MEDS: MELATONIN 3 MG TABLET PO (23:27)
--- NOTE | 2019-08-27 23:32 | PC.NURSE ---
2100 meds given at 2328. pt was initially uncooperative and would not take any medications.
[2019-08-28] VITALS (7 sets, daily range): BP systolic 117–151; BP diastolic 55–88; PULSE 71–84; RESP 16–22; TEMP 35.9–36.6; O2SAT 97–100
[2019-08-28 05:38] LABS: Hematocrit 32.1 % (37.0-47.0); Mean Corpuscular HGB Conc 31.2 g/dl (32-36); Mean Corpuscular Volume 105.9 fl (80-100); Mean Platelet Volume 11.9 fl (7.4-10.4); Platelet Count Result 216 k/mm3 (150-375); Red Blood Count 3.03 M/mm3 (4.2-5.4); Red Cell Distribution Width 15.1 % (11.5-14.5); White Blood Count 10.1 K/mm3 (4.5-10.0)
[2019-08-28 05:59] LABS: Albumin Level 4.1 g/dL (3.5-5.1); Blood Urea Nitrogen 21 mg/dL (7-17); Calcium 11.3 mg/dL (8.4-10.2); Carbon Dioxide 16 mmol/L (22-30); Chloride 102 mmol/L (98-107); Estimated CRCL calculation 12 ml/min; Estimated Glomerular Filt Rate 15; Glucose 152 mg/dL (65-105); Phosphorus 3.3 mg/dL (2.5-4.5); Potassium 4.3 mmol/L (3.4-5.0); Sodium 141 mmol/L (137-145)
[2019-08-28] MEDS: GABAPENTIN 100 MG CAPSULE PO ×3 (07:23→16:14)
[2019-08-28] MEDS: carvediloL 25 MG TABLET PO ×2 (07:24→20:34)
[2019-08-28] MEDS: FAMOTIDINE 20 MG TABLET PO ×2 (07:24→20:34)
[2019-08-28] MEDS: busPIRone HCL 10 MG TABLET PO ×2 (07:24→16:14)
[2019-08-28] MEDS: methiMAzole 5 MG TAB PO (07:24)
[2019-08-28] MEDS: ASPIRIN 81 MG ENTERIC TABLET PO (07:24)
[2019-08-28] MEDS: PANTOPRAZOLE 40 MG TABLET PO (07:24)
[2019-08-28] MEDS: allopurinoL 100 MG TABLET PO (07:25)
[2019-08-28] MEDS: ATORVASTATIN 40 MG TABLET PO (07:25)
[2019-08-28] MEDS: ESCITALOPRAM OXALATE 10 MG TABLET PO (07:25)
[2019-08-28] MEDS: SPIRONOLACTONE 25 MG TABLET PO (07:25)
[2019-08-28] MEDS: VITAMIN B CMPLX/VIT C/FOLIC AC 1 CAPSULE 1 CAP PO (07:25)
[2019-08-28] MEDS: LIDOCAINE 5% PATCH 2 PATCH TRANSDERM (07:27)
--- NOTE | 2019-08-28 07:31 | PC.NURSE ---
Patient's 0800/0900 medications administered early at 0730 due to patient being agreeable at this time to take medications.
[2019-08-28] MEDS: ALBUTEROL SULFATE (*SP) AEROSOL 1 PUFF INHALATION ×4 (08:45→20:52)
--- NOTE | 2019-08-28 11:28 | PM.PNCARD ---
Progress Note: A&P Assessment and Plan (1) Chest pain: Code(s): R07.9 - Chest pain, unspecified Status: Acute Assessment and Plan: Chest pain characteristic are very atypical for angina and consistent with musculoskeletal pain She had indeterminate trop elevation at 0.1 in the setting of ESRD and HD No new EKG changes. She had relatively recent cath in Feb revealing patent stent. No need for further workup for the time being, she is okay to use nitroglycerin as needed. Pain control per primary team. (2) Hypertension: Qualifiers: Hypertension type: essential hypertension Qualified Code(s): I10 - Essential (primary) hypertension Code(s): I10 - Essential (primary) hypertension Status: Acute Assessment and Plan: Okay to keep blood pressure little bit elevated, in view of his recurrent episode of orthostatic hypotension, to prevent further dizziness and syncope. She had frequent PVCs/trigemeny after Coreg was held. Resume coreg at lower dose 12.5 BID (was on 25 BID at home) (3) Diabetes mellitus: Qualifiers: Diabetes mellitus type: type 2 Diabetes mellitus terminal clerk insulin use: without snf use Diabetes mellitus complication status: with kidney complications Diabetes mellitus complication detail: with chronic kidney disease Chronic kidney disease stage: on chronic dialysis Qualified Code(s): E11.22 - Type 2 diabetes mellitus with diabetic chronic kidney disease; N18.6 - End stage renal disease; Z99.2 - Dependence on renal dialysis Code(s): E11.9 - Type 2 diabetes mellitus without complications Status: Acute (4) Frequent falls: Code(s): R29.6 - Repeated falls Status: Acute Assessment and Plan: With multiple bruises, okay to stop Plavix keep on low-dose aspirin (5) End stage renal disease: Code(s): N18.6 - End stage renal disease Status: Acute (6) ESRD (end stage renal disease) on dialysis: Code(s): N18.6 - End stage renal disease; Z99.2 - Dependence on renal dialysis Status: Acute Additional Plan Thank you for allowing me to participate in this patient's care, I will be following up with you. Please do not hesitate to call me for any other inquiry Subjective Date/time seen: 08/28/19 11:28 Events noted, she still is confused and has significant hallucinations, MRI was done which was negative. No chest pain Exam Narrative: Exam Narrative: Appears chronically ill and uncomfortable. Multiple ecchymosis noted on upper ext Eyes: Sclera: sclerae normal Neck: Neck: no JVD Carotids: no bruits Resp: Effort & Inspection: normal respiratory effort Auscultation: clear to auscultation bilaterally Cardio: Rate: regular rate and not tachycardic Rhythm: regular rhythm Heart sounds: no gallops, no murmurs and no rubs Skin: General skin exam: normal color Neuro: Cranial nerves: Yes Normal hearing present Speech: normal speech Extrem: General: normal to inspection and no edema Psych: Affect: normal affect Objective Data Vital Signs Vital Signs: Vital Signs - 24 hr 08/27/19 11:30 08/27/19 11:48 08/27/19 11:53 Temperature Pulse Rate 65 63 67 Respiratory Rate Blood Pressure 85/47 L 77/41 L 115/52 L Pulse Oximetry 08/27/19 12:00 08/27/19 12:15 08/27/19 12:30 Temperature Pulse Rate 67 63 63 Respiratory Rate Blood Pressure 101/46 L 115/65 101/50 L Pulse Oximetry 08/27/19 12:45 08/27/19 13:00 08/27/19 13:15 Temperature Pulse Rate 65 61 58 L Respiratory Rate Blood Pressure 110/52 L 86/43 L 115/63 Pulse Oximetry 08/27/19 13:30 08/27/19 13:52 08/27/19 14:00 Temperature Pulse Rate 64 68 61 Respiratory Rate Blood Pressure 106/47 L 111/57 L 117/45 L Pulse Oximetry 08/27/19 14:15 08/27/19 14:30 08/27/19 14:42 Temperature Pulse Rate 60 68 70 Respiratory Rate Blood Pressure 90/55 L 114/72 109/59 L Pulse Oximetry
[2019-08-28] MEDS: CLOPIDOGREL BISULFATE 75 MG TABLET PO (12:51)
--- NOTE | 2019-08-28 16:24 | P.PNNP_ITS ---
Progress Note: A&P Assessment and Plan (1) End stage renal disease: Code(s): N18.6 - End stage renal disease Status: Acute Assessment and Plan: * HD yesterday and continue T/T/S schedule while hospitalized * electrolytes, volume status, and clearance appear acceptable (2) Frequent falls: Code(s): R29.6 - Repeated falls Status: Acute Assessment and Plan: * physical/occupational therapy as tolerated * pain control and mental status appears to be limiting factor (3) Contusion of multiple sites: Code(s): T07.XXXA - Unspecified multiple injuries, initial encounter Status: Acute Assessment and Plan: * secondary to falls prior to admission * continue PT/OT as tolerated (4) Anemia: Code(s): D64.9 - Anemia, unspecified Status: Acute Assessment and Plan: * improving * adequate iron stores * Epogen with HD * follow H/H (5) Hypertension: Qualifiers: Hypertension type: essential hypertension Qualified Code(s): I10 - Essential (primary) hypertension Code(s): I10 - Essential (primary) hypertension Status: Acute Assessment and Plan: * reasonable control at this time * follow trend with current medications (6) Confusion: Code(s): R41.0 - Disorientation, unspecified Status: Acute Assessment and Plan: * etiology unclear * TSH okay; B12, folate and electrolytes are okay * severe anxiety and pain playing a role? * CT of head with concern for CVA -- MRI of brain negative * follow mentation Will continue to follow. Subjective Date/time seen: 08/28/19 16:24 Mentation/mental status still seems erratic with on/off hallucinations and confusion; tolerated dialysis yesterday without significant issue; MRI of brain unrevealing with regarding to any acute CVA/stroke; continues to have on/off atypical chest discomfort. Exam Narrative: Exam Narrative: General: WD/WN female in NAD Heart: normal S1 and S2; no rub Lungs: clear to auscultation Abdomen: soft, nontender, +BS Extremities: no cyanosis or clubbing; no edema Skin: warm and intact Objective Data Vital Signs Vital Signs: Vital Signs Temp Pulse Resp BP Pulse Ox 08/28/19 14:00 36.6 C 76 16 151/55 H 99 08/28/19 10:00 35.9 C L 71 16 133/55 L 97 02/23/20 07:24 84 08/28/19 06:00 36.4 C L 84 22 H 126/63 100 08/28/19 02:00 36.2 C L 78 22 H 140/69 99 08/27/19 23:27 83 08/27/19 22:00 36.5 C 83 24 H 160/64 H 100 08/27/19 18:22 36.6 C 82 20 152/55 H 99 Intake/Output Intake/Output: Intake & Output 08/25/19 08/26/19 08/27/19 08/28/19 23:59 23:59 23:59 23:59 Intake Total 1120 360 50 0 Output Total 2200 2 900 0 Balance -1080 358 -850 0 Meds/Results Medications: Active Medications Generic Name Dose Route Start Last Admin Trade Name Freq PRN Reason Stop Dose Admin Acetaminophen 325 mg 08/21/19 12:39 08/25/19 08:15 Tylenol Tablet PO 325 mg Q6H PRN Administration Mild Pain (1-3) or Fever Albuterol 1 puff 08/18/19 20:00 08/28/19 12:06 Proventil Hfa INHALATION 1 puff QIDRT [facility] Administration Allopurinol 100 mg 08/19/19 09:00 08/28/19 07:
--- NOTE | 2019-08-28 16:24 | PM.PNNEP ---
Progress Note: A&P Assessment and Plan (1) End stage renal disease: Code(s): N18.6 - End stage renal disease Status: Acute Assessment and Plan: HD yesterday and continue T/T/S schedule while hospitalized electrolytes, volume status, and clearance appear acceptable (2) Frequent falls: Code(s): R29.6 - Repeated falls Status: Acute Assessment and Plan: physical/occupational therapy as tolerated pain control and mental status appears to be limiting factor (3) Contusion of multiple sites: Code(s): T07.XXXA - Unspecified multiple injuries, initial encounter Status: Acute Assessment and Plan: secondary to falls prior to admission continue PT/OT as tolerated (4) Anemia: Code(s): D64.9 - Anemia, unspecified Status: Acute Assessment and Plan: improving adequate iron stores Epogen with HD follow H/H (5) Hypertension: Qualifiers: Hypertension type: essential hypertension Qualified Code(s): I10 - Essential (primary) hypertension Code(s): I10 - Essential (primary) hypertension Status: Acute Assessment and Plan: reasonable control at this time follow trend with current medications (6) Confusion: Code(s): R41.0 - Disorientation, unspecified Status: Acute Assessment and Plan: etiology unclear TSH okay; B12, folate and electrolytes are okay severe anxiety and pain playing a role? CT of head with concern for CVA -- MRI of brain negative follow mentation Will continue to follow. Subjective Date/time seen: 08/28/19 16:24 Mentation/mental status still seems erratic with on/off hallucinations and confusion; tolerated dialysis yesterday without significant issue; MRI of brain unrevealing with regarding to any acute CVA/stroke; continues to have on/off atypical chest discomfort. Exam Narrative: Exam Narrative: General: WD/WN female in NAD Heart: normal S1 and S2; no rub Lungs: clear to auscultation Abdomen: soft, nontender, +BS Extremities: no cyanosis or clubbing; no edema Skin: warm and intact Objective Data Vital Signs Vital Signs: Vital Signs Temp Pulse Resp BP Pulse Ox 08/28/19 14:00 36.6 C 76 16 151/55 H 99 08/28/19 10:00 35.9 C L 71 16 133/55 L 97 08/28/19 07:24 84 08/28/19 06:00 36.4 C L 84 22 H 126/63 100 08/28/19 02:00 36.2 C L 78 22 H 140/69 99 08/27/19 23:27 83 08/27/19 22:00 36.5 C 83 24 H 160/64 H 100 08/27/19 18:22 36.6 C 82 20 152/55 H 99 Intake/Output Intake/Output: Intake & Output 08/25/19 08/26/19 08/27/19 08/28/19 23:59 23:59 23:59 23:59 Intake Total 1120 360 50 0 Output Total 2200 2 900 0 Balance -1080 358 -850 0 Meds/Results Medications: Active Medications Generic Name Dose Route Start Last Admin Trade Name Freq PRN Reason Stop Dose Admin Acetaminophen 325 mg 08/21/19 12:39 08/25/19 08:15 Tylenol Tablet PO 325 mg Q6H PRN Administration Mild Pain (1-3) or Fever Albuterol 1 puff 08/18/19 20:00 08/28/19 12:06 Proventil Hfa INHALATION 1 puff QIDRT [facility] Administration Allopurinol 100 mg 08/19/19 09:00 08/28/19 07:25 Zyloprim PO 100 mg DAILY [facility] Administration Alprazolam 0.125 mg 08/19/19 15:22 08/27/19 23:28 Xanax PO 0.125 mg TID PRN Administration Anxiety Aspirin 81 mg 08/19/19 09:00 08/28/19 07:24 Aspirin Ec PO 81 mg DAILY [facility] Administration Atorvastatin Calcium 40 mg 08/19/19 09:00 08/28/19 07:25 Lipitor PO 40 mg DAILY [facility] Administration Buspirone HCl 10 mg 08/18/19 17:00 08/28/19 16:14 Buspar PO 10 mg BID [facility] Administration Carvedilol 25 mg 08/22/19 09:00 08/28/19 07:24 Coreg PO 25 mg Q12HR [facility] Administration Clopidogrel Bisulfate 75 mg 08/28/19 09:00 08/28/19 12:51 Plavix PO 75 mg QAM [facility] Administration Epoetin Armaan 10,000 units 08/20/19 17:00
--- NOTE | 2019-08-28 16:56 | PCOTNOTE ---
The patient treatment was not able to be completed on 08/28/19
--- NOTE | 2019-08-28 17:19 | CONS_ITS ---
DATE OF CONSULTATION: HISTORY OF PRESENT ILLNESS: This 74-year-old lady was admitted to the hospital with history of fall and subsequent complaint of chest pain and also with a history of trauma to her head and the back with laceration of the head with bruise on her back. Reportedly, she is a dialysis patient, felt dizzy with this while standing and suddenly had an episode of syncope with transient loss of consciousness. Since admission she has been documented to have: 1. Hypotension. 2. Head injury. 3. Known to have the anemia of end-stage renal disease, coronary artery disease, congestive heart failure, COPD, depression, diabetes mellitus, GERD, gout, hypercholesterolemia, hypothyroidism, mitral valve regurgitation, peripheral neuropathy. Since admission, she has been seen by slip maker, Dr. Yancey; industrial twisting machine operator, by Dr. Eryn Villagran and Anthony and neurology consultation has been obtained for her confusion and intermittent hallucination. LABORATORY DATA: Most recently, her CBC shows WBC 10.1, hemoglobin 10.0, platelet count 216. Sodium 141, potassium 4.3, chloride 102, CO2 of 16, BUN 21, creatinine 3.1, GFR only 15, glucose 152, albumin 4.1. IMAGING: She had an MRI on 08/27, which documented chronic age-related changes. No acute abnormalities. Before that, she had the CT of the head, which was also with chronic age-related finding, though on that study, they saw hypodensity of the kari. For that reason, the MRI was obtained, which did not document that abnormality. She had the MRSA culture negative. Blood cultures negative, and she also had the echocardiogram in the past. PHYSICAL EXAMINATION: GENERAL: Today, she is awake, alert. NEUROLOGIC: Pupils round, regular. [place]anson of vision full. Extraocular movements full. Face symmetrical. Tongue midline. Motor examination revealed her to have no focal drift. Reflexes are sluggish. Plantars are downgoing. She had decreased sensation distally in both lower extremities. Her affect is happy, but she is not making any sense in the conversation. DIAGNOSIS: Dementia with underlying multiple medical problems. One could consider the possibility of the receptive aphasia, but her MRI has not documented any stroke in the left or right hemisphere. Treatment as such. Further recommendation accordingly. DELFINA April ASKEW FURNITURE PACKER FURNITURE PACKER D I MT: [place]
[2019-08-28 18:02] LABS: IFOB Positive Control Positive; Immunochemical Fecal Occult Bl Negative (N)
--- NOTE | 2019-08-28 18:13 | PM.IMPN ---
Progress Note: A&P Assessment and Plan (1) CAD (coronary artery disease): Code(s): I25.10 - Atherosclerotic heart disease of [place] coronary artery without angina pectoris Status: Chronic Assessment and Plan: History of stents, patient seen by director nicu does not suspect acute coronary syndrome most likely musculoskeletal no further workup is required (2) Frequent falls: Code(s): R29.6 - Repeated falls Status: Acute Assessment and Plan: Continue pt/ot, monitor orthostatic BPS (3) End stage renal disease: Code(s): N18.6 - End stage renal disease Status: Acute Assessment and Plan: Creat is 3.3 seen by senior outside sales representative will have scheduled dialysis (4) Anemia: Code(s): D64.9 - Anemia, unspecified Status: Acute Assessment and Plan: hb is 8.3, pt is a ESRD patient. may benefit from epogen. (5) Chest pain: Code(s): R07.9 - Chest pain, unspecified Status: Acute Assessment and Plan: Intermittent squeezing chest pains, Complains of intermittent chest pain. Pt had rapid response yesterday yesterday evening for chest pain. Pt still complains of chest pain today, troponin from yesterday minimally elevated. Seen by cardiology cardiac chest pain appears unlikley appears more musculoskeletal or anxiety related -try lidoderm patch and tylenol for pain and xanax for anxiety. 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 However last night nursing staff noticed the patient was jerking on [address] scan of the head was done which showed patient has hypodensity of the kari, suspicious for acute infarction, patient has been taking a baby aspirin and neurologist added one time dose of Aspirin 325mg and will continue baby aspriin, unfortunately patient still quite confused to participate in physical therapy will continue to encourage the patient patient will have a scheduled dialysis patient be seen by neurologist and further recommendation to follow, patient still is very confused and not cooperative, I talked to patient POA to consider hospice for the patient, she will be here to discuss with care coodinator and further recommendation to follow. (6) Acute hypotension: Code(s): I95.9 - Hypotension, unspecified Status: Resolved Assessment and Plan: Hold hydralazine medications, as bps run low yesterday, continue spirolactone and coreg. Today BP is close to target clinically stable (7) DVT prophylaxis: Code(s): Z29.9 - Encounter for prophylactic measures, unspecified Status: Acute Assessment and Plan: SCD (8) Troponin level elevated: Code(s): R79.89 - Other specified abnormal findings of blood chemistry Status: Acute Assessment and Plan: Continue to monitor, cardiology notified pt has a history of cAD with stents seen by director nicu does not suspect acute coronary syndrome most likely muscular. (9) Low TSH level: Code(s): R79.89 - Other specified abnormal findings of blood chemistry Status: Acute Assessment and Plan: Patient with history of hyperthyroid patient is on methimazole however her TSH
[2019-08-28] MEDS: MELATONIN 3 MG TABLET PO (20:34)
[2019-08-29 05:53] LABS: Hematocrit 32.7 % (37.0-47.0); Mean Corpuscular HGB Conc 30.6 g/dl (32-36); Mean Corpuscular Hemoglobin 33.3 pg (26-34); Mean Platelet Volume 11.7 fl (7.4-10.4); Platelet Count Result 190 k/mm3 (150-375); Red Cell Distribution Width 15.3 % (11.5-14.5); White Blood Count 8.1 K/mm3 (4.5-10.0)
[2019-08-29 06:00] VITALS: BP 151/59; PULSE 63; RESP 20; TEMP 36.6; O2SAT 98
[2019-08-29 06:12] LABS: Albumin Level 3.7 g/dL (3.5-5.1); Blood Urea Nitrogen 50 mg/dL (7-17); Calcium 10.8 mg/dL (8.4-10.2); Carbon Dioxide 26 mmol/L (22-30); Chloride 99 mmol/L (98-107); Estimated CRCL calculation 8 ml/min; Estimated Glomerular Filt Rate 9; Glucose 189 mg/dL (65-105); Phosphorus 5.5 mg/dL (2.5-4.5); Potassium 4.5 mmol/L (3.4-5.0); Sodium 139 mmol/L (137-145)
[2019-08-29] MEDS: busPIRone HCL 10 MG TABLET PO ×2 (08:38→16:38)
[2019-08-29] MEDS: GABAPENTIN 100 MG CAPSULE PO ×3 (08:38→16:38)
[2019-08-29] MEDS: LIDOCAINE 5% PATCH 2 PATCH TRANSDERM (08:38)
[2019-08-29] MEDS: ATORVASTATIN 40 MG TABLET PO (08:38)
[2019-08-29 08:39] VITALS: PULSE 62
[2019-08-29] MEDS: carvediloL 25 MG TABLET PO ×2 (08:39→20:50)
[2019-08-29] MEDS: ASPIRIN 81 MG ENTERIC TABLET PO (08:39)
[2019-08-29] MEDS: ESCITALOPRAM OXALATE 10 MG TABLET PO (08:39)
[2019-08-29] MEDS: allopurinoL 100 MG TABLET PO (08:39)
[2019-08-29] MEDS: PANTOPRAZOLE 40 MG TABLET PO (08:39)
[2019-08-29] MEDS: CLOPIDOGREL BISULFATE 75 MG TABLET PO (08:40)
[2019-08-29] MEDS: SPIRONOLACTONE 25 MG TABLET PO (08:41)
[2019-08-29] MEDS: methiMAzole 5 MG TAB PO (08:41)
[2019-08-29] MEDS: FAMOTIDINE 20 MG TABLET PO ×2 (08:41→20:49)
[2019-08-29] MEDS: VITAMIN B CMPLX/VIT C/FOLIC AC 1 CAPSULE 1 CAP PO (08:42)
[2019-08-29] MEDS: TRAMADOL HCL 50 MG TABLET PO (08:46)
[2019-08-29] MEDS: ALBUTEROL SULFATE (*SP) AEROSOL 1 PUFF INHALATION (08:50)
--- NOTE | 2019-08-29 13:13 | P.PNNP_ITS ---
Progress Note: A&P Assessment and Plan (1) End stage renal disease: Code(s): N18.6 - End stage renal disease Status: Acute Assessment and Plan: * HD tomorrow and continue T/T/S schedule while hospitalized * electrolytes, volume status, and clearance appear acceptable * if family wishes to pursue hospice, will discontinue dialysis treatments (2) Frequent falls: Code(s): R29.6 - Repeated falls Status: Acute Assessment and Plan: * physical/occupational therapy as tolerated * pain control and mental status appears to be limiting factor (3) Contusion of multiple sites: Code(s): T07.XXXA - Unspecified multiple injuries, initial encounter Status: Acute Assessment and Plan: * secondary to falls prior to admission * continue PT/OT as tolerated (4) Anemia: Code(s): D64.9 - Anemia, unspecified Status: Acute Assessment and Plan: * improving * adequate iron stores * Epogen with HD * follow H/H (5) Hypertension: Qualifiers: Hypertension type: essential hypertension Qualified Code(s): I10 - Essential (primary) hypertension Code(s): I10 - Essential (primary) hypertension Status: Acute Assessment and Plan: * reasonable control at this time * follow trend with current medications (6) Confusion: Code(s): R41.0 - Disorientation, unspecified Status: Acute Assessment and Plan: * etiology unclear * TSH okay; B12, folate and electrolytes are okay * severe anxiety and pain playing a role? * CT of head with concern for CVA -- MRI of brain negative * follow mentation Will continue to follow. Subjective Date/time seen: 08/29/19 13:13 Still remains quite confused at the time of my visit; ongoing discussion with family regarding level of care and consideration of hospice; no new issues at this time. Exam Narrative: Exam Narrative: General: WD/WN female in NAD Heart: normal S1 and S2; no rub Lungs: clear to auscultation Abdomen: soft, nontender, +BS Extremities: no cyanosis or clubbing; no edema Skin: warm and intact Objective Data Vital Signs Vital Signs: Vital Signs Temp Pulse Resp BP Pulse Ox 08/29/19 08:39 62 08/29/19 06:00 36.6 C 63 20 151/59 H 98 08/28/19 22:00 36.1 C L 73 20 117/88 99 02/23/20 20:34 82 08/28/19 14:00 36.6 C 76 16 151/55 H 99 Intake/Output Intake/Output: Intake & Output 08/26/19 08/27/19 08/28/19 08/29/19 23:59 23:59 23:59 23:59 Intake Total 360 50 240 100 Output Total 2 900 0 Balance 358 -850 240 100 Meds/Results Medications: Active Medications Generic Name Dose Route Start Last Admin Trade Name Freq PRN Reason Stop Dose Admin Acetaminophen 325 mg 08/21/19 12:39 08/25/19 08:15 Tylenol Tablet PO 325 mg Q6H PRN Administration Mild Pain (1-3) or Fever Albuterol 1 puff 08/18/19 20:00 08/29/19 08:50 Proventil Hfa INHALATION 1 puff QIDRT STEFANO Administration Allopurinol 100 mg 08/19/19 09:00 08/29/19 08:39 Zyloprim PO 100 mg DAILY STEFANO Administration Alprazolam 0.125 mg 08/19/19 15:22 08/27/19 23:28 Xanax PO 0.125 mg TID PRN Admi
--- NOTE | 2019-08-29 13:13 | PM.PNNEP ---
Progress Note: A&P Assessment and Plan (1) End stage renal disease: Code(s): N18.6 - End stage renal disease Status: Acute Assessment and Plan: HD tomorrow and continue T/T/S schedule while hospitalized electrolytes, volume status, and clearance appear acceptable if family wishes to pursue hospice, will discontinue dialysis treatments (2) Frequent falls: Code(s): R29.6 - Repeated falls Status: Acute Assessment and Plan: physical/occupational therapy as tolerated pain control and mental status appears to be limiting factor (3) Contusion of multiple sites: Code(s): T07.XXXA - Unspecified multiple injuries, initial encounter Status: Acute Assessment and Plan: secondary to falls prior to admission continue PT/OT as tolerated (4) Anemia: Code(s): D64.9 - Anemia, unspecified Status: Acute Assessment and Plan: improving adequate iron stores Epogen with HD follow H/H (5) Hypertension: Qualifiers: Hypertension type: essential hypertension Qualified Code(s): I10 - Essential (primary) hypertension Code(s): I10 - Essential (primary) hypertension Status: Acute Assessment and Plan: reasonable control at this time follow trend with current medications (6) Confusion: Code(s): R41.0 - Disorientation, unspecified Status: Acute Assessment and Plan: etiology unclear TSH okay; B12, folate and electrolytes are okay severe anxiety and pain playing a role? CT of head with concern for CVA -- MRI of brain negative follow mentation Will continue to follow. Subjective Date/time seen: 08/29/19 13:13 Still remains quite confused at the time of my visit; ongoing discussion with family regarding level of care and consideration of hospice; no new issues at this time. Exam Narrative: Exam Narrative: General: WD/WN female in NAD Heart: normal S1 and S2; no rub Lungs: clear to auscultation Abdomen: soft, nontender, +BS Extremities: no cyanosis or clubbing; no edema Skin: warm and intact Objective Data Vital Signs Vital Signs: Vital Signs Temp Pulse Resp BP Pulse Ox 08/29/19 08:39 62 08/29/19 06:00 36.6 C 63 20 151/59 H 98 08/28/19 22:00 36.1 C L 73 20 117/88 99 08/28/19 20:34 82 08/28/19 14:00 36.6 C 76 16 151/55 H 99 Intake/Output Intake/Output: Intake & Output 08/26/19 08/27/19 08/28/19 08/29/19 23:59 23:59 23:59 23:59 Intake Total 360 50 240 100 Output Total 2 900 0 Balance 358 -850 240 100 Meds/Results Medications: Active Medications Generic Name Dose Route Start Last Admin Trade Name Freq PRN Reason Stop Dose Admin Acetaminophen 325 mg 08/21/19 12:39 08/25/19 08:15 Tylenol Tablet PO 325 mg Q6H PRN Administration Mild Pain (1-3) or Fever Albuterol 1 puff 08/18/19 20:00 08/29/19 08:50 Proventil Hfa INHALATION 1 puff QIDRT STEFANO Administration Allopurinol 100 mg 08/19/19 09:00 08/29/19 08:39 Zyloprim PO 100 mg DAILY ST[facility]ANO Administration Alprazolam 0.125 mg 08/19/19 15:22 08/27/19 23:28 Xanax PO 0.125 mg TID PRN Administration Anxiety Aspirin 81 mg 08/19/19 09:00 08/29/19 08:39 Aspirin Ec PO 81 mg DAILY [facility] Administration Atorvastatin Calcium 40 mg 08/19/19 09:00 08/29/19 08:38 Lipitor PO 40 mg DAILY STEFANO Administration Buspirone HCl 10 mg 08/18/19 17:00 08/29/19 08:38 Buspar PO 10 mg BID STEFANO Administration Carvedilol 25 mg 08/22/19 09:00 08/29/19 08:39 Coreg PO 25 mg Q12HR STEFANO Administration Clopidogrel Bisulfate 75 mg 08/28/19 09:00 08/29/19 08:40 Plavix PO 75 mg QAM [facility] Administration Epoetin Armaan 10,000 units 08/20/19 17:00 08/27/19 13:06 [facility]ogen [facility] Administration Escitalopram Oxalate 10 mg 08/19/19 09:00 08/29/19 08:39 Lexapro PO 10 mg DA
[2019-08-29 14:00] VITALS: BP 154/61; PULSE 60; RESP 16; TEMP 36.1; O2SAT 96
--- NOTE | 2019-08-29 14:27 | PCOTNOTE ---
OT treatment attempted this PM. Unable to arouse patient at this time for functional therapy session. Will plan to continue treatment per plan of care.
--- NOTE | 2019-08-29 16:50 | PM.IMPN ---
Progress Note: A&P Assessment and Plan (1) CAD (coronary artery disease): Code(s): I25.10 - Atherosclerotic heart disease of [place] coronary artery without angina pectoris Status: Chronic Assessment and Plan: History of stents, patient seen by powder mill operator does not suspect acute coronary syndrome most likely musculoskeletal no further workup is required (2) Frequent falls: Code(s): R29.6 - Repeated falls Status: Acute Assessment and Plan: Continue pt/ot, monitor orthostatic BPS (3) End stage renal disease: Code(s): N18.6 - End stage renal disease Status: Acute Assessment and Plan: Creat is 3.3 seen by staff assistant will have scheduled dialysis (4) Anemia: Code(s): D64.9 - Anemia, unspecified Status: Acute Assessment and Plan: hb is 8.3, pt is a ESRD patient. may benefit from epogen. (5) Chest pain: Code(s): R07.9 - Chest pain, unspecified Status: Acute Assessment and Plan: Intermittent squeezing chest pains, Complains of intermittent chest pain. Pt had rapid response yesterday yesterday evening for chest pain. Pt still complains of chest pain today, troponin from yesterday minimally elevated. Seen by cardiology cardiac chest pain appears unlikley appears more musculoskeletal or anxiety related -try lidoderm patch and tylenol for pain and xanax for anxiety. Chest pains most likely musculoskeletal added baclofen on 08/22 without significant relief, patient was given 1 time dose of Dilaudid 0.5 mg which did help her pain, her pain was still persisting without the medication, started the patient on tramadol 50 mg every 12 hours and monitor, however on 08/24 bulking machine operator patient was quite agitated and combative patient was given 1 time dose of Zyprexa 10 mg IM, and patient remained quite somnolent and sleeping, today patient still very confused, unable to provide detail ROS, patient seen by staff assistant will encourage patient to work with physical therapy patient will benefit going to acute rehab before going home, today patient niece was present room and discussed patient care on 08/25, she has encourage patient to work with PT/OT before dicharging, director of medicare is working on placing patient in NH. However last night nursing staff noticed the patient was jerking on [address] scan of the head was done which showed patient has hypodensity of the kari, suspicious for acute infarction, patient has been taking a baby aspirin and neurologist added one time dose of Aspirin 325mg and will continue baby aspriin, unfortunately patient still quite confused to participate in physical therapy will continue to encourage the patient patient will have a scheduled dialysis patient be seen by neurologist and further recommendation to follow, patient still is very confused and not cooperative, I talked to patient POA to consider hospice for the patient on 08/28, her POA has decided to place the patient under hospice care, waiting for placement, patient is still confused and not cooperative (6) Acute hypotension: Code(s): I95.9 - Hypotension, unspecified Status: Resolved Assessment and Plan: Hold hydralazine medications, as bps run low yesterday, continue spirolactone and coreg. Today BP is close to target clinically stable (7) DVT prophylaxis: Code(s): Z29.9 - Encounter for prophylactic measures, unspecified Status: Acute Assessment and Plan: SCD (8) Troponin level elevated: Code(s): R79.89 - Other specified abnormal findings of blood chemistry Status: Acute Assessment and Plan: Continue to monitor, cardiology notified pt has a history of cAD with stents seen by powder mill operator does not suspect acute coronary syndrome most likely muscular. (9) Low TSH level: Code(s): R79.89 - Other specified abnormal findings of blood chemistry Status: Acute Assessment and Plan: Patient with history of hyp
--- NOTE | 2019-08-29 16:53 | PM.PNCARD ---
Progress Note: A&P Assessment and Plan (1) Chest pain: Code(s): R07.9 - Chest pain, unspecified Status: Acute Assessment and Plan: Chest pain characteristic are very atypical for angina and consistent with musculoskeletal pain She had indeterminate trop elevation at 0.1 in the setting of ESRD and HD No new EKG changes. She had relatively recent cath in Feb revealing patent stent. No need for further workup for the time being, she is okay to use nitroglycerin as needed. Pain control per primary team. (2) Hypertension: Qualifiers: Hypertension type: essential hypertension Qualified Code(s): I10 - Essential (primary) hypertension Code(s): I10 - Essential (primary) hypertension Status: Acute Assessment and Plan: Okay to keep blood pressure little bit elevated, in view of his recurrent episode of orthostatic hypotension, to prevent further dizziness and syncope. She had frequent PVCs/trigemeny after Coreg was held. Resume coreg at lower dose 12.5 BID (was on 25 BID at home) (3) Diabetes mellitus: Qualifiers: Diabetes mellitus type: type 2 Diabetes mellitus exterminator helper insulin use: without detention use Diabetes mellitus complication status: with kidney complications Diabetes mellitus complication detail: with chronic kidney disease Chronic kidney disease stage: on chronic dialysis Qualified Code(s): E11.22 - Type 2 diabetes mellitus with diabetic chronic kidney disease; N18.6 - End stage renal disease; Z99.2 - Dependence on renal dialysis Code(s): E11.9 - Type 2 diabetes mellitus without complications Status: Acute (4) Frequent falls: Code(s): R29.6 - Repeated falls Status: Acute Assessment and Plan: With multiple bruises, okay to stop Plavix keep on low-dose aspirin (5) End stage renal disease: Code(s): N18.6 - End stage renal disease Status: Acute (6) ESRD (end stage renal disease) on dialysis: Code(s): N18.6 - End stage renal disease; Z99.2 - Dependence on renal dialysis Status: Acute Additional Plan Thank you for allowing me to participate in this patient's care, I will be following up with you. Please do not hesitate to call me for any other inquiry Subjective Date/time seen: 08/29/19 16:53 She still is confused, not in acute distress no chest pain Exam Narrative: Exam Narrative: Appears chronically ill and uncomfortable. Multiple ecchymosis noted on upper ext Eyes: Sclera: sclerae normal Neck: Neck: no JVD Carotids: no bruits Resp: Effort & Inspection: normal respiratory effort Auscultation: clear to auscultation bilaterally Cardio: Rate: regular rate and not tachycardic Rhythm: regular rhythm Heart sounds: no gallops, no murmurs and no rubs Skin: General skin exam: normal color Neuro: Cranial nerves: Yes Normal hearing present Speech: normal speech Extrem: General: normal to inspection and no edema Psych: Affect: normal affect Objective Data Vital Signs Vital Signs: Vital Signs - 24 hr 08/28/19 20:34 08/28/19 22:00 08/29/19 06:00 Temperature 36.1 C L 36.6 C Pulse Rate 82 73 63 Respiratory Rate 20 20 Blood Pressure 117/88 151/59 H Pulse Oximetry 99 98 08/29/19 08:39 08/29/19 14:00 Temperature 36.1 C L Pulse Rate 62 60 Respiratory Rate 16 Blood Pressure 154/61 H Pulse Oximetry 96 Intake/Output Intake/Output: Intake & Output 08/26/19 08/27/19 08/28/19 08/29/19 23:59 23:59 23:59 23:59 Intake Total 360 50 240 100 Output Total 2 900 0 Balance 358 -850 240 100 Meds/Results Medications: Active Medications Generic Name Dose Route Start Last Admin Trade Name Freq PRN Reason Stop Dose Admin Acetaminophen 325 mg 08/21/19 12:39 08/25/19 08:15 Tylenol Tablet PO 325 mg Q6H PRN Administration Mild Pain (1-3) or Fever Albuterol 1 puff 08/18/19 20:00 08/29/19 16:06 Proventil Hfa INHALATION Not Given QIDRT STEFANO Allo
--- NOTE | 2019-08-29 19:06 | PC.NURSE ---
On 08/29/19, the license pending Registered Nurse, Maldonado Mercedes, provided care and completed [employer] documentation on this patient. I have reviewed the documentation and agree with the findings.
[2019-08-29] MEDS: MELATONIN 3 MG TABLET PO (20:49)
[2019-08-29 20:50] VITALS: PULSE 84
[2019-08-29 22:00] VITALS: BP 151/64; PULSE 76; RESP 21; TEMP 36.4; O2SAT 100
[2019-08-30] VITALS (21 sets, daily range): BP systolic 85–163; BP diastolic 44–70; PULSE 58–86; RESP 16–20; TEMP 36–37.1; O2SAT 97–98
--- NOTE | 2019-08-30 07:04 | PCRCNOTE ---
Treatment for 08/29/191999 Window of time for administration has passed. See next scheduled administration.
[2019-08-30] MEDS: LIDOCAINE 5% PATCH 2 PATCH TRANSDERM (07:47)
--- NOTE | 2019-08-30 08:49 | PC.NURSE ---
To dialysis via bed. Report given to dog day care attendant.
[2019-08-30 09:32] LABS: Hematocrit 30.6 % (37.0-47.0); Hemoglobin 9.4 g/dL (12.0-15.0); Mean Corpuscular HGB Conc 30.7 g/dl (32-36); Mean Corpuscular Hemoglobin 33.5 pg (26-34); Mean Corpuscular Volume 108.9 fl (80-100); Platelet Count Result 207 k/mm3 (150-375); Red Blood Count 2.81 M/mm3 (4.2-5.4); Red Cell Distribution Width 15.2 % (11.5-14.5); White Blood Count 8.2 K/mm3 (4.5-10.0)
[2019-08-30 09:47] LABS: Albumin Level 3.5 g/dL (3.5-5.1); Blood Urea Nitrogen 10 mg/dL (7-17); Calcium 8.8 mg/dL (8.4-10.2); Carbon Dioxide 33 mmol/L (22-30); Chloride 96 mmol/L (98-107); Estimated CRCL calculation 30 ml/min; Estimated Glomerular Filt Rate 44; Glucose 104 mg/dL (65-105); Phosphorus 1.1 mg/dL (2.5-4.5); Potassium 3.2 mmol/L (3.4-5.0); Sodium 141 mmol/L (137-145)
[2019-08-30] MEDS: SODIUM CHLORIDE 0.9% IV 1,000 ML 999 ML (10:05)
[2019-08-30] MEDS: EPOETIN ALFA 10,000 UNITS/ML VIAL 10000 UNITS IV PUSH (10:07)
--- NOTE | 2019-08-30 11:33 | PC.NURSE ---
set staff fitter concerned patient's blood sugar was low. Patient was cold and clammy and stating she was nauseous. I obtained her blood sugar and the result was 108. Patient seemed to be at her baseline mentation at this time.
[2019-08-30 11:36] LABS: Glucose Point of Care 108 (65-105)
--- NOTE | 2019-08-30 12:16 | P.PNNP_ITS ---
Progress Note: A&P Assessment and Plan (1) End stage renal disease: Code(s): N18.6 - End stage renal disease Status: Acute Assessment and Plan: * HD today and continue T/T/S schedule while hospitalized * electrolytes, volume status, and clearance appear acceptable * if family wishes to pursue hospice, will discontinue dialysis treatments (2) Frequent falls: Code(s): R29.6 - Repeated falls Status: Acute Assessment and Plan: * physical/occupational therapy attempted but not successful * pain control and mental status appears to be limiting factor (3) Contusion of multiple sites: Code(s): T07.XXXA - Unspecified multiple injuries, initial encounter Status: Acute Assessment and Plan: * secondary to falls prior to admission * continue PT/OT as tolerated (4) Anemia: Code(s): D64.9 - Anemia, unspecified Status: Acute Assessment and Plan: * improving * adequate iron stores * Epogen with HD * follow H/H (5) Hypertension: Qualifiers: Hypertension type: essential hypertension Qualified Code(s): I10 - Essential (primary) hypertension Code(s): I10 - Essential (primary) hypertension Status: Acute Assessment and Plan: * reasonable control at this time * follow trend with current medications (6) Confusion: Code(s): R41.0 - Disorientation, unspecified Status: Acute Assessment and Plan: * etiology unclear * TSH okay; B12, folate and electrolytes are okay * severe anxiety and pain playing a role? * CT of head with concern for CVA -- MRI of brain negative * no improvement noted Will continue to follow. Subjective Date/time seen: 08/30/19 12:16 Seen on dialysis at ~ 12:00 -- screaming and hollering that she doesn't want to do this and I don't care anymore presumably referring to dialysis; no fluid removal due to fluctuating blood pressure as well. Exam Narrative: Exam Narrative: General: WD/WN female somewhat confused Heart: normal S1 and S2; no rub Lungs: clear to auscultation Abdomen: soft, nontender, +BS Extremities: no cyanosis or clubbing; no edema Skin: warm and intact Objective Data Vital Signs Vital Signs: Vital Signs Temp Pulse Resp BP Pulse Ox 08/30/19 12:07 78 119/52 L 08/30/19 11:45 81 86/55 L 08/30/19 11:30 76 132/67 08/30/19 11:15 79 08/30/19 11:02 76 123/52 L 08/30/19 10:47 80 145/66 H 08/30/19 10:30 63 103/52 L 08/30/19 10:19 70 95/47 L 08/30/19 10:00 70 85/44 L 08/30/19 09:48 70 91/47 L 08/30/19 09:30 68 95/52 L 08/30/19 09:07 70 151/70 H 08/30/19 08:56 36.6 C 72 18 116/66 08/30/19 06:00 36.1 C L 58 L 20 133/54 L 97 08/29/19 22:00 36.4 C 76 21 H 151/64 H 100 08/29/19 20:50 84 08/29/19 14:00 36.1 C L 60 16 154/61 H 96 Intake/Output Intake/Output: Intake & Output 08/27/19 08/28/19 08/29/19 08/30/19 23:59 23:59 23:59 23:59 Intake Total 50 240 500 300 Output Total 900 0 Balance -850 240 500 300 Meds/Results Medications: Active Medications Generic Name Dose Route Start Last Admin Trade Name Vernonjuvenal Mcneill
--- NOTE | 2019-08-30 12:16 | PM.PNNEP ---
Progress Note: A&P Assessment and Plan (1) End stage renal disease: Code(s): N18.6 - End stage renal disease Status: Acute Assessment and Plan: HD today and continue T/T/S schedule while hospitalized electrolytes, volume status, and clearance appear acceptable if family wishes to pursue hospice, will discontinue dialysis treatments (2) Frequent falls: Code(s): R29.6 - Repeated falls Status: Acute Assessment and Plan: physical/occupational therapy attempted but not successful pain control and mental status appears to be limiting factor (3) Contusion of multiple sites: Code(s): T07.XXXA - Unspecified multiple injuries, initial encounter Status: Acute Assessment and Plan: secondary to falls prior to admission continue PT/OT as tolerated (4) Anemia: Code(s): D64.9 - Anemia, unspecified Status: Acute Assessment and Plan: improving adequate iron stores Epogen with HD follow H/H (5) Hypertension: Qualifiers: Hypertension type: essential hypertension Qualified Code(s): I10 - Essential (primary) hypertension Code(s): I10 - Essential (primary) hypertension Status: Acute Assessment and Plan: reasonable control at this time follow trend with current medications (6) Confusion: Code(s): R41.0 - Disorientation, unspecified Status: Acute Assessment and Plan: etiology unclear TSH okay; B12, folate and electrolytes are okay severe anxiety and pain playing a role? CT of head with concern for CVA -- MRI of brain negative no improvement noted Will continue to follow. Subjective Date/time seen: 08/30/19 12:16 Seen on dialysis at ~ 12:00 -- screaming and hollering that she doesn't want to do this and I don't care anymore presumably referring to dialysis; no fluid removal due to fluctuating blood pressure as well. Exam Narrative: Exam Narrative: General: WD/WN female somewhat confused Heart: normal S1 and S2; no rub Lungs: clear to auscultation Abdomen: soft, nontender, +BS Extremities: no cyanosis or clubbing; no edema Skin: warm and intact Objective Data Vital Signs Vital Signs: Vital Signs Temp Pulse Resp BP Pulse Ox 08/30/19 12:07 78 119/52 L 08/30/19 11:45 81 86/55 L 08/30/19 11:30 76 132/67 08/30/19 11:15 79 08/30/19 11:02 76 123/52 L 08/30/19 10:47 80 145/66 H 08/30/19 10:30 63 103/52 L 08/30/19 10:19 70 95/47 L 08/30/19 10:00 70 85/44 L 08/30/19 09:48 70 91/47 L 08/30/19 09:30 68 95/52 L 08/30/19 09:07 70 151/70 H 08/30/19 08:56 36.6 C 72 18 116/66 08/30/19 06:00 36.1 C L 58 L 20 133/54 L 97 08/29/19 22:00 36.4 C 76 21 H 151/64 H 100 08/29/19 20:50 84 08/29/19 14:00 36.1 C L 60 16 154/61 H 96 Intake/Output Intake/Output: Intake & Output 08/27/19 08/28/19 08/29/19 08/30/19 23:59 23:59 23:59 23:59 Intake Total 50 240 500 300 Output Total 900 0 Balance -850 240 500 300 Meds/Results Medications: Active Medications Generic Name Dose Route Start Last Admin Trade Name Freq PRN Reason Stop Dose Admin Acetaminophen 325 mg 08/21/19 12:39 08/25/19 08:15 Tylenol Tablet PO 325 mg Q6H PRN Administration Mild Pain (1-3) or Fever Albuterol 1 puff 08/18/19 20:00 08/30/19 09:32 Proventil Hfa INHALATION Not Given QIDRT [facility] Allopurinol 100 mg 08/19/19 09:00 08/29/19 08:39 Zyloprim PO 100 mg DAILY [facility] Administration Alprazolam 0.125 mg 08/19/19 15:22 08/27/19 23:28 Xanax PO 0.125 mg TID PRN Administration Anxiety Aspirin 81 mg 08/19/19 09:00 08/29/19 08:39 Aspirin Ec PO 81 mg DAILY [facility] Administration Atorvastatin Calcium 40 mg 08/19/19 09:00 08/29/19 08:38 Lipitor PO 40 mg DAILY [facility] Administration Buspirone HCl 10 mg 08/18/19 17:00 08/29/19 16:38 Bus
--- NOTE | 2019-08-30 13:15 | PC.NURSE ---
Patient returned from Dialysis. Report received from CHEN Sweet.
--- NOTE | 2019-08-30 13:25 | PC.NURSE ---
Attempted to administer patient's 0900 medications after dialysis. Patient is refusing all medications. Dr. Esteves is aware and gave the okay to hold those medications if she is refusing.
--- NOTE | 2019-08-30 13:40 | PC.NURSE ---
Attempted to administer patient's 1300 medication and the patient refused. Dr. Esteves is aware.
--- NOTE | 2019-08-30 15:19 | PM.PNCARD ---
Progress Note: A&P Assessment and Plan (1) Chest pain: Code(s): R07.9 - Chest pain, unspecified Status: Acute Assessment and Plan: Chest pain characteristic are very atypical for angina and consistent with musculoskeletal pain She had indeterminate trop elevation at 0.1 in the setting of ESRD and HD No new EKG changes. She had relatively recent cath in Feb revealing patent stent. No need for further workup for the time being, she is okay to use nitroglycerin as needed. Pain control per primary team. (2) Hypertension: Qualifiers: Hypertension type: essential hypertension Qualified Code(s): I10 - Essential (primary) hypertension Code(s): I10 - Essential (primary) hypertension Status: Acute Assessment and Plan: Okay to keep blood pressure little bit elevated, in view of his recurrent episode of orthostatic hypotension, to prevent further dizziness and syncope. She had frequent PVCs/trigemeny after Coreg was held. Resume coreg at lower dose 12.5 BID (was on 25 BID at home) (3) Diabetes mellitus: Qualifiers: Diabetes mellitus type: type 2 Diabetes mellitus watermelon inspector insulin use: without usp use Diabetes mellitus complication status: with kidney complications Diabetes mellitus complication detail: with chronic kidney disease Chronic kidney disease stage: on chronic dialysis Qualified Code(s): E11.22 - Type 2 diabetes mellitus with diabetic chronic kidney disease; N18.6 - End stage renal disease; Z99.2 - Dependence on renal dialysis Code(s): E11.9 - Type 2 diabetes mellitus without complications Status: Acute (4) Frequent falls: Code(s): R29.6 - Repeated falls Status: Acute Assessment and Plan: With multiple bruises, okay to stop Plavix keep on low-dose aspirin (5) End stage renal disease: Code(s): N18.6 - End stage renal disease Status: Acute (6) ESRD (end stage renal disease) on dialysis: Code(s): N18.6 - End stage renal disease; Z99.2 - Dependence on renal dialysis Status: Acute Additional Plan Thank you for allowing me to participate in this patient's care, I will be following up with you. Please do not hesitate to call me for any other inquiry Subjective Date/time seen: She feels okay today, still is very confused, having his hallucinations. 08/30/19 15:19 Exam Narrative: Exam Narrative: Appears chronically ill and uncomfortable. Multiple ecchymosis noted on upper ext Eyes: Sclera: sclerae normal Neck: Neck: no JVD Carotids: no bruits Resp: Effort & Inspection: normal respiratory effort Auscultation: clear to auscultation bilaterally Cardio: Rate: regular rate and not tachycardic Rhythm: regular rhythm Heart sounds: no gallops, no murmurs and no rubs Skin: General skin exam: normal color Neuro: Cranial nerves: Yes Normal hearing present Speech: normal speech Extrem: General: normal to inspection and no edema Psych: Affect: normal affect Objective Data Vital Signs Vital Signs: Vital Signs - 24 hr 08/29/19 20:50 08/29/19 22:00 08/30/19 06:00 Temperature 36.4 C 36.1 C L Pulse Rate 84 76 58 L Respiratory Rate 21 H 20 Blood Pressure 151/64 H 133/54 L Pulse Oximetry 100 97 08/30/19 08:56 08/30/19 09:07 08/30/19 09:30 Temperature 36.6 C Pulse Rate 72 70 68 Respiratory Rate 18 Blood Pressure 116/66 151/70 H 95/52 L Pulse Oximetry 08/30/19 09:48 08/30/19 10:00 08/30/19 10:19 Temperature Pulse Rate 70 70 70 Respiratory Rate Blood Pressure 91/47 L 85/44 L 95/47 L Pulse Oximetry 08/30/19 10:30 08/30/19 10:47 08/30/19 11:02 Temperature Pulse Rate 63 80 76 Respiratory Rate Blood Pressure 103/52 L 145/66 H 123/52 L Pulse Oximetry 08/30/19 11:15 08/30/19 11:30 08/30/19 11:45 Temperature Pulse Rate 79 76 81 Respiratory Rate Blood Pressure 132/67 86/55 L Pulse Oximetry 08/30/19 12:07 08/30/19 12:22
--- NOTE | 2019-08-30 15:45 | PC.NURSE ---
Entered patient's room to find her very agitated and cursing. She has been shouting and restless. Patient is only oriented to person and was increasingly restless. Attempted to give her a dose of PRN Xanax with CHEN Flores. Patient spit out Xanax and became more aggressive. Dr. Esteves notified. Received orders for Zyprexa 2.5 mg IM once.
[2019-08-30] MEDS: ALBUTEROL SULFATE (*SP) AEROSOL 1 PUFF INHALATION (16:05)
--- NOTE | 2019-08-30 16:33 | PM.IMPN ---
Progress Note: A&P Assessment and Plan (1) CAD (coronary artery disease): Code(s): I25.10 - Atherosclerotic heart disease of [place] coronary artery without angina pectoris Status: Chronic Assessment and Plan: History of stents, patient seen by auto porter does not suspect acute coronary syndrome most likely musculoskeletal no further workup is required (2) Frequent falls: Code(s): R29.6 - Repeated falls Status: Acute Assessment and Plan: Continue pt/ot, monitor orthostatic BPS (3) End stage renal disease: Code(s): N18.6 - End stage renal disease Status: Acute Assessment and Plan: Creat is 3.3 seen by missileman will have scheduled dialysis (4) Anemia: Code(s): D64.9 - Anemia, unspecified Status: Acute Assessment and Plan: hb is 8.3, pt is a ESRD patient. may benefit from epogen. (5) Chest pain: Code(s): R07.9 - Chest pain, unspecified Status: Acute Assessment and Plan: Intermittent squeezing chest pains, Complains of intermittent chest pain. Pt had rapid response yesterday yesterday evening for chest pain. Pt still complains of chest pain today, troponin from yesterday minimally elevated. Seen by cardiology cardiac chest pain appears unlikley appears more musculoskeletal or anxiety related -try lidoderm patch and tylenol for pain and xanax for anxiety. Chest pains most likely musculoskeletal added baclofen on 08/22 without significant relief, patient was given 1 time dose of Dilaudid 0.5 mg which did help her pain, her pain was still persisting without the medication, started the patient on tramadol 50 mg every 12 hours and monitor, however on 08/24 major gifts director patient was quite agitated and combative patient was given 1 time dose of Zyprexa 10 mg IM, and patient remained quite somnolent and sleeping, today patient still very confused, unable to provide detail ROS, patient seen by missileman will encourage patient to work with physical therapy patient will benefit going to acute rehab before going home, today patient niece was present room and discussed patient care on 08/25, she has encourage patient to work with PT/OT before dicharging, acute care physician is working on placing patient in NH. However last night nursing staff noticed the patient was jerking on [address] scan of the head was done which showed patient has hypodensity of the kari, suspicious for acute infarction, patient has been taking a baby aspirin and neurologist added one time dose of Aspirin 325mg and will continue baby aspriin, unfortunately patient still quite confused to participate in physical therapy will continue to encourage the patient patient will have a scheduled dialysis patient be seen by neurologist and further recommendation to follow, patient still is very confused and not cooperative, I talked to patient POA to consider hospice for the patient on 08/28, her POA has decided to place the patient under hospice care, waiting for placement, patient is still confused and not cooperative, will give 1 time does Zyprexa 2.5 mg IM will monitor overnight patient will be discharged tomorrow snf with hospice care (6) Acute hypotension: Code(s): I95.9 - Hypotension, unspecified Status: Resolved Assessment and Plan: Hold hydralazine medications, as bps run low yesterday, continue spirolactone and coreg. Today BP is close to target clinically stable (7) DVT prophylaxis: Code(s): Z29.9 - Encounter for prophylactic measures, unspecified Status: Acute Assessment and Plan: SCD (8) Troponin level elevated: Code(s): R79.89 - Other specified abnormal findings of blood chemistry Status: Acute Assessment and Plan: Continue to monitor, cardiology notified pt has a history of cAD with stents seen by auto porter does not suspect acute coronary syndrome most likely muscular. (9) Low TSH level: Code(s): R79.89 -
[2019-08-30] MEDS: OLANZapine 10 MG INJ VIAL 2.5 MG IM (16:46)
--- NOTE | 2019-08-30 16:53 | PC.NURSE ---
Patient was very agitated and cursing at the nurses and techs. Patient was hitting staff and resisting care. Administered IM Zyprexa and patient began swinging at the nurses and techs. She began yelling Fuck you. I want you out of here. I don't want anymore help from any of you. Attempted to encourage patient to calm down and relax. Will continue to monitor.
--- NOTE | 2019-08-30 17:40 | PC.NURSE ---
Patient is refusing to take [address] Esteves.
--- NOTE | 2019-08-30 19:15 | PC.NURSE ---
On 08/30/19, the License pending nurse, Maldonado Mercedes RN provided care and completed [employer] documentation on this patient. I have reviewed the documentation and agree with the findings.
[2019-08-30] MEDS: FAMOTIDINE 20 MG TABLET PO (21:10)
[2019-08-30] MEDS: carvediloL 25 MG TABLET PO (21:12)
[2019-08-30] MEDS: MELATONIN 3 MG TABLET PO (21:19)
[2019-08-31] MEDS: OLANZapine 10 MG INJ VIAL 5 MG IM (01:37)
[2019-08-31 05:26] LABS: Hematocrit 32.2 % (37.0-47.0); Hemoglobin 9.9 g/dL (12.0-15.0); Mean Corpuscular HGB Conc 30.7 g/dl (32-36); Mean Corpuscular Hemoglobin 33.4 pg (26-34); Mean Corpuscular Volume 108.8 fl (80-100); Mean Platelet Volume 11.8 fl (7.4-10.4); Platelet Count Result 190 k/mm3 (150-375); Red Blood Count 2.96 M/mm3 (4.2-5.4); Red Cell Distribution Width 15.6 % (11.5-14.5); White Blood Count 8.1 K/mm3 (4.5-10.0)
[2019-08-31 05:57] LABS: Albumin Level 3.6 g/dL (3.5-5.1); Blood Urea Nitrogen 25 mg/dL (7-17); Calcium 10.4 mg/dL (8.4-10.2); Carbon Dioxide 30 mmol/L (22-30); Chloride 100 mmol/L (98-107); Estimated CRCL calculation 10 ml/min; Estimated Glomerular Filt Rate 12; Glucose 137 mg/dL (65-105); Phosphorus 3.8 mg/dL (2.5-4.5); Potassium 3.7 mmol/L (3.4-5.0); Sodium 141 mmol/L (137-145)
[2019-08-31 05:58] VITALS: BP 167/61; PULSE 69; RESP 20; TEMP 37; O2SAT 100
[2019-08-31] MEDS: VITAMIN B CMPLX/VIT C/FOLIC AC 1 CAPSULE 1 CAP PO (08:36)
[2019-08-31] MEDS: SPIRONOLACTONE 25 MG TABLET PO (08:36)
[2019-08-31] MEDS: PANTOPRAZOLE 40 MG TABLET PO (08:36)
[2019-08-31] MEDS: carvediloL 25 MG TABLET PO (08:36)
[2019-08-31] MEDS: CLOPIDOGREL BISULFATE 75 MG TABLET PO (08:36)
[2019-08-31] MEDS: methiMAzole 5 MG TAB PO (08:36)
[2019-08-31] MEDS: GABAPENTIN 100 MG CAPSULE PO ×2 (08:36→12:35)
[2019-08-31] MEDS: ASPIRIN 81 MG ENTERIC TABLET PO (08:37)
[2019-08-31] MEDS: busPIRone HCL 10 MG TABLET PO (08:37)
[2019-08-31] MEDS: ESCITALOPRAM OXALATE 10 MG TABLET PO (08:37)
[2019-08-31] MEDS: ATORVASTATIN 40 MG TABLET PO (08:37)
[2019-08-31] MEDS: allopurinoL 100 MG TABLET PO (08:37)
[2019-08-31] MEDS: LIDOCAINE 5% PATCH 2 PATCH TRANSDERM (08:38)
[2019-08-31] MEDS: FAMOTIDINE 20 MG TABLET PO (08:38)
--- NOTE | 2019-08-31 11:41 | WPDNEUROPN ---
Progress Note: A&P Assessment and Plan (1) Confusion: Code(s): R41.0 - Disorientation, unspecified Status: Acute (2) Low TSH level: Code(s): R79.89 - Other specified abnormal findings of blood chemistry Status: Acute (3) CAD (coronary artery disease): Code(s): I25.10 - Atherosclerotic heart disease of [place] coronary artery without angina pectoris Status: Chronic (4) Frequent falls: Code(s): R29.6 - Repeated falls Status: Acute (5) End stage renal disease: Code(s): N18.6 - End stage renal disease Status: Acute (6) Anemia: Code(s): D64.9 - Anemia, unspecified Status: Acute (7) Chest pain: Code(s): R07.9 - Chest pain, unspecified Status: Acute (8) Contusion of multiple sites: Code(s): T07.XXXA - Unspecified multiple injuries, initial encounter Status: Acute (9) Minor head injury: Code(s): S09.90XA - Unspecified injury of head, initial encounter Status: Acute (10) Acute hypotension: Code(s): I95.9 - Hypotension, unspecified Status: Resolved (11) DVT prophylaxis: Code(s): Z29.9 - Encounter for prophylactic measures, unspecified Status: Acute (12) Elevated WBC count: Code(s): D72.829 - Elevated white blood cell count, unspecified Status: Acute (13) Transient alteration of awareness: Code(s): R40.4 - Transient alteration of awareness Status: Acute (14) Troponin level elevated: Code(s): R79.89 - Other specified abnormal findings of blood chemistry Status: Acute (15) Nausea & vomiting: Qualifiers: Vomiting type: unspecified Vomiting Intractability: intractable Qualified Code(s): R11.2 - Nausea with vomiting, unspecified Code(s): R11.2 - Nausea with vomiting, unspecified Status: Acute (16) Non-ST elevation AL (NSTEMI): Code(s): I21.4 - Non-ST elevation (NSTEMI) myocardial infarction Status: Acute (17) Low back pain: Qualifiers: Chronicity: chronic Back pain laterality: bilateral Sciatica presence: without sciatica Qualified Code(s): M54.5 - Low back pain; G89.29 - Other chronic pain Code(s): M54.5 - Low back pain Status: Acute (18) Anemia: Qualifiers: Anemia type: due to chronic kidney disease Chronic kidney disease stage: on chronic dialysis Qualified Code(s): N18.6 - End stage renal disease; D63.1 - Anemia in chronic kidney disease; Z99.2 - Dependence on renal dialysis Code(s): D64.9 - Anemia, unspecified Status: Acute (19) COPD (chronic obstructive pulmonary disease): Qualifiers: COPD type: unspecified COPD Qualified Code(s): J44.9 - Chronic obstructive pulmonary disease, unspecified Code(s): J44.9 - Chronic obstructive pulmonary disease, unspecified Status: Acute (20) Hypertension: Qualifiers: Hypertension type: essential hypertension Qualified Code(s): I10 - Essential (primary) hypertension Code(s): I10 - Essential (primary) hypertension Status: Acute (21) Diabetes mellitus: Qualifiers: Diabetes mellitus type: type 2 Diabetes mellitus mcfp insulin use: without mcfp use Diabetes mellitus complication status: with kidney complications Diabetes mellitus complication detail: with chronic kidney disease Chronic kidney disease stage: on chronic dialysis Qualified Code(s): E11.22 - Type 2 diabetes mellitus with diabetic chronic kidney disease; N18.6 - End stage renal disease; Z99.2 - Dependence on renal dialysis Code(s): E11.9 - Type 2 diabetes mellitus without complications Status: Acute (22) Syncope: Qualifiers: Syncope type: unspecified Qualified Code(s): R55 - Syncope and collapse Code(s): R55 - Syncope and collapse Status: Acute (23) ESRD (end stage renal disease) on dialysis: Code(s): N18.6 - End stage renal disease;
--- NOTE | 2019-08-31 12:27 | PM.DS ---
DS: Diagnosis Admitting Diagnosis Admitting Diagnosis: Chest pain, unspecified Discharge Diagnosis (1) CAD (coronary artery disease): Code(s): I25.10 - Atherosclerotic heart disease of [place] coronary artery without angina pectoris Status: Chronic Assessment and Plan: History of stents, patient seen by addictions recovery specialist does not suspect acute coronary syndrome most likely musculoskeletal no further workup is required (2) Frequent falls: Code(s): R29.6 - Repeated falls Status: Resolved Assessment and Plan: Pt not participating in physical theraphy (3) End stage renal disease: Code(s): N18.6 - End stage renal disease Status: Chronic Assessment and Plan: Creat is 3.3 seen by drama teacher will have scheduled dialysis (4) Anemia: Code(s): D64.9 - Anemia, unspecified Status: Chronic Assessment and Plan: hb is 8.3, pt is a ESRD patient, anaemia of chronic disease (5) Chest pain: Code(s): R07.9 - Chest pain, unspecified Status: Acute Assessment and Plan: Intermittent squeezing chest pains, Complains of intermittent chest pain. Pt had rapid response yesterday yesterday evening for chest pain. Pt still complains of chest pain today, troponin from yesterday minimally elevated. Seen by cardiology cardiac chest pain appears unlikley appears more musculoskeletal or anxiety related -try lidoderm patch and tylenol for pain and xanax for anxiety. Nursing staff noticed the patient was jerking on one side, pt had a CT scan of the head was done which showed patient has hypodensity of the kari, suspicious for acute infarction, patient has been taking a baby aspirin and neurologist added one time dose of Aspirin 325mg and will continue baby aspirin, unfortunately patient still quite confused to participate in physical therapy will continue to encourage the patient patient will have a scheduled dialysis patient be seen by neurologist and further recommendation to follow, patient still is very confused and not cooperative On 08/28, her POA has decided to place the patient under hospice care, pt to be discharged to custodial with hospice care (6) Acute hypotension: Code(s): I95.9 - Hypotension, unspecified Status: Resolved Assessment and Plan: Continue to watch Bps (7) Troponin level elevated: Code(s): R79.89 - Other specified abnormal findings of blood chemistry Status: Acute Assessment and Plan: Cardiology notified pt has a history of cAD with stents seen by addictions recovery specialist does not suspect acute coronary syndrome most likely muscular. (8) Low TSH level: Code(s): R79.89 - Other specified abnormal findings of blood chemistry Status: Chronic Assessment and Plan: Patient with history of hyperthyroid patient is on methimazole however her TSH is low with free T4 and free T3 are normal DS: Summary Time Spent with Patient Time attestation: Total time spent providing and/or coordinating discharge services:40 minutes on day of dischrage Exam Const: General: no acute distress and uncomfortable HENMT: General nose exam: Normal nares present Mouth: Yes moist mucous membranes Eyes: General: appearance normal, both eyes and all related structures Sclera: sclerae normal Neck: Neck: supple Resp: Effort & Inspection: normal respiratory effort Auscultation: clear to auscultation bilaterally Cardio: Rate: regular rate Rhythm: regular rhythm GI: Auscultation: normal bowel sounds Skin: General skin exam: normal color and no rashes or lesions noted Neuro: Speech: normal speech Sensory Exam: normal sensation Extrem: General: normal to inspection Psych: Affect: Anxious affect present DS: Data Data Completed and Pending Labs on day of discharge: Labs from last 24 hours 08/31/19 08/31/19 05:04 05:04 WBC 8.1 RBC 2.96 L Hgb 9.9 L Hct 32.2 L MCV 108.8 H MCH 33.4 MCHC 3
[2019-08-31 14:00] VITALS: BP 143/83; PULSE 71; RESP 20; TEMP 36.1; O2SAT 100
--- NOTE | 2019-08-31 15:18 | PCPTNOTE ---
Held Therapy per Rn, Pt is going hospice.
== END 2019-08-31 15:47 | disposition hospice, inpatient (51) | DRG 314 ==
LOC: ANHED 13:59 → ANHICU 08-18 04:23 → ANH2MED 08-19 12:09 → ANHICU 09-01 07:49 → ANH2MED 09-01 07:49
PROVIDERS: Emergency Medicine Emergency Medical Services; Family Medicine; Internal Medicine; Internal Medicine Hematology & Oncology; Internal Medicine Nephrology; Physician Assistant; Specialist; Admitting Provider Internal Medicine; Emergency Provider Emergency Medicine; PCP Internal Medicine; Visit Provider Family Medicine
DX: I95.9 Hypotension, unspecified (principal); N18.6 End stage renal disease; I13.2 Hypertensive heart and chronic kidney disease with heart failure and with stage 5 chronic kidney disease, or end stage renal disease; I50.30 Unspecified diastolic (congestive) heart failure; E11.22 Type 2 diabetes mellitus with diabetic chronic kidney disease; J44.9 Chronic obstructive pulmonary disease, unspecified; I25.10 Atherosclerotic heart disease of native coronary artery without angina pectoris; Z99.2 Dependence on renal dialysis; T14.8XXA Other injury of unspecified body region, initial encounter; W19.XXXA Unspecified fall, initial encounter; R07.89 Other chest pain; D53.9 Nutritional anemia, unspecified; F41.9 Anxiety disorder, unspecified; S09.90XA Unspecified injury of head, initial encounter; D63.1 Anemia in chronic kidney disease; F03.90 Unspecified dementia, unspecified severity, without behavioral disturbance, psychotic disturbance, mood disturbance, and anxiety; S30.0XXA Contusion of lower back and pelvis, initial encounter
CPT/HCPCS: 36415; 36600; 51701; 70450; 70551; 71045; 71110; 71250; 72125; 74176; 80048; 80053; 80069; 80076; 81001; 82274; 82375; 82607; 82746; 82805; 83050; 83540; 83550; 83735; 83880; 83921; 84100; 84155; 84165; 84439; 84443; 84481; 84484; 85014; 85018; 85025; 85027; 85055; 85610; 85730; 86334; 86706; 86850; 86900; 86901; 87081; 87340; 93005; 94640; 96374; 96375; 97110; 97162; 97165; 97530; 97535; 99285; A9270; G0257; J0131; J2060; J2270; J2405; J3010; J7030; J7040; J7120; P9047; Q4081